=== PATIENT | female | born 1985 | race Two or more races ===

== ENCOUNTER → 2021-02-01 | Outpatient (REF) | payer MEDICARE, MEDICAID | LOC: M SFHCPLAZ 15:22 | DX: E11.40 Type 2 diabetes mellitus with diabetic neuropathy, unspecified (principal) ==

== ENCOUNTER → 2021-02-11 | Outpatient (REF) | payer MEDICARE, MEDICAID ==
[2021-02-11 10:59] LABS: BASO # 0.1 10^3/uL (0.0-0.2); BASO % 0.9 % (0.0-1.0); EOS # 0.2 10^3/uL (0.0-0.5); EOS % 1.5 % (0.0-3.0); HEMATOCRIT 37.6 % (36.0-47.0); HEMOGLOBIN 10.8 g/dl (12.0-15.5); LYMPH # 3.1 10^3/uL (1.5-5.0); LYMPH % 29.4 % (24.0-44.0); MEAN CORPUSCULAR HEMOGLOBIN 20.3 pg (27.0-33.0); MEAN CORPUSCULAR HGB CONC 28.7 g/dl (32.0-36.5); MEAN CORPUSCULAR VOLUME 70.8 fl (80.0-96.0); MONO # 0.6 10^3/uL (0.0-0.8); MONO % 5.2 % (2.0-8.0); NEUTROPHILS # 6.6 10^3/uL (1.5-8.5); NEUTROPHILS % 62.7 % (36.0-66.0); PLATELET COUNT, AUTOMATED 401 10^3/uL (150-450); RED BLOOD COUNT 5.31 10^6/uL (4.00-5.40); WHITE BLOOD COUNT 10.5 10^3/uL (4.0-10.0)
[2021-02-11 13:57] LABS: BLOOD UREA NITROGEN 10 MG/DL (7-18); CARBON DIOXIDE LEVEL 27 MEQ/L (21-32); CHLORIDE LEVEL 106 MEQ/L (98-107); CREATININE FOR GFR 0.84 MG/DL (0.55-1.30); GLOMERULAR FILTRATION RATE > 60.0 (>60); GLUCOSE, FASTING 189 MG/DL (70-100); POTASSIUM SERUM 4.3 MEQ/L (3.5-5.1); SODIUM LEVEL 140 MEQ/L (136-145)
[2021-02-11 13:58] LABS: ALBUMIN 3.7 GM/DL (3.2-5.2); ALT/SGPT 19 U/L (12-78); BILIRUBIN,TOTAL 0.3 MG/DL (0.2-1.0); CALCIUM LEVEL 9.4 MG/DL (8.5-10.1); CHOLESTEROL LEVEL 136 MG/DL (<200); CHOLESTEROL RISK RATIO 4.857 (<5); HDL CHOLESTEROL 28 MG/DL (>40); LDL CHOLESTEROL 89 MG/DL (<100); NON-HDL-C 108 MG/DL; TOTAL PROTEIN 7.2 GM/DL (6.4-8.2); TRIGLYCERIDES LEVEL 96 MG/DL (<150)
[2021-02-11 15:54] LABS: HEMOGLOBIN A1c 10.6 %
== END ==
LOC: M SFHCPLAZ 09:00
DX: E11.40 Type 2 diabetes mellitus with diabetic neuropathy, unspecified (principal); F33.1 Major depressive disorder, recurrent, moderate; F41.8 Other specified anxiety disorders

== ENCOUNTER → 2021-06-11 | Outpatient (CLI) | payer MEDICARE, MEDICAID ==
[2021-06-11 13:14] LABS: FERRITIN 8 NG/ML (8-252); IRON (FE) 40 UG/DL (50-170); PERCENT SATURATION 7.8 % (13.2-45.0); TOTAL IRON BINDING CAPACITY 511 UG/DL (250-450)
[2021-06-11 13:20] LABS: HEPATITIS B SURFACE ANTIBODY POSITIVE (POSITIVE)
[2021-06-11 14:00] LABS: HEP C VIRUS AB INDEX SOURCE PT 0.1 INDEX (0.0-0.8); HIV 1&2 SCREEN CENTAUR NEGATIVE (NEGATIVE)
== END ==
LOC: M PLALAB 11:09
PROVIDERS: ATTEND Student in an Organized Health Care Education/Training Program
DX: E11.40 Type 2 diabetes mellitus with diabetic neuropathy, unspecified (principal); D64.9 Anemia, unspecified

== ENCOUNTER → 2021-06-17 | Outpatient (CLI) | payer MEDICARE, MEDICAID ==
[~2021-06-17] MED LIST: ARIP1TAB6; FLUC100T; FLUO40CA; HUMA100I5; INSULANT; LEVE750T5; NORE5TAB; NYST10OI; OMEP-218
== END ==
LOC: M LABSMTC 09:28
PROVIDERS: ATTEND Anesthesiology
DX: Z01.818 Encounter for other preprocedural examination (principal); Z11.52 Encounter for screening for COVID-19

== ENCOUNTER → 2021-06-19 | Outpatient (CLI) | payer MEDICARE, MEDICAID ==
[2021-06-19 17:15] LABS: BASO # 0.1 10^3/uL (0.0-0.2); BASO % 0.6 % (0.0-1.0); EOS # 0.1 10^3/uL (0.0-0.5); EOS % 1.1 % (0.0-3.0); HEMATOCRIT 37.7 % (36.0-47.0); HEMOGLOBIN 11.9 g/dl (12.0-15.5); LYMPH # 2.8 10^3/uL (1.5-5.0); LYMPH % 31.9 % (24.0-44.0); MEAN CORPUSCULAR HEMOGLOBIN 24.6 pg (27.0-33.0); MEAN CORPUSCULAR HGB CONC 31.6 g/dl (32.0-36.5); MEAN CORPUSCULAR VOLUME 78.1 fl (80.0-96.0); MONO # 0.5 10^3/uL (0.0-0.8); MONO % 6.1 % (2.0-8.0); NEUTROPHILS # 5.2 10^3/uL (1.5-8.5); NEUTROPHILS % 59.8 % (36.0-66.0); PLATELET COUNT, AUTOMATED 328 10^3/uL (150-450); RED BLOOD COUNT 4.83 10^6/uL (4.00-5.40); WHITE BLOOD COUNT 8.7 10^3/uL (4.0-10.0)
[2021-06-19 17:52] LABS: ALBUMIN 2.9 GM/DL (3.2-5.2); ALT/SGPT 22 U/L (12-78); BILIRUBIN,TOTAL 0.2 MG/DL (0.2-1.0); BLOOD UREA NITROGEN 8 MG/DL (7-18); CALCIUM LEVEL 8.6 MG/DL (8.5-10.1); CARBON DIOXIDE LEVEL 26 MEQ/L (21-32); CHLORIDE LEVEL 109 MEQ/L (98-107); CREATININE FOR GFR 1.02 MG/DL (0.55-1.30); FERRITIN 7 NG/ML (8-252); FREE T4 1.19 NG/DL (0.76-1.46); GLOMERULAR FILTRATION RATE > 60.0 (>60); GLUCOSE, FASTING 255 MG/DL (70-100); HEPATITIS B SURFACE ANTIGEN NEGATIVE (NEGATIVE); NT-PRO BNP 44 PG/ML (<125); POTASSIUM SERUM 3.8 MEQ/L (3.5-5.1); SODIUM LEVEL 140 MEQ/L (136-145); THYROID STIMULATING HORMONE 0.396 uIU/ML (0.358-3.740); TOTAL PROTEIN 6.5 GM/DL (6.4-8.2); VITAMIN B12 LEVEL 433 PG/ML (247-911)
[2021-06-19 17:53] LABS: INR 0.98; PROTHROMBIN TIME 13.4 SECONDS (12.7-14.5)
[2021-06-19 17:54] LABS: PARTIAL THROMBOPLASTIN TIME 22.6 SECONDS (25.9-37.0)
== END ==
LOC: M PLALAB 15:28
PROVIDERS: ATTEND Family Medicine
DX: D50.0 Iron deficiency anemia secondary to blood loss (chronic) (principal); E07.9 Disorder of thyroid, unspecified

== ENCOUNTER → 2021-07-09 | Outpatient (CLI) | payer MEDICARE, MEDICAID ==
--- NOTE | 2021-07-09 11:49 | REP ---
INDICATION: PAIN IN RIGHT SHOULDER COMPARISON: None. TECHNIQUE: Three views right shoulder. FINDINGS: There is no evidence of acute fracture, dislocation, or intrinsic bone disease.The joint spaces are unremarkable. IMPRESSION: Negative right shoulder series. <Electronically signed by Stanley Kumar > 07/09/21 [id number]
== END ==
LOC: M PLAIMG 11:02
PROVIDERS: ATTEND Physician Assistant
DX: M25.511 Pain in right shoulder (principal)
CPT/HCPCS: 73030; G0463

== ENCOUNTER → 2021-07-15 | Outpatient (CLI) | payer MEDICARE, MEDICAID ==
[2021-07-15 15:51] LABS: APPEARANCE, URINE CLEAR (CLEAR); BILIRUBIN, URINE AUTO NEGATIVE (NEGATIVE); BLOOD, URINE BLOOD 2+ (NEGATIVE); COLOR, URINE STRAW (YELLOW); GLUCOSE, URINE (UA) AUTO 3+ mg/dL (NEGATIVE); KETONE, URINE AUTO NEGATIVE (NEGATIVE); LEUKOCYTE ESTERASE, URINE AUTO NEGATIVE (NEGATIVE); NITRITE, URINE AUTO NEGATIVE (NEGATIVE); PROTEIN, URINE AUTO NEGATIVE (NEGATIVE); SPECIFIC GRAVITY URINE AUTO 1.032 (1.002-1.035); UROBILINOGEN, URINE AUTO 0.2 mg/dL (0.0-2.0)
[2021-07-15 15:54] LABS: BACTERIA, URINE AUTO NEGATIVE (NEGATIVE); RBC, URINE AUTO 1 /HPF (0-3); SQUAMOUS EPITHELIAL CELL UR AU 1 /HPF (0-6); WBC, URINE AUTO 1 /HPF (0-3)
== END ==
LOC: M PLALAB 14:10
PROVIDERS: ATTEND Obstetrics & Gynecology
DX: R30.0 Dysuria (principal); F33.1 Major depressive disorder, recurrent, moderate; F41.0 Panic disorder [episodic paroxysmal anxiety]

== ENCOUNTER 2021-08-05 09:28 | Outpatient (RCR) | payer MEDICARE, MEDICAID | END 2021-08-25 | LOC: M PT 09:28 | PROVIDERS: ATTEND Orthopaedic Surgery Sports Medicine | DX: S46.011A Strain of muscle(s) and tendon(s) of the rotator cuff of right shoulder, initial encounter (principal); M75.41 Impingement syndrome of right shoulder ==

== ENCOUNTER 2021-09-09 10:31 | Emergency (ER) | payer MEDICARE, MEDICAID ==
[~2021-09-09] VITALS: Ht 157.5 cm; Wt 87.9 kg
--- OUTSIDE RECORDS SUMMARY | 2021-09-09 10:43 | CCD | Continuity of Care Document ---
Author Author Harsh GARCIA DO Organization Unknown Address [address] [place] [address], [facility] [place] [address] Phone [phone] Care Team Providers Care Image Assembler Name Role Phone Gwen Cuellar P.A.-C AUTM Problems Active Problems Provider Date Essential hypertension Sony Garcia DO Onset: 07/16/20 21 Social History Type Date Description Comments Sex Unknown ETOH Use Denies alcohol use Tobacco Use Start: Unknown Non Smoker admits to [employer] marijuana Recreational Drug Use Medical Marijuana Smoking Status Reviewed: 07/16/21 Non Smoker admits to [employer] marijuana Allergies and adverse reactions Active Allergies Criticality Reaction | Severity Comments Date Penicillin V Unable to assess criticality Hives 07/16/2021 Medications Active Medications SIG Qnty Indications Ordering Provide r Date Diclofenac Sodium 1% Gel Apply 2 GMS To Right Shoulder Every 6 Hours Kirill Vo, RKathyPVero Fluconazole 150mg Tablets Take 1 Tablet By Mouth Now. Repeat In 2 Days Hardy Taylor M.D. Lantus 100Unit/ML Solution Administer 80 Units Under The Skin AT Bedtime as Directed Unkn own Humalog Kwikpen 100U nit/ML Solution Pen-Inject Inject 10 Units Under The Skin With Nancy kfast And 10 Units With Lunch Then 14 Un Unknown Levetiracetam 750mg Tablets Take 1 Tablet By Mouth Every 12 Hours Unknown Freestyle Lancets Misc Use as Directed 3 Times Daily Unknown Medroxyprogesterone Acetate 10mg T ablets Take 1 Tablet By Mouth Twice Daily With Food For 10 Days Then Decrease To Once D Earl Velez Immunizations Description No Information Available Vital Signs Date Vital Result Comment 08/30/2021 10:42am Body Temperature 97.3 F 07/16/2021 8:57am Body Temperature 96.1 F Results Description No Information Available Procedures Date Code Description Status 08/30/2021 11530 Office/Outpatient Established Lo w MDM 20-29 Min Completed 07/16/2021 88921 Office/Outpatient New Low MDM 30 -44 Minutes Completed Medical Devices Description No Information Available Encounters Type Date Location Provider Dx Diagnosis Office Visit 08/30/2021 11:00a [facility] Poonam Garcia DO S46.011A Strain of musc/tend the rotator cuff of right shoulder, init M75.41 Impingement syndrome of righ t shoulder Office Visit 07/16/2021 9:00a [facility] Poonam Garcia DO S46.011A Strain of musc/tend the rotator cuff of right shoulder, init M75.41 Impingement syndrome of righ t shoulder Assessments Date Code Description Provider 08/30/2021 S46.011A Strain of muscle(s) and tendon(s) of the rotator cuff of right shoulder, initial encounter Sony Garcia DO 08/30/2021 M75.41 Impingement syndrome of [facility] [facility] Sony Garcia DO 07/16/2021 S46.011A Strain of muscle(s) and tendon(s) of the rotator cuff of right shoulder, initial encounter Sony Garcia DO 07/16/2021 M75.41 Impingement syndrome [facility] [place] [facility] Sony Garcia DO Plan of Treatment No Information Available Functional Status Description No Information Available Mental Status Description No Information Available Referrals Description No Information Available"
--- OUTSIDE RECORDS SUMMARY | 2021-09-09 10:43 | CCD | Continuity of Care Document ---
Author Author Harsh GARCIA DO Organization Unknown Address [address] [place] [address], [facility] [place] [address] Phone [phone] Care Team Providers Care Accountant Tax Name Role Phone Gwen Cuellar P.A.-C AUTM Problems Active Problems Provider Date Essential hypertension Sony Garcia DO Onset: 07/16/20 21 Social History Type Date Description Comments Sex Unknown ETOH Use Denies alcohol use Tobacco Use Start: Unknown Non Smoker admits to [facility] marijuana Recreational Drug Use Medical Marijuana Smoking Status Reviewed: 07/16/21 Non Smoker admits to [employer] marijuana Allergies and adverse reactions Active Allergies [...] Information Available Procedures Date Code Description Status 07/16/2021 76054 Office/Outpatient New Low [facility] 30 -44 Minutes Completed Medical Devices Description No Information Available Encounters Type Date Location Provider Dx Diagnosis Office Visit 07/16/2021 9:00a [facility] Poonam Garcia DO S46.011A Strain of musc/tend the rotator cuff of right shoulder, init M75.41 Impingement syndrome of righ t shoulder Assessments Date Code Description Provider 07/16/2021 S46.011A Strain of muscle(s) and tendon(s) of the rotator cuff of right shoulder, initial encounter Sony Garcia DO 07/16/2021 M75.41 Impingement syndrome of right sh oulder Sony Garcia DO Plan of Treatment No Information Available Functional Status Description No Information Available Mental Status Description No Information Available Referrals Description No Information Available"
--- OUTSIDE RECORDS SUMMARY | 2021-09-09 10:43 | CCD ---
Author Author [facility] Organization [facility] Address Unknown Phone Unavailable Care Team Providers Care Monitor And Storage Bin Tender Name Role Phone Gwen Cuellar Unavailable PROBLEMS Type Condition ICD9-CM Code [id number] Code Onset Dates Condition S tatus W/U Status Risk SNOMED Code Notes Problem Endometriosis N80.9 Active confirmed 041368 003 Problem Hyperlipidemia, unspecified hyperlipidemia type E7 8.5 Active confirmed 65639094 Problem Essential hypertension I10 Active confirmed 99343388 Problem Gastroesophageal reflux disease without esophagitis K21.9 Active confirmed 204477956 Problem Generalized anxiety disorder F41.1 Active confirme d 50436806 Problem Fibromyalgia M79.7 Active confirmed 3367125 05 Problem Panic disorder [episodic paroxysmal anxiety] F41.0 Active confirmed 155201923 Problem Major depressive disorder, recurrent, moderate F33 .1 Active confirmed 824482086 Problem Incontinence in female N39.3 Active confirmed 15403807 Problem Epilepsy seizure, generalized, 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 Active confirmed 26491066 Problem Recurrent candidiasis of vagina B37.3 Active confi rmed 796785243 Problem prison (current) use of insulin Z79.4 Activ e confirmed 541216994 Problem Gastroparesis K31.84 Active confirmed 785262 006 Problem Carpal tunnel syndrome on both sides G56.03 Act william confirmed 60111984496963214 Problem Other chronic pain G89.29 Active confirmed 8 0329990 Problem Dyslipidemia E78.5 Active confirmed 9791256 07 Problem Type 2 diabetes mellitus wit h diabetic neuropathy, without long-term current use of insulin E11.40 Active confirmed 6860295 6 Problem Menorrhagia with irregular cycle N92.1 Active conf irmed 161634519 Problem Iron deficiency anemia due to chronic blood loss D 50.0 Active confirmed 389374880 Problem Mixed hyperlipidemia E78.2 Active confirmed 784622686 Problem Type 2 diabetes mellitus without complications E11 .9 Active confirmed 873062997 ALLERGIES Allergen (clinical drug ingredient) Drug/Non Drug Allergy do cumented on EMR Reaction Allergy Type Onset Date Status oxycodone Oxycodone HCl([facility] Code:[address]-47) Hives Drug Tramaine rgy Active Penicillin (For Allergies Use Only) Hives Drug Allerg y Active ENCOUNTERS from 1985 to 2021-08-19 Encounter Location Date Provider Diagnosis [facility] [address] [facility] [phone] [place] [address] Jun, Gwen Cuellar Pain in right shoulder M25.5 11 and Other chronic pain G89.29 IMMUNIZATIONS No Information SOCIAL HISTORY Tobacco Use: Social History Observation Description Date Details (start date - stop date) Former Smoker Sex Assigned At : Social History Observation Description Sex Assigned At Unknown Education: Question Answer Notes Level of Education: High School Audit Question Answer Notes Total Score: 0 Interpretation: Alcohol Education Language: Question Answer Notes Languages spoken: Romanian Rastafarian: Question Answer Notes Rastafarian 33 None Drug and Alcohol Question Answer Notes Total Score: 0 Interpretation: No problems reported Tobacco Use: Question Answer Notes Are you a: former smoker How long has it been since you last smoked? > 10 years REASON FOR REFERRAL from 1985 to 2021-08-19 Reason chronic right shoulder pain Diagnosis 1 Pain in right shoulder (M25. 511) Referral Organization [facility] Referring Provider First Name Gwen Referring Provider Last Name Alisa Referring Provider Specialty Family Medicine Referred Provider Charlene Umanzor Logan Referred Provider Specialty Orthopedic Surgery Referral Priority Routine Referral Appointment Date 2021-07-16 General Notes Meg Pedersen 07/10/2021 10:15 :23 AM > pt is aware VITAL SIGNS Weight 199 lbs Jun, Weight-kg 90.27 kg Jun, Height 63 in 14 Jun, 2021 BMI 35.25 kg/m2 Jun, Heart Rate 109 /min Jun, Respiratory Rate 18 /min Jun, Temperature 97.7 degrees Fahrenheit Jun, Oximetry 100 Jun, Blood pressure systolic 140 mm Hg Jun, Blood pressure diastolic 94 mm Hg Jun, MEDICATIONS Medication SIG (Take, Route, Frequency, Duration) Notes Start Da te End Date Status Nystatin 566276 UNIT/GM apply to affected vaginal ar ea Externally Twice a day for 10 days Jan, Not-Taking levETIRAcetam 750 MG 1 tablet Orally every 12 hrs Active Mupirocin 2 % apply thin layer to rash on abdomen Externally Three times a day for 7 day(s) Dec, Not-Taking hydroCHLOROthiazide 12.5 MG 1 capsule in the morning Orally Once a da y Active Abilify 5 MG 1 tablet Orally Once a day Active Fluconazole 150 MG 1 tablet Orally now and repeat in 2D for 3 da ys May, Not-Taking Provera 10 MG 1 tablet with food Orally Once a day for 30 day(s) Jul, Active Diflucan 100 MG 1 tablet Orally Once for 1 day(s) Mar, Unknown FreeStyle Kaleigh 14 Day Sensor - as directed Jun, Not-Taking HumaLOG KwikPen 100 UNIT/ML as directed Subcutaneous T hree times daily-10 units with breakfast and lunch & 14 units with dinner Active Omeprazole 20 MG 1 capsule 30 minutes before morning meal Orally On a day Active Voltaren 1 % apply 2 grams to right shoulder Transdermal Q6 h ours for 10 days Jun, Active Ferrous Gluconate 324 (38 Fe) MG 1 tablet with water o r juice between meals Orally Once a day for 30 day(s) Unknown Lantus SoloStar 100 UNIT/ML as directed Subcutaneous Daily 80 un its Apr, Active FreeStyle Kaleigh 14 Day [place] - as directed Jun, Not-Taking PROzac 40 MG 1 capsule Orally Once a day Active Losartan Potassium 100 MG 1 tablet Orally Once a day Active Norethindrone-Eth Estradiol 0.5-35 MG-MCG 1 tablet Orally Once a day Active Valtrex 1 GM 1 tablet Orally TID for 7 day(s) Dec, Not-Taking metFORMIN HCl 1000 MG as directed Orally Twice a day Active Atorvastatin Calcium 20 MG 1 tablet Orally Once a day Active FreeStyle Lancets - as directed Acti ve Ondansetron 4 MG 1 tablet on the tongue and a llow to dissolve Orally Once a day for 30 day(s) Apr, Active Blood Glucose Test - as directed In Vitro Thrice a day for 30 da ys February, Active lamoTRIgine 200 MG 1 tablet Orally Once a day Active PROCEDURES No Information RESULTS No Results REASON FOR VISIT shoulder pain x 3 months MEDICAL (GENERAL) HISTORY Type Description Date Medical History hypertension well controlled with medica tion Medical History insulin-dependent diabetes mellitus last hemoglobin A1c 8.9 Medical History hyperlipidemia Medical History epilepsy on medication Medical History arthritis Medical History endometriosis Medical History Fibromyalgia Surgical History 4 c-sections Hospitalization History above surgeries Hospitalization History childbirth Goals Section No Information Health Concerns No Information MEDICAL EQUIPMENT No Information MENTAL STATUS No Information FUNCTIONAL STATUS No Information ASSESSMENTS Encounter Date Diagnosis Assessment Notes Treatment Notes Treatm ent Clinical Notes Jun, Pain in right shoulder (ICD-10 - M25.511) Will obtain xrays Start Voltaren gel 1% D/C Celebrex Will refer to orthopedics Pt agrees with plan Jun, Other chronic pain (ICD-10 - G89.29) Jun, Other Total time zeynep ng for the patient on the day of the encounter was 20 min PLAN OF TREATMENT Medication Medication Name Sig Start Date Stop Date Provera 10 MG 1 tablet with food Orally Once a day for 30 day( s) Jul, Treatment Notes Assessment Notes Clinical Notes Pain in right shoulder Will obtain xrays Start Voltaren gel 1%D/C CelebrexWill refer to orthopedicsPt agrees with plan Treatment Notes Test Name Order Date PLZ SHOULDER COMPLETE 2021-07-09 Referrals Referral Date Details 2021-07-16 2021-07-16, chronic right sh oulder pain, [facility] Next Appt Details Provider Name:Gricel Tineo, 2021-08-23 0 8:00:00 AM, [address] [place] [address], , [place], [address], Provider Name:Tano Serra, 2021-08-23 10:0 0:00 AM, [address] [place] [address], , [place], [address] Provider Name:Alva Mock, 2 021-11-17 09:30:00 AM, [address] [facility], , [place], [address], Insurance Providers Payer Name Payer Address Payer Phone Insured Name Patient Relati onship to Insured Coverage Start Date Coverage End Date MEDICARE Part A and B [address] [facility] [id number] [phone] ERLIN ROJAS MEDICAID [employer] [address] [facility] [address] ERLIN ROJAS self
--- OUTSIDE RECORDS SUMMARY | 2021-09-09 10:43 | CCD ---
Author Author [facility] Organization [facility] Address Unknown Phone Unavailable Care Team Providers Care Funeral Home Director Name Role Phone Tano Serra Unavailable PROBLEMS Type Condition ICD9-CM Code [id number] Code Onset Dates Condition S tatus W/U Status Risk SNOMED Code Notes Problem Endometriosis N80.9 Active confirmed 236646 003 Problem Hyperlipidemia, unspecified hyperlipidemia type E7 8.5 Active confirmed 13714572 Problem Essential hypertension I10 Active confirmed 04137224 Problem Gastroesophageal reflux disease without esophagitis K21.9 Active confirmed 577621511 Problem Generalized anxiety disorder F41.1 Active confirme d 99223958 Problem Fibromyalgia M79.7 Active confirmed 2033702 05 Problem Panic disorder [episodic paroxysmal anxiety] F41.0 Active confirmed 369420463 Problem Major depressive disorder, recurrent, moderate F33 .1 Active confirmed 253455629 Problem Incontinence in female N39.3 Active confirmed 05989404 Problem Epilepsy seizure, generalized, 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 Active confirmed 51538773 Problem Recurrent candidiasis of vagina B37.3 Active confi rmed 886914020 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.4 Activ e confirmed 613669622 Problem Gastroparesis K31.84 Active confirmed 140847 006 Problem Carpal tunnel syndrome on both sides G56.03 Act william confirmed 54512940905551209 Problem Other chronic pain G89.29 Active confirmed 8 7077711 Problem Dyslipidemia E78.5 Active confirmed 3011640 07 Problem Type 2 diabetes mellitus wit h diabetic neuropathy, without long-term current use of insulin E11.40 Active confirmed 5244543 6 Problem Menorrhagia with irregular cycle N92.1 Active conf irmed 333778258 Problem Iron deficiency anemia due to chronic blood loss D 50.0 Active confirmed 984996316 Problem Mixed hyperlipidemia E78.2 Active confirmed 763122051 Problem Type 2 diabetes mellitus without complications E11 .9 Active confirmed 696476797 ALLERGIES Allergen (clinical drug ingredient) Drug/Non Drug Allergy do cumented on EMR Reaction Allergy Type Onset Date Status oxycodone Oxycodone HCl([facility] Code:[address]-74) Hives Drug Tramaine rgy Active Penicillin (For Allergies Use Only) Hives Drug Allerg y Active ENCOUNTERS from 1985 to 2021-09-06 Encounter Location Date Provider Diagnosis [facility] [address] [facility] [phone] [place] [address] Aug, Tano Serra Major depressive disorder, r ecurrent, moderate F33.1 ; Generalized anxiety disorder F41.1 and Panic disorder [episodic paroxysmal anxiety] F41.0 IMMUNIZATIONS No Information SOCIAL HISTORY Tobacco Use: Social History Observation Description Date Details (start date - stop date) Former Smoker Sex Assigned At : Social History Observation Description Sex Assigned At Unknown Education: Question Answer Notes Level of Education: High School Audit Question Answer Notes Total Score: 0 Interpretation: Alcohol Education Language: Question Answer Notes Languages spoken: South Sudanese Caodaism: Question Answer Notes Caodaism 33 None Drug and Alcohol Question Answer Notes Total Score: 0 Interpretation: No problems reported Tobacco Use: Question Answer Notes Are you a: former smoker How long has it been since you last smoked? > 10 years REASON FOR REFERRAL No Information VITAL SIGNS No information MEDICATIONS Medication SIG (Take, Route, Frequency, Duration) Notes Start Da te End Date Status hydroCHLOROthiazide 12.5 MG 1 capsule in the morning Orally Once a da y Active Valtrex 1 GM 1 tablet Orally TID for 7 day(s) Dec, Not-Taking Losartan Potassium 100 MG 1 tablet Orally Once a day Active FreeStyle Kaleigh 14 Day [place] - as directed Jun, Not-Taking PROzac 40 MG 1 capsule Orally Once a day Active FreeStyle Kaleigh 14 Day Sensor - as directed Jun, Not-Taking Abilify 5 MG 1 tablet Orally Once a day Active Provera 10 MG 1 tablet with food Orally Once a day for 30 day(s) Jul, Active HumaLOG KwikPen 100 UNIT/ML as directed Subcutaneous T hree times daily-10 units with breakfast and lunch & 14 units with dinner Active Fluconazole 150 MG 1 tablet Orally now and repeat in 2D for 3 da ys May, Not-Taking Nystatin 749010 UNIT/GM apply to affected vaginal ar ea Externally Twice a day for 10 days Jan, Not-Taking FreeStyle Lancets - as directed Acti ve Atorvastatin Calcium 20 MG 1 tablet Orally Once a day Active Lantus SoloStar 100 UNIT/ML as directed Subcutaneous Daily 80 un its Apr, Active medroxyPROGESTERone Acetate 10 MG 1 tablet with food O rally twice a day for 10 days, than once a day for 30 day(s) Jul, Active Ondansetron 4 MG 1 tablet on the tongue and a llow to dissolve Orally Once a day for 30 day(s) Apr, Active Voltaren 1 % apply 2 grams to right shoulder Transdermal Q6 h ours for 10 days Jun, Active metFORMIN HCl 1000 MG as directed Orally Twice a day Active levETIRAcetam 750 MG 1 tablet Orally every 12 hrs Active Mupirocin 2 % apply thin layer to rash on abdomen Externally Three times a day for 7 day(s) Dec, Not-Taking lamoTRIgine 200 MG 1 tablet Orally Once a day Active Blood Glucose Test - as directed In Vitro Thrice a day for 30 da ys February, Active Diflucan 100 MG 1 tablet Orally Once for 1 day(s) Mar, Not-Taking Ferrous Gluconate 324 (38 Fe) MG 1 tablet with water o r juice between meals Orally Once a day for 30 day(s) Not-Taking Norethindrone-Eth Estradiol 0.5-35 MG-MCG 1 tablet Orally Once a day Active Omeprazole 20 MG 1 capsule 30 minutes before morning meal Orally On ce a day Active PROCEDURES No Information RESULTS No Results REASON FOR VISIT TS FOLLOW UP MEDICAL (GENERAL) HISTORY Type Description Date Medical [...] Notes Treatment Notes Treatm ent Clinical Notes Aug, Major depressive disorder, recurrent, moderate ( ICD-10 - F33.1) Aug, Generalized anxiety disorder (ICD-10 - F41.1) Utilized Mindfulness Based Therapy tapping grounding technique for decreasing her symptoms of anxiety. Erlin arrived on time for her appoint and actively engaged throughout her session. Erlin was responsive to the Mindfulness Based Therapy tapping grounding intervention for decreasing her symptoms of anxiety. Erlin reports that she has been anxious about upcoming Holidays. Erlin agreed to utilize the technique that we reviewed and will return for psychotherapy on 09/26/2021. Erlin is aware to call for a sooner appointment if needed and to utilize the ED for MH emergencies. Aug, Panic disorder [episodic paroxysmal anxiety] (IC D-10 - F41.0) PLAN OF TREATMENT Medication Medication Name Sig Start Date Stop Date medroxyPROGESTERone Acetate 10 MG 1 tablet with food O rally twice a day for 10 days, than once a day for 30 day(s) Jul, Treatment Notes Assessment Notes Clinical Notes Generalized anxiety disorder Utilized Mi ndfulness Based Therapy tapping grounding technique for decreasing her symptoms of anxiety. Erlin arrived on time for her appoint and actively engaged throughout her session. Erlin was r esponsive to the Mindfulness Based Therapy tapping grounding intervention for decreasing her symptoms of anxiety. Erlin reports that she has been anxious about upcoming Holidays. Erlin agreed to utilize the technique that we reviewed and will return for psychotherapy on 09/26/2021. Erlin is aware to call for a sooner appointment if needed and to utilize the ED for MH emergencies. Next Appt Details Provider Name:Alva Mock, 2 09:30:00 AM, [address] [facility], , [place], [address], Provider Name:Tano Serra, 2021-09-26 10:0 0:00 AM, [address] [facility], , [place], [address] Insurance Providers Payer Name Payer Address Payer Phone Insured Name Patient Relati onship to Insured Coverage Start Date Coverage End Date MEDICARE Part A and [address] [facility] [id number] [phone] ERLIN ROJAS self MEDICAID [employer] [address] [place] [id number] ERLIN ROJAS self
--- OUTSIDE RECORDS SUMMARY | 2021-09-09 10:43 | CCD ---
Author Author [facility] Organization [facility] Address Unknown Phone Unavailable Care Team Providers Care Group Exercise Instructor Name Role Phone Tano Serra Unavailable PROBLEMS Type Condition ICD9-CM Code [id number] Code Onset Dates Condition S tatus W/U Status Risk SNOMED Code Notes Problem Endometriosis N80.9 Active confirmed 422213 003 Problem Hyperlipidemia, unspecified hyperlipidemia type E7 8.5 Active confirmed 09730221 Problem Essential hypertension I10 Active confirmed 34679617 Problem Gastroesophageal reflux disease without esophagitis K21.9 Active confirmed 349910645 Problem Generalized anxiety disorder F41.1 Active confirme d 69104842 Problem Fibromyalgia M79.7 Active confirmed 8967181 05 Problem Panic disorder [episodic paroxysmal anxiety] F41.0 Active confirmed 563850695 Problem Major depressive disorder, recurrent, moderate F33 .1 Active confirmed 957115656 Problem Incontinence in female N39.3 Active confirmed 39599143 Problem Epilepsy seizure, generalized, 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 Active confirmed 54628245 Problem Recurrent candidiasis of vagina B37.3 Active confi rmed 557473638 Problem 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.4 Activ e confirmed 949421277 Problem Gastroparesis K31.84 Active confirmed 127855 006 Problem Carpal tunnel syndrome on both sides G56.03 Act william confirmed [id number] Problem Other chronic pain G89.29 Active confirmed 8 2753552 Problem Dyslipidemia E78.5 Active confirmed 0401640 07 Problem Type 2 diabetes mellitus wit h diabetic neuropathy, without long-term current use of insulin E11.40 Active confirmed 4893071 6 Problem Menorrhagia with irregular cycle N92.1 Active conf irmed 415069793 Problem Iron deficiency anemia due to chronic blood loss D 50.0 Active confirmed 868355249 Problem Mixed hyperlipidemia E78.2 Active confirmed 763618787 Problem Type 2 diabetes mellitus without complications E11 .9 Active confirmed 847647846 ALLERGIES Allergen (clinical drug ingredient) Drug/Non Drug Allergy do cumented on EMR Reaction Allergy Type Onset Date Status oxycodone Oxycodone HCl([facility] Code:[address]-89) Hives Drug Tramaine rgy Active Penicillin (For Allergies Use Only) Hives Drug Allerg y Active ENCOUNTERS from 1985 to 2021-09-03 Encounter Location Date Provider Diagnosis [facility] [address] [facility] [phone] [place] [address] Jul, Tano Serra Major depressive disorder, r ecurrent, [...] Education Language: Question Answer Notes Languages spoken: Azerbaijani Church: Question Answer Notes Church 33 None Drug and Alcohol Question Answer [...] a day Active FreeStyle Kaleigh 14 Day [place] - as directed Jun, Not-Taking PROzac 40 [...] for 3 da ys May, Not-Taking Nystatin 855795 UNIT/GM apply to affected vaginal ar ea [...] Notes Treatment Notes Treatm ent Clinical Notes Jul, Major depressive disorder, recurrent, moderate ( ICD-10 - F33.1) Jul, Generalized anxiety disorder (ICD-10 - F41.1) Utilized Mindfulness Based Therapy technique for decreasing her symptoms of anxiety. Erlin arrived on time for her appoint and actively engaged throughout her session. Erlin was responsive to the Mindfulness Based Therapy intervention for decreasing her symptoms of anxiety. Erlin reports feeling anxiety about faminy issues. Erlin agreed to utilize the technique that we reviewed and will return for psychotherapy on 09/05/2021. Erlin is aware to call for a sooner appointment if needed and to utilize the ED for MH emergencies. Jul, Panic disorder [episodic paroxysmal anxiety] (IC D-10 - F41.0) PLAN OF TREATMENT Medication Medication Name Sig Start Date Stop Date medroxyPROGESTERone Acetate 10 MG 1 tablet with food O rally twice a day for 10 days, than once a day for 30 day(s) Jul, Treatment Notes Assessment Notes Clinical Notes Generalized anxiety disorder Utilized Mi ndfulness Based Therapy technique for decreasing her symptoms of anxiety. Erlin arrived on time for her appoint and actively engaged throughout her session. Erlin was responsive to the Mind fulness Based Therapy intervention for decreasing her symptoms of anxiety. Erlin reports feeling anxiety about faminy issues. Erlin agreed to utilize the technique that we reviewed and will return for psychotherapy on 09/05/2021. Erlin is aware to call for a sooner appointment if needed and to utilize the ED for MH emergencies. Next Appt Details Provider Name:Tano Serra, 2021-09-05 09:0 0:00 AM, [address] [facility], , [place], [address] Provider Name:Alva Mock, 2 09:30:00 AM, [address] [facility], , [place], [address], Insurance Providers Payer Name Payer Address Payer Phone Insured Name Patient Relati onship to Insured Coverage Start Date Coverage End Date MEDICARE Part A and B [address] [facility] [id number] [phone] [place] Joiner A self MEDICAID [employer] [address] [facility] [id number] ERLIN ROJAS self
--- OUTSIDE RECORDS SUMMARY | 2021-09-09 10:44 | CCD ---
Author Author [facility] Organization [facility] Address Unknown Phone Unavailable Care Team Providers Care Production Line Name Role Phone Wil Tellez Unavailable PROBLEMS Type Condition ICD9-CM Code [id number] Code Onset Dates Condition S tatus W/U Status Risk SNOMED Code Notes Problem Gastroesophageal reflux disease without esophagitis K21.9 Active confirmed 551831093 Problem Endometriosis N80.9 Active confirmed 182091 003 Problem Fibromyalgia M79.7 Active confirmed 0011944 05 Problem Essential hypertension I10 Active confirmed 00532490 Problem Type 2 diabetes mellitus wit h diabetic neuropathy, without long-term current use of insulin E11.40 Active confirmed 6958097 6 Problem Carpal tunnel syndrome on both sides G56.03 Act william confirmed 91010844496846055 Problem Generalized anxiety disorder F41.1 Active confirme d 54787566 Problem Major depressive disorder, recurrent, moderate F33 .1 Active confirmed 282381312 Problem Gastroparesis K31.84 Active confirmed 531949 006 Problem Iron deficiency anemia due to chronic blood loss D 50.0 Active confirmed 790894777 Problem Panic disorder [episodic paroxysmal anxiety] F41.0 Active confirmed 859636274 Problem Mixed hyperlipidemia E78.2 Active confirmed 306847054 Problem Hyperlipidemia, unspecified hyperlipidemia type E7 8.5 Active confirmed 45866533 Problem Dyslipidemia E78.5 Active confirmed 5706070 07 Problem Epilepsy seizure, generalized, 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 Active confirmed 81113209 Problem Recurrent candidiasis of vagina B37.3 Active confi rmed 517777498 Problem Menorrhagia with irregular cycle N92.1 Active conf irmed 159820203 ALLERGIES Allergen (clinical drug ingredient) Drug/Non Drug Allergy do cumented on EMR Reaction Allergy Type Onset Date Status seasonal Unknown Non Drug Allergy Active oxycodone Oxycodone HCl([facility] Code:[address]-67) Hives Drug Tramaine rgy Active Penicillin (For Allergies Use Only) Hives Drug Allerg y Active ENCOUNTERS from 1985 to 2021-06-26 Encounter Location Date Provider Diagnosis [place] [address] [facility] [phone] [place] [address] [facility] IMMUNIZATIONS No Information SOCIAL HISTORY Tobacco Use: Social History Observation Description Date Details (start date - stop date) Former Smoker Sex Assigned At : Social History Observation Description Sex Assigned At Unknown Education: Question Answer Notes Level of Education: High School Audit Question Answer Notes Total Score: 0 Interpretation: Alcohol Education Language: Question Answer Notes Languages spoken: Turkish Yazidi: Question Answer Notes Yazidi 33 None Drug and Alcohol Question Answer Notes Total Score: 0 Interpretation: No problems reported Tobacco Use: Question Answer Notes Are you a: former smoker How long has it been since you last smoked? > 10 years REASON FOR REFERRAL No Information VITAL SIGNS No information MEDICATIONS Medication SIG (Take, Route, Frequency, Duration) Notes Start Da te End Date Status Mupirocin 2 % apply thin layer to rash on abdomen Externally Three times a day for 7 day(s) Dec, Active FreeStyle Lancets - as directed Acti ve Valtrex 1 GM 1 tablet Orally TID for 7 day(s) Dec, Active Atorvastatin Calcium 20 MG 1 tablet Orally Once a day Active metFORMIN HCl 1000 MG as directed Orally Twice a day Active Celecoxib 100 MG 1 capsule with food Orally Twice a day Active Lantus SoloStar 100 UNIT/ML as directed Subcutaneous Daily 80 un its Apr, Active Abilify 5 MG 1 tablet Orally Once a day Active Blood Glucose Test - as directed In Vitro Thrice a day for 30 da ys February, Active PROzac 40 MG 1 capsule Orally Once a day Active levETIRAcetam 750 MG 1 tablet Orally every 12 hrs Active Fluconazole 150 MG 1 tablet Orally now and repeat in 2D for 3 da ys May, Active Omeprazole 20 MG 1 capsule 30 minutes before morning meal Orally On ce a day Active hydroCHLOROthiazide 12.5 MG 1 capsule in the morning Orally Once a da y Active Norethindrone-Eth Estradiol 0.5-35 MG-MCG 1 tablet Orally Once a day Active lamoTRIgine 200 MG 1 tablet Orally Once a day Active Nystatin 356397 UNIT/GM apply to affected vaginal ar ea Externally Twice a day for 10 days Jan, Active Ferrous Gluconate 324 (38 Fe) MG 1 tablet with water o r juice between meals Orally Once a day for 30 day(s) Unknown Diflucan 100 MG 1 tablet Orally Once for 1 day(s) Mar, Unknown Losartan Potassium 100 MG 1 tablet Orally Once a day Active Ondansetron 4 MG 1 tablet on the tongue and a llow to dissolve Orally Once a day for 30 day(s) Apr, Active HumaLOG KwikPen 100 UNIT/ML as directed Subcutaneous 1 0 units, 10 units, 14 units at breakfast lunch and dinner respectively Active PROCEDURES No Information RESULTS No Results REASON FOR VISIT DME MEDICAL (GENERAL) HISTORY Type Description Date Medical [...] No Information FUNCTIONAL STATUS No Information ASSESSMENTS No Information PLAN OF TREATMENT Medication Medication Name Sig Start Date Stop Date PROzac 40 MG 1 capsule Orally Once a day Losartan Potassium 100 MG 1 tablet Orally Once a day Celecoxib 100 MG 1 capsule with food Orally Twice a day Abilify 5 MG 1 tablet Orally Once a day hydroCHLOROthiazide 12.5 MG 1 capsule in the morning Orally Once a day levETIRAcetam 750 MG 1 tablet Orally every 12 hrs lamoTRIgine 200 MG 1 tablet Orally Once a day Omeprazole 20 MG 1 capsule 30 minutes before morning meal Orally Once a day Fluconazole 150 MG 1 tablet Orally now and repeat in 2D for 3 da ys May, Atorvastatin Calcium 20 MG 1 tablet Orally Once a day HumaLOG KwikPen 100 UNIT/ML as directed Subcutaneous 1 0 units, 10 units, 14 units at breakfast lunch and dinner respectively Lantus SoloStar 100 UNIT/ML as directed Subcutaneous Daily 8 0 units Apr, metFORMIN HCl 1000 MG as directed Orally Twice a day Norethindrone-Eth Estradiol 0.5-35 MG-MCG 1 tablet Orally Once a day Next Appt Details Provider Name:Ant Gauthier, 2021-06-26 0 9:30:00 AM, [address] [place] [address], , [place], [address], Provider Name:Tano Serra, 2021-07-02 01:0 0:00 PM, [address] [place] [address], , [place], [address] Provider Name:De La Torre Rosalinda, 2021-07-16 02: 00:00 PM, [address] [place] [address], , [place], [address], Provider Name:Gricel Tineo, 2021-08-02 0 8:20:00 AM, [address] [place] [address], , [place], [address], Insurance Providers Payer Name Payer Address Payer Phone Insured Name Patient Relati onship to Insured Coverage Start Date Coverage End Date MEDICARE Part A and B [address] [facility] [id number] [phone] ERLIN ROJAS MEDICAID [employer] [address] [facility] [address] ERLIN ROJAS self
--- OUTSIDE RECORDS SUMMARY | 2021-09-09 10:44 | CCD ---
Author Author [facility] Organization [facility] Address Unknown Phone Unavailable Care Team Providers Care Body Former Name Role Phone Ant Gauthier Unavailable PROBLEMS Type Condition ICD9-CM Code [id number] Code Onset Dates Condition S tatus W/U Status Risk SNOMED Code Notes Problem Type 2 diabetes mellitus wit h diabetic neuropathy, without long-term current use of insulin E11.40 Active confirmed 8256225 6 Problem Carpal tunnel syndrome on both sides G56.03 Act william confirmed [id number] Problem Endometriosis N80.9 Active confirmed 928883 003 Problem Hyperlipidemia, unspecified hyperlipidemia type E7 8.5 Active confirmed 64768528 Problem Essential hypertension I10 Active confirmed 74376659 Problem Gastroesophageal reflux disease without esophagitis K21.9 Active confirmed 826446958 Problem Panic disorder [episodic paroxysmal anxiety] F41.0 Active confirmed 638596562 Problem Fibromyalgia M79.7 Active confirmed 1323099 05 Problem Gastroparesis K31.84 Active confirmed 776547 006 Problem Dyslipidemia E78.5 Active confirmed 7938468 07 Problem Epilepsy seizure, generalized, 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 Active confirmed 48093511 Problem [facility] (current) use of insulin Z79.4 Activ e confirmed 662563031 Problem Major depressive disorder, recurrent, moderate F33 .1 Active confirmed 372572189 Problem Type 2 diabetes mellitus without complications E11 .9 Active confirmed 693770954 Problem Generalized anxiety disorder F41.1 Active confirme d 13236123 Problem Recurrent candidiasis of vagina B37.3 Active confi rmed 327884665 Problem Menorrhagia with irregular cycle N92.1 Active conf irmed 123393266 Problem Iron deficiency anemia due to chronic blood loss D 50.0 Active confirmed 112693309 Problem Mixed hyperlipidemia E78.2 Active confirmed 305097448 ALLERGIES Allergen (clinical drug ingredient) Drug/Non Drug Allergy do cumented on EMR Reaction Allergy Type Onset Date Status seasonal Unknown Non Drug Allergy Active oxycodone Oxycodone HCl([facility] Code:[address]-97) Hives Drug Tramaine rgy Active Penicillin (For Allergies Use Only) Hives Drug Allerg y Active ENCOUNTERS from 1985 to 2021-06-26 Encounter Location Date Provider Diagnosis [facility] Resident [address] [facility] [address] [phone] [place] [address] Jun, Ant Gauthier Type 2 diabetes rosa itus without complications E11.9 and [facility] (current) use of insulin Z79.4 IMMUNIZATIONS No Information SOCIAL HISTORY Tobacco Use: Social History Observation Description Date Details (start date - stop date) Former Smoker Sex Assigned At : Social History Observation Description Sex Assigned At Unknown Education: Question Answer Notes Level of Education: High School Audit Question Answer Notes Total Score: 0 Interpretation: Alcohol Education Language: Question Answer Notes Languages spoken: Greenlandic Baptist: Question Answer Notes Baptist 33 None Drug and Alcohol Question Answer Notes Total Score: 0 Interpretation: No problems reported Tobacco Use: Question Answer Notes Are you a: former smoker How long has it been since you last smoked? > 10 years REASON FOR REFERRAL No Information VITAL SIGNS Weight 197.6 lbs Jun, Height 63 in Jun, BMI 35.00 kg/m2 Jun, Heart Rate 96 /min Jun, Respiratory Rate 18 /min Jun, Temperature 98.2 degrees Fahrenheit Jun, Oximetry 97% Jun, Blood pressure systolic 132 mm Hg Jun, Blood pressure diastolic 86 mm Hg Jun, MEDICATIONS Medication SIG (Take, Route, Frequency, Duration) Notes Start Da te End Date Status Celecoxib 100 MG 1 capsule with food Orally Twice a day Active Ferrous Gluconate 324 (38 Fe) MG 1 tablet with water o r juice between meals Orally Once a day for 30 day(s) Unknown metFORMIN HCl 1000 MG as directed Orally Twice a day Active Valtrex 1 GM 1 tablet Orally TID for 7 day(s) Dec, Not-Taking Losartan Potassium 100 MG 1 tablet Orally Once a day Active Abilify 5 MG 1 tablet Orally Once a day Active Lantus SoloStar 100 UNIT/ML as directed Subcutaneous Daily 80 un its Apr, Active Omeprazole 20 MG 1 capsule 30 minutes before morning meal Orally On ce a day Active Atorvastatin Calcium 20 MG 1 tablet Orally Once a day Active Norethindrone-Eth Estradiol 0.5-35 MG-MCG 1 tablet Orally Once a day Active levETIRAcetam 750 MG 1 tablet Orally every 12 hrs Active lamoTRIgine 200 MG 1 tablet Orally Once a day Active Diflucan 100 MG 1 tablet Orally Once for 1 day(s) Mar, Unknown Ondansetron 4 MG 1 tablet on the tongue and a llow to dissolve Orally Once a day for 30 day(s) Apr, Active Fluconazole 150 MG 1 tablet Orally now and repeat in 2D for 3 da ys May, Not-Taking HumaLOG KwikPen 100 UNIT/ML as directed Subcutaneous T hree times daily-10 units with breakfast and lunch & 14 units with dinner Active PROzac 40 MG 1 capsule Orally Once a day Active hydroCHLOROthiazide 12.5 MG 1 capsule in the morning Orally Once a da y Active FreeStyle Lancets - as directed Acti ve Nystatin 289967 UNIT/GM apply to affected vaginal ar ea Externally Twice a day for 10 days Jan, Not-Taking Mupirocin 2 % apply thin layer to rash on abdomen Externally Three times a day for 7 day(s) Dec, Not-Taking FreeStyle Kaleigh 14 Day Golf - as directed Jun, Active FreeStyle Kaleigh 14 Day Sensor - as directed Jun, Active Blood Glucose Test - as directed In Vitro Thrice a day for 30 da ys February, Active PROCEDURES No Information RESULTS No Results REASON FOR VISIT glycemic optimization- need urgent follow up per Dr Taylor Her surgery was cancel led for now b/c her diabetes is very poorly controlled MEDICAL (GENERAL) HISTORY Type Description Date Medical [...] Treatment Notes Treatm ent Clinical Notes Jun, Type 2 diabetes mellitus without complications ( ICD-10 - E11.9) Patient is a insulin-dependent type 2 diabetic noncompliant with insulin and Metformin. Patient is on 1000 mg of Metformin twice daily and 80 units of Lantus and 10 units of Humalog 3 times daily and was instructed to keep a log of her fasting blood sugars at least 8 times daily. Patient is noncompliant with keeping logs of her blood sugars and forgot to bring in a log of her readings from her freestyle kaleigh that she received from Dr. Taylor last week. At this point there really is no change in titration of her insulin due to noncompliance. I have advised her extensively today to keep a log of her blood sugars forcing the morning before she eats and before every meal and once again before bedtime and to bring the log again with her along with readings from her for freestyle kaleigh at the next appointment so that we can try and titrate her insulin and/or other medications. Patient currently is at 80 units of Lantus which is quite high and I have advised her of watching for signs of hypoglycemia especially if patient is to be compliant with taking her insulin as prescribed. I have advised her on the importance of compliance with her medications as chronically uncontrolled diabetes can lead to heart diseases and kidney failure. Patient seems to understand the magnitude of the situation however she states that she does not like pricking her fingers to check the blood sugars however she is willing to try and keep a log to bring in at the next appointment. I have done a diabetic foot exam and she has a low risk of neuropathy at this time with preserved motor and sensory functions. 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 See assessment plan above. PLAN OF TREATMENT Medication Medication Name Sig Start Date Stop Date FreeStyle Kaleigh 14 Day Sensor - as directed Jun, FreeStyle Kaleigh 14 Day Golf - as directed Jun, Treatment Notes Assessment Notes Clinical Notes Type 2 diabetes mellitus without complications Patient is a insulin-dependent type 2 diabetic noncompliant with insulin and Metformin. Patient is on 1000 mg of Metformin twice daily and 80 units of Lantus and 10 units of Humalog 3 times daily and was instructed to keep a log of her fasting blood sugars at least 8 times daily. Patient is noncompliant with keeping logs of her blood sugars and forgot to bring in a log of her readings from her freestyle kaleigh that she received from Dr. Taylor last week. At this point there really is no change in titration of her insulin due to noncompliance. I have advised her extensively today to keep a log of her blood sugars forcing the morning before she eats and before every meal and once again before bedtime and to bring the log again with her along with readings from her for freestyle kaleigh at the next appointment so that we can try and titrate her insulin and/or other medications. Patient currently is at 80 units of Lantus which is quite high and I have advised her of watching for signs of hypoglycemia especially if patient is to be compliant with taking her insulin as prescribed. I have advised her on the importance of compliance with her medications as chronically uncontrolled diabetes can lead to heart diseases and kidney failure. Patient seems to understand the magnitude of the situation however she states that she does not like pricking her fingers to check the blood sugars however she is willing to try and keep a log to bring in at the next appointment. I have done a diabetic foot exam and she has a low risk of neuropathy at this time with preserved motor and sensory functions. 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 See assessment plan above. Next Appt Details Provider Name:Tano Serra, 2021-07-02 01:0 0:00 PM, [address] [place] [address] , [place], [address] Provider Name:Wil Tellez, 2021-07-16 02: 00:00 PM, [address] [place] [address], , [place], [place], [id number], Provider Name:Gricel Tineo, 2021-08-02 0 8:20:00 AM, [address] [place] [address] , [place], [address], Insurance Providers Payer Name Payer Address Payer Phone Insured Name Patient Relati onship to Insured Coverage Start Date Coverage End Date MEDICARE Part A and B [address] [facility] [phone] ERLIN ROJAS MEDICAID [employer] [address] [facility] [id number] ERLIN ROJAS self
--- OUTSIDE RECORDS SUMMARY | 2021-09-09 10:44 | CCD ---
Author Author [facility] Organization [facility] Address Unknown Phone Unavailable Care Team Providers Care Lifeline Representatives Name Role Phone Tano Serra Unavailable PROBLEMS Type Condition ICD9-CM Code [id number] Code Onset Dates Condition S tatus W/U Status Risk SNOMED Code Notes Problem Hyperlipidemia, unspecified hyperlipidemia type E7 8.5 Active confirmed 82217617 Problem Type 2 diabetes mellitus wit h diabetic neuropathy, without long-term current use of insulin E11.40 Active confirmed 6181135 6 Problem Gastroesophageal reflux disease without esophagitis K21.9 Active confirmed 870014642 Problem Endometriosis N80.9 Active confirmed 068992 003 Problem Fibromyalgia M79.7 Active confirmed 0064580 05 Problem Essential hypertension I10 Active confirmed 19225579 Problem Generalized anxiety disorder F41.1 Active confirme d 30669081 Problem Panic disorder [episodic paroxysmal anxiety] F41.0 Active confirmed 819546186 Problem Dyslipidemia E78.5 Active confirmed 4163435 07 Problem Epilepsy seizure, generalized, 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 Active confirmed 58498189 Problem Recurrent candidiasis of vagina B37.3 Active confi rmed 955533887 Problem snf (current) use of insulin Z79.4 Activ e confirmed 622337699 Problem Gastroparesis K31.84 Active confirmed 835925 006 Problem Other chronic pain G89.29 Active confirmed 8 3161138 Problem Major depressive disorder, recurrent, moderate F33 .1 Active confirmed 953600230 Problem Carpal tunnel syndrome on both sides G56.03 Act william confirmed [id number] Problem Menorrhagia with irregular cycle N92.1 Active conf irmed 758481024 Problem Iron deficiency anemia due to chronic blood loss D 50.0 Active confirmed 869529968 Problem Mixed hyperlipidemia E78.2 Active confirmed 155335151 Problem Type 2 diabetes mellitus without complications E11 .9 Active confirmed 074640944 ALLERGIES Allergen (clinical drug ingredient) Drug/Non Drug Allergy do cumented on EMR Reaction Allergy Type Onset Date Status oxycodone Oxycodone HCl([facility] Code:[address]-01) Hives Drug Tramaine rgy Active Penicillin (For Allergies Use Only) Hives Drug Allerg y Active ENCOUNTERS from 1985 to 2021-07-17 Encounter Location Date Provider Diagnosis [address] [phone] [place] [address] Jun, Tano Serra Major depressive disorder, r ecurrent, [...] Education Language: Question Answer Notes Languages spoken: Serbian Congregation: Question Answer Notes Congregation 33 None Drug and Alcohol Question Answer Notes Total Score: 0 Interpretation: No problems reported Tobacco Use: Question Answer Notes Are you a: former smoker How long has it been since you last smoked? > 10 years REASON FOR REFERRAL No Information VITAL SIGNS No information MEDICATIONS Medication SIG (Take, Route, Frequency, Duration) Notes Start Da te End Date Status Ondansetron 4 MG 1 tablet on the tongue and a llow to dissolve Orally Once a day for 30 day(s) Apr, Active FreeStyle Kaleigh 14 Day [place] - as directed Jun, Active Ferrous Gluconate 324 (38 Fe) MG 1 tablet with water o r juice between meals Orally Once a day for 30 day(s) Unknown Mupirocin 2 % apply thin layer to rash on abdomen Externally Three times a day for 7 day(s) Dec, Not-Taking Atorvastatin Calcium 20 MG 1 tablet Orally Once a day Active metFORMIN HCl 1000 MG as directed Orally Twice a day Active Nystatin 572394 UNIT/GM apply to affected vaginal ar ea Externally Twice a day for 10 days Jan, Not-Taking Losartan Potassium 100 MG 1 tablet Orally Once a day Active Fluconazole 150 MG 1 tablet Orally now and repeat in 2D for 3 da ys May, Not-Taking lamoTRIgine 200 MG 1 tablet Orally Once a day Active FreeStyle Kaleigh 14 Day [place] - as directed Jun, Active HumaLOG KwikPen 100 UNIT/ML as directed Subcutaneous T hree times daily-10 units with breakfast and lunch & 14 units with dinner Active Omeprazole 20 MG 1 capsule 30 minutes before morning meal Orally On ce a day Active Abilify 5 MG 1 tablet Orally Once a day Active Lantus SoloStar 100 UNIT/ML as directed Subcutaneous Daily 80 un its Apr, Active PROzac 40 MG 1 capsule Orally Once a day Active Valtrex 1 GM 1 tablet Orally TID for 7 day(s) Dec, Not-Taking hydroCHLOROthiazide 12.5 MG 1 capsule in the morning Orally Once a da y Active Diflucan 100 MG 1 tablet Orally Once for 1 day(s) Mar, Unknown Blood Glucose Test - as directed In Vitro Thrice a day for 30 da ys February, Active FreeStyle Lancets - as directed Acti ve levETIRAcetam 750 MG 1 tablet Orally every 12 hrs Active Voltaren 1 % apply 2 grams to right shoulder Transdermal Q6 h ours for 10 days Jun, Active Norethindrone-Eth Estradiol 0.5-35 MG-MCG 1 tablet Orally Once a day Active PROCEDURES No Information RESULTS No Results REASON FOR VISIT ts follow up MEDICAL (GENERAL) HISTORY Type Description Date Medical [...] Treatment Notes Treatm ent Clinical Notes Jun, Major depressive disorder, recurrent, moderate ( ICD-10 - F33.1) Jun, Generalized anxiety disorder (ICD-10 - F41.1) Utilized CBT to review a thought reframing technique for decreasing her symptoms of anxiety. Erlin arrived on time for her appoint and actively engaged throughout her session. Erlin was responsive to the CBT thought reframing intervention for decreasing her symptoms of anxiety. Erlin reports that she has been anxious about recent events with her sister. Erlin agreed to utilize the technique that we reviewed and will return for psychotherapy on 08/02/2021. Erlin is aware to call for a sooner appointment if needed and to utilize the ED for MH emergencies. Jun, Panic disorder [episodic paroxysmal anxiety] ( D-10 - F41.0) PLAN OF TREATMENT Medication Medication Name Sig Start Date Stop Date Voltaren 1 % apply 2 grams to right shoulder Transder mal Q6 hours for 10 days 14 Jun, 2021 Treatment Notes Assessment Notes Clinical Notes Generalized anxiety disorder Utilized CB T to review a thought reframing technique for decreasing her symptoms of anxiety. Erlin arrived on time for her appoint and actively engaged throughout her session. Erlin was responsive to the CBT thought reframing intervention for decreasing her symptoms of anxiety. Erlin reports that she has been anxious about recent events with her sister. Erlin agreed to utilize the technique that we reviewed and will return for psychotherapy on 08/02/2021. Erlin is aware to call for a sooner appointment if needed and to utilize the ED for MH emergencies. Next Appt Details Provider Name:Gricel Tineo, 2021-08-02 0 8:20:00 AM, [address] [place] [address] , [place], [address], Provider Name:Tano Serra, 2021-08-02 10:0 0:00 AM, [address] [place] [address] , [place], [address] Provider Name:Wil Tellez, 2021-08-06 10: 30:00 AM, [address] [place] [address], , [place], [address], Insurance Providers Payer Name Payer Address Payer Phone Insured Name Patient Relati onship to Insured Coverage Start Date Coverage End Date MEDICARE Part A and B [address] [facility] [address] ERLIN ROJAS self MEDICAID [employer] [address] [facility] [id number] ERLIN ROJAS self
--- OUTSIDE RECORDS SUMMARY | 2021-09-09 10:44 | CCD ---
Author Author [facility] Organization [facility] Address Unknown Phone Unavailable Care Team Providers Care Painter And Body Work Name Role Phone Hardy Taylor Unavailable PROBLEMS Type Condition ICD9-CM Code [id number] Code Onset Dates Condition S tatus W/U Status Risk SNOMED Code Notes Problem Gastroesophageal reflux disease without esophagitis K21.9 Active confirmed 718351137 Problem Endometriosis N80.9 Active confirmed 254960 003 Problem Fibromyalgia M79.7 Active confirmed 3711444 05 Problem Essential hypertension I10 Active confirmed 99591458 Problem Type 2 diabetes mellitus wit h diabetic neuropathy, without long-term current use of insulin E11.40 Active confirmed 6054176 6 Problem Carpal tunnel syndrome on both sides G56.03 Act william confirmed 13577025149128604 Problem Generalized anxiety disorder F41.1 Active confirme d 36023856 Problem Major depressive disorder, recurrent, moderate F33 .1 Active confirmed 696137782 Problem Gastroparesis K31.84 Active confirmed 700456 006 Problem Iron deficiency anemia due to chronic blood loss D 50.0 Active confirmed 277753997 Problem Panic disorder [episodic paroxysmal anxiety] F41.0 Active confirmed 279161896 Problem Mixed hyperlipidemia E78.2 Active confirmed 139978607 Problem Hyperlipidemia, unspecified hyperlipidemia type E7 8.5 Active confirmed 05569500 Problem Dyslipidemia E78.5 Active confirmed 9473912 07 Problem Epilepsy seizure, generalized, 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 Active confirmed 15340719 Problem Recurrent candidiasis of vagina B37.3 Active confi rmed 130580114 Problem Menorrhagia with irregular cycle N92.1 Active conf irmed 409610258 ALLERGIES Allergen (clinical drug ingredient) Drug/Non Drug Allergy do cumented on EMR Reaction Allergy Type Onset Date Status seasonal Unknown Non Drug Allergy Active oxycodone Oxycodone HCl([facility] Code:[address]-98) Hives Drug Tramaine rgy Active Penicillin (For Allergies Use Only) Hives Drug Allerg y Active ENCOUNTERS from 1985 to 2021-06-20 Encounter Location Date Provider Diagnosis [address] [facility] [phone] [place] [address] May, Hardy Taylor Preoperative clearance Z01.8 18 ; Recurrent candidiasis of vagina B37.3 ; Menorrhagia with irregular cycle N92.1 ; Type 2 diabetes mellitus with diabetic neuropathy, without long-term current use of insulin E11.40 ; Essential hypertension I10 ; Gastroesophageal reflux disease without esophagitis K21.9 ; Endometriosis N80.9 ; Major depressive disorder, recurrent, moderate F33.1 ; Fibromyalgia M79.7 ; Epilepsy seizure, generalized, 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 ; Iron deficiency anemia due to chronic blood loss D50.0 and Mixed hyperlipidemia E78.2 IMMUNIZATIONS No Information SOCIAL HISTORY Tobacco Use: Social History Observation Description Date Details (start date - stop date) Former Smoker Sex Assigned At : Social History Observation Description Sex Assigned At Unknown Education: Question Answer Notes Level of Education: High School Audit Question Answer Notes Total Score: 0 Interpretation: Alcohol Education Language: Question Answer Notes Languages spoken: Ukrainian Islam: Question Answer Notes Islam 33 None Drug and Alcohol Question Answer Notes Total Score: 0 Interpretation: No problems reported Tobacco Use: Question Answer Notes Are you a: former smoker How long has it been since you last smoked? > 10 years REASON FOR REFERRAL No Information VITAL SIGNS Weight 193 lbs May, Weight-kg 87.54 kg May, Height 63 in May, BMI 34.18 kg/m2 May, Heart Rate 104 /min May, Respiratory Rate 18 /min May, Temperature 98.0 degrees Fahrenheit May, Oximetry 100% May, Blood pressure systolic 130 mm Hg May, Blood pressure diastolic 82 mm Hg May, MEDICATIONS Medication SIG (Take, Route, Frequency, Duration) [...] tablet Orally Once a day Active Nystatin 686365 UNIT/GM apply to affected vaginal ar ea [...] breakfast lunch and dinner respectively Active PROCEDURES from 1985 to 2021-06-20 Procedure Date Ordered Result Body Site ECG;TRACING ONLY CMPNT INIT PREV PE 2021-06-18 N/A RESULTS Component Value Reference Range NT-PRO BNP Reviewed date:06/20/2021 09:06:03 Interpretation: Performing Lab:[facility], [facility] [address] [address] , [place] [address] NT-PRO BNP 44 <125 CBC with Differential Reviewed date:06/20/2021 09:06:12 Interpretation: Performing Lab:[facility] [address] [facility] [address] [address] , ,[place] [address] WHITE BLOOD COUNT 8.7 4.0-10.0 RED BLOOD COUNT 4.83 4.00-5.40 HEMOGLOBIN 11.9 12.0-15.5 HEMATOCRIT 37.7 36.0-47.0 MEAN CORPUSCULAR VOLUME 78.1 80.0-96.0 MEAN CORPUSCULAR HEMOGLOBIN 24.6 27.0-33.0 MEAN CORPUSCULAR HGB CONC 31.6 32.0-36.5 RED CELL DISTRIBUTION WIDTH 17.2 11.5-14.5 PLATELET COUNT, AUTOMATED 328 150-450 NEUTROPHILS % 59.8 36.0-66.0 LYMPH % 31.9 24.0-44.0 MONO % 6.1 2.0-8.0 EOS % 1.1 0.0-3.0 BASO % 0.6 0.0-1.0 NEUTROPHILS # 5.2 1.5-8.5 LYMPH # 2.8 1.5-5.0 MONO # 0.5 0.0-0.8 EOS # 0.1 0.0-0.5 BASO # 0.1 0.0-0.2 Comprehensive Metabolic Profile (CMP) Reviewed date:06/20/2021 09:06:08 Interpretation: Performing Lab:[facility] [address] [facility] [address] [address] , [place] [address] GLUCOSE, FASTING 255 70-100 BLOOD UREA NITROGEN 8 7-18 CREATININE FOR GFR 1.02 0.55-1.30 GLOMERULAR FILTRATION RATE > 60.0 >60 SODIUM LEVEL 140 136-145 POTASSIUM SERUM 3.8 3.5-5.1 CHLORIDE LEVEL 109 98-107 CARBON DIOXIDE LEVEL 26 21-32 CALCIUM LEVEL 8.6 8.5-10.1 AST/SGOT 19 7-37 ALT/SGPT 22 12-78 ALKALINE PHOSPHATASE 76 45-117 BILIRUBIN,TOTAL 0.2 0.2-1.0 TOTAL PROTEIN 6.5 6.4-8.2 ALBUMIN 2.9 3.2-5.2 ALBUMIN/GLOBULIN RATIO 0.8 1.2-2.2 FERRITIN Reviewed date:06/20/2021 09:06:01 Interpretation: Performing Lab:[facility] [address] [facility] [address] [address] , ,[place] [address] FERRITIN 7 8-252 HEPATITIS B SURFACE ANTIGEN Reviewed date:06/20/2021 09:05:59 Interpretation: Performing Lab:[facility] [address] [facility] [address] [address] , ,[facility] HEPATITIS B SURFACE ANTIGEN NEGATIVE NEGATIVE PT & APTT Reviewed date:06/20/2021 09:06:17 Interpretation: Performing Lab:[facility] [address] [facility] [address] [address] , ,[facility] PROTHROMBIN TIME 13.4 12.7-14.5 INR 0.98 PARTIAL THROMBOPLASTIN TIME 22.6 25.9-37.0 VITAMIN B12 LEVEL Reviewed date:06/20/2021 09:05:56 Interpretation: Performing Lab:[facility] [address] [facility] [address] [address] , ,[place] [address] VITAMIN B12 LEVEL [phone] REASON FOR VISIT Preop clearance for hysterectomy-[facility]- Dr. Tineo- 06/21/21-General, Cailin @ fax # [phone] DX: N93.9, N80.9 MEDICAL (GENERAL) HISTORY Type Description Date Medical [...] Notes Treatment Notes Treatm ent Clinical Notes May, Preoperative clearance (ICD-10 - Z01.818) - FSL2 m338 (89% very high >250!, 2% in target) (this DESPITE the fact the patient states she was COMPLIANT with her regimen and diet!); ergo, given this is an ELECTIVE surgery (she is NOT anemic from her HMB) and due to her high surgical site infection risk and overall increased mortality secondary to poor glycemic control, Erlin's surgery will need to be postponed. She NEEDS to f/u with PCP to maximize glycemic control PRIOR to clearance with a target range 140-180 as per AACE guidelines. Her SGLT2 was held due to a persistent severe vaginal candidiasis and high risk for euglycemic DKA. May, Recurrent candidiasis of vagina (ICD-10 - B37.3) favor largely caused by SGLT2i (empag); ergo, stopped 06/18/21 5D flare; ergo, flucon 150 now and repeat in 48H May, Menorrhagia with irregular cycle (ICD-10 - N92.1 ) fpr planned RALH May, Type 2 diabetes mellitus wit h diabetic neuropathy, without long- term current use of insulin (ICD-10 - E11.40) 06/18/21 states A1C is high given lack of medication access; ergo, + FSL2 now to download on 06/20 c STRICT medicaiton/diet compliance checking at least 8x daily. Stopped SGLT2i given severe recurrent vaginal candidiasis 06/11/21 A1C 14.1! May, Essential hypertension (ICD-10 - I10) Stable on los 100, HCTZ 12.5 qAM May, Gastroesophageal reflux dise ase without esophagitis (ICD-10 - K21.9) May, Endometriosis (ICD-10 - N80.9) for RALH May, Major depressive disorder, recurrent, moderate ( ICD-10 - F33.1) May, Fibromyalgia (ICD-10 - M79.7) May, Epilepsy seizure, generalized, convulsive (ICD-1 0 - G40.309) Well controlled on lamo 200 QHS, levet 750 BID May, Iron deficiency anemia due to chronic bl ood loss (ICD-10 - D50.0) 2 HMB 06/11/21 carmenza 8, 8% 02/11/21 10.8, 71 May, Mixed hyperlipidemia (ICD-10 - E78.2) 02/11/21// on atorva 20 PLAN OF TREATMENT Medication Medication Name Sig [...] MG-MCG 1 tablet Orally Once a day Treatment Notes Assessment Notes Clinical Notes Preoperative clearance - FSL2 m338 (89% very high >250!, 2% in target) (this DESPITE the fact the patient states she was COMPLIANT with her regimen and diet!); ergo, given this is an ELECTIVE surgery (she is NOT anemic from her HMB) and due to her high surgical site infection risk and overall increased mortality secondary to poor glycemic control, Erlin's surgery will need to be postponed.She NEEDS to f/u with PCP to maximize glycemic control PRIOR to clearance with a target range 140-180 as per AACE guidelines. Her SGLT2 was held due to a persistent severe vaginal candidiasis and high risk for euglycemic DKA. Recurrent candidiasis of vagina favor la rgely caused by SGLT2i (empag); ergo, stopped06/18/21 5D flare; ergo, flucon 150 now and repeat in 48H Menorrhagia with irregular cycle fpr ruy nned RALH Type 2 diabetes mellitus with diabetic n europathy, without long-term current use of insulin 06/18/21 states A1C is high g iven lack of medication access; ergo, + FSL2 now to download on 06/20 c STRICT medicaiton/diet compliance checking at least 8x daily. Stopped SGLT2i given severe recurrent vaginal candidiasis06/11/21 A1C 14.1! Essential hypertension Stable on los 100 , HCTZ 12.5 qAM Endometriosis for RALH Epilepsy seizure, generalized, convulsive Well controlled on lamo 200 QHS, levet 750 BID Iron deficiency anemia due to chronic blood loss 2 HMB06/11/21 carmenza 8, 8%02/11/21 10.8, 71 Mixed hyperlipidemia 02/11/21 89/28/96 on atorva 20 Treatment Notes Test Name Order Date C-PEPTIDE 2021-06-18 LEVETIRACETAM (KEPPRA) 2021-06-18 FREE T4 & TSH PANEL 2021-06-18 VINOD-65 AUTOANTIBODY 2021-06-18 Islet Cell Antibodies 2021-06-18 Next Appt Details , BW NOW, 06/20/21 FSL2 Reason: Provider Name:Gricel Tineo, 2021-06-21 0 7:30:00 AM, [address] [place] [address], , [place], [address], Provider Name:Tano Serra, 2021-07-02 01:0 0:00 PM, [address] [place] [address], , [place], [address] Provider Name:Wil Tellez, 2021-07-16 02: 00:00 PM, [address] [place] [address], , [place], [address], Provider Name:Gricel iTneo, 2021-08-02 0 8:20:00 AM, [address] [place] [address], , [place], [address], Insurance Providers Payer Name Payer Address Payer Phone Insured Name Patient Relati onship to Insured Coverage Start Date Coverage End Date MEDICARE Part A and B [address] [facility] [id number] [phone] ERLIN ROJAS self MEDICAID [employer] [address] [place] [address] ERLIN ROJAS self
--- OUTSIDE RECORDS SUMMARY | 2021-09-09 10:44 | CCD ---
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 Name Role Phone Alva Mock Unavailable PROBLEMS Type Condition ICD9-CM Code [id number] Code Onset Dates Condition S tatus W/U Status Risk SNOMED Code Notes Problem Endometriosis N80.9 Active confirmed 273243 003 Problem Hyperlipidemia, unspecified hyperlipidemia type E7 8.5 Active confirmed 70894048 Problem Essential hypertension I10 Active confirmed 84979692 Problem Gastroesophageal reflux disease without esophagitis K21.9 Active confirmed 757310914 Problem Generalized anxiety disorder F41.1 Active confirme d 82951996 Problem Fibromyalgia M79.7 Active confirmed 6563673 05 Problem Panic disorder [episodic paroxysmal anxiety] F41.0 Active confirmed 502980717 Problem Major depressive disorder, recurrent, moderate F33 .1 Active confirmed 341376580 Problem Incontinence in female N39.3 Active confirmed 35333012 Problem Epilepsy seizure, generalized, 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 Active confirmed 30373139 Problem Recurrent candidiasis of vagina B37.3 Active confi rmed 233104367 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 Activ e confirmed 374177976 Problem Gastroparesis K31.84 Active confirmed 947321 006 Problem Carpal tunnel syndrome on both sides G56.03 Act william confirmed 75089934264611552 Problem Other chronic pain G89.29 Active confirmed 8 7195338 Problem Dyslipidemia E78.5 Active confirmed 4976897 07 Problem Type 2 diabetes mellitus wit h diabetic neuropathy, without long-term current use of insulin E11.40 Active confirmed 8965641 6 Problem Menorrhagia with irregular cycle N92.1 Active conf irmed 723400555 Problem Iron deficiency anemia due to chronic blood loss D 50.0 Active confirmed 306985066 Problem Mixed hyperlipidemia E78.2 Active confirmed 048708047 Problem Type 2 diabetes mellitus without complications E11 .9 Active confirmed 594484700 ALLERGIES Allergen (clinical drug ingredient) Drug/Non Drug Allergy do cumented on EMR Reaction Allergy Type Onset Date Status oxycodone Oxycodone HCl([facility] Code:[address]-15) Hives Drug Tramaine rgy Active Penicillin (For Allergies Use Only) Hives Drug Allerg y Active ENCOUNTERS from 1985 to 2021-08-08 Encounter Location Date Provider Diagnosis [facility] [address] [facility] [phone] [place] [address] Jun, Alva Mock IMMUNIZATIONS No Information SOCIAL HISTORY Tobacco Use: Social History Observation Description Date Details (start date - stop date) Former Smoker Sex Assigned At : Social History Observation Description Sex Assigned At Unknown Education: Question Answer Notes Level of Education: High School Audit Question Answer Notes Total Score: 0 Interpretation: Alcohol Education Language: Question Answer Notes Languages spoken: French Hinduism: Question Answer Notes Hinduism 33 None Drug and Alcohol Question Answer Notes Total Score: 0 Interpretation: No problems reported Tobacco Use: Question Answer Notes Are you a: former smoker How long has it been since you last smoked? > 10 years REASON FOR REFERRAL No Information VITAL SIGNS No information MEDICATIONS Medication SIG (Take, Route, Frequency, Duration) Notes Start Da te End Date Status Nystatin 357056 UNIT/GM apply to affected vaginal ar ea [...] meal Orally On ce a day Active Voltaren 1 % apply 2 grams to right shoulder Transdermal Q6 h ours for 10 days Jun, Active Ferrous Gluconate 324 (38 Fe) MG 1 tablet with water o r juice between meals Orally Once a day for 30 day(s) Unknown Lantus SoloStar 100 UNIT/ML as directed Subcutaneous Daily 80 un its Apr, Active FreeStyle Kaleigh 14 Day [place] - as directed Jun, Not-Taking PROzac 40 [...] Information RESULTS No Results REASON FOR VISIT blader issues MEDICAL (GENERAL) HISTORY Type Description Date Medical [...] a day for 30 day( s) Jul, Next Appt Details Provider Name:Tano Serra 2021-08-23 10:0 0:00 AM, [address] [facility], , [place], [address] Provider Name:Alva Mock, 2 021-11-17 09:30:00 AM, [address] [facility], , [place], [address], Insurance Providers Payer Name Payer Address Payer Phone Insured Name Patient Relati onship to Insured Coverage Start Date Coverage End Date MEDICAID [employer] [address] [facility] [id number] ERLIN ROJAS self MEDICARE Part A and B [address] [facility] [phone] ERLIN ROJAS self
--- OUTSIDE RECORDS SUMMARY | 2021-09-09 10:44 | CCD ---
Author Author [facility] Organization [facility] Address Unknown Phone Unavailable Care Team Providers Care Land Leasing Information Clerk Name Role Phone Gricel Tineo Unavailable PROBLEMS Type Condition ICD9-CM Code [id number] Code Onset Dates Condition S tatus W/U Status Risk SNOMED Code Notes Problem Endometriosis N80.9 Active confirmed 294203 003 Problem Hyperlipidemia, unspecified hyperlipidemia type E7 8.5 Active confirmed 27514713 Problem Essential hypertension I10 Active confirmed 84153525 Problem Gastroesophageal reflux disease without esophagitis K21.9 Active confirmed 395753078 Problem Generalized anxiety disorder F41.1 Active confirme d 29894481 Problem Fibromyalgia M79.7 Active confirmed 7722567 05 Problem Panic disorder [episodic paroxysmal anxiety] F41.0 Active confirmed 591944393 Problem Major depressive disorder, recurrent, moderate F33 .1 Active confirmed 880232773 Problem Incontinence in female N39.3 Active confirmed 22560707 Problem Epilepsy seizure, generalized, 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 Active confirmed 92071731 Problem Recurrent candidiasis of vagina B37.3 Active confi rmed 009815432 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 Activ e confirmed 740756966 Problem Gastroparesis K31.84 Active confirmed 477763 006 Problem Carpal tunnel syndrome on both sides G56.03 Act william confirmed 44684481915350619 Problem Other chronic pain G89.29 Active confirmed 8 5812327 Problem Dyslipidemia E78.5 Active confirmed 3783751 07 Problem Type 2 diabetes mellitus wit h diabetic neuropathy, without long-term current use of insulin E11.40 Active confirmed 7652949 6 Problem Menorrhagia with irregular cycle N92.1 Active conf irmed 987890751 Problem Iron deficiency anemia due to chronic blood loss D 50.0 Active confirmed 287018446 Problem Mixed hyperlipidemia E78.2 Active confirmed 264758764 Problem Type 2 diabetes mellitus without complications E11 .9 Active confirmed 829686717 ALLERGIES Allergen (clinical drug ingredient) Drug/Non Drug Allergy do cumented on EMR Reaction Allergy Type Onset Date Status oxycodone Oxycodone HCl([facility] Code:[address]-51) Hives Drug Tramaine rgy Active Penicillin (For Allergies Use Only) Hives Drug Allerg y Active ENCOUNTERS from 1985 to 2021-08-14 Encounter Location Date Provider Diagnosis [facility] Women's Wellness and Breast Care [facility] [phone] [place] [address] Jul, [facility] Noman Menorrhagia N92.0 ; Endometriosis N80.9 and Incontinence in female N39.3 IMMUNIZATIONS No Information SOCIAL HISTORY Tobacco Use: Social History Observation Description Date Details (start date - stop date) Former Smoker Sex Assigned At : Social History Observation Description Sex Assigned At Unknown Education: Question Answer Notes Level of Education: High School Audit Question Answer Notes Total Score: 0 Interpretation: Alcohol Education Language: Question Answer Notes Languages spoken: Macedonian Anabaptist: Question Answer Notes Anabaptist 33 None Drug and Alcohol Question Answer Notes Total Score: 0 Interpretation: No problems reported Tobacco Use: Question Answer Notes Are you a: former smoker How long has it been since you last smoked? > 10 years REASON FOR REFERRAL from 1985 to 2021-08-14 Reason Pelvic floor physical therap y for urinary incontinence Diagnosis 1 Incontinence in female (N39. 3) Referral Organization [facility] Women's [facility] Referring Provider First Name [facility] Referring Provider Last Name Tineo Referring Provider Specialty OB - Gynecology Referred Provider [facility] Therapy Referred Provider Specialty Physical Therapist Referral Priority Routine Clinical Notes Sridevi Lay 2021 11: 24:40 AM >Records received but no scheduled appointment yet. VITAL SIGNS Weight 197 lbs Jul, Weight-kg 89.36 kg Jul, Height 63 in Jul, BMI 34.89 kg/m2 Jul, Blood pressure systolic 130 mm Hg Jul, Blood pressure diastolic 80 mm Hg Jul, MEDICATIONS Medication SIG (Take, Route, Frequency, Duration) Notes Start Da te End Date Status Nystatin 034287 UNIT/GM apply to affected vaginal ar ea [...] its Apr, Active FreeStyle Kaleigh 14 Day [place] - as directed Jun, Not-Taking PROzac 40 [...] Information RESULTS No Results REASON FOR VISIT BLADDER ISSUES MEDICAL (GENERAL) HISTORY Type Description Date Medical [...] Treatment Notes Treatm ent Clinical Notes Jul, Menorrhagia (ICD-10 - N92.0) Jul, Endometriosis (ICD-10 - N80.9) Jul, Incontinence in female (ICD-10 - N39.3) I discussed treatment options for stress incontinence to include pelvic floor physical therapy versus pessary versus surgery. Patient currently not a candidate for surgery and desires pelvic floor physical therapy. She will follow up in 3 months. PLAN OF TREATMENT Medication Medication Name Sig Start Date Stop Date Provera 10 MG 1 tablet with food Orally Once a day for 30 day( s) Jul, Treatment Notes Assessment Notes Clinical Notes Incontinence in female I discussed treat ment options for stress incontinence to include pelvic floor physical therapy versus pessary versus surgery. Patient currently not a candidate for surgery and desires pelvic floor physical therapy. She will follow up in 3 months. Referrals Referral Date Details Pelvic floor physical therap y for urinary incontinence, Physical Therapy [facility] Next Appt Details Provider Name:Tano Serra, 2021-08-23 10:0 0:00 AM, [address] [place] [address], , [place], [address] Provider Name:Alva Mock, 2 09:30:00 AM, [address] [facility], , [place], [address], Insurance Providers Payer Name Payer Address Payer Phone Insured Name Patient Relati onship to Insured Coverage Start Date Coverage End Date MEDICAID [id number] [address] [facility] [id number] ERLIN ROJAS self MEDICARE Part A and B [address] [facility] [id number] [phone] ERLIN ROJAS self
--- OUTSIDE RECORDS SUMMARY | 2021-09-09 10:44 | CCD ---
Author Author [facility] Organization [facility] Address Unknown Phone Unavailable Care Team Providers Care Curing Machine Operator Name Role Phone Wil Tellez Unavailable PROBLEMS Type Condition ICD9-CM Code OPO56-[id number] Code Onset Dates Condition S tatus W/U Status Risk SNOMED Code Notes Problem Endometriosis N80.9 Active confirmed 836539 003 Problem Hyperlipidemia, unspecified hyperlipidemia type E7 8.5 Active confirmed 01323074 Problem Essential hypertension I10 Active confirmed 06327511 Problem Gastroesophageal reflux disease without esophagitis K21.9 Active confirmed 518423671 Problem Generalized anxiety disorder F41.1 Active confirme d 56786977 Problem Fibromyalgia M79.7 Active confirmed 7106220 05 Problem Panic disorder [episodic paroxysmal anxiety] F41.0 Active confirmed 717518283 Problem Major depressive disorder, recurrent, moderate F33 .1 Active confirmed 529336567 Problem Incontinence in female N39.3 Active confirmed 87141245 Problem Epilepsy seizure, generalized, 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 Active confirmed 81839224 Problem Recurrent candidiasis of vagina B37.3 Active confi rmed 665304967 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.4 Activ e confirmed 402265343 Problem Gastroparesis K31.84 Active confirmed 235427 006 Problem Carpal tunnel syndrome on both sides G56.03 Act william confirmed 93305526558229677 Problem Other chronic pain G89.29 Active confirmed 8 2017260 Problem Dyslipidemia E78.5 Active confirmed 6978424 07 Problem Type 2 diabetes mellitus wit h diabetic neuropathy, without long-term current use of insulin E11.40 Active confirmed 0975568 6 Problem Menorrhagia with irregular cycle N92.1 Active conf irmed 609157698 Problem Iron deficiency anemia due to chronic blood loss D 50.0 Active confirmed 923879051 Problem Mixed hyperlipidemia E78.2 Active confirmed 609349096 Problem Type 2 diabetes mellitus without complications E11 .9 Active confirmed 378494858 ALLERGIES Allergen (clinical drug ingredient) Drug/Non Drug Allergy do cumented on EMR Reaction Allergy Type Onset Date Status oxycodone Oxycodone HCl([facility] Code:[address]-57) Hives Drug Tramaine rgy Active Penicillin (For Allergies Use Only) Hives Drug Allerg y Active ENCOUNTERS from 1985 to 2021-08-07 Encounter Location Date Provider Diagnosis [facility] [address] [facility] [address] [phone] [place] [address] Jul, [facility] IMMUNIZATIONS No Information SOCIAL HISTORY Tobacco Use: Social History Observation Description Date Details (start date - stop date) Former Smoker Sex Assigned At : Social History Observation Description Sex Assigned At Unknown Education: Question Answer Notes Level of Education: High School Audit Question Answer Notes Total Score: 0 Interpretation: Alcohol Education Language: Question Answer Notes Languages spoken: Uruguayan Mosque: Question Answer Notes Mosque 33 None Drug and Alcohol Question Answer Notes Total Score: 0 Interpretation: No problems reported Tobacco Use: Question Answer Notes Are you a: former smoker How long has it been since you last smoked? > 10 years REASON FOR REFERRAL No Information VITAL SIGNS No information MEDICATIONS Medication SIG (Take, Route, Frequency, Duration) Notes Start Da te End Date Status Nystatin 124228 UNIT/GM apply to affected vaginal ar ea [...] its Apr, Active FreeStyle Kaleigh 14 Day [place] - as directed Jun, Not-Taking PROzac 40 [...] Information RESULTS No Results REASON FOR VISIT Reschedule Appointment Request MEDICAL (GENERAL) HISTORY Type Description Date Medical [...] Name:Tano Serra 2021-08-23 10:0 0:00 AM, [address] [facility], , [place], [address] Provider Name:Alva Mock, 2 021-11-17 09:30:00 AM, [address] [facility], , [place], [address], Insurance Providers Payer Name Payer Address Payer Phone Insured Name Patient Relati onship to Insured Coverage Start Date Coverage End Date MEDICAID [employer] [address] [facility] [id number] ERLIN ROJAS self MEDICARE Part A and B [address] [facility] [phone] ERLIN ROJAS self
--- OUTSIDE RECORDS SUMMARY | 2021-09-09 10:44 | CCD ---
Author Author [facility] Organization [facility] Address Unknown Phone Unavailable Care Team Providers Care Rn Case Mgr Name Role Phone Tano Serra Unavailable PROBLEMS Type Condition ICD9-CM Code NCQ97-AH Code Onset Dates Condition S tatus W/U Status Risk SNOMED Code Notes Problem Endometriosis N80.9 Active confirmed 587367 003 Problem Hyperlipidemia, unspecified hyperlipidemia type E7 8.5 Active confirmed 72721342 Problem Essential hypertension I10 Active confirmed 40329417 Problem Gastroesophageal reflux disease without esophagitis K21.9 Active confirmed 032564032 Problem Generalized anxiety disorder F41.1 Active confirme d 84674418 Problem Fibromyalgia M79.7 Active confirmed 8156713 05 Problem Panic disorder [episodic paroxysmal anxiety] F41.0 Active confirmed 258435246 Problem Major depressive disorder, recurrent, moderate F33 .1 Active confirmed 363118213 Problem Incontinence in female N39.3 Active confirmed 06249685 Problem Epilepsy seizure, generalized, 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 Active confirmed 60664116 Problem Recurrent candidiasis of vagina B37.3 Active confi rmed 051826792 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 Activ e confirmed 141812189 Problem Gastroparesis K31.84 Active confirmed 599451 006 Problem Carpal tunnel syndrome on both sides G56.03 Act william confirmed 30974261036510126 Problem Other chronic pain G89.29 Active confirmed 8 6308892 Problem Dyslipidemia E78.5 Active confirmed 3126534 07 Problem Type 2 diabetes mellitus wit h diabetic neuropathy, without long-term current use of insulin E11.40 Active confirmed 2460898 6 Problem Menorrhagia with irregular cycle N92.1 Active conf irmed 370312614 Problem Iron deficiency anemia due to chronic blood loss D 50.0 Active confirmed 079391351 Problem Mixed hyperlipidemia E78.2 Active confirmed 131754135 Problem Type 2 diabetes mellitus without complications E11 .9 Active confirmed 966072848 ALLERGIES Allergen (clinical drug ingredient) Drug/Non Drug Allergy do cumented on EMR Reaction Allergy Type Onset Date Status oxycodone Oxycodone HCl([facility] Code:[address]-43) Hives Drug Tramaine rgy Active Penicillin (For Allergies Use Only) Hives Drug Allerg y Active ENCOUNTERS from 1985 to 2021-08-02 Encounter Location Date Provider Diagnosis [facility] [address] [facility] [phone] [place] [address] Jul, Tano Serra Major depressive disorder, r [...] Education Language: Question Answer Notes Languages spoken: Iraqi Mu-Ism: Question Answer Notes Mu-Ism 33 None Drug and Alcohol Question Answer Notes Total Score: 0 Interpretation: No problems reported Tobacco Use: Question Answer Notes Are you a: former smoker How long has it been since you last smoked? > 10 years REASON FOR REFERRAL No Information VITAL SIGNS No information MEDICATIONS Medication SIG (Take, Route, Frequency, Duration) Notes Start Da te End Date Status Nystatin 024152 UNIT/GM apply to affected vaginal ar ea [...] its Apr, Active FreeStyle Kaleigh 14 Day [place] - as directed Jun, Not-Taking PROzac 40 [...] - F41.1) Utilized CBT to review a challenging irrational thoughts technique for decreasing her symptoms of anxiety. Erlin arrived on time for her appoint and actively engaged throughout her session. Erlin was responsive to the CBT challenging irrational thoughts intervention for decreasing her symptoms of anxiety. Erlin reports that she has been anxious because of her recent interactions with her family members. Erlin agreed to utilize the technique that we reviewed and will return for psychotherapy on 08/23/2021. Erlin is aware to call for a sooner appointment if needed and to utilize the ED for MH e mergencies. Jul, Panic disorder [episodic paroxysmal anxiety] ( D-10 - F41.0) PLAN OF TREATMENT Medication Medication Name Sig Start Date Stop Date Provera 10 MG 1 tablet with food Orally Once a day for 30 day( s) Jul, Treatment Notes Assessment Notes Clinical Notes Generalized anxiety disorder Utilized CB T to review a challenging irrational thoughts technique for decreasing her symptoms of anxiety. Erlin arrived on time for her appoint and actively engaged throughout her session. Erlin was responsive to the CBT challenging irrational thoughts intervention for decreasing her symptoms of anxiety. Erlin reports that she has been anxious because of her recent interactions with her family members. Erlin agreed to utilize the technique that we reviewed and will return for psychotherapy on 08/23/2021. Eriln is aware to call for a sooner appointment if needed and to utilize the ED for MH emergencies. Next Appt Details Provider Name:Wil Rosalinda, 2021-08-06 10: 30:00 AM, [address] [place] [address], , [place], [address], Provider Name:Tano Serra, 2021-08-23 10:0 0:00 AM, [address] [facility] [phone], [place], [address] Insurance Providers Payer Name Payer Address Payer Phone Insured Name Patient Relati onship to Insured Coverage Start Date Coverage End Date MEDICAID [employer] [address] [facility] [id number] ERLIN ROJAS self MEDICARE Part A and B [address] [facility] [address] [phone] ERLIN ROJAS self
--- OUTSIDE RECORDS SUMMARY | 2021-09-09 10:44 | CCD ---
Author Author [facility] Organization [facility] Address Unknown Phone Unavailable Care Team Providers Care Sampling Theory Teacher Name Role Phone Jeane Kaufman Unavailable PROBLEMS Type Condition ICD9-CM Code HPP24-CK Code Onset Dates Condition S tatus W/U Status Risk SNOMED Code Notes Problem Gastroesophageal reflux disease without esophagitis K21.9 Active confirmed 513873156 Problem Endometriosis N80.9 Active confirmed 928226 003 Problem Fibromyalgia M79.7 Active confirmed 6915311 05 Problem Essential hypertension I10 Active confirmed 29977049 Problem Type 2 diabetes mellitus wit h diabetic neuropathy, without long-term current use of insulin E11.40 Active confirmed 8736404 6 Problem Carpal tunnel syndrome on both sides G56.03 Act william confirmed 39464741863485399 Problem Generalized anxiety disorder F41.1 Active confirme d 04884712 Problem Major depressive disorder, recurrent, moderate F33 .1 Active confirmed 721005530 Problem Gastroparesis K31.84 Active confirmed 758319 006 Problem Iron deficiency anemia due to chronic blood loss D 50.0 Active confirmed 343048872 Problem Panic disorder [episodic paroxysmal anxiety] F41.0 Active confirmed 821847706 Problem Mixed hyperlipidemia E78.2 Active confirmed 200938313 Problem Hyperlipidemia, unspecified hyperlipidemia type E7 8.5 Active confirmed 14353980 Problem Dyslipidemia E78.5 Active confirmed 8948887 07 Problem Epilepsy seizure, generalized, 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 Active confirmed 46466937 Problem Recurrent candidiasis of vagina B37.3 Active confi rmed 843136576 Problem Menorrhagia with irregular cycle N92.1 Active conf irmed 760729056 ALLERGIES Allergen (clinical drug ingredient) Drug/Non Drug Allergy do cumented on EMR Reaction Allergy Type Onset Date Status seasonal Unknown Non Drug Allergy Active oxycodone Oxycodone HCl([facility] Code:[address]-91) Hives Drug Tramaine rgy Active Penicillin (For Allergies Use Only) Hives Drug Allerg y Active ENCOUNTERS from 1985 to 2021-06-21 Encounter Location Date Provider Diagnosis [place] [address] [facility] [phone] [place] [address] May, Jeane Kaufman IMMUNIZATIONS No Information SOCIAL HISTORY Tobacco Use: Social History Observation Description Date Details (start date - stop date) Former Smoker Sex Assigned At : Social History Observation Description Sex Assigned At Unknown Education: Question Answer Notes Level of Education: High School Audit Question Answer Notes Total Score: 0 Interpretation: Alcohol Education Language: Question Answer Notes Languages spoken: Albanian Pentecostal: Question Answer Notes Pentecostal 33 None Drug and Alcohol Question Answer [...] tablet Orally Once a day Active Nystatin 913181 UNIT/GM apply to affected vaginal ar ea [...] Information RESULTS No Results REASON FOR VISIT No Information MEDICAL (GENERAL) HISTORY Type Description Date Medical [...] Provider Name:Ant Gauthier, 2021-06-26 0 9:30:00 AM, [address] [place] [address], , [place], [address], Provider Name:Tano Serra, 2021-07-02 01:0 0:00 PM, [address] [place] [address], , [place], [address] Provider Name:De La Torrekwaku Tellez, 2021-07-16 02: 00:00 PM, [address] [place] [address], , [place], [address], Provider Name:Gricel Tineo, 2021-08-02 0 8:20:00 AM, [address] [place] [address], , [place], [address], Insurance Providers Payer Name Payer Address Payer Phone Insured Name Patient Relati onship to Insured Coverage Start Date Coverage End Date MEDICAID [employer] [address] [facility] [address] ERLIN ROJAS MEDICARE Part A and B [address] [facility] [address] ERLIN ROJAS self
--- OUTSIDE RECORDS SUMMARY | 2021-09-09 10:44 | CCD ---
Author Author [facility] Organization [facility] Address Unknown Phone Unavailable Care Team Providers Care Volleyball Player Name Role Phone Gricel Tineo Unavailable PROBLEMS Type Condition ICD9-CM Code FCH39-AN Code Onset Dates Condition S tatus W/U Status Risk SNOMED Code Notes Problem Hyperlipidemia, unspecified hyperlipidemia type E7 8.5 Active confirmed 09988482 Problem Type 2 diabetes mellitus wit h diabetic neuropathy, without long-term current use of insulin E11.40 Active confirmed 7899238 6 Problem Gastroesophageal reflux disease without esophagitis K21.9 Active confirmed 965367421 Problem Endometriosis N80.9 Active confirmed 046612 003 Problem Fibromyalgia M79.7 Active confirmed 0604854 05 Problem Essential hypertension I10 Active confirmed 07094656 Problem Generalized anxiety disorder F41.1 Active confirme d 14913098 Problem Panic disorder [episodic paroxysmal anxiety] F41.0 Active confirmed 631963499 Problem Dyslipidemia E78.5 Active confirmed 7052175 07 Problem Epilepsy seizure, generalized, 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 Active confirmed 89465322 Problem Recurrent candidiasis of vagina B37.3 Active confi rmed 612520157 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.4 Activ e confirmed 715686451 Problem Gastroparesis K31.84 Active confirmed 428717 006 Problem Other chronic pain G89.29 Active confirmed 8 7613396 Problem Major depressive disorder, recurrent, moderate F33 .1 Active confirmed 423492971 Problem Carpal tunnel syndrome on both sides G56.03 Act william confirmed 53996044309198027 Problem Menorrhagia with irregular cycle N92.1 Active conf irmed 138745330 Problem Iron deficiency anemia due to chronic blood loss D 50.0 Active confirmed 264349058 Problem Mixed hyperlipidemia E78.2 Active confirmed 367648246 Problem Type 2 diabetes mellitus without complications E11 .9 Active confirmed 500159810 ALLERGIES Allergen (clinical drug ingredient) Drug/Non Drug Allergy do cumented on EMR Reaction Allergy Type Onset Date Status oxycodone Oxycodone HCl([facility] Code:[address]-68) Hives Drug Tramaine rgy Active Penicillin (For Allergies Use Only) Hives Drug Allerg y Active ENCOUNTERS from 1985 to 2021-07-16 Encounter Location Date Provider Diagnosis [facility] [address] [facility] [phone] [place] [address] Jun, [facility] Dysuria R30.0 IMMUNIZATIONS No Information SOCIAL HISTORY Tobacco Use: Social History Observation Description Date Details (start date - stop date) Former Smoker Sex Assigned At : Social History Observation Description Sex Assigned At Unknown Education: Question Answer Notes Level of Education: High School Audit Question Answer Notes Total Score: 0 Interpretation: Alcohol Education Language: Question Answer Notes Languages spoken: Armenian Spiritism: Question Answer Notes Spiritism 33 None Drug and Alcohol Question Answer [...] day(s) Apr, Active FreeStyle Kaleigh 14 Day [place] - as directed Jun, Active Ferrous Gluconate [...] directed Orally Twice a day Active Nystatin 387010 UNIT/GM apply to affected vaginal ar ea [...] Treatment Notes Treatm ent Clinical Notes Jun, Dysuria (ICD-10 - R30.0) PLAN OF TREATMENT Medication Medication Name Sig Start Date Stop Date Voltaren 1 % apply 2 grams to right shoulder Transder mal Q6 hours for 10 days Jun, Treatment Notes Test Name Order Date URINE CULTURE 2021-07-15 [facility]A URINALYSIS 2021-07-15 Next Appt Details Provider Name:De La Torre Rosalinda, 2021-07-16 02: 00:00 PM, [address] [place] [address], , [place], [address], Provider Name:Gricel Tineo, 2021-08-02 0 8:20:00 AM, [address] [place] [address], , [place], [address], Provider Name:Tano Serra, 2021-08-02 10:0 0:00 AM, [address] [place] [address] , [place], [address] Provider Name:Tano Serra, 2021-08-02 02:0 0:00 PM, [address] [place] [address] , [place], [address] Insurance Providers Payer Name Payer Address Payer Phone Insured Name Patient Relati onship to Insured Coverage Start Date Coverage End Date MEDICAID [id number] [address] [facility] [id number] ERLIN ROJAS MEDICARE Part A and B [address] [facility] [phone] ERLIN ROJAS self
--- OUTSIDE RECORDS SUMMARY | 2021-09-09 10:44 | CCD | Continuity of Care Document ---
Author Author Harsh GARCIA DO Organization Unknown Address [address] [place] [address], [facility] [place] [address] Phone [phone] Care Team Providers Care Insulation Professional Name Role Phone Gwen Cuellar PA-C AUTM [phone] Problems Active Problems Provider Date Essential hypertension Sony Garcia DO Onset: 07/16/20 21 Social History Type Date Description Comments Sex Unknown ETOH Use Denies alcohol use Tobacco Use Start: Unknown Non Smoker admits to [place] marijuana Recreational Drug Use Medical Marijuana Smoking Status Reviewed: 07/16/21 Non Smoker admits to [employer] marijuana Allergies, Adverse Reactions, Alerts Active Allergies Criticality Reaction | Severity Comments [...] Inject 10 Units Under The Skin With [place] kfast And 10 Units With Lunch Then 14 Un Unknown Levetiracetam 750mg Tablets Take 1 Tablet By Mouth Every 12 Hours Unknown Freestyle Lancets Misc Use as Directed 3 Times Daily Unknown Norethindrone Acetate 5mg Tablets Take 1 Tablet By Mouth Daily Unknown Immunizations Description No Information Available Vital Signs Date Vital Result Comment 07/16/2021 8:57am Body Temperature 96.1 F Results Description No Information Available Procedures Description No Information Available Medical Devices Description No Information Available Encounters Description No Information Available Assessments Description No Information Available Plan of Treatment No Information Available Functional Status Description No Information Available Mental Status Description No Information Available Referrals Description No Information Available"
--- OUTSIDE RECORDS SUMMARY | 2021-09-09 10:44 | CCD ---
Author Author [facility] Organization [facility] Address Unknown Phone Unavailable Care Team Providers Care Currency Exchange Specialist Name Role Phone Wil Tellez Unavailable PROBLEMS Type Condition ICD9-CM Code [id number] Code Onset Dates Condition S tatus W/U Status Risk SNOMED Code Notes Problem Hyperlipidemia, unspecified hyperlipidemia type E7 8.5 Active confirmed 67328833 Problem Type 2 diabetes mellitus wit h diabetic neuropathy, without long-term current use of insulin E11.40 Active confirmed 6837315 6 Problem Gastroesophageal reflux disease without esophagitis K21.9 Active confirmed 665751925 Problem Endometriosis N80.9 Active confirmed 715897 003 Problem Fibromyalgia M79.7 Active confirmed 5842309 05 Problem Essential hypertension I10 Active confirmed 88446143 Problem Generalized anxiety disorder F41.1 Active confirme d 67061391 Problem Panic disorder [episodic paroxysmal anxiety] F41.0 Active confirmed 200230771 Problem Dyslipidemia E78.5 Active confirmed 7896915 07 Problem Epilepsy seizure, generalized, 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 Active confirmed 94394278 Problem Recurrent candidiasis of vagina B37.3 Active confi rmed 244842529 Problem 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 Z79.4 Activ e confirmed 957786048 Problem Gastroparesis K31.84 Active confirmed 696965 006 Problem Other chronic pain G89.29 Active confirmed 8 8097258 Problem Major depressive disorder, recurrent, moderate F33 .1 Active confirmed 180505513 Problem Carpal tunnel syndrome on both sides G56.03 Act william confirmed 76215147972349155 Problem Menorrhagia with irregular cycle N92.1 Active conf irmed 255978343 Problem Iron deficiency anemia due to chronic blood loss D 50.0 Active confirmed 070024073 Problem Mixed hyperlipidemia E78.2 Active confirmed 323683276 Problem Type 2 diabetes mellitus without complications E11 .9 Active confirmed 894527094 ALLERGIES Allergen (clinical drug ingredient) Drug/Non Drug Allergy do cumented on EMR Reaction Allergy Type Onset Date Status oxycodone Oxycodone HCl([facility] Code:[address]-41) Hives Drug Tramaine rgy Active Penicillin (For Allergies Use Only) Hives Drug Allerg y Active ENCOUNTERS from 1985 to 2021-07-16 Encounter Location Date Provider Diagnosis [facility] [place] [address] [facility] [address] [phone] [place] [address] Jun, [facility] IMMUNIZATIONS No Information SOCIAL HISTORY Tobacco Use: Social History Observation Description Date Details (start date - stop date) Former Smoker Sex Assigned At : Social History Observation Description Sex Assigned At Unknown Education: Question Answer Notes Level of Education: High School Audit Question Answer Notes Total Score: 0 Interpretation: Alcohol Education Language: Question Answer Notes Languages spoken: Slovak Congregational: Question Answer Notes Congregational 33 None Drug and Alcohol Question Answer [...] day(s) Apr, Active FreeStyle Kaleigh 14 Day [place] - as directed Jun, Active Ferrous Gluconate [...] directed Orally Twice a day Active Nystatin 372139 UNIT/GM apply to affected vaginal ar ea [...] Information RESULTS No Results REASON FOR VISIT no showed MEDICAL (GENERAL) HISTORY Type Description Date Medical [...] mal Q6 hours for 10 days Jun, Next Appt Details Provider Name:Gricel Keagan Sanchezn, 2021-08-02 0 8:20:00 AM, [facility] [facility], , [place], [address], Provider Name:Tano Serra, 2021-08-02 10:0 0:00 AM, [address], , [place], [address] Provider Name:Tano Serra, 2021-08-02 02:0 0:00 PM, [address] [facility], , [place], [address] Insurance Providers Payer Name Payer Address Payer Phone Insured Name Patient Relati onship to Insured Coverage Start Date Coverage End Date MEDICAID [employer] [address] [facility] [id number] ERLIN ROJAS MEDICARE Part A and B [address] [facility] [address] ERLIN ROJAS self
--- OUTSIDE RECORDS SUMMARY | 2021-09-09 10:44 | CCD ---
Author Author [facility] Organization [facility] Address Unknown Phone Unavailable Care Team Providers Care Boatwright Name Role Phone Wil Tellez Unavailable PROBLEMS Type Condition ICD9-CM Code GAC43-JT Code Onset Dates Condition S tatus W/U Status Risk SNOMED Code Notes Problem Type 2 diabetes mellitus wit h diabetic neuropathy, without long-term current use of insulin E11.40 Active confirmed 0227094 6 Problem Carpal tunnel syndrome on both sides G56.03 Act william confirmed 37042473892380514 Problem Endometriosis N80.9 Active confirmed 393864 003 Problem Hyperlipidemia, unspecified hyperlipidemia type E7 8.5 Active confirmed 77438900 Problem Essential hypertension I10 Active confirmed 29652319 Problem Gastroesophageal reflux disease without esophagitis K21.9 Active confirmed 636019572 Problem Panic disorder [episodic paroxysmal anxiety] F41.0 Active confirmed 377225124 Problem Fibromyalgia M79.7 Active confirmed 6667952 05 Problem Gastroparesis K31.84 Active confirmed 866634 006 Problem Dyslipidemia E78.5 Active confirmed 9000409 07 Problem Epilepsy seizure, generalized, 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 Active confirmed 14085430 Problem senior care (current) use of insulin Z79.4 Activ e confirmed 191304945 Problem Major depressive disorder, recurrent, moderate F33 .1 Active confirmed 250669621 Problem Type 2 diabetes mellitus without complications E11 .9 Active confirmed 715571542 Problem Generalized anxiety disorder F41.1 Active confirme d 08522697 Problem Recurrent candidiasis of vagina B37.3 Active confi rmed 635569406 Problem Menorrhagia with irregular cycle N92.1 Active conf irmed 363627357 Problem Iron deficiency anemia due to chronic blood loss D 50.0 Active confirmed 640140960 Problem Mixed hyperlipidemia E78.2 Active confirmed 412630820 ALLERGIES Allergen (clinical drug ingredient) Drug/Non Drug Allergy do cumented on EMR Reaction Allergy Type Onset Date Status seasonal Unknown Non Drug Allergy Active oxycodone Oxycodone HCl([facility] Code:[address]-15) Hives Drug Tramaine rgy Active Penicillin (For Allergies Use Only) Hives Drug Allerg y Active ENCOUNTERS from 1985 to 2021-07-09 Encounter Location Date Provider Diagnosis [facility] [address] [facility] [phone] [place] [address] 13 Jun[facility]UN[facility] No Information SOCIAL HISTORY Tobacco Use: Social History Observation Description Date Details (start date - stop date) Former Smoker Sex Assigned At : Social History Observation Description Sex Assigned At Unknown Education: Question Answer Notes Level of Education: High School Audit Question Answer Notes Total Score: 0 Interpretation: Alcohol Education Language: Question Answer Notes Languages spoken: Argentine Jainism: Question Answer Notes Jainism 33 None Drug and Alcohol Question Answer [...] Lancets - as directed Acti ve Nystatin 195465 UNIT/GM apply to affected vaginal ar ea Externally Twice a day for 10 days Jan, Not-Taking Mupirocin 2 % apply thin layer to rash on abdomen Externally Three times a day for 7 day(s) Dec, Not-Taking FreeStyle Kaleigh 14 Day [place] - as directed Jun, Active FreeStyle Kaleigh 14 Day [place] - as directed Jun, Active Blood Glucose Test - as directed In Vitro Thrice a day for 30 da ys February, Active PROCEDURES No Information RESULTS No Results REASON FOR VISIT right shoulder pain / referral or medication MEDICAL (GENERAL) HISTORY Type Description Date Medical [...] as directed Jun, FreeStyle Kaleigh 14 Day [place] - as directed Jun, Next Appt Details Provider Name:Gwen Cuellar, 14 10:00:00 AM, [address] [place] [address] , [place], [address], Provider Name:Tano Serra, 2021-07-15 01:0 0:00 PM, [address] [place] [address] , [place], [address] Provider Name:Wil Tellez, 2021-07-16 02: 00:00 PM, [address] [facility], , [place], [address], Provider Name:Gricel Tineo, 2021-08-02 0 8:20:00 AM, [address] [place] [address], , [place], [address], Insurance Providers Payer Name Payer Address Payer Phone Insured Name Patient Relati onship to Insured Coverage Start Date Coverage End Date MEDICAID [employer] [address] [facility] [id number] ERLIN ROJAS MEDICARE Part A and B [address] [facility] [address] [phone] ERLIN ROJAS self
--- OUTSIDE RECORDS SUMMARY | 2021-09-09 10:44 | CCD ---
Author Author [facility] Organization [facility] Address Unknown Phone Unavailable Care Team Providers Care Drawing Tender Name Role Phone Alva Mock Unavailable PROBLEMS Type Condition ICD9-CM Code KHY37-GV Code Onset Dates Condition S tatus W/U Status Risk SNOMED Code Notes Problem Gastroesophageal reflux disease without esophagitis K21.9 Active confirmed 269769322 Problem Endometriosis N80.9 Active confirmed 589856 003 Problem Fibromyalgia M79.7 Active confirmed 3857325 05 Problem Essential hypertension I10 Active confirmed 16051952 Problem Type 2 diabetes mellitus wit h diabetic neuropathy, without long-term current use of insulin E11.40 Active confirmed 0535701 6 Problem Carpal tunnel syndrome on both sides G56.03 Act william confirmed 78739887523127588 Problem Generalized anxiety disorder F41.1 Active confirme d 63680202 Problem Major depressive disorder, recurrent, moderate F33 .1 Active confirmed 461282269 Problem Gastroparesis K31.84 Active confirmed 950431 006 Problem Iron deficiency anemia due to chronic blood loss D 50.0 Active confirmed 253290035 Problem Panic disorder [episodic paroxysmal anxiety] F41.0 Active confirmed 459975873 Problem Mixed hyperlipidemia E78.2 Active confirmed 195752300 Problem Hyperlipidemia, unspecified hyperlipidemia type E7 8.5 Active confirmed 07028185 Problem Dyslipidemia E78.5 Active confirmed 8282526 07 Problem Epilepsy seizure, generalized, 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 Active confirmed 33220388 Problem Recurrent candidiasis of vagina B37.3 Active confi rmed 209205879 Problem Menorrhagia with irregular cycle N92.1 Active conf irmed 058120486 ALLERGIES Allergen (clinical drug ingredient) Drug/Non Drug Allergy do cumented on EMR Reaction Allergy Type Onset Date Status seasonal Unknown Non Drug Allergy Active oxycodone Oxycodone HCl([facility] Code:[address]-52) Hives Drug Tramaine rgy Active Penicillin (For Allergies Use Only) Hives Drug Allerg y Active ENCOUNTERS from 1985 to 2021-06-19 Encounter Location Date Provider Diagnosis [place] [address] [facility] [phone] [place] [address] May, Mirandacamilo Millardjose Yeast infection of the vagin a B37.3 IMMUNIZATIONS No Information SOCIAL HISTORY Tobacco Use: Social History Observation Description Date Details (start date - stop date) Former Smoker Sex Assigned At : Social History Observation Description Sex Assigned At Unknown Education: Question Answer Notes Level of Education: High School Audit Question Answer Notes Total Score: 0 Interpretation: Alcohol Education Language: Question Answer Notes Languages spoken: Kyrgyz Congregational: Question Answer Notes Congregational 33 None [...] tablet Orally Once a day Active Nystatin 310617 UNIT/GM apply to affected vaginal ar ea [...] Information RESULTS No Results REASON FOR VISIT Diflucan 100 MG Tablet MEDICAL (GENERAL) HISTORY Type Description Date Medical [...] Treatment Notes Treatm ent Clinical Notes May, Yeast infection of the vagina (ICD-10 - B37.3) PLAN OF TREATMENT Medication Medication Name Sig [...] Once a day Next Appt Details Provider Name:Gricel Tineo, 2021-06-21 0 7:30:00 AM, [address] [place] [address], , [place], [address], Provider Name:Tano Serra, 2021-07-02 01:0 0:00 PM, [address] [place] [address], , [place], [address] Provider Name:Gricel Boogie Noman, 2021-07-15 1 1:20:00 AM, [address] [place] [address], , [place], [address], Provider Name:Gricel Keagan Noman, 2021-08-02 0 8:20:00 AM, [address] [place] [address], , [place], [address], Insurance Providers Payer Name Payer Address Payer Phone Insured Name Patient Relati onship to Insured Coverage Start Date Coverage End Date MEDICAID [employer] [address] [facility] [id number] [phone] ERLIN ROJAS MEDICARE Part A and B [address] [facility] [address] ERLIN ROJAS self
--- OUTSIDE RECORDS SUMMARY | 2021-09-09 10:44 | CCD ---
Author Author [facility] Organization [facility] Address Unknown Phone Unavailable Care Team Providers Care Wood Polisher Name Role Phone Wil Tellez Unavailable PROBLEMS Type Condition ICD9-CM Code ZMH09-LK Code Onset Dates Condition S tatus W/U Status Risk SNOMED Code Notes Problem Endometriosis N80.9 Active confirmed 973167 003 Problem Hyperlipidemia, unspecified hyperlipidemia type E7 8.5 Active confirmed 68517322 Problem Essential hypertension I10 Active confirmed 81197987 Problem Gastroesophageal reflux disease without esophagitis K21.9 Active confirmed 303103725 Problem Generalized anxiety disorder F41.1 Active confirme d 79099922 Problem Fibromyalgia M79.7 Active confirmed 1264993 05 Problem Panic disorder [episodic paroxysmal anxiety] F41.0 Active confirmed 233265023 Problem Major depressive disorder, recurrent, moderate F33 .1 Active confirmed 283869045 Problem Incontinence in female N39.3 Active confirmed 50857057 Problem Epilepsy seizure, generalized, 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 Active confirmed 24359914 Problem Recurrent candidiasis of vagina B37.3 Active confi rmed 949808458 Problem 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 Z79.4 Activ e confirmed 910279691 Problem Gastroparesis K31.84 Active confirmed 544283 006 Problem Carpal tunnel syndrome on both sides G56.03 Act william confirmed 83638092145772169 Problem Other chronic pain G89.29 Active confirmed 8 5048112 Problem Dyslipidemia E78.5 Active confirmed 7136853 07 Problem Type 2 diabetes mellitus wit h diabetic neuropathy, without long-term current use of insulin E11.40 Active confirmed 5162413 6 Problem Menorrhagia with irregular cycle N92.1 Active conf irmed 123436606 Problem Iron deficiency anemia due to chronic blood loss D 50.0 Active confirmed 498915423 Problem Mixed hyperlipidemia E78.2 Active confirmed 894031527 Problem Type 2 diabetes mellitus without complications E11 .9 Active confirmed 539721359 ALLERGIES Allergen (clinical drug ingredient) Drug/Non Drug Allergy do cumented on EMR Reaction Allergy Type Onset Date Status oxycodone Oxycodone HCl([facility] Code:[address]-60) Hives Drug Tramaine rgy Active Penicillin (For Allergies Use Only) Hives Drug Allerg y Active ENCOUNTERS from 1985 to 2021-08-06 Encounter Location Date Provider Diagnosis [facility] Resident [address] [facility] [address] [phone] [place] [address] Jul, [facility] IMMUNIZATIONS No Information SOCIAL HISTORY Tobacco Use: Social History Observation Description Date Details (start date - stop date) Former Smoker Sex Assigned At : Social History Observation Description Sex Assigned At Unknown Education: Question Answer Notes Level of Education: High School Audit Question Answer Notes Total Score: 0 Interpretation: Alcohol Education Language: Question Answer Notes Languages spoken: Chilean Moravian: Question Answer Notes Moravian 33 None Drug and Alcohol Question Answer Notes Total Score: 0 Interpretation: No problems reported Tobacco Use: Question Answer Notes Are you a: former smoker How long has it been since you last smoked? > 10 years REASON FOR REFERRAL No Information VITAL SIGNS No information MEDICATIONS Medication SIG (Take, Route, Frequency, Duration) Notes Start Da te End Date Status Nystatin 860290 UNIT/GM apply to affected vaginal ar ea [...] its Apr, Active FreeStyle Kaleigh 14 Day [place] - as directed Jun, Not-Taking PROzac 40 [...] Information RESULTS No Results REASON FOR VISIT Cancel Appointment Request MEDICAL (GENERAL) HISTORY Type Description [...] Name:Tano Serra 2021-08-23 10:0 0:00 AM, [address] [facility], , [place], [address] Insurance Providers Payer Name Payer Address Payer Phone Insured Name Patient Relati onship to Insured Coverage Start Date Coverage End Date MEDICAID [employer] [address] [facility] [id number] ERLIN ROJAS MEDICARE Part A and B [address] [facility] [id number] ERLIN ROJAS self
--- OUTSIDE RECORDS SUMMARY | 2021-09-09 10:44 | CCD ---
Author Author [facility] Organization [facility] Address Unknown Phone Unavailable Care Team Providers Care Tablet Making Machine Operator Name Role Phone Gwen Cuellar Unavailable PROBLEMS Type Condition ICD9-CM Code QMR12-HR Code Onset Dates Condition S tatus W/U Status Risk SNOMED Code Notes Problem Hyperlipidemia, unspecified hyperlipidemia type E7 8.5 Active confirmed 11573425 Problem Type 2 diabetes mellitus wit h diabetic neuropathy, without long-term current use of insulin E11.40 Active confirmed 5689040 6 Problem Gastroesophageal reflux disease without esophagitis K21.9 Active confirmed 286564743 Problem Endometriosis N80.9 Active confirmed 173793 003 Problem Fibromyalgia M79.7 Active confirmed 6820930 05 Problem Essential hypertension I10 Active confirmed 74219707 Problem Generalized anxiety disorder F41.1 Active confirme d 73937474 Problem Panic disorder [episodic paroxysmal anxiety] F41.0 Active confirmed 762748192 Problem Dyslipidemia E78.5 Active confirmed 9697245 07 Problem Epilepsy seizure, generalized, 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 Active confirmed 44061345 Problem Recurrent candidiasis of vagina B37.3 Active confi rmed 955988366 Problem retirement (current) use of insulin Z79.4 Activ e confirmed 080594399 Problem Gastroparesis K31.84 Active confirmed 415531 006 Problem Other chronic pain G89.29 Active confirmed 8 7839054 Problem Major depressive disorder, recurrent, moderate F33 .1 Active confirmed 355708264 Problem Carpal tunnel syndrome on both sides G56.03 Act william confirmed 29754454614117456 Problem Menorrhagia with irregular cycle N92.1 Active conf irmed 630817785 Problem Iron deficiency anemia due to chronic blood loss D 50.0 Active confirmed 462549260 Problem Mixed hyperlipidemia E78.2 Active confirmed 787861414 Problem Type 2 diabetes mellitus without complications E11 .9 Active confirmed 274921905 ALLERGIES Allergen (clinical drug ingredient) Drug/Non Drug Allergy do cumented on EMR Reaction Allergy Type Onset Date Status oxycodone Oxycodone HCl([facility] Code:[address]-41) Hives Drug Tramaine rgy Active Penicillin (For Allergies Use Only) Hives Drug Allerg y Active ENCOUNTERS from 1985 to 2021-07-09 Encounter Location Date Provider Diagnosis [facility] [address] [facility] [phone] [place] [address] Jun, Gwen Cuellar IMMUNIZATIONS No Information SOCIAL HISTORY Tobacco Use: Social History Observation Description Date Details (start date - stop date) Former Smoker Sex Assigned At : Social History Observation Description Sex Assigned At Unknown Education: Question Answer Notes Level of Education: High School Audit Question Answer Notes Total Score: 0 Interpretation: Alcohol Education Language: Question Answer Notes Languages spoken: Malay Latter Day: Question Answer Notes Latter Day 33 None Drug and Alcohol Question Answer [...] day(s) Apr, Active FreeStyle Kaleigh 14 Day [place] - as directed Jun, Active Ferrous Gluconate [...] directed Orally Twice a day Active Nystatin 622011 UNIT/GM apply to affected vaginal ar ea [...] Information RESULTS No Results REASON FOR VISIT Test results MEDICAL (GENERAL) HISTORY Type Description Date Medical [...] 10 days Jun, Next Appt Details Provider Name:Tano Serra, 2021-07-15 01:0 0:00 PM, [address] [place] [address], , [place], [address] Provider Name:Wil Tellez, 2021-07-16 02: 00:00 PM, [address] [place] [address], , [place], [address], Provider Name:Gricel Tineo, 2021-08-02 0 8:20:00 AM, [address] [facility], , [place], [address], Insurance Providers Payer Name Payer Address Payer Phone Insured Name Patient Relati onship to Insured Coverage Start Date Coverage End Date MEDICARE Part A and B [address] [facility] [address] ERLIN ROJAS MEDICAID [employer] [address] [facility] [id number] ERLIN ROJAS self
--- OUTSIDE RECORDS SUMMARY | 2021-09-09 10:44 | CCD ---
Author Author [facility] em[facility] Organization [facility] ems Address Unknown Phone Unavailable Care Team Providers Care Ballistic Expert Name Role Phone Wil Tellez Unavailable PROBLEMS Type Condition ICD9-CM Code LNN23-WR Code Onset Dates Condition S tatus W/U Status Risk SNOMED Code Notes Problem Hyperlipidemia, unspecified hyperlipidemia type E7 8.5 Active confirmed 49971842 Problem Type 2 diabetes mellitus wit h diabetic neuropathy, without long-term current use of insulin E11.40 Active confirmed 8706377 6 Problem Gastroesophageal reflux disease without esophagitis K21.9 Active confirmed 044423674 Problem Endometriosis N80.9 Active confirmed 763783 003 Problem Fibromyalgia M79.7 Active confirmed 2889673 05 Problem Essential hypertension I10 Active confirmed 97902249 Problem Generalized anxiety disorder F41.1 Active confirme d 27009885 Problem Panic disorder [episodic paroxysmal anxiety] F41.0 Active confirmed 846318203 Problem Dyslipidemia E78.5 Active confirmed 8243647 07 Problem Epilepsy seizure, generalized, 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 Active confirmed 84678565 Problem Recurrent candidiasis of vagina B37.3 Active confi rmed 478601815 Problem 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 Z79.4 Activ e confirmed 077599976 Problem Gastroparesis K31.84 Active confirmed 597380 006 Problem Other chronic pain G89.29 Active confirmed 8 6518874 Problem Major depressive disorder, recurrent, moderate F33 .1 Active confirmed 174447936 Problem Carpal tunnel syndrome on both sides G56.03 Act william confirmed [id number] Problem Menorrhagia with irregular cycle N92.1 Active conf irmed 274150509 Problem Iron deficiency anemia due to chronic blood loss D 50.0 Active confirmed 296763848 Problem Mixed hyperlipidemia E78.2 Active confirmed 902972898 Problem Type 2 diabetes mellitus without complications E11 .9 Active confirmed 199418603 ALLERGIES Allergen (clinical drug ingredient) Drug/Non Drug Allergy do cumented on EMR Reaction Allergy Type Onset Date Status oxycodone Oxycodone HCl([facility] Code:[address]-19) Hives Drug Tramaine rgy Active Penicillin (For Allergies Use Only) Hives Drug Allerg y Active ENCOUNTERS from 1985 to 2021-07-24 Encounter Location Date Provider Diagnosis [facility] [address] [facility] [phone] [place] [address] Jun, [place] Rosalinda IMMUNIZATIONS No Information SOCIAL HISTORY Tobacco Use: Social History Observation Description Date Details (start date - stop date) Former Smoker Sex Assigned At : Social History Observation Description Sex Assigned At Unknown Education: Question Answer Notes Level of Education: High School Audit Question Answer Notes Total Score: 0 Interpretation: Alcohol Education Language: Question Answer Notes Languages spoken: Upper Sorbian Pentecostal: Question Answer Notes Pentecostal 33 None [...] day(s) Apr, Active FreeStyle [place] 14 Day [place] - as directed Jun, Active Ferrous Gluconate [...] directed Orally Twice a day Active Nystatin 126822 UNIT/GM apply to affected vaginal ar ea [...] Information RESULTS No Results REASON FOR VISIT referral to urology MEDICAL (GENERAL) HISTORY Type Description Date Medical [...] days Jun, Next Appt Details Provider Name:Gricel Tineo, 2021-08-02 0 8:20:00 AM, [facility] [facility], , [place], [address], Provider Name:Tano Serra, 2021-08-02 10:0 0:00 AM, [address] [facility] [phone], [place], [address] Provider Name:Wil Tellez, 2021-08-06 10: 30:00 AM, [address] [facility], , [place], [address], Insurance Providers Payer Name Payer Address Payer Phone Insured Name Patient Relati onship to Insured Coverage Start Date Coverage End Date MEDICAID MCAUTIdentified [address] [facility] [id number] [phone] ERLIN ROJAS self MEDICARE Part A and B [address] [facility] [id number] ERLIN ROJAS self
--- OUTSIDE RECORDS SUMMARY | 2021-09-09 10:44 | CCD | Continuity of Care Document ---
Author Author Harsh GARCIA DO Organization Unknown Address [address] [place] [address], [facility] [place] [address] Phone [phone] Care Team Providers Care Game Warden Name Role Phone Gwen Cuellar P.A.-C AUTM [phone] Problems Active Problems Provider Date Essential hypertension Sony Garcia DO Onset: 07/16/20 21 Social History Type Date Description Comments Sex Unknown ETOH Use Denies alcohol use Tobacco Use Start: Unknown Non Smoker admits to artaculous marijuana Recreational Drug Use Medical Marijuana Smoking Status Reviewed: 07/16/21 Non Smoker admits to [employer] marijuana Allergies, Adverse Reactions, Alerts Active Allergies [...] Available Procedures Date Code Description Status 07/16/2021 17973 Office/Outpatient New Low [facility] 30 -44 Minutes Completed Medical Devices Description No Information Available Encounters Type Date Location Provider Dx Diagnosis Office Visit 07/16/2021 9:00a [facility] Poonam Garcia DO S46.011A Strain of musc/tend the rotator cuff of right shoulder, init M75.41 Impingement syndrome of righ t shoulder Assessments Date Code Description Provider 07/16/2021 S46.011A Strain of muscle(s) and tendon(s) of the rotator cuff of right shoulder, initial encounter Sony Garcia DO 07/16/2021 M75.41 Impingement syndrome of right sh oulder Sony Garcia DO Plan of Treatment Future Appointment(s):* 08/27/2021 9:40 am - Sony Garcia DO at [facility] 07/16/2021 - Sony Garcia DO* S46.011A Strain of muscle(s) and tendon(s) of the rotator cuff of right shoulder, initial encounter* Comments:* 1. Referred for outpatient physical therapy. Functional therapeutic activity, therapeutic exercise, home exercise program, manual therapy, patient education, heart or cold packs..2. Follow-up after physical therapy. * M75.41 Impingement syndrome of right shoulder Functional Status Description No Information Available Mental Status Description No Information Available Referrals Description No Information Available"
--- OUTSIDE RECORDS SUMMARY | 2021-09-09 10:45 | CCD ---
Author Author [facility] Organization [facility] Address Unknown Phone Unavailable Care Team Providers Care Sales Representative Business Courses Name Role Phone Eagle, Susy PARTS CASTING MACHINE OPERATOR Unavailable Unavailable Eagle, Susy PARTS CASTING MACHINE OPERATOR Unavailable Unavailable Eagle, Susy PARTS CASTING MACHINE OPERATOR Unavailable Unavailable Eagle, Susy PARTS CASTING MACHINE OPERATOR Unavailable Unavailable Eagle, Susy PARTS CASTING MACHINE OPERATOR Unavailable Unavailable Eagle, Susy PARTS CASTING MACHINE OPERATOR Unavailable Unavailable Eagle, Susy PARTS CASTING MACHINE OPERATOR Unavailable Unavailable Eagle, Susy PARTS CASTING MACHINE OPERATOR Unavailable Unavailable Eagle, Susy PARTS CASTING MACHINE OPERATOR Unavailable Unavailable Eagle, Susy PARTS CASTING MACHINE OPERATOR Unavailable Unavailable Eagle, Susy PARTS CASTING MACHINE OPERATOR Unavailable Unavailable Eagle, Susy PARTS CASTING MACHINE OPERATOR Unavailable Unavailable Eagle, Susy PARTS CASTING MACHINE OPERATOR Unavailable Unavailable Stephanie Madsen MD Unavailable Unavailable Stephanie Madsen MD Unavailable Unavailable Stephanie Madsen MD Unavailable Unavailable Stephanie Madsen MD Unavailable Unavailable Stephanie Madsen MD Unavailable Unavailable Stephanie Madsen MD Unavailable Unavailable Stephanie Madsen MD Unavailable Unavailable Stephanie Madsen MD Unavailable Unavailable Stephanie Madsen MD Unavailable Unavailable Stephanie Madsen MD Unavailable Unavailable MD Graciela RAYO Unavailable Unavailable CARE, URGENT DENTAL Unavailable Unavailable LORIE CASTAÑEDA Unavailable Unavailable JOSE LUIS SYLVESTER TEJWINDER Unavailable Unavailable WAGNER, ASHLY Unavailable Unavailable DEFAULT, PROVIDER Unavailable Unavailable MARTÍN BUTT MD Unavailable Unavailable MARTÍN BUTT MD Unavailable Unavailable DEMARCUS FARRELL Unavailable Unavailable TWIG, [facility] Unavailable Unavailab RODO Chatman Unavailable Unavailable Re-disclosure Warning The records that you are about to access may contain information from federally-assisted alcohol or drug abuse programs. If such information is present, then the following federally mandated warning applies: This information has been disclosed to you from records protected by federal confidentiality rules (42 CFR part 2). The federal rules prohibit you from making any further disclosure of this information unless further disclosure is expressly permitted by the written consent of the person to whom it pertains or as otherwise permitted by 42 CFR part 2. A general authorization for the release of medical or other information is NOT sufficient for this purpose. The Federal rules restrict any use of the information to criminally investigate or prosecute any alcohol or drug abuse patient.The records that you are about to access may contain highly sensitive health information, the redisclosure of which is protected by Article 27-F of the [facility] Public Health law. If you continue you may have access to information: Regarding HIV / AIDS; Provided by facilities licensed or operated by the [facility] Office of Mental Health; or Provided by the [facility] Office for People With Developmental Disabilities. If such information is present, then the following [facility] mandated warning applies: This information has been disclosed to you from confidential records which are protected by state law. State law prohibits you from making any further disclosure of this information without the specific written consent of the person to whom it pertains, or as otherwise permitted by law. Any unauthorized further disclosure in violation of state law may result in a fine or care home sentence or both. A general authorization for the release of medical or other information is NOT sufficient authorization for further disc losure. Allergies and Adverse Reactions Type Description Substance Reaction Status Data Source(s ) Drug Allergy Drug Allergy NKDA MEDENT ([facility], [facility]) Encounters Encounter Providers Location Date Indications Data Source(s ) Outpatient Attender: MARTÍN Cleaning/Tomas/Herman/ Delia 08/30/2021 11:00:00 AM EDT MEDENT ([facility]) Unknown [address] [facility] [address] 08/05/2021 12:00:00 AM EDT eCW1 ([facility]) Unknown [address] [facility] [place] [address] 08/05/2021 12:00:00 AM EDT eCW1 ([facility]) Outpatient [address] [facility] [place] [address] 08/02/2021 12:00:00 AM EDT eCW1 ([facility]) ([facility]) [facility] Scheduled Visit [address] [place] [address] 08/02/2021 12:00:00 AM EDT eCW1 ([facility]) Unknown [address] [facility] [address] [address] 07/25/2021 12:00:00 AM EDT eCW1 ([facility]) Unknown [address] [facility] [place] [address] 07/19/2021 12:00:00 AM EDT eCW1 ([facility]) Outpatient Attender: MARTÍN Cleaning/Tomas/Herman/ Delia 07/16/2021 09:00:00 AM EDT MEDENT ([facility]) Unknown [address] [facility] [place] [address] 07/16/2021 12:00:00 AM EDT eCW1 ([facility]) ([facility]) [facility] Health Scheduled Visit [address] [place] [address] 07/15/2021 12:00:00 AM EDT eCW1 ([facility]) Unknown [address] [facility] [address] [address] 07/15/2021 12:00:00 AM EDT eCW1 ([facility]) Outpatient [address] [facility] [address] [address] 07/09/2021 12:00:00 AM EDT eCW1 ([facility]) Unknown [address] [facility] [place] [address] 07/09/2021 12:00:00 AM EDT eCW1 ([facility]) Unknown [address] [facility] [place] [address] 07/08/2021 12:00:00 AM EDT eCW1 ([facility]) Outpatient [address] [facility] [address] 06/26/2021 12:00:00 AM EDT eCW1 ([facility]) Unknown [address] [facility] [place] [address] 06/20/2021 12:00:00 AM EDT eCW1 ([facility]) Unknown [address] [facility] [place] [address] 06/20/2021 12:00:00 AM EDT eCW1 ([facility]) Outpatient [address] [facility] [place] [address] 06/18/2021 12:00:00 AM EDT eCW1 ([facility]) Unknown [address] [facility] [address] 06/17/2021 12:00:00 AM EDT eCW1 ([facility]) Unknown [address] [facility] [address] 05/17/2021 12:00:00 AM EDT eCW1 ([facility]) Unknown [address] [facility] [address] 05/17/2021 12:00:00 AM EDT eCW1 ([facility]) Outpatient [address] [facility] [place] [address] 05/16/2021 12:00:00 AM EDT eCW1 ([facility]) Unknown [address] [facility] [address] 05/16/2021 12:00:00 AM EDT eCW1 ([facility]) Unknown [address] [facility] [address] 05/14/2021 12:00:00 AM EDT eCW1 ([facility]) ([facility]) [facility] Health Scheduled Visit [address] [place] [address] 05/09/2021 12:00:00 AM EDT eCW1 ([facility]) Unknown [address] [facility] [address] 04/19/2021 12:00:00 AM EDT eCW1 ([facility]) Outpatient [address] [facility] [address] [address] 04/16/2021 12:00:00 AM EDT eCW1 ([facility]) Unknown [address] [facility] [address] [address] 04/15/2021 12:00:00 AM EDT eCW1 ([facility]) Outpatient [address] [facility] [address] [address] 04/08/2021 12:00:00 AM EDT eCW1 ([facility]) Outpatient Attender: Susy villalta 03/27/2021 02:35:00 PM EDT MEDENT ([facility]) Unknown [address] [facility] [address] [address] 03/27/2021 12:00:00 AM EDT eCW1 ([facility]) Outpatient [address] [facility] [address] [address] 03/22/2021 12:00:00 AM EDT eCW1 ([facility]) ([facility]) [facility] Scheduled Visit [address] [place] [address] 03/21/2021 12:00:00 AM EDT eCW1 ([facility]) Unknown [address] [facility] [address] [address] 03/06/2021 12:00:00 AM EDT eCW1 ([facility]) [facility] Scheduled Visit [address] [place] [address] 03/05/2021 12:00:00 AM EDT eCW1 ([facility]) Outpatient [address] [facility] [address] [address] 02/20/2021 12:00:00 AM EDT eCW1 ([facility]) Unknown [address] [facility] [place] [address] 02/20/2021 12:00:00 AM EDT eCW1 ([facility]) [place] [address] [facility] [address] 02/15/2021 12:00:00 AM EDT eCW1 ([facility]) Outpatient [address] [facility] [address] 02/01/2021 12:00:00 AM EDT eCW1 ([facility]) Outpatient Attender: RODO BYRNES BHNRAC-BHNRMHAC 04/2021 08:20:26 AM EDT - 01/30/2021 09:21:28 AM EDT [facility] Patient discharged. Office Visit, Est Pt., Level 3 PC [address] [place] [address] 01/22/2021 12:00:00 AM EDT eCW1 ([facility]) Unknown [address] [facility] [address] 01/22/2021 12:00:00 AM EDT eCW1 ([facility]) Outpatient Attender: ASHLY WAGNER BHNRMHAC-BHNRMHAC 01/04/20 03:05:44 PM EST - 01/03/2021 03:05:57 PM EST [facility] Patient discharged. Outpatient Attender: ASHLY WAGNER BHNRAC-BHNRMHAC 12/20/19 03:29:48 PM EST - 12/20/2020 03:32:56 PM EST [facility] Patient discharged. Outpatient Attender: Angy Madsen MD 12/10/2020 10:33:48 AM EST [facility] Patient admitted. Outpatient Attender: ASHLY WAGNER BHNRMHAC-BHNRMHAC 12/04/19 01:50:57 PM EST - 12/04/2020 02:11:05 PM EST [facility] Patient discharged. Outpatient Attender: MD [facility] 10/2020 03:24:49 PM EST - 11/26/2020 04:48:28 PM [facility] Patient discharged. Outpatient Attender: PROVIDER DEFAULTReferrer: MD AUDRA FAUSTIN RGH-RGHLCYT 11/26/2020 02:23:00 PM EST - 11/26/2020 11:59:00 PM [facility] Patient discharged. Outpatient Attender: PROVIDER DEFAULT ACMLSPECPROC-RGHLELMS Erna 11/26/2020 02:28:00 AM EST - 11/26/2020 02:22:00 PM [facility] Patient discharged. Outpatient Attender: MD AUDRA RAYO 11/26/2020 02:28:0 0 AM [facility] Outpatient Attender: ASHLY WAGNRE BHNRAC-BHNRMHAC 11/15/19 05:36:02 PM EST - 11/15/2020 05:36:14 PM [facility] Patient discharged. Outpatient Attender: LORIE CASTAÑEDA RMGSP-RMGTWCP 10/26 02:53:44 PM EST - 11/09/2020 02:53:58 PM [facility] Patient discharged. Outpatient Attender: RODO BYRNES BHNRAC-BHNRMHAC 10/26 07:11:00 AM EST - 11/07/2020 11:33:02 AM [facility] Patient discharged. Outpatient Attender: ASHLY WAGNER BHNRAC-BHNRMHAC 11/01/19 10:22:34 AM EST - 11/01/2020 10:25:09 AM [facility] Patient discharged. Outpatient Attender: PROVIDER DEFAULTReferrer: JOSE LUIS SYLVESTER ACMLSPECPROC-ACMLSPECPROC 10/21/2020 01:44:00 AM EST - 10/21/2020 11:59:00 PM [facility] Patient discharged. Outpatient Attender: PROVIDER DEFAULT RGH-RGHICWIL 10/20 06:37:00 PM EST - 10/20/2020 07:07:00 PM [facility] Patient admitted. Outpatient Attender: ASHLY WAGNER NRAC-BHNRMHAC 10/10/20 20 02:10:01 PM EST - 10/10/2020 02:12:05 PM [facility] Patient discharged. Outpatient Attender: PROVIDER DEFAULT ACMLSPECPROC-ACMLSPEC PROC 10/04/2020 08:47:00 PM EST - 10/04/2020 11:59:00 PM [facility] Patient discharged. Outpatient Attender: PROVIDER DEFAULT ACMLSPECPROC-ACMLSPEC PROC 10/04/2020 07:11:00 PM EST - 10/04/2020 08:46:00 PM [facility] Patient discharged. Outpatient Attender: PROVIDER DEFAULT [facility]-RGHICWIL 10/04 12:39:00 PM EST - 10/04/2020 01:58:00 PM [facility] Patient discharged. Outpatient Attender: [facility] RGHDENTR-RGHDENTRHC 01/2020 09:46:40 AM EST - 09/28/2020 10:39:46 AM [facility] Patient discharged. Outpatient Attender: DEMARCUS Hernandezender: Fernando VERGARA [facility] RMGOPDRHC-RMGTWIGRHC 09/11/2020 02:57:34 PM EST - 09/11/2020 03:40:54 PM [facility] Patient discharged. Outpatient Attender: ASHLY WAGNER NRAC-BHNRAC 03/20/2020 03:29:1 1 PM EDT [facility] Outpatient Attender: ASHLY WAGNER BHNRAC-BHNRMHAC 12/29/2019 11:08:2 0 AM [facility] Medications Medication Brand Name Start Date Product Form Dose Route Admi nistrative Instructions Pharmacy Instructions Status Indications Reaction Description Data Source(s) medroxyprogesterone acetate 10 MG Oral Tablet [Provera ] Provera 10 MG Provera 10 MG 08/02/2021 12:00:00 AM EDT 1.0 {tablet_with_food} active Provera 10 MG eCW1 ([facility]) medroxyprogesterone acetate 10 MG Oral Tablet [Provera ] Provera 10 MG Provera 10 MG 08/02/2021 12:00:00 AM EDT 1.0 {tablet_with_food} active Provera 10 MG eCW1 ([facility]) medroxyprogesterone acetate 10 MG Oral Tablet [Provera ] Provera 10 MG Provera 10 MG 08/02/2021 12:00:00 AM EDT 1.0 {tablet_with_food} active Provera 10 MG eCW1 ([facility]) medroxyprogesterone acetate 10 MG Oral Tablet [Provera ] Provera 10 MG Provera 10 MG 08/02/2021 12:00:00 AM EDT 1.0 {tablet_with_food} active Provera 10 MG eCW1 ([facility]) medroxyprogesterone acetate 10 MG Oral Tablet [Provera ] Provera 10 MG Provera 10 MG 08/02/2021 12:00:00 AM EDT 1.0 {tablet_with_food} active Provera 10 MG eCW1 ([facility]) medroxyprogesterone acetate 10 MG Oral Tablet [Provera ] Provera 10 MG Provera 10 MG 08/02/2021 12:00:00 AM EDT 1.0 {tablet_with_food} active Provera 10 MG eCW1 ([facility]) Diclofenac Sodium 0.01 MG/MG Topical Gel [Voltaren] Voltaren 1 % Voltaren 1 % 07/09/2021 12:00:00 AM EDT active Voltaren 1 % eCW1 ([facility]) Diclofenac Sodium 0.01 MG/MG Topical Gel [Voltaren] Voltaren 1 % Voltaren 1 % 07/09/2021 12:00:00 AM EDT active Voltaren 1 % eCW1 ([facility]) Diclofenac Sodium 0.01 MG/MG Topical Gel [Voltaren] Voltaren 1 % Voltaren 1 % 07/09/2021 12:00:00 AM EDT active Voltaren 1 % eCW1 ([facility]) Diclofenac Sodium 0.01 MG/MG Topical Gel [Voltaren] Voltaren 1 % Voltaren 1 % 07/09/2021 12:00:00 AM EDT active Voltaren 1 % eCW1 ([facility]) Diclofenac Sodium 0.01 MG/MG Topical Gel [Voltaren] Voltaren 1 % Voltaren 1 % 07/09/2021 12:00:00 AM EDT active Voltaren 1 % eCW1 ([facility]) Diclofenac Sodium 0.01 MG/MG Topical Gel [Voltaren] Voltaren 1 % Voltaren 1 % 07/09/2021 12:00:00 AM EDT active Voltaren 1 % eCW1 ([facility]) Diclofenac Sodium 0.01 MG/MG Topical Gel [Voltaren] Voltaren 1 % Voltaren 1 % 07/09/2021 12:00:00 AM EDT active Voltaren 1 % eCW1 ([facility]) Diclofenac Sodium 0.01 MG/MG Topical Gel [Voltaren] Voltaren 1 % Voltaren 1 % 07/09/2021 12:00:00 AM EDT active Voltaren 1 % eCW1 ([facility]) Diclofenac Sodium 0.01 MG/MG Topical Gel [Voltaren] Voltaren 1 % Voltaren 1 % 07/09/2021 12:00:00 AM EDT active Voltaren 1 % eCW1 ([facility]) Diclofenac Sodium 0.01 MG/MG Topical Gel [Voltaren] Voltaren 1 % Voltaren 1 % 07/09/2021 12:00:00 AM EDT active Voltaren 1 % eCW1 ([facility]) Diclofenac Sodium 0.01 MG/MG Topical Gel [Voltaren] Voltaren 1 % Voltaren 1 % 07/09/2021 12:00:00 AM EDT active Voltaren 1 % eCW1 ([facility]) FreeStyle [place] 14 Day Sensor - FreeStyle [place] 14 Day Senso r - 06/26/2021 12:00:00 AM EDT active FreeStyl e [place] 14 Day Sensor - eCW1 ([facility]) FreeStyle [place] 14 Day [place] - FreeStyle [place] 14 Day Reade r - 06/26/2021 12:00:00 AM EDT active FreeStyl e [place] 14 Day [place] - eCW1 ([facility]) FreeStyle [place] 14 Day Sensor - FreeStyle [place] 14 Day Senso r - 06/26/2021 12:00:00 AM EDT active FreeStyl e [place] 14 Day Sensor - eCW1 ([facility]) FreeStyle [place] 14 Day Sensor - FreeStyle [place] 14 Day Senso r 06/26/2021 12:00:00 AM EDT active FreeStyl e [place] 14 Day Sensor - eCW1 ([facility]) FreeStyle [place] 14 Day Sensor - FreeStyle [place] 14 Day Senso r 06/26/2021 12:00:00 AM EDT active FreeStyl e [place] 14 Day Sensor - eCW1 ([facility]) FreeStyle [place] 14 Day [place] - FreeStyle [place] 14 Day Reade r 06/26/2021 12:00:00 AM EDT active FreeStyl e [place] 14 Day [place] - eCW1 ([facility]) FreeStyle [place] 14 Day [place] - FreeStyle [place] 14 Day Reade r 06/26/2021 12:00:00 AM EDT active FreeStyl e [place] 14 Day [place] - eCW1 ([facility]) FreeStyle [place] 14 Day [place] - FreeStyle [place] 14 Day Reade r 06/26/2021 12:00:00 AM EDT suspended FreeS tyle [place] 14 Day [place] - eCW1 ([facility]) FreeStyle [place] 14 Day Sensor - FreeStyle [place] 14 Day Senso r 06/26/2021 12:00:00 AM EDT active FreeStyl e [place] 14 Day Sensor - eCW1 ([facility]) FreeStyle [place] 14 Day [place] - FreeStyle [place] 14 Day Reade r 06/26/2021 12:00:00 AM EDT suspended FreeS tyle [place] 14 Day [place] - eCW1 ([facility]) FreeStyle [place] 14 Day [place] - FreeStyle [place] 14 Day Reade r 06/26/2021 12:00:00 AM EDT active FreeStyl e [place] 14 Day [place] - eCW1 ([facility]) FreeStyle [place] 14 Day Sensor - FreeStyle [place] 14 Day Senso r - 06/26/2021 12:00:00 AM EDT suspended FreeS tyle [place] 14 Day Sensor - eCW1 ([facility]) FreeStyle [place] 14 Day Sensor - FreeStyle [place] 14 Day Senso r 06/26/2021 12:00:00 AM EDT suspended FreeS tyle [place] 14 Day Sensor - eCW1 ([facility]) FreeStyle [place] 14 Day [place] - FreeStyle [place] 14 Day Reade r 06/26/2021 12:00:00 AM EDT suspended FreeS tyle [place] 14 Day [place] - eCW1 ([facility]) FreeStyle [place] 14 Day [place] - FreeStyle [place] 14 Day Reade r 06/26/2021 12:00:00 AM EDT suspended FreeS tyle [place] 14 Day [place] - eCW1 ([facility]) FreeStyle [place] 14 Day Sensor - FreeStyle [place] 14 Day Senso r 06/26/2021 12:00:00 AM EDT suspended FreeS tyle [place] 14 Day Sensor - eCW1 ([facility]) FreeStyle [place] 14 Day Sensor - FreeStyle [place] 14 Day Senso r 06/26/2021 12:00:00 AM EDT suspended FreeS tyle [place] 14 Day Sensor - eCW1 ([facility]) FreeStyle [place] 14 Day Sensor - FreeStyle [place] 14 Day Senso r 06/26/2021 12:00:00 AM EDT suspended FreeS tyle [place] 14 Day Sensor - eCW1 ([facility]) FreeStyle [place] 14 Day Sensor - FreeStyle [place] 14 Day Senso r 06/26/2021 12:00:00 AM EDT active FreeStyl e [place] 14 Day Sensor - eCW1 ([facility]) FreeStyle [place] 14 Day [place] - FreeStyle [place] 14 Day Reade r 06/26/2021 12:00:00 AM EDT suspended FreeS tyle [place] 14 Day [place] - eCW1 ([facility]) FreeStyle [place] 14 Day Sensor - FreeStyle [place] 14 Day Senso r - 06/26/2021 12:00:00 AM EDT active FreeStyl e [place] 14 Day Sensor - eCW1 ([facility]) FreeStyle [place] 14 Day [place] - FreeStyle [place] 14 Day Reade r - 06/26/2021 12:00:00 AM EDT active FreeStyl e [place] 14 Day [place] - eCW1 ([facility]) FreeStyle [place] 14 Day Sensor - FreeStyle [place] 14 Day Senso r - 06/26/2021 12:00:00 AM EDT suspended FreeS tyle [place] 14 Day Sensor - eCW1 ([facility]) FreeStyle [place] 14 Day [place] - FreeStyle [place] 14 Day Reade r 06/26/2021 12:00:00 AM EDT active FreeStyl e [place] 14 Day [place] - eCW1 ([facility]) FreeStyle [place] 14 Day [place] - FreeStyle [place] 14 Day Reade r 06/26/2021 12:00:00 AM EDT active FreeStyl e [place] 14 Day [place] - eCW1 ([facility]) FreeStyle [place] 14 Day [place] - FreeStyle [place] 14 Day Reade r 06/26/2021 12:00:00 AM EDT suspended FreeS tyle [place] 14 Day [place] - eCW1 ([facility]) Fluconazole 150 MG Oral Tablet Fluconazole 150 MG 06/18/2021 12:00: 00 AM EDT 1.0 {tablet} suspended Fluconazole 150 M G eCW1 ([facility]) Fluconazole 150 MG Oral Tablet Fluconazole 150 MG 06/18/2021 12:00: 00 AM EDT 1.0 {tablet} active Fluconazole 150 MG eCW1 ([facility]) Fluconazole 150 MG Oral Tablet Fluconazole 150 MG 06/18/2021 12:00: 00 AM EDT 1.0 {tablet} suspended Fluconazole 150 M G eCW1 ([facility]) Fluconazole 150 MG Oral Tablet Fluconazole 150 MG 06/18/2021 12:00: 00 AM EDT 1.0 {tablet} suspended Fluconazole 150 M G eCW1 ([facility]) Fluconazole 150 MG Oral Tablet Fluconazole 150 MG 06/18/2021 12:00: 00 AM EDT 1.0 {tablet} active Fluconazole 150 MG eCW1 ([facility]) Fluconazole 150 MG Oral Tablet Fluconazole 150 MG 06/18/2021 12:00: 00 AM EDT 1.0 {tablet} suspended Fluconazole 150 M G eCW1 ([facility]) Fluconazole 150 MG Oral Tablet Fluconazole 150 MG 06/18/2021 12:00: 00 AM EDT 1.0 {tablet} suspended Fluconazole 150 M G eCW1 ([facility]) Fluconazole 150 MG Oral Tablet Fluconazole 150 MG 06/18/2021 12:00: 00 AM EDT 1.0 {tablet} suspended Fluconazole 150 M G eCW1 ([facility]) Fluconazole 150 MG Oral Tablet Fluconazole 150 MG 06/18/2021 12:00: 00 AM EDT 1.0 {tablet} suspended Fluconazole 150 M G eCW1 ([facility]) Fluconazole 150 MG Oral Tablet Fluconazole 150 MG 06/18/2021 12:00: 00 AM EDT 1.0 {tablet} active Fluconazole 150 MG eCW1 ([facility]) Fluconazole 150 MG Oral Tablet Fluconazole 150 MG 06/18/2021 12:00: 00 AM EDT 1.0 {tablet} suspended Fluconazole 150 M G eCW1 ([facility]) Fluconazole 150 MG Oral Tablet Fluconazole 150 MG 06/18/2021 12:00: 00 AM EDT 1.0 {tablet} suspended Fluconazole 150 M G eCW1 ([facility]) Fluconazole 150 MG Oral Tablet Fluconazole 150 MG 06/18/2021 12:00: 00 AM EDT 1.0 {tablet} suspended Fluconazole 150 M G eCW1 ([facility]) Fluconazole 150 MG Oral Tablet Fluconazole 150 MG 06/18/2021 12:00: 00 AM EDT 1.0 {tablet} suspended Fluconazole 150 M G eCW1 ([facility]) Fluconazole 150 MG Oral Tablet Fluconazole 150 MG 06/18/2021 12:00: 00 AM EDT 1.0 {tablet} active Fluconazole 150 MG eCW1 ([facility]) Fluconazole 150 MG Oral Tablet Fluconazole 150 MG 06/18/2021 12:00: 00 AM EDT 1.0 {tablet} suspended Fluconazole 150 M G eCW1 ([facility]) Fluconazole 150 MG Oral Tablet Fluconazole 150 MG 06/18/2021 12:00: 00 AM EDT 1.0 {tablet} suspended Fluconazole 150 M G eCW1 ([facility]) celecoxib 100 MG Oral Capsule Celecoxib 100 MG Celecoxib 100 MG 05/18/2021 12:00:00 AM EDT 1.0 {capsule_with_food} active Celecoxib 100 MG eCW1 ([facility]) 3 ML Insulin Glargine 100 UNT/ML Pen Inj leonardo [Lantus] Lantus SoloStar 100 UNIT/ML Lantus SoloStar 100 UNIT/ML 05/18/2021 12:00:00 AM EDT active Lantus SoloStar 100 UNIT/ML eCW1 ([facility]) 3 ML Insulin Glargine 100 UNT/ML Pen Inj leonardo [Lantus] Lantus SoloStar 100 UNIT/ML Lantus SoloStar 100 UNIT/ML 05/18/2021 12:00:00 AM EDT active Lantus SoloStar 100 UNIT/ML eCW1 ([facility] [facility] 3 ML Insulin Glargine 100 UNT/ML Pen Inj leonardo [Lantus] Lantus SoloStar 100 UNIT/ML Lantus SoloStar 100 UNIT/ML 05/18/2021 12:00:00 AM EDT active Lantus SoloStar 100 UNIT/ML eCW1 ([facility]ly [facility]) 3 ML Insulin Glargine 100 UNT/ML Pen Inj leonardo [Lantus] Lantus SoloStar 100 UNIT/ML Lantus SoloStar 100 UNIT/ML 05/18/2021 12:00:00 AM EDT active Lantus SoloStar 100 UNIT/ML eCW1 ([facility]) Ondansetron 4 MG Disintegrating Oral Tablet Ondansetron 4 MG 05/18/2021 12:00:00 AM EDT 1.0 {tablet_on_the_tongue_and_allow_to_dissolve} active Ondansetron 4 MG eCW1 ([facility]) 3 ML Insulin Glargine 100 UNT/ML Pen Inj leonardo [Lantus] Lantus SoloStar 100 UNIT/ML Lantus SoloStar 100 UNIT/ML 05/18/2021 12:00:00 AM EDT active eCW1 ([facility]) Ondansetron 4 MG Disintegrating Oral Tablet Ondansetron 4 MG 05/18/2021 12:00:00 AM EDT 1.0 {tablet_on_the_tongue_and_allow_to_dissolve} active Ondansetron 4 MG eCW1 ([facility]) Ondansetron 4 MG Disintegrating Oral Tablet Ondansetron 4 MG 05/18/2021 12:00:00 AM EDT 1.0 {tablet_on_the_tongue_and_allow_to_dissolve} active Ondansetron 4 MG eCW1 ([facility]) Ondansetron 4 MG Disintegrating Oral Tablet Ondansetron 4 MG 05/18/2021 12:00:00 AM EDT 1.0 {tablet_on_the_tongue_and_allow_to_dissolve} active Ondansetron 4 MG eCW1 ([facility]) 3 ML Insulin Glargine 100 UNT/ML Pen Inj leonardo [Lantus] Lantus SoloStar 100 UNIT/ML Lantus SoloStar 100 UNIT/ML 05/18/2021 12:00:00 AM EDT active Lantus SoloStar 100 UNIT/ML eCW1 ([facility]) 3 ML Insulin Glargine 100 UNT/ML Pen Inj leonardo [Lantus] Lantus SoloStar 100 UNIT/ML Lantus SoloStar 100 UNIT/ML 05/18/2021 12:00:00 AM EDT active Lantus SoloStar 100 UNIT/ML eCW1 ([facility]) Ondansetron 4 MG Disintegrating Oral Tablet Ondansetron 4 MG 05/18/2021 12:00:00 AM EDT 1.0 {tablet_on_the_tongue_and_allow_to_dissolve} active Ondansetron 4 MG eCW1 ([facility]) 3 ML Insulin Glargine 100 UNT/ML Pen Inj leonardo [Lantus] Lantus SoloStar 100 UNIT/ML Lantus SoloStar 100 UNIT/ML 05/18/2021 12:00:00 AM EDT active eCW1 ([facility]) 3 ML Insulin Glargine 100 UNT/ML Pen Inj leonardo [Lantus] Lantus SoloStar 100 UNIT/ML Lantus SoloStar 100 UNIT/ML 05/18/2021 12:00:00 AM EDT active Lantus SoloStar 100 UNIT/ML eCW1 ([facility]) 3 ML Insulin Glargine 100 UNT/ML Pen Inj leonardo [Lantus] Lantus SoloStar 100 UNIT/ML Lantus SoloStar 100 UNIT/ML 05/18/2021 12:00:00 AM EDT active Lantus SoloStar 100 UNIT/ML eCW1 ([facility]) 3 ML Insulin Glargine 100 UNT/ML Pen Inj leonardo [Lantus] Lantus SoloStar 100 UNIT/ML Lantus SoloStar 100 UNIT/ML 05/18/2021 12:00:00 AM EDT active Lantus SoloStar 100 UNIT/ML eCW1 ([facility]) Ondansetron 4 MG Disintegrating Oral Tablet Ondansetron 4 MG 05/18/2021 12:00:00 AM EDT 1.0 {tablet_on_the_tongue_and_allow_to_dissolve} active Ondansetron 4 MG eCW1 ([facility]) Ondansetron 4 MG Disintegrating Oral Tablet Ondansetron 4 MG 05/18/2021 12:00:00 AM EDT 1.0 {tablet_on_the_tongue_and_allow_to_dissolve} active Ondansetron 4 MG eCW1 ([facility]) 3 ML Insulin Glargine 100 UNT/ML Pen Inj leonardo [Lantus] Lantus SoloStar 100 UNIT/ML Lantus SoloStar 100 UNIT/ML 05/18/2021 12:00:00 AM EDT active Lantus SoloStar 100 UNIT/ML eCW1 ([facility]) Ondansetron 4 MG Disintegrating Oral Tablet Ondansetron 4 MG 05/18/2021 12:00:00 AM EDT 1.0 {tablet_on_the_tongue_and_allow_to_dissolve} active Ondansetron 4 MG eCW1 ([facility]) Ondansetron 4 MG Disintegrating Oral Tablet Ondansetron 4 MG 05/18/2021 12:00:00 AM EDT 1.0 {tablet_on_the_tongue_and_allow_to_dissolve} active Ondansetron 4 MG eCW1 ([facility]) Ondansetron 4 MG Disintegrating Oral Tablet Ondansetron 4 MG 05/18/2021 12:00:00 AM EDT 1.0 {tablet_on_the_tongue_and_allow_to_dissolve} active Ondansetron 4 MG eCW1 ([facility]) 3 ML Insulin Glargine 100 UNT/ML Pen Inj leonardo [Lantus] Lantus SoloStar 100 UNIT/ML Lantus SoloStar 100 UNIT/ML 05/18/2021 12:00:00 AM EDT active Lantus SoloStar 100 UNIT/ML eCW1 ([facility]) 3 ML Insulin Glargine 100 UNT/ML Pen Inj leonardo [Lantus] Lantus SoloStar 100 UNIT/ML Lantus SoloStar 100 UNIT/ML 05/18/2021 12:00:00 AM EDT active Lantus SoloStar 100 UNIT/ML eCW1 ([facility]) Ondansetron 4 MG Disintegrating Oral Tablet Ondansetron 4 MG 05/18/2021 12:00:00 AM EDT 1.0 {tablet_on_the_tongue_and_allow_to_dissolve} active Ondansetron 4 MG eCW1 ([facility]) Ondansetron 4 MG Disintegrating Oral Tablet Ondansetron 4 MG 05/18/2021 12:00:00 AM EDT 1.0 {tablet_on_the_tongue_and_allow_to_dissolve} active eCW1 ([facility]) Ondansetron 4 MG Disintegrating Oral Tablet Ondansetron 4 MG 05/18/2021 12:00:00 AM EDT 1.0 {tablet_on_the_tongue_and_allow_to_dissolve} active Ondansetron 4 MG eCW1 ([facility]) Ondansetron 4 MG Disintegrating Oral Tablet Ondansetron 4 MG 05/18/2021 12:00:00 AM EDT 1.0 {tablet_on_the_tongue_and_allow_to_dissolve} active Ondansetron 4 MG eCW1 ([facility]) 3 ML Insulin Glargine 100 UNT/ML Pen Inj leonardo [Lantus] Lantus SoloStar 100 UNIT/ML Lantus SoloStar 100 UNIT/ML 05/18/2021 12:00:00 AM EDT active Lantus SoloStar 100 UNIT/ML eCW1 ([facility]) 3 ML Insulin Glargine 100 UNT/ML Pen Inj leonardo [Lantus] Lantus SoloStar 100 UNIT/ML Lantus SoloStar 100 UNIT/ML 05/18/2021 12:00:00 AM EDT active Lantus SoloStar 100 UNIT/ML eCW1 ([facility]) 3 ML Insulin Glargine 100 UNT/ML Pen Inj leonardo [Lantus] Lantus SoloStar 100 UNIT/ML Lantus SoloStar 100 UNIT/ML 05/18/2021 12:00:00 AM EDT active Lantus SoloStar 100 UNIT/ML eCW1 ([facility]) 3 ML Insulin Glargine 100 UNT/ML Pen Inj leonardo [Lantus] Lantus SoloStar 100 UNIT/ML Lantus SoloStar 100 UNIT/ML 05/18/2021 12:00:00 AM EDT active Lantus SoloStar 100 UNIT/ML eCW1 ([facility]) Ondansetron 4 MG Disintegrating Oral Tablet Ondansetron 4 MG 05/18/2021 12:00:00 AM EDT 1.0 {tablet_on_the_tongue_and_allow_to_dissolve} active Ondansetron 4 MG eCW1 ([facility]) 3 ML Insulin Glargine 100 UNT/ML Pen Inj leonardo [Lantus] Lantus SoloStar 100 UNIT/ML Lantus SoloStar 100 UNIT/ML 05/18/2021 12:00:00 AM EDT active Lantus SoloStar 100 UNIT/ML eCW1 ([facility]) 3 ML Insulin Glargine 100 UNT/ML Pen Inj leonardo [Lantus] Lantus SoloStar 100 UNIT/ML Lantus SoloStar 100 UNIT/ML 05/18/2021 12:00:00 AM EDT active Lantus SoloStar 100 UNIT/ML eCW1 ([facility]) Ondansetron 4 MG Disintegrating Oral Tablet Ondansetron 4 MG 05/18/2021 12:00:00 AM EDT 1.0 {tablet_on_the_tongue_and_allow_to_dissolve} active Ondansetron 4 MG eCW1 ([facility]) Ondansetron 4 MG Disintegrating Oral Tablet Ondansetron 4 MG 05/18/2021 12:00:00 AM EDT 1.0 {tablet_on_the_tongue_and_allow_to_dissolve} active Ondansetron 4 MG eCW1 ([facility]) Ondansetron 4 MG Disintegrating Oral Tablet Ondansetron 4 MG 05/18/2021 12:00:00 AM EDT 1.0 {tablet_on_the_tongue_and_allow_to_dissolve} active Ondansetron 4 MG eCW1 ([facility]) 3 ML Insulin Glargine 100 UNT/ML Pen Inj leonardo [Lantus] Lantus SoloStar 100 UNIT/ML Lantus SoloStar 100 UNIT/ML 05/18/2021 12:00:00 AM EDT active Lantus SoloStar 100 UNIT/ML eCW1 ([facility]) Ondansetron 4 MG Disintegrating Oral Tablet Ondansetron 4 MG 05/18/2021 12:00:00 AM EDT 1.0 {tablet_on_the_tongue_and_allow_to_dissolve} active eCW1 ([facility]) Ondansetron 4 MG Disintegrating Oral Tablet Ondansetron 4 MG 05/18/2021 12:00:00 AM EDT 1.0 {tablet_on_the_tongue_and_allow_to_dissolve} active Ondansetron 4 MG eCW1 ([facility]) Ondansetron 4 MG Disintegrating Oral Tablet Ondansetron 4 MG 05/18/2021 12:00:00 AM EDT 1.0 {tablet_on_the_tongue_and_allow_to_dissolve} active Ondansetron 4 MG eCW1 ([facility]) Fluconazole 100 MG Oral Tablet [Diflucan] Diflucan 100 MG Di flucan 100 MG 04/15/2021 12:00:00 AM EDT 1.0 {tablet} suspended eCW1 ([facility]) Fluconazole 100 MG Oral Tablet [Diflucan] Diflucan 100 MG Di flucan 100 MG 04/15/2021 12:00:00 AM EDT 1.0 {tablet} active Diflucan 100 MG eCW1 ([facility]) Fluconazole 100 MG Oral Tablet [Diflucan] Diflucan 100 MG Di flucan 100 MG 04/15/2021 12:00:00 AM EDT 1.0 {tablet} active Diflucan 100 MG eCW1 ([facility]) Fluconazole 100 MG Oral Tablet [Diflucan] Diflucan 100 MG Di flucan 100 MG 04/15/2021 12:00:00 AM EDT 1.0 {tablet} active Diflucan 100 MG eCW1 ([facility]) Fluconazole 100 MG Oral Tablet [Diflucan] Diflucan 100 MG Di flucan 100 MG 04/15/2021 12:00:00 AM EDT 1.0 {tablet} active Diflucan 100 MG eCW1 ([facility]) Fluconazole 100 MG Oral Tablet [Diflucan] Diflucan 100 MG Di flucan 100 MG 04/15/2021 12:00:00 AM EDT 1.0 {tablet} active Diflucan 100 MG eCW1 ([facility]) Fluconazole 100 MG Oral Tablet [Diflucan] Diflucan 100 MG Di flucan 100 MG 04/15/2021 12:00:00 AM EDT 1.0 {tablet} active Diflucan 100 MG eCW1 ([facility]) Fluconazole 100 MG Oral Tablet [Diflucan] Diflucan 100 MG Di flucan 100 MG 04/15/2021 12:00:00 AM EDT 1.0 {tablet} suspended eCW1 ([facility]) Fluconazole 100 MG Oral Tablet [Diflucan] Diflucan 100 MG Di flucan 100 MG 04/15/2021 12:00:00 AM EDT 1.0 {tablet} active Diflucan 100 MG eCW1 ([facility]) Fluconazole 100 MG Oral Tablet [Diflucan] Diflucan 100 MG Di flucan 100 MG 04/15/2021 12:00:00 AM EDT 1.0 {tablet} suspended Diflucan 100 MG eCW1 ([facility]) Fluconazole 100 MG Oral Tablet [Diflucan] Diflucan 100 MG Di flucan 100 MG 04/15/2021 12:00:00 AM EDT 1.0 {tablet} active Diflucan 100 MG eCW1 ([facility]) Fluconazole 100 MG Oral Tablet [Diflucan] Diflucan 100 MG Di flucan 100 MG 04/15/2021 12:00:00 AM EDT 1.0 {tablet} active Diflucan 100 MG eCW1 ([facility]) Fluconazole 100 MG Oral Tablet [Diflucan] Diflucan 100 MG Di flucan 100 MG 04/15/2021 12:00:00 AM EDT 1.0 {tablet} active Diflucan 100 MG eCW1 ([facility]) Fluconazole 100 MG Oral Tablet [Diflucan] Diflucan 100 MG Di flucan 100 MG 04/15/2021 12:00:00 AM EDT 1.0 {tablet} active Diflucan 100 MG eCW1 ([facility]) Fluconazole 100 MG Oral Tablet [Diflucan] Diflucan 100 MG Di flucan 100 MG 04/15/2021 12:00:00 AM EDT 1.0 {tablet} active Diflucan 100 MG eCW1 ([facility]) Fluconazole 100 MG Oral Tablet [Diflucan] Diflucan 100 MG Di flucan 100 MG 04/15/2021 12:00:00 AM EDT 1.0 {tablet} suspended Diflucan 100 MG eCW1 ([facility]) Fluconazole 100 MG Oral Tablet [Diflucan] Diflucan 100 MG Di flucan 100 MG 04/15/2021 12:00:00 AM EDT 1.0 {tablet} suspended Diflucan 100 MG eCW1 ([facility]) Fluconazole 100 MG Oral Tablet [Diflucan] Diflucan 100 MG Di flucan 100 MG 04/15/2021 12:00:00 AM EDT 1.0 {tablet} active Diflucan 100 MG eCW1 ([facility]) Fluconazole 100 MG Oral Tablet [Diflucan] Diflucan 100 MG Di flucan 100 MG 04/15/2021 12:00:00 AM EDT 1.0 {tablet} suspended Diflucan 100 MG eCW1 ([facility]) Fluconazole 100 MG Oral Tablet [Diflucan] Diflucan 100 MG Di flucan 100 MG 04/15/2021 12:00:00 AM EDT 1.0 {tablet} suspended Diflucan 100 MG eCW1 ([facility]) Fluconazole 100 MG Oral Tablet [Diflucan] Diflucan 100 MG Di flucan 100 MG 04/15/2021 12:00:00 AM EDT 1.0 {tablet} active Diflucan 100 MG eCW1 ([facility]) Fluconazole 100 MG Oral Tablet [Diflucan] Diflucan 100 MG Di flucan 100 MG 04/15/2021 12:00:00 AM EDT 1.0 {tablet} active Diflucan 100 MG eCW1 ([facility]) Fluconazole 100 MG Oral Tablet [Diflucan] Diflucan 100 MG Di flucan 100 MG 04/15/2021 12:00:00 AM EDT 1.0 {tablet} active Diflucan 100 MG eCW1 ([facility]) Fluconazole 100 MG Oral Tablet [Diflucan] Diflucan 100 MG Di flucan 100 MG 04/15/2021 12:00:00 AM EDT 1.0 {tablet} suspended Diflucan 100 MG eCW1 ([facility]) Fluconazole 100 MG Oral Tablet [Diflucan] Diflucan 100 MG Di flucan 100 MG 04/15/2021 12:00:00 AM EDT 1.0 {tablet} active Diflucan 100 MG eCW1 ([facility]) Fluconazole 100 MG Oral Tablet [Diflucan] Diflucan 100 MG Di flucan 100 MG 04/15/2021 12:00:00 AM EDT 1.0 {tablet} active Diflucan 100 MG eCW1 ([facility]) Fluconazole 100 MG Oral Tablet [Diflucan] Diflucan 100 MG Di flucan 100 MG 04/15/2021 12:00:00 AM EDT 1.0 {tablet} active Diflucan 100 MG eCW1 ([facility]) Blood Glucose Test - Blood Glucose Test - 03/22/2021 12:00:00 AM EDT active Blood Glucose Test - eCW1 ([facility]) Blood Glucose Test - Blood Glucose Test - 03/22/2021 12:00:00 AM EDT active Blood Glucose Test - eCW1 ([facility]) Blood Glucose Test - Blood Glucose Test - 03/22/2021 12:00:00 AM EDT active Blood Glucose Test - eCW1 ([facility]) Blood Glucose Test - Blood Glucose Test - 03/22/2021 12:00:00 AM EDT active Blood Glucose Test - eCW1 ([facility]) Blood Glucose Test - Blood Glucose Test - 03/22/2021 12:00:00 AM EDT active Blood Glucose Test - eCW1 ([facility]) Blood Glucose Test - Blood Glucose Test - 03/22/2021 12:00:00 AM EDT active Blood Glucose Test - eCW1 ([facility]) Blood Glucose Test - Blood Glucose Test - 03/22/2021 12:00:00 AM EDT active Blood Glucose Test - eCW1 ([facility]) Blood Glucose Test - Blood Glucose Test - 03/22/2021 12:00:00 AM EDT active Blood Glucose Test - eCW1 ([facility]) Omeprazole 20 MG Delayed Release Oral Capsule Omeprazole 20 MG 03/22/2021 12:00:00 AM EDT active Omeprazo le 20 MG eCW1 ([facility]) Blood Glucose Test - Blood Glucose Test - 03/22/2021 12:00:00 AM EDT active eCW1 ([facility]) Blood Glucose Test - Blood Glucose Test - 03/22/2021 12:00:00 AM EDT active eCW1 ([facility]) Blood Glucose Test - Blood Glucose Test - 03/22/2021 12:00:00 AM EDT active Blood Glucose Test - eCW1 ([facility]) Omeprazole 20 MG Delayed Release Oral Capsule Omeprazole 20 MG 03/22/2021 12:00:00 AM EDT active Omeprazo le 20 MG eCW1 ([facility]) Blood Glucose Test - Blood Glucose Test - 03/22/2021 12:00:00 AM EDT active Blood Glucose Test - eCW1 ([facility]) Omeprazole 20 MG Delayed Release Oral Capsule Omeprazole 20 MG 03/22/2021 12:00:00 AM EDT active Omeprazo le 20 MG eCW1 ([facility]) Blood Glucose Test - Blood Glucose Test - 03/22/2021 12:00:00 AM EDT active Blood Glucose Test - eCW1 ([facility]) Blood Glucose Test - Blood Glucose Test - 03/22/2021 12:00:00 AM EDT active Blood Glucose Test - eCW1 ([facility]) Blood Glucose Test - Blood Glucose Test - 03/22/2021 12:00:00 AM EDT active Blood Glucose Test - eCW1 ([facility]) Blood Glucose Test - Blood Glucose Test - 03/22/2021 12:00:00 AM EDT active Blood Glucose Test - eCW1 ([facility]) Omeprazole 20 MG Delayed Release Oral Capsule Omeprazole 20 MG 03/22/2021 12:00:00 AM EDT active Omeprazo le 20 MG eCW1 ([facility]) Blood Glucose Test - Blood Glucose Test - 03/22/2021 12:00:00 AM EDT active Blood Glucose Test - eCW1 ([facility]) Blood Glucose Test - Blood Glucose Test - 03/22/2021 12:00:00 AM EDT active Blood Glucose Test - eCW1 ([facility]) Omeprazole 20 MG Delayed Release Oral Capsule Omeprazole 20 MG 03/22/2021 12:00:00 AM EDT active Omeprazo le 20 MG eCW1 ([facility]) Blood Glucose Test - Blood Glucose Test - 03/22/2021 12:00:00 AM EDT active Blood Glucose Test - eCW1 ([facility]) Omeprazole 20 MG Delayed Release Oral Capsule Omeprazole 20 MG 03/22/2021 12:00:00 AM EDT active Omeprazo le 20 MG eCW1 ([facility]) Blood Glucose Test - Blood Glucose Test - 03/22/2021 12:00:00 AM EDT active Blood Glucose Test - eCW1 ([facility]) Blood Glucose Test - Blood Glucose Test - 03/22/2021 12:00:00 AM EDT active Blood Glucose Test - eCW1 ([facility]) Blood Glucose Test - Blood Glucose Test - 03/22/2021 12:00:00 AM EDT active Blood Glucose Test - eCW1 ([facility]) Omeprazole 20 MG Delayed Release Oral Capsule Omeprazole 20 MG 03/22/2021 12:00:00 AM EDT active Omeprazo le 20 MG eCW1 ([facility]) Blood Glucose Test - Blood Glucose Test - 03/22/2021 12:00:00 AM EDT active Blood Glucose Test - eCW1 ([facility]) Blood Glucose Test - Blood Glucose Test - 03/22/2021 12:00:00 AM EDT active Blood Glucose Test - eCW1 ([facility]) Blood Glucose Test - Blood Glucose Test - 03/22/2021 12:00:00 AM EDT active Blood Glucose Test - eCW1 ([facility]) Blood Glucose Test - Blood Glucose Test - 03/22/2021 12:00:00 AM EDT active Blood Glucose Test - eCW1 ([facility]) Blood Glucose Test - Blood Glucose Test - 03/22/2021 12:00:00 AM EDT active Blood Glucose Test - eCW1 ([facility]) Blood Glucose Test - Blood Glucose Test - 03/22/2021 12:00:00 AM EDT active Blood Glucose Test - eCW1 ([facility]) Omeprazole 20 MG Delayed Release Oral Capsule Omeprazole 20 MG 03/22/2021 12:00:00 AM EDT active Omeprazo le 20 MG eCW1 ([facility]) Blood Glucose Test - Blood Glucose Test - 03/22/2021 12:00:00 AM EDT active Blood Glucose Test - eCW1 ([facility]) Blood Glucose Test - Blood Glucose Test - 03/22/2021 12:00:00 AM EDT active Blood Glucose Test - eCW1 ([facility]) Nystatin 100 UNT/MG Topical Ointment Nystatin 028220 U NIT/GM Nystatin 816592 UNIT/GM 02/20/2021 12:00:00 AM EDT suspended Nystatin 380370 UNIT/GM eCW1 ([facility]) Nystatin 100 UNT/MG Topical Ointment Nystatin 383410 U NIT/GM Nystatin 773300 UNIT/GM 02/20/2021 12:00:00 AM EDT suspended Nystatin 724577 UNIT/GM eCW1 ([facility]) Nystatin 100 UNT/MG Topical Ointment Nystatin 541512 U NIT/GM Nystatin 705537 UNIT/GM 02/20/2021 12:00:00 AM EDT suspended Nystatin 445389 UNIT/GM eCW1 ([facility]) Nystatin 100 UNT/MG Topical Ointment Nystatin 466222 U NIT/GM Nystatin 621809 UNIT/GM 02/20/2021 12:00:00 AM EDT suspended Nystatin 671687 UNIT/GM eCW1 ([facility]) Nystatin 100 UNT/MG Topical Ointment Nystatin 441720 U NIT/GM Nystatin 065854 UNIT/GM 02/20/2021 12:00:00 AM EDT active Nystatin 522012 UNIT/GM eCW1 ([facility]) Nystatin 100 UNT/MG Topical Ointment Nystatin 509366 U NIT/GM Nystatin 250001 UNIT/GM 02/20/2021 12:00:00 AM EDT suspended Nystatin 858388 UNIT/GM eCW1 ([facility]) Nystatin 100 UNT/MG Topical Ointment Nystatin 915202 U NIT/GM Nystatin 564140 UNIT/GM 02/20/2021 12:00:00 AM EDT suspended Nystatin 057046 UNIT/GM eCW1 ([facility]) Nystatin 100 UNT/MG Topical Ointment Nystatin 857761 U NIT/GM Nystatin 697771 UNIT/GM 02/20/2021 12:00:00 AM EDT active eCW1 ([facility]) Nystatin 100 UNT/MG Topical Ointment Nystatin 891927 U NIT/GM Nystatin 303928 UNIT/GM 02/20/2021 12:00:00 AM EDT suspended Nystatin 816349 UNIT/GM eCW1 ([facility]) Nystatin 100 UNT/MG Topical Ointment Nystatin 048971 U NIT/GM Nystatin 166134 UNIT/GM 02/20/2021 12:00:00 AM EDT suspended Nystatin 479537 UNIT/GM eCW1 ([facility]) Nystatin 100 UNT/MG Topical Ointment Nystatin 641364 U NIT/GM Nystatin 949059 UNIT/GM 02/20/2021 12:00:00 AM EDT active Nystatin 444816 UNIT/GM eCW1 ([facility]) Nystatin 100 UNT/MG Topical Ointment Nystatin 446501 U NIT/GM Nystatin 204387 UNIT/GM 02/20/2021 12:00:00 AM EDT active Nystatin 449528 UNIT/GM eCW1 ([facility]) Nystatin 100 UNT/MG Topical Ointment Nystatin 802965 U NIT/GM Nystatin 004084 UNIT/GM 02/20/2021 12:00:00 AM EDT active Nystatin 102738 UNIT/GM eCW1 ([facility]) Nystatin 100 UNT/MG Topical Ointment Nystatin 222436 U NIT/GM Nystatin 615320 UNIT/GM 02/20/2021 12:00:00 AM EDT suspended Nystatin 518328 UNIT/GM eCW1 ([facility]) Nystatin 100 UNT/MG Topical Ointment Nystatin 725134 U NIT/GM Nystatin 425664 UNIT/GM 02/20/2021 12:00:00 AM EDT suspended Nystatin 593651 UNIT/GM eCW1 ([facility]) Nystatin 100 UNT/MG Topical Ointment Nystatin 024365 U NIT/GM Nystatin 921499 UNIT/GM 02/20/2021 12:00:00 AM EDT suspended Nystatin 607324 UNIT/GM eCW1 ([facility]) Nystatin 100 UNT/MG Topical Ointment Nystatin 930393 U NIT/GM Nystatin 622681 UNIT/GM 02/20/2021 12:00:00 AM EDT suspended Nystatin 416701 UNIT/GM eCW1 ([facility]) Nystatin 100 UNT/MG Topical Ointment Nystatin 705729 U NIT/GM Nystatin 221254 UNIT/GM 02/20/2021 12:00:00 AM EDT suspended Nystatin 590045 UNIT/GM eCW1 ([facility]) Nystatin 100 UNT/MG Topical Ointment Nystatin 410080 U NIT/GM Nystatin 230755 UNIT/GM 02/20/2021 12:00:00 AM EDT suspended Nystatin 397177 UNIT/GM eCW1 ([facility]) Nystatin 100 UNT/MG Topical Ointment Nystatin 285791 U NIT/GM Nystatin 164625 UNIT/GM 02/20/2021 12:00:00 AM EDT active Nystatin 779817 UNIT/GM eCW1 ([facility]) Nystatin 100 UNT/MG Topical Ointment Nystatin 850693 U NIT/GM Nystatin 495023 UNIT/GM 02/20/2021 12:00:00 AM EDT suspended Nystatin 890342 UNIT/GM eCW1 ([facility]) Nystatin 100 UNT/MG Topical Ointment Nystatin 956706 U NIT/GM Nystatin 025356 UNIT/GM 02/20/2021 12:00:00 AM EDT suspended Nystatin 718304 UNIT/GM eCW1 ([facility]) Nystatin 100 UNT/MG Topical Ointment Nystatin 203329 U NIT/GM Nystatin 160790 UNIT/GM 02/20/2021 12:00:00 AM EDT suspended Nystatin 154060 UNIT/GM eCW1 ([facility]) Nystatin 100 UNT/MG Topical Ointment Nystatin 854899 U NIT/GM Nystatin 805710 UNIT/GM 02/20/2021 12:00:00 AM EDT suspended Nystatin 266482 UNIT/GM eCW1 ([facility]) Nystatin 100 UNT/MG Topical Ointment Nystatin 938375 U NIT/GM Nystatin 766284 UNIT/GM 02/20/2021 12:00:00 AM EDT suspended Nystatin 787580 UNIT/GM eCW1 ([facility]) Nystatin 100 UNT/MG Topical Ointment Nystatin 909013 U NIT/GM Nystatin 047129 UNIT/GM 02/20/2021 12:00:00 AM EDT suspended eCW1 ([facility]) Nystatin 100 UNT/MG Topical Ointment Nystatin 667998 U NIT/GM Nystatin 942011 UNIT/GM 02/20/2021 12:00:00 AM EDT suspended Nystatin [id number] UNIT/GM eCW1 ([facility]) Nystatin 100 UNT/MG Topical Ointment Nystatin 238548 U NIT/GM Nystatin 136569 UNIT/GM 02/20/2021 12:00:00 AM EDT suspended Nystatin 382201 UNIT/GM eCW1 ([facility]) Nystatin 100 UNT/MG Topical Ointment Nystatin 556571 U NIT/GM Nystatin 968731 UNIT/GM 02/20/2021 12:00:00 AM EDT active Nystatin 715935 UNIT/GM eCW1 ([facility]) Nystatin 100 UNT/MG Topical Ointment Nystatin 601127 U NIT/GM Nystatin 821877 UNIT/GM 02/20/2021 12:00:00 AM EDT active Nystatin 799099 UNIT/GM eCW1 ([facility]) Nystatin 100 UNT/MG Topical Ointment Nystatin 275022 U NIT/GM Nystatin 977765 UNIT/GM 02/20/2021 12:00:00 AM EDT suspended Nystatin 500476 UNIT/GM eCW1 ([facility]) Nystatin 100 UNT/MG Topical Ointment Nystatin 542633 U NIT/GM Nystatin 424253 UNIT/GM 02/20/2021 12:00:00 AM EDT suspended eCW1 ([facility]) Nystatin 100 UNT/MG Topical Ointment Nystatin 229529 U NIT/GM Nystatin 887990 UNIT/GM 02/20/2021 12:00:00 AM EDT suspended Nystatin 332752 UNIT/GM eCW1 ([facility]) Nystatin 100 UNT/MG Topical Ointment Nystatin 436937 U NIT/GM Nystatin 235259 UNIT/GM 02/20/2021 12:00:00 AM EDT suspended Nystatin 268326 UNIT/GM eCW1 ([facility]) Nystatin 100 UNT/MG Topical Ointment Nystatin 399026 U NIT/GM Nystatin 460166 UNIT/GM 02/20/2021 12:00:00 AM EDT active Nystatin 586054 UNIT/GM eCW1 ([facility]) valacyclovir 1000 MG Oral Tablet [Valtrex] Valtrex 1 GM Valt evert 1 GM 01/22/2021 12:00:00 AM EDT 1.0 {tablet} suspended Valtrex 1 GM eCW1 ([facility]) Mupirocin 0.02 MG/MG Topical Ointment Mupirocin 2 % Mupiroci n 2 % 01/22/2021 12:00:00 AM EDT suspended Mupir ocin 2 % eCW1 ([facility]) Mupirocin 0.02 MG/MG Topical Ointment Mupirocin 2 % Mupiroci n 2 % 01/22/2021 12:00:00 AM EDT suspended Mupir ocin 2 % eCW1 ([facility]) Mupirocin 0.02 MG/MG Topical Ointment Mupirocin 2 % Mupiroci n 2 % 01/22/2021 12:00:00 AM EDT suspended Mupir ocin 2 % eCW1 ([facility]) valacyclovir 1000 MG Oral Tablet [Valtrex] Valtrex 1 GM Valt evert 1 GM 01/22/2021 12:00:00 AM EDT 1.0 {tablet} suspended Valtrex 1 GM eCW1 ([facility]) valacyclovir 1000 MG Oral Tablet [Valtrex] Valtrex 1 GM Valt evert 1 GM 01/22/2021 12:00:00 AM EDT 1.0 {tablet} active Va ltrex 1 GM eCW1 ([facility]) valacyclovir 1000 MG Oral Tablet [Valtrex] Valtrex 1 GM Valt evert 1 GM 01/22/2021 12:00:00 AM EDT 1.0 {tablet} suspended Valtrex 1 GM eCW1 ([facility]) Mupirocin 0.02 MG/MG Topical Ointment Mupirocin 2 % Mupiroci n 2 % 01/22/2021 12:00:00 AM EDT suspended Mupir ocin 2 % eCW1 ([facility]) Mupirocin 0.02 MG/MG Topical Ointment Mupirocin 2 % Mupiroci n 2 % 01/22/2021 12:00:00 AM EDT suspended Mupir ocin 2 % eCW1 ([facility]) Mupirocin 0.02 MG/MG Topical Ointment Mupirocin 2 % Mupiroci n 2 % 01/22/2021 12:00:00 AM EDT suspended Mupir ocin 2 % eCW1 ([facility]) valacyclovir 1000 MG Oral Tablet [Valtrex] Valtrex 1 GM Valt evert 1 GM 01/22/2021 12:00:00 AM EDT 1.0 {tablet} suspended Valtrex 1 GM eCW1 ([facility]) Mupirocin 0.02 MG/MG Topical Ointment Mupirocin 2 % Mupiroci n 2 % 01/22/2021 12:00:00 AM EDT active Mupiroci n 2 % eCW1 ([facility]) Mupirocin 0.02 MG/MG Topical Ointment Mupirocin 2 % Mupiroci n 2 % 01/22/2021 12:00:00 AM EDT suspended Mupir ocin 2 % eCW1 ([facility]) Mupirocin 0.02 MG/MG Topical Ointment Mupirocin 2 % Mupiroci n 2 % 01/22/2021 12:00:00 AM EDT active e CW1 ([facility]) Mupirocin 0.02 MG/MG Topical Ointment Mupirocin 2 % Mupiroci n 2 % 01/22/2021 12:00:00 AM EDT active Mupiroci n 2 % eCW1 ([facility]) valacyclovir 1000 MG Oral Tablet [Valtrex] Valtrex 1 GM Valt evert 1 GM 01/22/2021 12:00:00 AM EDT 1.0 {tablet} active Va ltrex 1 GM eCW1 ([facility]) Mupirocin 0.02 MG/MG Topical Ointment Mupirocin 2 % Mupiroci n 2 % 01/22/2021 12:00:00 AM EDT suspended Mupir ocin 2 % eCW1 ([facility]) valacyclovir 1000 MG Oral Tablet [Valtrex] Valtrex 1 GM Valt evert 1 GM 01/22/2021 12:00:00 AM EDT 1.0 {tablet} suspended Valtrex 1 GM eCW1 ([facility]) valacyclovir 1000 MG Oral Tablet [Valtrex] Valtrex 1 GM Valt evert 1 GM 01/22/2021 12:00:00 AM EDT 1.0 {tablet} active Va ltrex 1 GM eCW1 ([facility]) valacyclovir 1000 MG Oral Tablet [Valtrex] Valtrex 1 GM Valt evert 1 GM 01/22/2021 12:00:00 AM EDT 1.0 {tablet} suspended Valtrex 1 GM eCW1 ([facility]) valacyclovir 1000 MG Oral Tablet [Valtrex] Valtrex 1 GM Valt evert 1 GM 01/22/2021 12:00:00 AM EDT 1.0 {tablet} suspended Valtrex 1 GM eCW1 ([facility]) Mupirocin 0.02 MG/MG Topical Ointment Mupirocin 2 % Mupiroci n 2 % 01/22/2021 12:00:00 AM EDT active Mupiroci n 2 % eCW1 ([facility]) valacyclovir 1000 MG Oral Tablet [Valtrex] Valtrex 1 GM Valt evert 1 GM 01/22/2021 12:00:00 AM EDT 1.0 {tablet} suspended Valtrex 1 GM eCW1 ([facility]) Mupirocin 0.02 MG/MG Topical Ointment Mupirocin 2 % Mupiroci n 2 % 01/22/2021 12:00:00 AM EDT active Mupiroci n 2 % eCW1 ([facility]) Mupirocin 0.02 MG/MG Topical Ointment Mupirocin 2 % Mupiroci n 2 % 01/22/2021 12:00:00 AM EDT active Mupiroci n 2 % eCW1 ([facility]) valacyclovir 1000 MG Oral Tablet [Valtrex] Valtrex 1 GM Valt evert 1 GM 01/22/2021 12:00:00 AM EDT 1.0 {tablet} active Va ltrex 1 GM eCW1 ([facility]) valacyclovir 1000 MG Oral Tablet [Valtrex] Valtrex 1 GM Valt evert 1 GM 01/22/2021 12:00:00 AM EDT 1.0 {tablet} suspended Valtrex 1 GM eCW1 ([facility]) Mupirocin 0.02 MG/MG Topical Ointment Mupirocin 2 % Mupiroci n 2 % 01/22/2021 12:00:00 AM EDT suspended Mupir ocin 2 % eCW1 ([facility]) Mupirocin 0.02 MG/MG Topical Ointment Mupirocin 2 % Mupiroci n 2 % 01/22/2021 12:00:00 AM EDT suspended Mupir ocin 2 % eCW1 ([facility]) Mupirocin 0.02 MG/MG Topical Ointment Mupirocin 2 % Mupiroci n 2 % 01/22/2021 12:00:00 AM EDT suspended Mupir ocin 2 % eCW1 ([facility]) Mupirocin 0.02 MG/MG Topical Ointment Mupirocin 2 % Mupiroci n 2 % 01/22/2021 12:00:00 AM EDT suspended eCW1 ([facility]) Mupirocin 0.02 MG/MG Topical Ointment Mupirocin 2 % Mupiroci n 2 % 01/22/2021 12:00:00 AM EDT suspended Mupir ocin 2 % eCW1 ([facility]) Mupirocin 0.02 MG/MG Topical Ointment Mupirocin 2 % Mupiroci n 2 % 01/22/2021 12:00:00 AM EDT suspended Mupir ocin 2 % eCW1 ([facility]) valacyclovir 1000 MG Oral Tablet [Valtrex] Valtrex 1 GM Valt evert 1 GM 01/22/2021 12:00:00 AM EDT 1.0 {tablet} active Va ltrex 1 GM eCW1 ([facility]) Mupirocin 0.02 MG/MG Topical Ointment Mupirocin 2 % Mupiroci n 2 % 01/22/2021 12:00:00 AM EDT active Mupiroci n 2 % eCW1 ([facility]) valacyclovir 1000 MG Oral Tablet [Valtrex] Valtrex 1 GM Valt evert 1 GM 01/22/2021 12:00:00 AM EDT 1.0 {tablet} suspended eCW1 ([facility]) valacyclovir 1000 MG Oral Tablet [Valtrex] Valtrex 1 GM Valt evert 1 GM 01/22/2021 12:00:00 AM EDT 1.0 {tablet} suspended Valtrex 1 GM eCW1 ([facility]) valacyclovir 1000 MG Oral Tablet [Valtrex] Valtrex 1 GM Valt evert 1 GM 01/22/2021 12:00:00 AM EDT 1.0 {tablet} active Va ltrex 1 GM eCW1 ([facility]) valacyclovir 1000 MG Oral Tablet [Valtrex] Valtrex 1 GM Valt evert 1 GM 01/22/2021 12:00:00 AM EDT 1.0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 initial draw here butpt will need to repeat this as noted as she may not have developed antibodiesafter occurrence 6 days ago. Encouraged abstinence or protection until thattime. Pt verbalizes and agrees w/ plan of care; will discharge stable pt tohomeDischarge: The patient is ambulatory, alert, and understands directions. I had adetailed discussion with the patient and/or guardian regarding the historicalpoints, exam findings, and any diagnostic results supporting the dischargediagnosis.ED AttestationAttestationHardy Roach, [facility]12/05/19 1320Hardy Roach, [facility]12/05/19 1353 Name Value Range Interpretation Code Description Data Candace rce(s) Supporting Document(s) Procedure Social History Code Duration Value Status Description Data Source(s ) Smoking 08/19/2021 12:00:00 AM EDT Former Smoker completed Former Smoker eCW1 ([facility]) Smoking 08/02/2021 12:00:00 AM EDT Former Smoker completed Former Smoker eCW1 ([facility]) Smoking 08/02/2021 12:00:00 AM EDT Former Smoker completed Former Smoker eCW1 ([facility]) Smoking 08/02/2021 12:00:00 AM EDT Former Smoker completed Former Smoker eCW1 ([facility]) Smoking 08/02/2021 12:00:00 AM EDT Former Smoker completed Former Smoker eCW1 ([facility]) Smoking 08/02/2021 12:00:00 AM EDT Former Smoker completed Former Smoker eCW1 ([facility]) Smoking 07/16/2021 12:00:00 AM EDT Non Smoker completed Non Smoke r MEDENT ([facility]) Smoking 07/09/2021 12:00:00 AM EDT Former Smoker completed Former Smoker eCW1 ([facility]) Smoking 07/09/2021 12:00:00 AM EDT Former Smoker completed Former Smoker eCW1 ([facility]) Smoking 07/09/2021 12:00:00 AM EDT Former Smoker completed Former Smoker eCW1 ([facility]) Smoking 07/09/2021 12:00:00 AM EDT Former Smoker completed Former Smoker eCW1 ([facility]) Smoking 07/09/2021 12:00:00 AM EDT Former Smoker completed Former Smoker eCW1 ([facility]) Smoking 06/26/2021 12:00:00 AM EDT Former Smoker completed Former Smoker eCW1 ([facility]) Smoking 06/26/2021 12:00:00 AM EDT Former Smoker completed Former Smoker eCW1 ([facility]) Smoking 06/18/2021 12:00:00 AM EDT Former Smoker completed Former Smoker eCW1 ([facility]) Smoking 06/18/2021 12:00:00 AM EDT Former Smoker completed Former Smoker eCW1 ([facility]) Smoking 06/18/2021 12:00:00 AM EDT Former Smoker completed Former Smoker eCW1 ([facility]) Smoking 06/18/2021 12:00:00 AM EDT Former Smoker completed Former Smoker eCW1 ([facility]) Smoking 05/16/2021 12:00:00 AM EDT Former Smoker completed Former Smoker eCW1 ([facility]) Smoking 05/16/2021 12:00:00 AM EDT Former Smoker completed Former Smoker eCW1 ([facility]) Smoking 05/16/2021 12:00:00 AM EDT Former Smoker completed Former Smoker eCW1 ([facility]) Smoking 05/16/2021 12:00:00 AM EDT Former Smoker completed Former Smoker eCW1 ([facility]) Smoking 05/16/2021 12:00:00 AM EDT Former Smoker completed Former Smoker eCW1 ([facility]) Smoking 04/15/2021 12:00:00 AM EDT Former Smoker completed Former Smoker eCW1 ([facility]) Smoking 04/15/2021 12:00:00 AM EDT Former Smoker completed Former Smoker eCW1 ([facility]) Smoking 04/15/2021 12:00:00 AM EDT Former Smoker completed Former Smoker eCW1 ([facility]) Smoking 04/15/2021 12:00:00 AM EDT Former Smoker completed Former Smoker eCW1 ([facility]) Smoking 04/15/2021 12:00:00 AM EDT Former Smoker completed Former Smoker eCW1 ([facility]) Smoking 04/08/2021 12:00:00 AM EDT Former Smoker completed Former Smoker eCW1 ([facility]) Smoking 03/20/2021 12:00:00 AM EDT Former Smoker completed Former Smoker eCW1 ([facility]) Smoking 03/20/2021 12:00:00 AM EDT Former Smoker completed Former Smoker eCW1 ([facility]) Smoking 03/20/2021 12:00:00 AM EDT Former Smoker completed Former Smoker eCW1 ([facility]) Smoking 02/20/2021 12:00:00 AM EDT Former Smoker completed Former Smoker eCW1 ([facility]) Smoking 02/20/2021 12:00:00 AM EDT Former Smoker completed Former Smoker eCW1 ([facility]) Smoking 02/20/2021 12:00:00 AM EDT Former Smoker completed Former Smoker eCW1 ([facility]) Smoking 02/20/2021 12:00:00 AM EDT Former Smoker completed Former Smoker eCW1 ([facility]) Smoking 02/06/2021 12:00:00 AM EDT Former Smoker completed Former Smoker eCW1 ([facility]) Smoking 02/06/2021 12:00:00 AM EDT Former Smoker completed Former Smoker eCW1 ([facility]) Smoking 01/22/2021 12:00:00 AM EDT Never Smoker completed Never S moker eCW1 ([facility]) Smoking 01/22/2021 12:00:00 AM EDT Never Smoker completed Never S moker eCW1 ([facility]) Vital Signs ID Date Data Source UNK Name Value Range Interpretation Code Description Data Source(s) Body temperature 97.3 [degF] 97.3 [degF] [facility] Body weight 197 [lb_av] 197 [lb_av] eCW1 ([facility]) Body weight 89.36 kg 89.36 kg eCW1 ([facility]) Body height 63 [in_i] 63 [in_i] eCW1 ([facility]) Body mass index (BMI) [Ratio] 34.89 kg/m2 34.89 kg/m2 eCW1 ([facility]) Systolic blood pressure 130 mm[Hg] 130 mm[Hg] e CW1 ([facility]) Diastolic blood pressure 80 mm[Hg] 80 mm[Hg] eCW1 ([facility]) Body temperature 96.1 [degF] 96.1 [degF] [facility] Body weight 199 [lb_av] 199 [lb_av] eCW1 ([facility]) Body weight 90.27 kg 90.27 kg eCW1 ([facility]) Body height 63 [in_i] 63 [in_i] eCW1 ([facility]) Body mass index (BMI) [Ratio] 35.25 kg/m2 35.25 kg/m2 eCW1 ([facility]) Heart rate 109 /min 109 /min eCW1 ([facility]) Respiratory rate 18 /min 18 /min eCW1 ([facility]) Body temperature 97.7 [degF] 97.7 [degF] eCW1 ( [facility]) Systolic blood pressure 140 mm[Hg] 140 mm[Hg] e CW1 ([facility]) Diastolic blood pressure 94 mm[Hg] 94 mm[Hg] eCW1 ([facility]) Body weight 197.6 [lb_av] 197.6 [lb_av] eCW1 ([facility]) Body height 63 [in_i] 63 [in_i] eCW1 ([facility]) Body mass index (BMI) [Ratio] 35.00 kg/m2 35.00 kg/m2 eCW1 ([facility]) Heart rate 96 /min 96 /min eCW1 ([facility]) Respiratory rate 18 /min 18 /min eCW1 ([facility]) Body temperature 98.2 [degF] 98.2 [degF] eCW1 ( [facility]) Systolic blood pressure 132 mm[Hg] 132 mm[Hg] e CW1 ([facility]) Diastolic blood pressure 86 mm[Hg] 86 mm[Hg] eCW1 ([facility]) Body weight 193 [lb_av] 193 [lb_av] eCW1 ([facility]) Body weight 87.54 kg 87.54 kg eCW1 ([facility]) Body height 63 [in_i] 63 [in_i] eCW1 ([facility]) Body mass index (BMI) [Ratio] 34.18 kg/m2 34.18 kg/m2 eCW1 ([facility]) Heart rate 104 /min 104 /min eCW1 ([facility]) Respiratory rate 18 /min 18 /min eCW1 ([facility]) Body temperature 98.0 [degF] 98.0 [degF] eCW1 ( [facility]) Systolic blood pressure 130 mm[Hg] 130 mm[Hg] e CW1 ([facility]) Diastolic blood pressure 82 mm[Hg] 82 mm[Hg] eCW1 ([facility]) Body weight 196.08 [lb_av] 196.08 [lb_av] eCW1 ([facility]) Body height 63 [in_i] 63 [in_i] eCW1 ([facility]) Body mass index (BMI) [Ratio] 34.73 kg/m2 34.73 kg/m2 eCW1 ([facility]) Heart rate 111 /min 111 /min eCW1 ([facility]) Respiratory rate 18 /min 18 /min eCW1 ([facility]) Body temperature 97.5 [degF] 97.5 [degF] eCW1 ( [facility]) Systolic blood pressure 138 mm[Hg] 138 mm[Hg] e CW1 ([facility]) Diastolic blood pressure 90 mm[Hg] 90 mm[Hg] eCW1 ([facility]) Body weight 209.6 [lb_av] 209.6 [lb_av] eCW1 ([facility]) Body height 63 [in_i] 63 [in_i] eCW1 ([facility]) Body mass index (BMI) [Ratio] 37.12 kg/m2 37.12 kg/m2 eCW1 ([facility]) Systolic blood pressure 120 mm[Hg] 120 mm[Hg] e CW1 ([facility]) Diastolic blood pressure 76 mm[Hg] 76 mm[Hg] eCW1 ([facility]) Body weight 203.0 [lb_av] 203.0 [lb_av] eCW1 ([facility]) Body weight 92.08 kg 92.08 kg eCW1 ([facility]) Body height 63 [in_i] 63 [in_i] eCW1 ([facility]) Body mass index (BMI) [Ratio] 35.96 kg/m2 35.96 kg/m2 eCW1 ([facility]) Systolic blood pressure 132 mm[Hg] 132 mm[Hg] e CW1 ([facility]) Diastolic blood pressure 90 mm[Hg] 90 mm[Hg] eCW1 ([facility]) Systolic blood pressure 155 mm[Hg] 155 mm[Hg] M EDENT ([facility], [facility]) Diastolic blood pressure 101 mm[Hg] 101 mm[Hg] MEDENT ([facility], [facility]) Heart rate 92 /min 92 /min [facility]ENT ([facility]) Respiratory rate 16 /min 16 /min MEDENT ( [facility], [facility]) Oxygen saturation in Arterial blood by Pulse oximetry 100 % 100 % MEDENT ([facility], [facility]) Body temperature 96.2 [degF] 96.2 [degF] MEDENT ([facility], [facility]) Body weight 203.00 [lb_av] 203.00 [lb_av] MEDEN T ([facility], [facility]) Body height 62 [in_i] 62 [in_i] MEDENT ([facility], [facility]) 5'2" Body mass index (BMI) [Ratio] 37.1 kg/m2 37.1 k g/m2 MEDENT ([facility], [facility]) Body weight 203.4 [lb_av] 203.4 [lb_av] eCW1 ([facility]) Body height 63 [in_i] 63 [in_i] eCW1 ([facility]) Body mass index (BMI) [Ratio] 36.03 kg/m2 36.03 kg/m2 eCW1 ([facility]) Heart rate 89 /min 89 /min eCW1 ([facility]) Respiratory rate 18 /min 18 /min eCW1 ([facility]) Body temperature 99.3 [degF] 99.3 [degF] eCW1 ( [facility]) Systolic blood pressure 146 mm[Hg] 146 mm[Hg] e CW1 ([facility]) Diastolic blood pressure 80 mm[Hg] 80 mm[Hg] eCW1 ([facility]) Body weight 212 [lb_av] 212 [lb_av] eCW1 ([facility]) Body height 63 [in_i] 63 [in_i] eCW1 ([facility]) Body mass index (BMI) [Ratio] 37.55 kg/m2 37.55 kg/m2 eCW1 ([facility]) Heart rate 80 /min 80 /min eCW1 ([facility]) Respiratory rate 18 /min 18 /min eCW1 ([facility]) Body temperature 97.4 [degF] 97.4 [degF] eCW1 ( [facility]) Systolic blood pressure 120 mm[Hg] 120 mm[Hg] e CW1 ([facility]) Diastolic blood pressure 80 mm[Hg] 80 mm[Hg] eCW1 ([facility]) Body mass index (BMI) [Ratio] 36.49 kg/m2 36.49 kg/m2 eCW1 ([facility]) Body weight 206 [lb_av] 206 [lb_av] eCW1 ([facility]) Body height 63 [in_i] 63 [in_i] eCW1 ([facility]) Heart rate 99 /min 99 /min eCW1 ([facility]) Respiratory rate 20 /min 20 /min eCW1 ([facility]) Body temperature 96.9 [degF] 96.9 [degF] eCW1 ( [facility]) Systolic blood pressure 122 mm[Hg] 122 mm[Hg] e CW1 ([facility]) Diastolic blood pressure 86 mm[Hg] 86 mm[Hg] eCW1 ([facility]) Body weight 208.8 [lb_av] 208.8 [lb_av] eCW1 ([facility]) Body height 63 [in_i] 63 [in_i] eCW1 ([facility]) Body mass index (BMI) [Ratio] 36.98 kg/m2 36.98 kg/m2 eCW1 ([facility]) Heart rate 105 /min 105 /min eCW1 ([facility]) Respiratory rate 20 /min 20 /min eCW1 ([facility]) Body temperature 97.8 [degF] 97.8 [degF] eCW1 ( [facility]) Systolic blood pressure 130 mm[Hg] 130 mm[Hg] e CW1 ([facility]) Diastolic blood pressure 82 mm[Hg] 82 mm[Hg] eCW1 ([facility]) Patient Treatment Plan of Care Planned Activity Planned Date Details Description Data Source (s) medroxyprogesterone acetate 10 MG Oral Tablet [Provera ] 08/02/2021 12:00:00 AM EDT eCW1 ([facility]) medroxyprogesterone acetate 10 MG Oral Tablet [Provera ] 08/02/2021 12:00:00 AM EDT eCW1 ([facility]) medroxyprogesterone acetate 10 MG Oral Tablet [Provera ] 08/02/2021 12:00:00 AM EDT eCW1 ([facility]) medroxyprogesterone acetate 10 MG Oral Tablet [Provera ] 08/02/2021 12:00:00 AM EDT eCW1 ([facility]) medroxyprogesterone acetate 10 MG Oral Tablet [Provera ] 08/02/2021 12:00:00 AM EDT eCW1 ([facility]) medroxyprogesterone acetate 10 MG Oral Tablet [Provera ] 08/02/2021 12:00:00 AM EDT eCW1 ([facility]) Diclofenac Sodium 0.01 MG/MG Topical Gel [Voltaren] 07/09/20 21 12:00:00 AM EDT eCW1 ([facility]) Diclofenac Sodium 0.01 MG/MG Topical Gel [Voltaren] 07/09/20 21 12:00:00 AM EDT eCW1 ([facility]) Diclofenac Sodium 0.01 MG/MG Topical Gel [Voltaren] 07/09/20 21 12:00:00 AM EDT eCW1 ([facility]) Diclofenac Sodium 0.01 MG/MG Topical Gel [Voltaren] 07/09/20 21 12:00:00 AM EDT eCW1 ([facility]) Diclofenac Sodium 0.01 MG/MG Topical Gel [Voltaren] 07/09/20 21 12:00:00 AM EDT eCW1 ([facility]) FreeStyle [place] 14 Day Sensor - 06/26/2021 12:00:00 AM EDT eCW1 ([facility]) FreeStyle [place] 14 Day [place] - 06/26/2021 12:00:00 AM EDT eCW1 ([facility]) FreeStyle [place] 14 Day Sensor - 06/26/2021 12:00:00 AM EDT eCW1 ([facility]) FreeStyle [place] 14 Day [place] - 06/26/2021 12:00:00 AM EDT eCW1 ([facility]) Fluconazole 150 MG Oral Tablet 06/18/2021 12:00:00 AM EDT eCW1 ([facility]) Fluconazole 150 MG Oral Tablet 06/18/2021 12:00:00 AM EDT eCW1 ([facility]) Fluconazole 150 MG Oral Tablet 06/18/2021 12:00:00 AM EDT eCW1 ([facility]) Fluconazole 150 MG Oral Tablet 06/18/2021 12:00:00 AM EDT eCW1 ([facility]) 3 ML Insulin Glargine 100 UNT/ML Pen Injector [Lantus] 05/18/2021 12:00:00 AM EDT eCW1 ([facility]) 3 ML Insulin Glargine 100 UNT/ML Pen Injector [Lantus] 05/18/2021 12:00:00 AM EDT eCW1 ([facility]) 3 ML Insulin Glargine 100 UNT/ML Pen Injector [Lantus] 05/18/2021 12:00:00 AM EDT eCW1 ([facility]) 3 ML Insulin Glargine 100 UNT/ML Pen Injector [Lantus] 05/18/2021 12:00:00 AM EDT eCW1 ([facility]) 3 ML Insulin Glargine 100 UNT/ML Pen Injector [Lantus] 05/18/2021 12:00:00 AM EDT eCW1 ([facility]) Ondansetron 4 MG Disintegrating Oral Tablet 05/18/2021 12:00:00 AM EDT eCW1 ([facility]) 3 ML Insulin Glargine 100 UNT/ML Pen Injector [Lantus] 05/18/2021 12:00:00 AM EDT eCW1 ([facility]) Ondansetron 4 MG Disintegrating Oral Tablet 05/18/2021 12:00:00 AM EDT eCW1 ([facility]) 3 ML Insulin Glargine 100 UNT/ML Pen Injector [Lantus] 05/18/2021 12:00:00 AM EDT eCW1 ([facility]) Ondansetron 4 MG Disintegrating Oral Tablet 05/18/2021 12:00:00 AM EDT eCW1 ([facility]) 3 ML Insulin Glargine 100 UNT/ML Pen Injector [Lantus] 05/18/2021 12:00:00 AM EDT eCW1 ([facility]) Ondansetron 4 MG Disintegrating Oral Tablet 05/18/2021 12:00:00 AM EDT eCW1 ([facility]) celecoxib 100 MG Oral Capsule 05/18/2021 12:00:00 AM EDT eCW1 ([facility]) Fluconazole 100 MG Oral Tablet [Diflucan] 04/15/2021 12:00:00 AM ED T eCW1 ([facility]) Fluconazole 100 MG Oral Tablet [Diflucan] 04/15/2021 12:00:00 AM ED T eCW1 ([facility]) Omeprazole 20 MG Delayed Release Oral Capsule 03/22/2021 12:00:00 A M EDT eCW1 ([facility]) Blood Glucose Test - 03/22/2021 12:00:00 AM EDT eCW1 ([facility]) Omeprazole 20 MG Delayed Release Oral Capsule 03/22/2021 12:00:00 A M EDT eCW1 ([facility]) Blood Glucose Test - 03/22/2021 12:00:00 AM EDT eCW1 ([facility]) Nystatin 100 UNT/MG Topical Ointment 02/20/2021 12:00:00 AM EDT eCW1 ([facility]) Nystatin 100 UNT/MG Topical Ointment 02/20/2021 12:00:00 AM EDT eCW1 ([facility]) Nystatin 100 UNT/MG Topical Ointment 02/20/2021 12:00:00 AM EDT eCW1 ([facility]) Nystatin 100 UNT/MG Topical Ointment 02/20/2021 12:00:00 AM EDT eCW1 ([facility]) Nystatin 100 UNT/MG Topical Ointment 02/20/2021 12:00:00 AM EDT eCW1 ([facility]) valacyclovir 1000 MG Oral Tablet [Valtrex] 01/22/2021 12:00:00 AM E DT eCW1 ([facility]) Mupirocin 0.02 MG/MG Topical Ointment 01/22/2021 12:00:00 AM EDT eCW1 ([facility]) valacyclovir 1000 MG Oral Tablet [Valtrex] 01/22/2021 12:00:00 AM E DT eCW1 ([facility]) Mupirocin 0.02 MG/MG Topical Ointment 01/22/2021 12:00:00 AM EDT eCW1 ([facility])
[2021-09-09] MEDS ORDERED: METF10004 (10:55)
[2021-09-09] MEDS ORDERED: MEDR10TA (10:55)
[2021-09-09] MEDS ORDERED: ATOR1TAB21 (10:55)
--- OUTSIDE RECORDS SUMMARY | 2021-09-09 11:50 | CCD ---
Author Author [facility] Organization [facility] Address Unknown Phone Unavailable Care Team Providers Care Doctor Of Chiropractic Name Role Phone Eagle, Susy MAINTENANCE SUPERINTENDENT Unavailable Unavailable Eagle, Susy MAINTENANCE SUPERINTENDENT Unavailable Unavailable Eagle, Susy MAINTENANCE SUPERINTENDENT Unavailable Unavailable Eagle, Susy MAINTENANCE SUPERINTENDENT Unavailable Unavailable Eagle, Susy MAINTENANCE SUPERINTENDENT Unavailable Unavailable Eagle, Susy MAINTENANCE SUPERINTENDENT Unavailable Unavailable Eagle, Susy MAINTENANCE SUPERINTENDENT Unavailable Unavailable Eagle, Susy MAINTENANCE SUPERINTENDENT Unavailable Unavailable Eagle, Susy MAINTENANCE SUPERINTENDENT Unavailable Unavailable Eagle, Susy MAINTENANCE SUPERINTENDENT Unavailable Unavailable Eagle, Susy MAINTENANCE SUPERINTENDENT Unavailable Unavailable Eagle, Susy MAINTENANCE SUPERINTENDENT Unavailable Unavailable Eagle, Susy MAINTENANCE SUPERINTENDENT Unavailable Unavailable Stephanie Madsen MD Unavailable Unavailable [...] is protected by Article 27-F of the [facility] Public Health law. If you continue you may have access to information: Regarding HIV / AIDS; Provided by facilities licensed or operated by the [facility] Office of Mental Health; or Provided by the [facility] Office for People With Developmental Disabilities. If such information is present, then the following [facility] mandated warning applies: This information has been [...] law may result in a fine or alf sentence or both. A general authorization for the release of medical or other information is NOT sufficient authorization for further disc losure. Allergies and Adverse Reactions Type Description Substance Reaction Status Data Source(s ) Drug Allergy Drug Allergy NKDA MEDENT ([facility], [facility]) Encounters Encounter Providers Location Date Indications Data Source(s ) Outpatient Attender: MARTÍN Cleaning/Tomas/Herman/ Delia 08/30/2021 11:00:00 AM EDT MEDENT ([facility]) Unknown [address] [facility], [place] [address] 08/05/2021 12:00:00 AM EDT eCW1 ([facility]) Unknown [address] [facility] [place] [address] 08/05/2021 12:00:00 AM EDT [facility]CW1 [facility] Outpatient [address] [facility] Y [address] 08/02/2021 12:00:00 AM EDT eCW1 ([facility]) ([facility]) [facility] Scheduled Visit [address] [place] [id number] 08/02/2021 12:00:00 AM EDT eCW1 ([facility]) Unknown [address] [facility] [place] [address] 07/25/2021 12:00:00 AM EDT eCW1 ([facility]) Unknown [address] [facility] [place] [address] 07/19/2021 12:00:00 AM EDT eCW1 ([facility]) Outpatient Attender: MARTÍN Cleaning/Tomas/Herman/ Delia 07/16/2021 09:00:00 AM EDT MEDENT ([facility]) Unknown [address] [facility] [place] [address] 07/16/2021 12:00:00 AM EDT eCW1 ([facility]) ([facility]) [facility] Scheduled Visit [address] [place] [address] 07/15/2021 12:00:00 AM EDT eCW1 ([facility]) Unknown [address] [facility] [place] [address] 07/15/2021 12:00:00 AM EDT eCW1 ([facility]) Outpatient [address] [facility] Y [address] 07/09/2021 12:00:00 AM EDT eCW1 ([facility]) Unknown [address] [facility] [place] [address] 07/09/2021 12:00:00 AM EDT eCW1 ([facility]) [place] [address] [facility] [place] [address] 07/08/2021 12:00:00 AM EDT eCW1 ([facility]) [place]patient [address] [facility] [address] 06/26/2021 12:00:00 AM EDT eCW1 ([facility]) [place] [address] [facility] [address] 06/20/2021 12:00:00 AM EDT eCW1 ([facility]) [place] [address] [facility] [address] 06/20/2021 12:00:00 AM EDT eCW1 ([facility]) Outpatient [address] [facility] [address] 06/18/2021 12:00:00 AM EDT eCW1 ([facility]) Unknown [address] [facility] [address] 06/17/2021 12:00:00 AM EDT eCW1 ([facility]) Unknown [address] [facility] [address] 05/17/2021 12:00:00 AM EDT eCW1 ([facility]) [place] [address] [facility] [address] 05/17/2021 12:00:00 AM EDT eCW1 ([facility]) Outpatient [address] [facility] [address] 05/16/2021 12:00:00 AM EDT eCW1 ([facility]) Unknown [address] [facility] [address] 05/16/2021 12:00:00 AM EDT eCW1 ([facility]) Unknown [address] [facility] [place] [address] 05/14/2021 12:00:00 AM EDT eCW1 ([facility]) ([facility]) [facility] Scheduled Visit [address] [place] [address] 05/09/2021 12:00:00 AM EDT eCW1 ([facility]) Unknown [address] [facility] [address] 04/19/2021 12:00:00 AM EDT eCW1 ([facility]) Outpatient [address] [facility] [place] [address] 04/16/2021 12:00:00 AM EDT eCW1 ([facility]) Unknown [address] [facility] Y [address] 04/15/2021 12:00:00 AM EDT eCW1 ([facility]) Outpatient [address] [facility] Y [address] 04/08/2021 12:00:00 AM EDT eCW1 ([facility]) Outpatient Attender: Susy villalta 03/27/2021 02:35:00 PM EDT MEDENT ([facility]) Unknown [address] [facility] [place] [address] 03/27/2021 12:00:00 AM EDT eCW1 ([facility]) Outpatient [address] [facility] [place] [address] 03/22/2021 12:00:00 AM EDT eCW1 ([facility]) ([facility]) [facility] Scheduled Visit [address] [place] [address] 03/21/2021 12:00:00 AM EDT eCW1 ([facility]) Unknown [address] [facility] [place] [address] 03/06/2021 12:00:00 AM EDT eCW1 ([facility]) [facility] Scheduled Visit [address] [place] [address] 03/05/2021 12:00:00 AM EDT eCW1 ([facility]) Outpatient [address] [facility] [place] [address] 02/20/2021 12:00:00 AM EDT eCW1 ([facility]) Unknown [address] [facility] [address] 02/20/2021 12:00:00 AM EDT eCW1 ([facility]) [place] [address] [facility] [address] 02/15/2021 12:00:00 AM EDT eCW1 ([facility]) Outpatient [address] [facility] [address] 02/01/2021 12:00:00 AM EDT eCW1 ([facility]) Outpatient Attender: RODO BYRNES BHNRAC-BHNRMHAC 04/2021 08:20:26 AM EDT - 01/30/2021 09:21:28 AM EDT [facility] Patient discharged. Office Visit, Est Pt., Level 3 PC [address] [place] [address] 01/22/2021 12:00:00 AM EDT eCW1 ([facility]) Unknown [address] [facility] [address] 01/22/2021 12:00:00 AM EDT eCW1 ([facility]) Outpatient Attender: AHSLY WAGNER BHNRMHAC-BHNRMHAC 01/04/20 03:05:44 PM EST - 01/03/2021 03:05:57 PM EST [facility] Patient discharged. Outpatient Attender: ASHLY WAGNER BHNRAC-BHNRMHAC 12/20/19 03:29:48 PM EST - 12/20/2020 03:32:56 PM EST [facility] Patient discharged. Outpatient Attender: Angy Madsen MD 12/10/2020 10:33:48 AM EST [facility] Patient admitted. Outpatient Attender: ASHLY WAGNER BHNRMHAC-BHNRMHAC 12/04/19 01:50:57 PM EST - 12/04/2020 02:11:05 PM EST [facility] Patient discharged. Outpatient Attender: MD [facility] 10/2020 03:24:49 PM EST - 11/26/2020 04:48:28 PM [facility] Patient discharged. Outpatient Attender: PROVIDER DEFAULTReferrer: MD AUDRA FAUSTIN RGH-RGHLCYT 11/26/2020 02:23:00 PM EST - 11/26/2020 11:59:00 PM [facility] Patient discharged. Outpatient Attender: PROVIDER DEFAULT ACMLSPECPROC-RGHLELMS Erna 11/26/2020 02:28:00 AM EST - 11/26/2020 02:22:00 PM [facility] Patient discharged. Outpatient Attender: MD AUDRA RAYO 11/26/2020 02:28:0 0 AM [facility] Outpatient Attender: ASHLY WAGNER BHNRAC-BHNRMHAC 11/15/19 05:36:02 PM EST - 11/15/2020 05:36:14 PM [facility] Patient discharged. Outpatient Attender: LORIE CASTAÑEDA RMGSP-RMGTWCP 10/26 02:53:44 PM EST - 11/09/2020 02:53:58 PM [facility] Patient discharged. Outpatient Attender: RODO BYRNES BHNRAC-BHNRMHAC 10/26 07:11:00 AM EST - 11/07/2020 11:33:02 AM [facility] Patient discharged. Outpatient Attender: ASHLY WAGNER BHNRAC-BHNRMHAC 11/01/19 10:22:34 AM EST - 11/01/2020 10:25:09 AM [facility] Patient discharged. Outpatient Attender: PROVIDER DEFAULTReferrer: JOSE LUIS SYLVESTER ACMLSPECPROC-ACMLSPECPROC 10/21/2020 01:44:00 AM EST - 10/21/2020 11:59:00 PM [facility] Patient discharged. Outpatient Attender: PROVIDER DEFAULT RGH-RGHICWIL 10/20 06:37:00 PM EST - 10/20/2020 07:07:00 PM [facility] Patient admitted. Outpatient Attender: ASHLY WAGNER NRAC-BHNRMHAC 10/10/20 20 02:10:01 PM EST - 10/10/2020 02:12:05 PM [facility] Patient discharged. Outpatient Attender: PROVIDER DEFAULT ACMLSPECPROC-ACMLSPEC PROC 10/04/2020 08:47:00 PM EST - 10/04/2020 11:59:00 PM [facility] Patient discharged. Outpatient Attender: PROVIDER DEFAULT ACMLSPECPROC-ACMLSPEC PROC 10/04/2020 07:11:00 PM EST - 10/04/2020 08:46:00 PM [facility] Patient discharged. Outpatient Attender: PROVIDER DEFAULT [facility]-RGHICWIL 10/04 12:39:00 PM EST - 10/04/2020 01:58:00 PM [facility] Patient discharged. Outpatient Attender: [facility] RGHDENTR-RGHDENTRHC 01/2020 09:46:40 AM EST - 09/28/2020 10:39:46 AM [facility] Patient discharged. Outpatient Attender: DEMARCUS Hernandezender: Fernando [facility] RMGOPDRHC-RMGTWIGRHC 09/11/2020 02:57:34 PM EST - 09/11/2020 03:40:54 PM [facility] Patient discharged. Outpatient Attender: ASHLY WAGNER NRAC-BHNRAC 03/20/2020 03:29:1 1 PM EDT [facility] Outpatient Attender: ASHLY WAGNER BHNRAC-BHNRMHAC 12/29/2019 11:08:2 0 AM [facility] Medications Medication Brand Name Start Date Product Form Dose Route Admi nistrative Instructions Pharmacy Instructions Status Indications Reaction Description Data Source(s) medroxyprogesterone acetate 10 MG Oral Tablet [Provera ] Provera 10 MG Provera 10 MG 08/02/2021 12:00:00 AM EDT 1.0 {tablet_with_food} active Provera 10 MG eCW1 ([facility]) medroxyprogesterone acetate 10 MG Oral Tablet [Provera ] Provera 10 MG Provera 10 MG 08/02/2021 12:00:00 AM EDT 1.0 {tablet_with_food} active Provera 10 MG eCW1 ([facility]) medroxyprogesterone acetate 10 MG Oral Tablet [Provera ] Provera 10 MG Provera 10 MG 08/02/2021 12:00:00 AM EDT 1.0 {tablet_with_food} active Provera 10 MG eCW1 ([facility]) medroxyprogesterone acetate 10 MG Oral Tablet [Provera ] Provera 10 MG Provera 10 MG 08/02/2021 12:00:00 AM EDT 1.0 {tablet_with_food} active Provera 10 MG eCW1 ([facility]) medroxyprogesterone acetate 10 MG Oral Tablet [Provera ] Provera 10 MG Provera 10 MG 08/02/2021 12:00:00 AM EDT 1.0 {tablet_with_food} active Provera 10 MG eCW1 ([facility]) medroxyprogesterone acetate 10 MG Oral Tablet [Provera ] Provera 10 MG Provera 10 MG 08/02/2021 12:00:00 AM EDT 1.0 {tablet_with_food} active Provera 10 MG eCW1 ([facility]) Diclofenac Sodium 0.01 MG/MG Topical Gel [Voltaren] Voltaren 1 % Voltaren 1 % 07/09/2021 12:00:00 AM EDT active Voltaren 1 % eCW1 ([facility]) Diclofenac Sodium 0.01 MG/MG Topical Gel [Voltaren] Voltaren 1 % Voltaren 1 % 07/09/2021 12:00:00 AM EDT active Voltaren 1 % eCW1 ([facility]) Diclofenac Sodium 0.01 MG/MG Topical Gel [Voltaren] Voltaren 1 % Voltaren 1 % 07/09/2021 12:00:00 AM EDT active Voltaren 1 % eCW1 ([facility]) Diclofenac Sodium 0.01 MG/MG Topical Gel [Voltaren] Voltaren 1 % Voltaren 1 % 07/09/2021 12:00:00 AM EDT active Voltaren 1 % eCW1 ([facility]) Diclofenac Sodium 0.01 MG/MG Topical Gel [Voltaren] Voltaren 1 % Voltaren 1 % 07/09/2021 12:00:00 AM EDT active Voltaren 1 % eCW1 ([facility]) Diclofenac Sodium 0.01 MG/MG Topical Gel [Voltaren] Voltaren 1 % Voltaren 1 % 07/09/2021 12:00:00 AM EDT active Voltaren 1 % eCW1 ([facility]) Diclofenac Sodium 0.01 MG/MG Topical Gel [Voltaren] Voltaren 1 % Voltaren 1 % 07/09/2021 12:00:00 AM EDT active Voltaren 1 % eCW1 ([facility]) Diclofenac Sodium 0.01 MG/MG Topical Gel [Voltaren] Voltaren 1 % Voltaren 1 % 07/09/2021 12:00:00 AM EDT active Voltaren 1 % eCW1 ([facility]) Diclofenac Sodium 0.01 MG/MG Topical Gel [Voltaren] Voltaren 1 % Voltaren 1 % 07/09/2021 12:00:00 AM EDT active Voltaren 1 % eCW1 ([facility]) Diclofenac Sodium 0.01 MG/MG Topical Gel [Voltaren] Voltaren 1 % Voltaren 1 % 07/09/2021 12:00:00 AM EDT active Voltaren 1 % eCW1 ([facility]) Diclofenac Sodium 0.01 MG/MG Topical Gel [Voltaren] Voltaren 1 % Voltaren 1 % 07/09/2021 12:00:00 AM EDT active Voltaren 1 % eCW1 ([facility]) FreeStyle [place] 14 Day Sensor - FreeStyle [place] 14 Day Senso r - 06/26/2021 12:00:00 AM EDT active FreeStyl e [place] 14 Day Sensor - eCW1 ([facility]) FreeStyle [place] 14 Day [place] - FreeStyle [place] 14 Day Reade r - 06/26/2021 12:00:00 AM EDT active FreeStyl e [place] 14 Day [place] - eCW1 ([facility]) FreeStyle [place] 14 Day Sensor - FreeStyle [place] 14 Day Senso r - 06/26/2021 12:00:00 AM EDT active FreeStyl e [place] 14 Day Sensor - eCW1 ([facility]) FreeStyle [place] 14 Day Sensor - FreeStyle [place] 14 Day Senso r 06/26/2021 12:00:00 AM EDT active FreeStyl e [place] 14 Day Sensor - eCW1 ([facility]) FreeStyle [place] 14 Day Sensor - FreeStyle [place] 14 Day Senso r 06/26/2021 12:00:00 AM EDT active FreeStyl e [place] 14 Day Sensor - eCW1 ([facility]) FreeStyle [place] 14 Day [place] - FreeStyle [place] 14 Day Reade r 06/26/2021 12:00:00 AM EDT active FreeStyl e [place] 14 Day [place] - eCW1 ([facility]) FreeStyle [place] 14 Day [place] - FreeStyle [place] 14 Day Reade r 06/26/2021 12:00:00 AM EDT active FreeStyl e [place] 14 Day [place] - eCW1 ([facility]) FreeStyle [place] 14 Day [place] - FreeStyle [place] 14 Day Reade r 06/26/2021 12:00:00 AM EDT suspended FreeS tyle [place] 14 Day [place] - eCW1 ([facility]) FreeStyle [place] 14 Day Sensor - FreeStyle [place] 14 Day Senso r 06/26/2021 12:00:00 AM EDT active FreeStyl e [place] 14 Day Sensor - eCW1 ([facility]) FreeStyle [place] 14 Day [place] - FreeStyle [place] 14 Day Reade r 06/26/2021 12:00:00 AM EDT suspended FreeS tyle [place] 14 Day [place] - eCW1 ([facility]) FreeStyle [place] 14 Day [place] - FreeStyle [place] 14 Day Reade r 06/26/2021 12:00:00 AM EDT active FreeStyl e [place] 14 Day [place] - eCW1 ([facility]) FreeStyle [place] 14 Day Sensor - FreeStyle [place] 14 Day Senso r - 06/26/2021 12:00:00 AM EDT suspended FreeS tyle [place] 14 Day Sensor - eCW1 ([facility]) FreeStyle [place] 14 Day Sensor - FreeStyle [place] 14 Day Senso r 06/26/2021 12:00:00 AM EDT suspended FreeS tyle [place] 14 Day Sensor - eCW1 ([facility]) FreeStyle [place] 14 Day [place] - FreeStyle [place] 14 Day Reade r 06/26/2021 12:00:00 AM EDT suspended FreeS tyle [place] 14 Day [place] - eCW1 ([facility]) FreeStyle [place] 14 Day [place] - FreeStyle [place] 14 Day Reade r 06/26/2021 12:00:00 AM EDT suspended FreeS tyle [place] 14 Day [place] - eCW1 ([facility]) FreeStyle [place] 14 Day Sensor - FreeStyle [place] 14 Day Senso r 06/26/2021 12:00:00 AM EDT suspended FreeS tyle [place] 14 Day Sensor - eCW1 ([facility]) FreeStyle [place] 14 Day Sensor - FreeStyle [place] 14 Day Senso r 06/26/2021 12:00:00 AM EDT suspended FreeS tyle [place] 14 Day Sensor - eCW1 ([facility]) FreeStyle [place] 14 Day Sensor - FreeStyle [place] 14 Day Senso r 06/26/2021 12:00:00 AM EDT suspended FreeS tyle [place] 14 Day Sensor - eCW1 ([facility]) FreeStyle [place] 14 Day Sensor - FreeStyle [place] 14 Day Senso r 06/26/2021 12:00:00 AM EDT active FreeStyl e [place] 14 Day Sensor - eCW1 ([facility]) FreeStyle [place] 14 Day [place] - FreeStyle [place] 14 Day Reade r 06/26/2021 12:00:00 AM EDT suspended FreeS tyle [place] 14 Day [place] - eCW1 ([facility]) FreeStyle [place] 14 Day Sensor - FreeStyle [place] 14 Day Senso r - 06/26/2021 12:00:00 AM EDT active FreeStyl e [place] 14 Day Sensor - eCW1 ([facility]) FreeStyle [place] 14 Day [place] - FreeStyle [place] 14 Day Reade r - 06/26/2021 12:00:00 AM EDT active FreeStyl e [place] 14 Day [place] - eCW1 ([facility]) FreeStyle [place] 14 Day Sensor - FreeStyle [place] 14 Day Senso r - 06/26/2021 12:00:00 AM EDT suspended FreeS tyle [place] 14 Day Sensor - eCW1 ([facility]) FreeStyle [place] 14 Day [place] - FreeStyle [place] 14 Day Reade r 06/26/2021 12:00:00 AM EDT active FreeStyl e [place] 14 Day [place] - eCW1 ([facility]) FreeStyle [place] 14 Day [place] - FreeStyle [place] 14 Day Reade r 06/26/2021 12:00:00 AM EDT active FreeStyl e [place] 14 Day [place] - eCW1 ([facility]) FreeStyle [place] 14 Day [place] - FreeStyle [place] 14 Day Reade r 06/26/2021 12:00:00 AM EDT suspended FreeS tyle [place] 14 Day [place] - eCW1 ([facility]) Fluconazole 150 MG Oral Tablet Fluconazole 150 MG 06/18/2021 12:00: 00 AM EDT 1.0 {tablet} suspended Fluconazole 150 M G eCW1 ([facility]) Fluconazole 150 MG Oral Tablet Fluconazole 150 MG 06/18/2021 12:00: 00 AM EDT 1.0 {tablet} active Fluconazole 150 MG eCW1 ([facility]) Fluconazole 150 MG Oral Tablet Fluconazole 150 MG 06/18/2021 12:00: 00 AM EDT 1.0 {tablet} suspended Fluconazole 150 M G eCW1 ([facility]) Fluconazole 150 MG Oral Tablet Fluconazole 150 MG 06/18/2021 12:00: 00 AM EDT 1.0 {tablet} suspended Fluconazole 150 M G eCW1 ([facility]) Fluconazole 150 MG Oral Tablet Fluconazole 150 MG 06/18/2021 12:00: 00 AM EDT 1.0 {tablet} active Fluconazole 150 MG eCW1 ([facility]) Fluconazole 150 MG Oral Tablet Fluconazole 150 MG 06/18/2021 12:00: 00 AM EDT 1.0 {tablet} suspended Fluconazole 150 M G eCW1 ([facility]) Fluconazole 150 MG Oral Tablet Fluconazole 150 MG 06/18/2021 12:00: 00 AM EDT 1.0 {tablet} suspended Fluconazole 150 M G eCW1 ([facility]) Fluconazole 150 MG Oral Tablet Fluconazole 150 MG 06/18/2021 12:00: 00 AM EDT 1.0 {tablet} suspended Fluconazole 150 M G eCW1 ([facility]) Fluconazole 150 MG Oral Tablet Fluconazole 150 MG 06/18/2021 12:00: 00 AM EDT 1.0 {tablet} suspended Fluconazole 150 M G eCW1 ([facility]) Fluconazole 150 MG Oral Tablet Fluconazole 150 MG 06/18/2021 12:00: 00 AM EDT 1.0 {tablet} active Fluconazole 150 MG eCW1 ([facility]) Fluconazole 150 MG Oral Tablet Fluconazole 150 MG 06/18/2021 12:00: 00 AM EDT 1.0 {tablet} suspended Fluconazole 150 M G eCW1 ([facility]) Fluconazole 150 MG Oral Tablet Fluconazole 150 MG 06/18/2021 12:00: 00 AM EDT 1.0 {tablet} suspended Fluconazole 150 M G eCW1 ([facility]) Fluconazole 150 MG Oral Tablet Fluconazole 150 MG 06/18/2021 12:00: 00 AM EDT 1.0 {tablet} suspended Fluconazole 150 M G eCW1 ([facility]) Fluconazole 150 MG Oral Tablet Fluconazole 150 MG 06/18/2021 12:00: 00 AM EDT 1.0 {tablet} suspended Fluconazole 150 M G eCW1 ([facility]) Fluconazole 150 MG Oral Tablet Fluconazole 150 MG 06/18/2021 12:00: 00 AM EDT 1.0 {tablet} active Fluconazole 150 MG eCW1 ([facility]) Fluconazole 150 MG Oral Tablet Fluconazole 150 MG 06/18/2021 12:00: 00 AM EDT 1.0 {tablet} suspended Fluconazole 150 M G eCW1 ([facility]) Fluconazole 150 MG Oral Tablet Fluconazole 150 MG 06/18/2021 12:00: 00 AM EDT 1.0 {tablet} suspended Fluconazole 150 M G eCW1 ([facility]) celecoxib 100 MG Oral Capsule Celecoxib 100 MG Celecoxib 100 MG 05/18/2021 12:00:00 AM EDT 1.0 {capsule_with_food} active Celecoxib 100 MG eCW1 ([facility]) 3 ML Insulin Glargine 100 UNT/ML Pen Inj leonardo [Lantus] Lantus SoloStar 100 UNIT/ML Lantus SoloStar 100 UNIT/ML 05/18/2021 12:00:00 AM EDT active Lantus SoloStar 100 UNIT/ML eCW1 ([facility]) 3 ML Insulin Glargine 100 UNT/ML Pen Inj leonardo [Lantus] Lantus SoloStar 100 UNIT/ML Lantus SoloStar 100 UNIT/ML 05/18/2021 12:00:00 AM EDT active Lantus SoloStar 100 UNIT/ML eCW1 ([facility]) 3 ML Insulin Glargine 100 UNT/ML Pen Inj leonardo [Lantus] Lantus SoloStar 100 UNIT/ML Lantus SoloStar 100 UNIT/ML 05/18/2021 12:00:00 AM EDT active Lantus SoloStar 100 UNIT/ML eCW1 ([facility]) 3 ML Insulin Glargine 100 UNT/ML Pen Inj leonardo [Lantus] Lantus SoloStar 100 UNIT/ML Lantus SoloStar 100 UNIT/ML 05/18/2021 12:00:00 AM EDT active Lantus SoloStar 100 UNIT/ML eCW1 ([facility]) Ondansetron 4 MG Disintegrating Oral Tablet Ondansetron 4 MG 05/18/2021 12:00:00 AM EDT 1.0 {tablet_on_the_tongue_and_allow_to_dissolve} active Ondansetron 4 MG eCW1 ([facility]) 3 ML Insulin Glargine 100 UNT/ML Pen Inj leonardo [Lantus] Lantus SoloStar 100 UNIT/ML Lantus SoloStar 100 UNIT/ML 05/18/2021 12:00:00 AM EDT active eCW1 ([facility]) Ondansetron 4 MG Disintegrating Oral Tablet Ondansetron 4 MG 05/18/2021 12:00:00 AM EDT 1.0 {tablet_on_the_tongue_and_allow_to_dissolve} active Ondansetron 4 MG eCW1 ([facility]) Ondansetron 4 MG Disintegrating Oral Tablet Ondansetron 4 MG 05/18/2021 12:00:00 AM EDT 1.0 {tablet_on_the_tongue_and_allow_to_dissolve} active Ondansetron 4 MG eCW1 ([facility]) Ondansetron 4 MG Disintegrating Oral Tablet Ondansetron 4 MG 05/18/2021 12:00:00 AM EDT 1.0 {tablet_on_the_tongue_and_allow_to_dissolve} active Ondansetron 4 MG eCW1 ([facility]) 3 ML Insulin Glargine 100 UNT/ML Pen Inj leonardo [Lantus] Lantus SoloStar 100 UNIT/ML Lantus SoloStar 100 UNIT/ML 05/18/2021 12:00:00 AM EDT active Lantus SoloStar 100 UNIT/ML eCW1 ([facility]) 3 ML Insulin Glargine 100 UNT/ML Pen Inj leonardo [Lantus] Lantus SoloStar 100 UNIT/ML Lantus SoloStar 100 UNIT/ML 05/18/2021 12:00:00 AM EDT active Lantus SoloStar 100 UNIT/ML eCW1 ([facility]) Ondansetron 4 MG Disintegrating Oral Tablet Ondansetron 4 MG 05/18/2021 12:00:00 AM EDT 1.0 {tablet_on_the_tongue_and_allow_to_dissolve} active Ondansetron 4 MG eCW1 ([facility]) 3 ML Insulin Glargine 100 UNT/ML Pen Inj leonardo [Lantus] Lantus SoloStar 100 UNIT/ML Lantus SoloStar 100 UNIT/ML 05/18/2021 12:00:00 AM EDT active eCW1 ([facility]) 3 ML Insulin Glargine 100 UNT/ML Pen Inj leonardo [Lantus] Lantus SoloStar 100 UNIT/ML Lantus SoloStar 100 UNIT/ML 05/18/2021 12:00:00 AM EDT active Lantus SoloStar 100 UNIT/ML eCW1 ([facility]) 3 ML Insulin Glargine 100 UNT/ML Pen Inj leonardo [Lantus] Lantus SoloStar 100 UNIT/ML Lantus SoloStar 100 UNIT/ML 05/18/2021 12:00:00 AM EDT active Lantus SoloStar 100 UNIT/ML eCW1 ([facility]) 3 ML Insulin Glargine 100 UNT/ML Pen Inj leonardo [Lantus] Lantus SoloStar 100 UNIT/ML Lantus SoloStar 100 UNIT/ML 05/18/2021 12:00:00 AM EDT active Lantus SoloStar 100 UNIT/ML eCW1 ([facility]) Ondansetron 4 MG Disintegrating Oral Tablet Ondansetron 4 MG 05/18/2021 12:00:00 AM EDT 1.0 {tablet_on_the_tongue_and_allow_to_dissolve} active Ondansetron 4 MG eCW1 ([facility]) Ondansetron 4 MG Disintegrating Oral Tablet Ondansetron 4 MG 05/18/2021 12:00:00 AM EDT 1.0 {tablet_on_the_tongue_and_allow_to_dissolve} active Ondansetron 4 MG eCW1 ([facility]) 3 ML Insulin Glargine 100 UNT/ML Pen Inj leonardo [Lantus] Lantus SoloStar 100 UNIT/ML Lantus SoloStar 100 UNIT/ML 05/18/2021 12:00:00 AM EDT active Lantus SoloStar 100 UNIT/ML eCW1 ([facility]) Ondansetron 4 MG Disintegrating Oral Tablet Ondansetron 4 MG 05/18/2021 12:00:00 AM EDT 1.0 {tablet_on_the_tongue_and_allow_to_dissolve} active Ondansetron 4 MG eCW1 ([facility]) Ondansetron 4 MG Disintegrating Oral Tablet Ondansetron 4 MG 05/18/2021 12:00:00 AM EDT 1.0 {tablet_on_the_tongue_and_allow_to_dissolve} active Ondansetron 4 MG eCW1 ([facility]) Ondansetron 4 MG Disintegrating Oral Tablet Ondansetron 4 MG 05/18/2021 12:00:00 AM EDT 1.0 {tablet_on_the_tongue_and_allow_to_dissolve} active Ondansetron 4 MG eCW1 ([facility]) 3 ML Insulin Glargine 100 UNT/ML Pen Inj leonardo [Lantus] Lantus SoloStar 100 UNIT/ML Lantus SoloStar 100 UNIT/ML 05/18/2021 12:00:00 AM EDT active Lantus SoloStar 100 UNIT/ML eCW1 ([facility]) 3 ML Insulin Glargine 100 UNT/ML Pen Inj leonardo [Lantus] Lantus SoloStar 100 UNIT/ML Lantus SoloStar 100 UNIT/ML 05/18/2021 12:00:00 AM EDT active Lantus SoloStar 100 UNIT/ML eCW1 ([facility]) Ondansetron 4 MG Disintegrating Oral Tablet Ondansetron 4 MG 05/18/2021 12:00:00 AM EDT 1.0 {tablet_on_the_tongue_and_allow_to_dissolve} active Ondansetron 4 MG eCW1 ([facility]) Ondansetron 4 MG Disintegrating Oral Tablet Ondansetron 4 MG 05/18/2021 12:00:00 AM EDT 1.0 {tablet_on_the_tongue_and_allow_to_dissolve} active eCW1 ([facility]) Ondansetron 4 MG Disintegrating Oral Tablet Ondansetron 4 MG 05/18/2021 12:00:00 AM EDT 1.0 {tablet_on_the_tongue_and_allow_to_dissolve} active Ondansetron 4 MG eCW1 ([facility]) Ondansetron 4 MG Disintegrating Oral Tablet Ondansetron 4 MG 05/18/2021 12:00:00 AM EDT 1.0 {tablet_on_the_tongue_and_allow_to_dissolve} active Ondansetron 4 MG eCW1 ([facility]) 3 ML Insulin Glargine 100 UNT/ML Pen Inj leonardo [Lantus] Lantus SoloStar 100 UNIT/ML Lantus SoloStar 100 UNIT/ML 05/18/2021 12:00:00 AM EDT active Lantus SoloStar 100 UNIT/ML eCW1 ([facility]) 3 ML Insulin Glargine 100 UNT/ML Pen Inj leonardo [Lantus] Lantus SoloStar 100 UNIT/ML Lantus SoloStar 100 UNIT/ML 05/18/2021 12:00:00 AM EDT active Lantus SoloStar 100 UNIT/ML eCW1 ([facility]) 3 ML Insulin Glargine 100 UNT/ML Pen Inj leonardo [Lantus] Lantus SoloStar 100 UNIT/ML Lantus SoloStar 100 UNIT/ML 05/18/2021 12:00:00 AM EDT active Lantus SoloStar 100 UNIT/ML eCW1 ([facility]) 3 ML Insulin Glargine 100 UNT/ML Pen Inj leonardo [Lantus] Lantus SoloStar 100 UNIT/ML Lantus SoloStar 100 UNIT/ML 05/18/2021 12:00:00 AM EDT active Lantus SoloStar 100 UNIT/ML eCW1 ([facility]) Ondansetron 4 MG Disintegrating Oral Tablet Ondansetron 4 MG 05/18/2021 12:00:00 AM EDT 1.0 {tablet_on_the_tongue_and_allow_to_dissolve} active Ondansetron 4 MG eCW1 ([facility]) 3 ML Insulin Glargine 100 UNT/ML Pen Inj leonardo [Lantus] Lantus SoloStar 100 UNIT/ML Lantus SoloStar 100 UNIT/ML 05/18/2021 12:00:00 AM EDT active Lantus SoloStar 100 UNIT/ML eCW1 ([facility]) 3 ML Insulin Glargine 100 UNT/ML Pen Inj leonardo [Lantus] Lantus SoloStar 100 UNIT/ML Lantus SoloStar 100 UNIT/ML 05/18/2021 12:00:00 AM EDT active Lantus SoloStar 100 UNIT/ML eCW1 ([facility]) Ondansetron 4 MG Disintegrating Oral Tablet Ondansetron 4 MG 05/18/2021 12:00:00 AM EDT 1.0 {tablet_on_the_tongue_and_allow_to_dissolve} active Ondansetron 4 MG eCW1 ([facility]) Ondansetron 4 MG Disintegrating Oral Tablet Ondansetron 4 MG 05/18/2021 12:00:00 AM EDT 1.0 {tablet_on_the_tongue_and_allow_to_dissolve} active Ondansetron 4 MG eCW1 ([facility]) Ondansetron 4 MG Disintegrating Oral Tablet Ondansetron 4 MG 05/18/2021 12:00:00 AM EDT 1.0 {tablet_on_the_tongue_and_allow_to_dissolve} active Ondansetron 4 MG eCW1 ([facility]) 3 ML Insulin Glargine 100 UNT/ML Pen Inj leonardo [Lantus] Lantus SoloStar 100 UNIT/ML Lantus SoloStar 100 UNIT/ML 05/18/2021 12:00:00 AM EDT active Lantus SoloStar 100 UNIT/ML eCW1 ([facility]) Ondansetron 4 MG Disintegrating Oral Tablet Ondansetron 4 MG 05/18/2021 12:00:00 AM EDT 1.0 {tablet_on_the_tongue_and_allow_to_dissolve} active eCW1 ([facility]) Ondansetron 4 MG Disintegrating Oral Tablet Ondansetron 4 MG 05/18/2021 12:00:00 AM EDT 1.0 {tablet_on_the_tongue_and_allow_to_dissolve} active Ondansetron 4 MG eCW1 ([facility]) Ondansetron 4 MG Disintegrating Oral Tablet Ondansetron 4 MG 05/18/2021 12:00:00 AM EDT 1.0 {tablet_on_the_tongue_and_allow_to_dissolve} active Ondansetron 4 MG eCW1 ([facility]) Fluconazole 100 MG Oral Tablet [Diflucan] Diflucan 100 MG Di flucan 100 MG 04/15/2021 12:00:00 AM EDT 1.0 {tablet} suspended eCW1 ([facility]) Fluconazole 100 MG Oral Tablet [Diflucan] Diflucan 100 MG Di flucan 100 MG 04/15/2021 12:00:00 AM EDT 1.0 {tablet} active Diflucan 100 MG eCW1 ([facility]) Fluconazole 100 MG Oral Tablet [Diflucan] Diflucan 100 MG Di flucan 100 MG 04/15/2021 12:00:00 AM EDT 1.0 {tablet} active Diflucan 100 MG eCW1 ([facility]) Fluconazole 100 MG Oral Tablet [Diflucan] Diflucan 100 MG Di flucan 100 MG 04/15/2021 12:00:00 AM EDT 1.0 {tablet} active Diflucan 100 MG eCW1 ([facility]) Fluconazole 100 MG Oral Tablet [Diflucan] Diflucan 100 MG Di flucan 100 MG 04/15/2021 12:00:00 AM EDT 1.0 {tablet} active Diflucan 100 MG eCW1 ([facility]) Fluconazole 100 MG Oral Tablet [Diflucan] Diflucan 100 MG Di flucan 100 MG 04/15/2021 12:00:00 AM EDT 1.0 {tablet} active Diflucan 100 MG eCW1 ([facility]) Fluconazole 100 MG Oral Tablet [Diflucan] Diflucan 100 MG Di flucan 100 MG 04/15/2021 12:00:00 AM EDT 1.0 {tablet} active Diflucan 100 MG eCW1 ([facility]) Fluconazole 100 MG Oral Tablet [Diflucan] Diflucan 100 MG Di flucan 100 MG 04/15/2021 12:00:00 AM EDT 1.0 {tablet} suspended eCW1 ([facility]) Fluconazole 100 MG Oral Tablet [Diflucan] Diflucan 100 MG Di flucan 100 MG 04/15/2021 12:00:00 AM EDT 1.0 {tablet} active Diflucan 100 MG eCW1 ([facility]) Fluconazole 100 MG Oral Tablet [Diflucan] Diflucan 100 MG Di flucan 100 MG 04/15/2021 12:00:00 AM EDT 1.0 {tablet} suspended Diflucan 100 MG eCW1 ([facility]) Fluconazole 100 MG Oral Tablet [Diflucan] Diflucan 100 MG Di flucan 100 MG 04/15/2021 12:00:00 AM EDT 1.0 {tablet} active Diflucan 100 MG eCW1 ([facility]) Fluconazole 100 MG Oral Tablet [Diflucan] Diflucan 100 MG Di flucan 100 MG 04/15/2021 12:00:00 AM EDT 1.0 {tablet} active Diflucan 100 MG eCW1 ([facility]) Fluconazole 100 MG Oral Tablet [Diflucan] Diflucan 100 MG Di flucan 100 MG 04/15/2021 12:00:00 AM EDT 1.0 {tablet} active Diflucan 100 MG eCW1 ([facility]) Fluconazole 100 MG Oral Tablet [Diflucan] Diflucan 100 MG Di flucan 100 MG 04/15/2021 12:00:00 AM EDT 1.0 {tablet} active Diflucan 100 MG eCW1 ([facility]) Fluconazole 100 MG Oral Tablet [Diflucan] Diflucan 100 MG Di flucan 100 MG 04/15/2021 12:00:00 AM EDT 1.0 {tablet} active Diflucan 100 MG eCW1 ([facility]) Fluconazole 100 MG Oral Tablet [Diflucan] Diflucan 100 MG Di flucan 100 MG 04/15/2021 12:00:00 AM EDT 1.0 {tablet} suspended Diflucan 100 MG eCW1 ([facility]) Fluconazole 100 MG Oral Tablet [Diflucan] Diflucan 100 MG Di flucan 100 MG 04/15/2021 12:00:00 AM EDT 1.0 {tablet} suspended Diflucan 100 MG eCW1 ([facility]) Fluconazole 100 MG Oral Tablet [Diflucan] Diflucan 100 MG Di flucan 100 MG 04/15/2021 12:00:00 AM EDT 1.0 {tablet} active Diflucan 100 MG eCW1 ([facility]) Fluconazole 100 MG Oral Tablet [Diflucan] Diflucan 100 MG Di flucan 100 MG 04/15/2021 12:00:00 AM EDT 1.0 {tablet} suspended Diflucan 100 MG eCW1 ([facility]) Fluconazole 100 MG Oral Tablet [Diflucan] Diflucan 100 MG Di flucan 100 MG 04/15/2021 12:00:00 AM EDT 1.0 {tablet} suspended Diflucan 100 MG eCW1 ([facility]) Fluconazole 100 MG Oral Tablet [Diflucan] Diflucan 100 MG Di flucan 100 MG 04/15/2021 12:00:00 AM EDT 1.0 {tablet} active Diflucan 100 MG eCW1 ([facility]) Fluconazole 100 MG Oral Tablet [Diflucan] Diflucan 100 MG Di flucan 100 MG 04/15/2021 12:00:00 AM EDT 1.0 {tablet} active Diflucan 100 MG eCW1 ([facility]) Fluconazole 100 MG Oral Tablet [Diflucan] Diflucan 100 MG Di flucan 100 MG 04/15/2021 12:00:00 AM EDT 1.0 {tablet} active Diflucan 100 MG eCW1 ([facility]) Fluconazole 100 MG Oral Tablet [Diflucan] Diflucan 100 MG Di flucan 100 MG 04/15/2021 12:00:00 AM EDT 1.0 {tablet} suspended Diflucan 100 MG eCW1 ([facility]) Fluconazole 100 MG Oral Tablet [Diflucan] Diflucan 100 MG Di flucan 100 MG 04/15/2021 12:00:00 AM EDT 1.0 {tablet} active Diflucan 100 MG eCW1 ([facility]) Fluconazole 100 MG Oral Tablet [Diflucan] Diflucan 100 MG Di flucan 100 MG 04/15/2021 12:00:00 AM EDT 1.0 {tablet} active Diflucan 100 MG eCW1 ([facility]) Fluconazole 100 MG Oral Tablet [Diflucan] Diflucan 100 MG Di flucan 100 MG 04/15/2021 12:00:00 AM EDT 1.0 {tablet} active Diflucan 100 MG eCW1 ([facility]) Blood Glucose Test - Blood Glucose Test - 03/22/2021 12:00:00 AM EDT active Blood Glucose Test - eCW1 ([facility]) Blood Glucose Test - Blood Glucose Test - 03/22/2021 12:00:00 AM EDT active Blood Glucose Test - eCW1 ([facility]) Blood Glucose Test - Blood Glucose Test - 03/22/2021 12:00:00 AM EDT active Blood Glucose Test - eCW1 ([facility]) Blood Glucose Test - Blood Glucose Test - 03/22/2021 12:00:00 AM EDT active Blood Glucose Test - eCW1 ([facility]) Blood Glucose Test - Blood Glucose Test - 03/22/2021 12:00:00 AM EDT active Blood Glucose Test - eCW1 ([facility]) Blood Glucose Test - Blood Glucose Test - 03/22/2021 12:00:00 AM EDT active Blood Glucose Test - eCW1 ([facility]) Blood Glucose Test - Blood Glucose Test - 03/22/2021 12:00:00 AM EDT active Blood Glucose Test - eCW1 ([facility]) Blood Glucose Test - Blood Glucose Test - 03/22/2021 12:00:00 AM EDT active Blood Glucose Test - eCW1 ([facility]) Omeprazole 20 MG Delayed Release Oral Capsule Omeprazole 20 MG 03/22/2021 12:00:00 AM EDT active Omeprazo le 20 MG eCW1 ([facility]) Blood Glucose Test - Blood Glucose Test - 03/22/2021 12:00:00 AM EDT active eCW1 ([facility]) Blood Glucose Test - Blood Glucose Test - 03/22/2021 12:00:00 AM EDT active eCW1 ([facility]) Blood Glucose Test - Blood Glucose Test - 03/22/2021 12:00:00 AM EDT active Blood Glucose Test - eCW1 ([facility]) Omeprazole 20 MG Delayed Release Oral Capsule Omeprazole 20 MG 03/22/2021 12:00:00 AM EDT active Omeprazo le 20 MG eCW1 ([facility]) Blood Glucose Test - Blood Glucose Test - 03/22/2021 12:00:00 AM EDT active Blood Glucose Test - eCW1 ([facility]) Omeprazole 20 MG Delayed Release Oral Capsule Omeprazole 20 MG 03/22/2021 12:00:00 AM EDT active Omeprazo le 20 MG eCW1 ([facility]) Blood Glucose Test - Blood Glucose Test - 03/22/2021 12:00:00 AM EDT active Blood Glucose Test - eCW1 ([facility]) Blood Glucose Test - Blood Glucose Test - 03/22/2021 12:00:00 AM EDT active Blood Glucose Test - eCW1 ([facility]) Blood Glucose Test - Blood Glucose Test - 03/22/2021 12:00:00 AM EDT active Blood Glucose Test - eCW1 ([facility]) Blood Glucose Test - Blood Glucose Test - 03/22/2021 12:00:00 AM EDT active Blood Glucose Test - eCW1 ([facility]) Omeprazole 20 MG Delayed Release Oral Capsule Omeprazole 20 MG 03/22/2021 12:00:00 AM EDT active Omeprazo le 20 MG eCW1 ([facility]) Blood Glucose Test - Blood Glucose Test - 03/22/2021 12:00:00 AM EDT active Blood Glucose Test - eCW1 ([facility]) Blood Glucose Test - Blood Glucose Test - 03/22/2021 12:00:00 AM EDT active Blood Glucose Test - eCW1 ([facility]) Omeprazole 20 MG Delayed Release Oral Capsule Omeprazole 20 MG 03/22/2021 12:00:00 AM EDT active Omeprazo le 20 MG eCW1 ([facility]) Blood Glucose Test - Blood Glucose Test - 03/22/2021 12:00:00 AM EDT active Blood Glucose Test - eCW1 ([facility]) Omeprazole 20 MG Delayed Release Oral Capsule Omeprazole 20 MG 03/22/2021 12:00:00 AM EDT active Omeprazo le 20 MG eCW1 ([facility]) Blood Glucose Test - Blood Glucose Test - 03/22/2021 12:00:00 AM EDT active Blood Glucose Test - eCW1 ([facility]) Blood Glucose Test - Blood Glucose Test - 03/22/2021 12:00:00 AM EDT active Blood Glucose Test - eCW1 ([facility]) Blood Glucose Test - Blood Glucose Test - 03/22/2021 12:00:00 AM EDT active Blood Glucose Test - eCW1 ([facility]) Omeprazole 20 MG Delayed Release Oral Capsule Omeprazole 20 MG 03/22/2021 12:00:00 AM EDT active Omeprazo le 20 MG eCW1 ([facility]) Blood Glucose Test - Blood Glucose Test - 03/22/2021 12:00:00 AM EDT active Blood Glucose Test - eCW1 ([facility]) Blood Glucose Test - Blood Glucose Test - 03/22/2021 12:00:00 AM EDT active Blood Glucose Test - eCW1 ([facility]) Blood Glucose Test - Blood Glucose Test - 03/22/2021 12:00:00 AM EDT active Blood Glucose Test - eCW1 ([facility]) Blood Glucose Test - Blood Glucose Test - 03/22/2021 12:00:00 AM EDT active Blood Glucose Test - eCW1 ([facility]) Blood Glucose Test - Blood Glucose Test - 03/22/2021 12:00:00 AM EDT active Blood Glucose Test - eCW1 ([facility]) Blood Glucose Test - Blood Glucose Test - 03/22/2021 12:00:00 AM EDT active Blood Glucose Test - eCW1 ([facility]) Omeprazole 20 MG Delayed Release Oral Capsule Omeprazole 20 MG 03/22/2021 12:00:00 AM EDT active Omeprazo le 20 MG eCW1 ([facility]) Blood Glucose Test - Blood Glucose Test - 03/22/2021 12:00:00 AM EDT active Blood Glucose Test - eCW1 ([facility]) Blood Glucose Test - Blood Glucose Test - 03/22/2021 12:00:00 AM EDT active Blood Glucose Test - eCW1 ([facility]) Nystatin 100 UNT/MG Topical Ointment Nystatin 936994 U NIT/GM Nystatin 451109 UNIT/GM 02/20/2021 12:00:00 AM EDT suspended Nystatin 982281 UNIT/GM eCW1 ([facility]) Nystatin 100 UNT/MG Topical Ointment Nystatin 106583 U NIT/GM Nystatin 146172 UNIT/GM 02/20/2021 12:00:00 AM EDT suspended Nystatin 068783 UNIT/GM eCW1 ([facility]) Nystatin 100 UNT/MG Topical Ointment Nystatin 168742 U NIT/GM Nystatin 268460 UNIT/GM 02/20/2021 12:00:00 AM EDT suspended Nystatin 738335 UNIT/GM eCW1 ([facility]) Nystatin 100 UNT/MG Topical Ointment Nystatin 362993 U NIT/GM Nystatin 090063 UNIT/GM 02/20/2021 12:00:00 AM EDT suspended Nystatin 088523 UNIT/GM eCW1 ([facility]) Nystatin 100 UNT/MG Topical Ointment Nystatin 389517 U NIT/GM Nystatin 263931 UNIT/GM 02/20/2021 12:00:00 AM EDT active Nystatin 854018 UNIT/GM eCW1 ([facility]) Nystatin 100 UNT/MG Topical Ointment Nystatin 442424 U NIT/GM Nystatin 150710 UNIT/GM 02/20/2021 12:00:00 AM EDT suspended Nystatin 337708 UNIT/GM eCW1 ([facility]) Nystatin 100 UNT/MG Topical Ointment Nystatin 497981 U NIT/GM Nystatin 738752 UNIT/GM 02/20/2021 12:00:00 AM EDT suspended Nystatin 598402 UNIT/GM eCW1 ([facility]) Nystatin 100 UNT/MG Topical Ointment Nystatin 866349 U NIT/GM Nystatin 365644 UNIT/GM 02/20/2021 12:00:00 AM EDT active eCW1 ([facility]) Nystatin 100 UNT/MG Topical Ointment Nystatin 437643 U NIT/GM Nystatin 719531 UNIT/GM 02/20/2021 12:00:00 AM EDT suspended Nystatin 158290 UNIT/GM eCW1 ([facility]) Nystatin 100 UNT/MG Topical Ointment Nystatin 206676 U NIT/GM Nystatin 203173 UNIT/GM 02/20/2021 12:00:00 AM EDT suspended Nystatin 894280 UNIT/GM eCW1 ([facility]) Nystatin 100 UNT/MG Topical Ointment Nystatin 470399 U NIT/GM Nystatin 933014 UNIT/GM 02/20/2021 12:00:00 AM EDT active Nystatin 711101 UNIT/GM eCW1 ([facility]) Nystatin 100 UNT/MG Topical Ointment Nystatin 223709 U NIT/GM Nystatin 035008 UNIT/GM 02/20/2021 12:00:00 AM EDT active Nystatin 023862 UNIT/GM eCW1 ([facility]) Nystatin 100 UNT/MG Topical Ointment Nystatin 296848 U NIT/GM Nystatin 790271 UNIT/GM 02/20/2021 12:00:00 AM EDT active Nystatin 385290 UNIT/GM eCW1 ([facility]) Nystatin 100 UNT/MG Topical Ointment Nystatin 288268 U NIT/GM Nystatin 971847 UNIT/GM 02/20/2021 12:00:00 AM EDT suspended Nystatin 425300 UNIT/GM eCW1 ([facility]) Nystatin 100 UNT/MG Topical Ointment Nystatin 067660 U NIT/GM Nystatin 855685 UNIT/GM 02/20/2021 12:00:00 AM EDT suspended Nystatin 927160 UNIT/GM eCW1 ([facility]) Nystatin 100 UNT/MG Topical Ointment Nystatin 905139 U NIT/GM Nystatin 101203 UNIT/GM 02/20/2021 12:00:00 AM EDT suspended Nystatin 329539 UNIT/GM eCW1 ([facility]) Nystatin 100 UNT/MG Topical Ointment Nystatin 459348 U NIT/GM Nystatin 766945 UNIT/GM 02/20/2021 12:00:00 AM EDT suspended Nystatin 996988 UNIT/GM eCW1 ([facility]) Nystatin 100 UNT/MG Topical Ointment Nystatin 864403 U NIT/GM Nystatin 944267 UNIT/GM 02/20/2021 12:00:00 AM EDT suspended Nystatin 777462 UNIT/GM eCW1 ([facility]) Nystatin 100 UNT/MG Topical Ointment Nystatin 678692 U NIT/GM Nystatin 871551 UNIT/GM 02/20/2021 12:00:00 AM EDT suspended Nystatin 062426 UNIT/GM eCW1 ([facility]) Nystatin 100 UNT/MG Topical Ointment Nystatin 984035 U NIT/GM Nystatin 829358 UNIT/GM 02/20/2021 12:00:00 AM EDT active Nystatin 049202 UNIT/GM eCW1 ([facility]) Nystatin 100 UNT/MG Topical Ointment Nystatin 582828 U NIT/GM Nystatin 353791 UNIT/GM 02/20/2021 12:00:00 AM EDT suspended Nystatin 973872 UNIT/GM eCW1 ([facility]) Nystatin 100 UNT/MG Topical Ointment Nystatin 974690 U NIT/GM Nystatin 794568 UNIT/GM 02/20/2021 12:00:00 AM EDT suspended Nystatin 431297 UNIT/GM eCW1 ([facility]) Nystatin 100 UNT/MG Topical Ointment Nystatin 815010 U NIT/GM Nystatin 983632 UNIT/GM 02/20/2021 12:00:00 AM EDT suspended Nystatin 183439 UNIT/GM eCW1 ([facility]) Nystatin 100 UNT/MG Topical Ointment Nystatin 938001 U NIT/GM Nystatin 771551 UNIT/GM 02/20/2021 12:00:00 AM EDT suspended Nystatin 977634 UNIT/GM eCW1 ([facility]) Nystatin 100 UNT/MG Topical Ointment Nystatin 269059 U NIT/GM Nystatin 450187 UNIT/GM 02/20/2021 12:00:00 AM EDT suspended Nystatin 009672 UNIT/GM eCW1 ([facility]) Nystatin 100 UNT/MG Topical Ointment Nystatin 452865 U NIT/GM Nystatin 530208 UNIT/GM 02/20/2021 12:00:00 AM EDT suspended eCW1 ([facility]) Nystatin 100 UNT/MG Topical Ointment Nystatin [id number] U NIT/GM Nystatin [id number] UNIT/GM 02/20/2021 12:00:00 AM EDT suspended Nystatin [id number] UNIT/GM eCW1 ([facility]) Nystatin 100 UNT/MG Topical Ointment Nystatin 046756 U NIT/GM Nystatin 385119 UNIT/GM 02/20/2021 12:00:00 AM EDT suspended Nystatin [id number] UNIT/GM eCW1 ([facility]) Nystatin 100 UNT/MG Topical Ointment Nystatin 891006 U NIT/GM Nystatin 786097 UNIT/GM 02/20/2021 12:00:00 AM EDT active Nystatin [id number] UNIT/GM eCW1 ([facility]) Nystatin 100 UNT/MG Topical Ointment Nystatin 716510 U NIT/GM Nystatin 972120 UNIT/GM 02/20/2021 12:00:00 AM EDT active Nystatin 524841 UNIT/GM eCW1 ([facility]) Nystatin 100 UNT/MG Topical Ointment Nystatin 807921 U NIT/GM Nystatin 425764 UNIT/GM 02/20/2021 12:00:00 AM EDT suspended Nystatin 768349 UNIT/GM eCW1 ([facility]) Nystatin 100 UNT/MG Topical Ointment Nystatin 034045 U NIT/GM Nystatin 457815 UNIT/GM 02/20/2021 12:00:00 AM EDT suspended eCW1 ([facility]) Nystatin 100 UNT/MG Topical Ointment Nystatin 764173 U NIT/GM Nystatin 374161 UNIT/GM 02/20/2021 12:00:00 AM EDT suspended Nystatin 386238 UNIT/GM eCW1 ([facility]) Nystatin 100 UNT/MG Topical Ointment Nystatin 132570 U NIT/GM Nystatin 989089 UNIT/GM 02/20/2021 12:00:00 AM EDT suspended Nystatin 330779 UNIT/GM eCW1 ([facility]) Nystatin 100 UNT/MG Topical Ointment Nystatin 341031 U NIT/GM Nystatin 723633 UNIT/GM 02/20/2021 12:00:00 AM EDT active Nystatin 643992 UNIT/GM eCW1 ([facility]) valacyclovir 1000 MG Oral Tablet [Valtrex] Valtrex 1 GM Valt evert 1 GM 01/22/2021 12:00:00 AM EDT 1.0 {tablet} suspended Valtrex 1 GM eCW1 ([facility]) Mupirocin 0.02 MG/MG Topical Ointment Mupirocin 2 % Mupiroci n 2 % 01/22/2021 12:00:00 AM EDT suspended Mupir ocin 2 % eCW1 ([facility]) Mupirocin 0.02 MG/MG Topical Ointment Mupirocin 2 % Mupiroci n 2 % 01/22/2021 12:00:00 AM EDT suspended Mupir ocin 2 % eCW1 ([facility]) Mupirocin 0.02 MG/MG Topical Ointment Mupirocin 2 % Mupiroci n 2 % 01/22/2021 12:00:00 AM EDT suspended Mupir ocin 2 % eCW1 ([facility]) valacyclovir 1000 MG Oral Tablet [Valtrex] Valtrex 1 GM Valt evert 1 GM 01/22/2021 12:00:00 AM EDT 1.0 {tablet} suspended Valtrex 1 GM eCW1 ([facility]) valacyclovir 1000 MG Oral Tablet [Valtrex] Valtrex 1 GM Valt evert 1 GM 01/22/2021 12:00:00 AM EDT 1.0 {tablet} active Va ltrex 1 GM eCW1 ([facility]) valacyclovir 1000 MG Oral Tablet [Valtrex] Valtrex 1 GM Valt evert 1 GM 01/22/2021 12:00:00 AM EDT 1.0 {tablet} suspended Valtrex 1 GM eCW1 ([facility]) Mupirocin 0.02 MG/MG Topical Ointment Mupirocin 2 % Mupiroci n 2 % 01/22/2021 12:00:00 AM EDT suspended Mupir ocin 2 % eCW1 ([facility]) Mupirocin 0.02 MG/MG Topical Ointment Mupirocin 2 % Mupiroci n 2 % 01/22/2021 12:00:00 AM EDT suspended Mupir ocin 2 % eCW1 ([facility]) Mupirocin 0.02 MG/MG Topical Ointment Mupirocin 2 % Mupiroci n 2 % 01/22/2021 12:00:00 AM EDT suspended Mupir ocin 2 % eCW1 ([facility]) valacyclovir 1000 MG Oral Tablet [Valtrex] Valtrex 1 GM Valt evert 1 GM 01/22/2021 12:00:00 AM EDT 1.0 {tablet} suspended Valtrex 1 GM eCW1 ([facility]) Mupirocin 0.02 MG/MG Topical Ointment Mupirocin 2 % Mupiroci n 2 % 01/22/2021 12:00:00 AM EDT active Mupiroci n 2 % eCW1 ([facility]) Mupirocin 0.02 MG/MG Topical Ointment Mupirocin 2 % Mupiroci n 2 % 01/22/2021 12:00:00 AM EDT suspended Mupir ocin 2 % eCW1 ([facility]) Mupirocin 0.02 MG/MG Topical Ointment Mupirocin 2 % Mupiroci n 2 % 01/22/2021 12:00:00 AM EDT active e CW1 ([facility]) Mupirocin 0.02 MG/MG Topical Ointment Mupirocin 2 % Mupiroci n 2 % 01/22/2021 12:00:00 AM EDT active Mupiroci n 2 % eCW1 ([facility]) valacyclovir 1000 MG Oral Tablet [Valtrex] Valtrex 1 GM Valt evert 1 GM 01/22/2021 12:00:00 AM EDT 1.0 {tablet} active Va ltrex 1 GM eCW1 ([facility]) Mupirocin 0.02 MG/MG Topical Ointment Mupirocin 2 % Mupiroci n 2 % 01/22/2021 12:00:00 AM EDT suspended Mupir ocin 2 % eCW1 ([facility]) valacyclovir 1000 MG Oral Tablet [Valtrex] Valtrex 1 GM Valt evert 1 GM 01/22/2021 12:00:00 AM EDT 1.0 {tablet} suspended Valtrex 1 GM eCW1 ([facility]) valacyclovir 1000 MG Oral Tablet [Valtrex] Valtrex 1 GM Valt evert 1 GM 01/22/2021 12:00:00 AM EDT 1.0 {tablet} active Va ltrex 1 GM eCW1 ([facility]) valacyclovir 1000 MG Oral Tablet [Valtrex] Valtrex 1 GM Valt evert 1 GM 01/22/2021 12:00:00 AM EDT 1.0 {tablet} suspended Valtrex 1 GM eCW1 ([facility]) valacyclovir 1000 MG Oral Tablet [Valtrex] Valtrex 1 GM Valt evert 1 GM 01/22/2021 12:00:00 AM EDT 1.0 {tablet} suspended Valtrex 1 GM eCW1 ([facility]) Mupirocin 0.02 MG/MG Topical Ointment Mupirocin 2 % Mupiroci n 2 % 01/22/2021 12:00:00 AM EDT active Mupiroci n 2 % eCW1 ([facility]) valacyclovir 1000 MG Oral Tablet [Valtrex] Valtrex 1 GM Valt evert 1 GM 01/22/2021 12:00:00 AM EDT 1.0 {tablet} suspended Valtrex 1 GM eCW1 ([facility]) Mupirocin 0.02 MG/MG Topical Ointment Mupirocin 2 % Mupiroci n 2 % 01/22/2021 12:00:00 AM EDT active Mupiroci n 2 % eCW1 ([facility]) Mupirocin 0.02 MG/MG Topical Ointment Mupirocin 2 % Mupiroci n 2 % 01/22/2021 12:00:00 AM EDT active Mupiroci n 2 % eCW1 ([facility]) valacyclovir 1000 MG Oral Tablet [Valtrex] Valtrex 1 GM Valt evert 1 GM 01/22/2021 12:00:00 AM EDT 1.0 {tablet} active Va ltrex 1 GM eCW1 ([facility]) valacyclovir 1000 MG Oral Tablet [Valtrex] Valtrex 1 GM Valt evert 1 GM 01/22/2021 12:00:00 AM EDT 1.0 {tablet} suspended Valtrex 1 GM eCW1 ([facility]) Mupirocin 0.02 MG/MG Topical Ointment Mupirocin 2 % Mupiroci n 2 % 01/22/2021 12:00:00 AM EDT suspended Mupir ocin 2 % eCW1 ([facility]) Mupirocin 0.02 MG/MG Topical Ointment Mupirocin 2 % Mupiroci n 2 % 01/22/2021 12:00:00 AM EDT suspended Mupir ocin 2 % eCW1 ([facility]) Mupirocin 0.02 MG/MG Topical Ointment Mupirocin 2 % Mupiroci n 2 % 01/22/2021 12:00:00 AM EDT suspended Mupir ocin 2 % eCW1 ([facility]) Mupirocin 0.02 MG/MG Topical Ointment Mupirocin 2 % Mupiroci n 2 % 01/22/2021 12:00:00 AM EDT suspended eCW1 ([facility]) Mupirocin 0.02 MG/MG Topical Ointment Mupirocin 2 % Mupiroci n 2 % 01/22/2021 12:00:00 AM EDT suspended Mupir ocin 2 % eCW1 ([facility]) Mupirocin 0.02 MG/MG Topical Ointment Mupirocin 2 % Mupiroci n 2 % 01/22/2021 12:00:00 AM EDT suspended Mupir ocin 2 % eCW1 ([facility]) valacyclovir 1000 MG Oral Tablet [Valtrex] Valtrex 1 GM Valt evert 1 GM 01/22/2021 12:00:00 AM EDT 1.0 {tablet} active Va ltrex 1 GM eCW1 ([facility]) Mupirocin 0.02 MG/MG Topical Ointment Mupirocin 2 % Mupiroci n 2 % 01/22/2021 12:00:00 AM EDT active Mupiroci n 2 % eCW1 ([facility]) valacyclovir 1000 MG Oral Tablet [Valtrex] Valtrex 1 GM Valt evert 1 GM 01/22/2021 12:00:00 AM EDT 1.0 {tablet} suspended eCW1 ([facility]) valacyclovir 1000 MG Oral Tablet [Valtrex] Valtrex 1 GM Valt evert 1 GM 01/22/2021 12:00:00 AM EDT 1.0 {tablet} suspended Valtrex 1 GM eCW1 ([facility]) valacyclovir 1000 MG Oral Tablet [Valtrex] Valtrex 1 GM Valt evert 1 GM 01/22/2021 12:00:00 AM EDT 1.0 {tablet} active Va ltrex 1 GM eCW1 ([facility]) valacyclovir 1000 MG Oral Tablet [Valtrex] Valtrex 1 GM Valt evert 1 GM 01/22/2021 12:00:00 AM EDT 1.0 {tablet} active Va ltrex 1 GM eCW1 ([facility]) Mupirocin 0.02 MG/MG Topical Ointment Mupirocin 2 % Mupiroci n 2 % 01/22/2021 12:00:00 AM EDT active Mupiroci n 2 % eCW1 ([facility]) valacyclovir 1000 MG Oral Tablet [Valtrex] Valtrex 1 GM Valt evert 1 GM 01/22/2021 12:00:00 AM EDT 1.0 {tablet} active Va ltrex 1 GM eCW1 ([facility]) valacyclovir 1000 MG Oral Tablet [Valtrex] Valtrex 1 GM Valt evert 1 GM 01/22/2021 12:00:00 AM EDT 1.0 {tablet} active Va ltrex 1 GM eCW1 ([facility]) Mupirocin 0.02 MG/MG Topical Ointment Mupirocin 2 % Mupiroci n 2 % 01/22/2021 12:00:00 AM EDT suspended Mupir ocin 2 % eCW1 ([facility]) valacyclovir 1000 MG Oral Tablet [Valtrex] Valtrex 1 GM Valt evert 1 GM 01/22/2021 12:00:00 AM EDT 1.0 {tablet} suspended Valtrex 1 GM eCW1 ([facility]) Mupirocin 0.02 MG/MG Topical Ointment Mupirocin 2 % Mupiroci n 2 % 01/22/2021 12:00:00 AM EDT suspended Mupir ocin 2 % eCW1 ([facility]) Mupirocin 0.02 MG/MG Topical Ointment Mupirocin 2 % Mupiroci n 2 % 01/22/2021 12:00:00 AM EDT active Mupiroci n 2 % eCW1 ([facility]) valacyclovir 1000 MG Oral Tablet [Valtrex] Valtrex 1 GM Valt evert 1 GM 01/22/2021 12:00:00 AM EDT 1.0 {tablet} active Va ltrex 1 GM eCW1 ([facility]) valacyclovir 1000 MG Oral Tablet [Valtrex] Valtrex 1 GM Valt evert 1 GM 01/22/2021 12:00:00 AM EDT 1.0 {tablet} suspended Valtrex 1 GM eCW1 ([facility]) valacyclovir 1000 MG Oral Tablet [Valtrex] Valtrex 1 GM Valt evert 1 GM 01/22/2021 12:00:00 AM EDT 1.0 {tablet} suspended Valtrex 1 GM eCW1 ([facility]) Mupirocin 0.02 MG/MG Topical Ointment Mupirocin 2 % Mupiroci n 2 % 01/22/2021 12:00:00 AM EDT suspended Mupir ocin 2 % eCW1 ([facility]) valacyclovir 1000 MG Oral Tablet [Valtrex] Valtrex 1 GM Valt evert 1 GM 01/22/2021 12:00:00 AM EDT 1.0 {tablet} suspended Valtrex 1 GM eCW1 ([facility]) Mupirocin 0.02 MG/MG Topical Ointment Mupirocin 2 % Mupiroci n 2 % 01/22/2021 12:00:00 AM EDT active Mupiroci n 2 % eCW1 ([facility]) valacyclovir 1000 MG Oral Tablet [Valtrex] Valtrex 1 GM Valt evert 1 GM 01/22/2021 12:00:00 AM EDT 1.0 {tablet} suspended Valtrex 1 GM eCW1 ([facility]) Mupirocin 0.02 MG/MG Topical Ointment Mupirocin 2 % Mupiroci n 2 % 01/22/2021 12:00:00 AM EDT suspended Mupir ocin 2 % eCW1 ([facility]) Mupirocin 0.02 MG/MG Topical Ointment Mupirocin 2 % Mupiroci n 2 % 01/22/2021 12:00:00 AM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 [facility]) Diastolic blood pressure 101 mm[Hg] 101 mm[Hg] MEDENT ([facility], [facility]) Heart rate 92 /min 92 /min MEDENT ([facility], [facility]) Respiratory rate 16 /min 16 /min MEDENT ( [facility], [facility]) Oxygen saturation in Arterial blood by Pulse oximetry 100 % 100 % MEDENT ([facility], [facility]) Body temperature 96.2 [degF] 96.2 [degF] MEDENT ([facility], [facility]) Body weight 203.00 [lb_av] 203.00 [lb_av] MEDEN T ([facility], [facility]) Body height 62 [in_i] 62 [in_i] MEDENT ([facility], [facility]) 5'2" Body mass index (BMI) [Ratio] 37.1 kg/m2 37.1 k g/m2 MEDENT ([facility], [facility]) Body weight 203.4 [lb_av] 203.4 [lb_av] eCW1 ([facility]) Body height 63 [in_i] 63 [in_i] eCW1 ([facility]) Body mass index (BMI) [Ratio] 36.03 kg/m2 36.03 kg/m2 eCW1 ([facility]) Heart rate 89 /min 89 /min eCW1 ([facility]) Respiratory rate 18 /min 18 /min eCW1 ([facility]) Body temperature 99.3 [degF] 99.3 [degF] eCW1 ( [facility]) Systolic blood pressure 146 mm[Hg] 146 mm[Hg] e CW1 ([facility]) Diastolic blood pressure 80 mm[Hg] 80 mm[Hg] eCW1 ([facility]) Body weight 212 [lb_av] 212 [lb_av] eCW1 ([facility]) Body height 63 [in_i] 63 [in_i] eCW1 ([facility]) Body mass index (BMI) [Ratio] 37.55 kg/m2 37.55 kg/m2 eCW1 ([facility]) Heart rate 80 /min 80 /min eCW1 ([facility]) Respiratory rate 18 /min 18 /min eCW1 ([facility]) Body temperature 97.4 [degF] 97.4 [degF] eCW1 ( [facility]) Systolic blood pressure 120 mm[Hg] 120 mm[Hg] e CW1 ([facility]) Diastolic blood pressure 80 mm[Hg] 80 mm[Hg] eCW1 ([facility]) Body mass index (BMI) [Ratio] 36.49 kg/m2 36.49 kg/m2 eCW1 ([facility]) Heart rate 99 /min 99 /min eCW1 ([facility]) Respiratory rate 20 /min 20 /min eCW1 ([facility]) Body temperature 96.9 [degF] 96.9 [degF] eCW1 ( [facility]) Systolic blood pressure 122 mm[Hg] 122 mm[Hg] e CW1 ([facility]) Diastolic blood pressure 86 mm[Hg] 86 mm[Hg] eCW1 ([facility]) Body weight 206 [lb_av] 206 [lb_av] eCW1 ([facility]) Body height 63 [in_i] 63 [in_i] eCW1 ([facility]) Body weight 208.8 [lb_av] 208.8 [lb_av] eCW1 ([facility]) Body height 63 [in_i] 63 [in_i] eCW1 ([facility]) Body mass index (BMI) [Ratio] 36.98 kg/m2 36.98 kg/m2 eCW1 ([facility]) Heart rate 105 /min 105 /min eCW1 ([facility]) Respiratory rate 20 /min 20 /min eCW1 ([facility]) Body temperature 97.8 [degF] 97.8 [degF] eCW1 ( [facility]) Systolic blood pressure 130 mm[Hg] 130 mm[Hg] e CW1 ([facility]) Diastolic blood pressure 82 mm[Hg] 82 mm[Hg] eCW1 ([facility]) Patient Treatment Plan of Care Planned Activity Planned Date Details Description Data Source (s) medroxyprogesterone acetate 10 MG Oral Tablet [Provera ] 08/02/2021 12:00:00 AM EDT eCW1 ([facility]) medroxyprogesterone acetate 10 MG Oral Tablet [Provera ] 08/02/2021 12:00:00 AM EDT eCW1 ([facility]) medroxyprogesterone acetate 10 MG Oral Tablet [Provera ] 08/02/2021 12:00:00 AM EDT eCW1 ([facility]) medroxyprogesterone acetate 10 MG Oral Tablet [Provera ] 08/02/2021 12:00:00 AM EDT eCW1 ([facility]) medroxyprogesterone acetate 10 MG Oral Tablet [Provera ] 08/02/2021 12:00:00 AM EDT eCW1 ([facility]) medroxyprogesterone acetate 10 MG Oral Tablet [Provera ] 08/02/2021 12:00:00 AM EDT eCW1 ([facility]) Diclofenac Sodium 0.01 MG/MG Topical Gel [Voltaren] 07/09/20 21 12:00:00 AM EDT eCW1 ([facility]) Diclofenac Sodium 0.01 MG/MG Topical Gel [Voltaren] 07/09/20 21 12:00:00 AM EDT eCW1 ([facility]) Diclofenac Sodium 0.01 MG/MG Topical Gel [Voltaren] 07/09/20 21 12:00:00 AM EDT eCW1 ([facility]) Diclofenac Sodium 0.01 MG/MG Topical Gel [Voltaren] 07/09/20 21 12:00:00 AM EDT eCW1 ([facility]) Diclofenac Sodium 0.01 MG/MG Topical Gel [Voltaren] 07/09/20 21 12:00:00 AM EDT eCW1 ([facility]) FreeStyle Kaleigh 14 Day Sensor - 06/26/2021 12:00:00 AM EDT eCW1 ([facility]) FreeStyle Kaleigh 14 Day [place] - 06/26/2021 12:00:00 AM EDT eCW1 ([facility]) FreeStyle [place] 14 Day Sensor - 06/26/2021 12:00:00 AM EDT eCW1 ([facility]) FreeStyle [place] 14 Day [place] - 06/26/2021 12:00:00 AM EDT eCW1 ([facility] [facility]) Fluconazole 150 MG Oral Tablet 06/18/2021 12:00:00 AM EDT eCW1 ([facility]) Fluconazole 150 MG Oral Tablet 06/18/2021 12:00:00 AM EDT eCW1 ([facility]) Fluconazole 150 MG Oral Tablet 06/18/2021 12:00:00 AM EDT eCW1 ([facility]) Fluconazole 150 MG Oral Tablet 06/18/2021 12:00:00 AM EDT eCW1 ([facility]) 3 ML Insulin Glargine 100 UNT/ML Pen Injector [Lantus] 05/18/2021 12:00:00 AM EDT eCW1 ([facility]) 3 ML Insulin Glargine 100 UNT/ML Pen Injector [Lantus] 05/18/2021 12:00:00 AM EDT eCW1 ([facility]) 3 ML Insulin Glargine 100 UNT/ML Pen Injector [Lantus] 05/18/2021 12:00:00 AM EDT eCW1 ([facility]) 3 ML Insulin Glargine 100 UNT/ML Pen Injector [Lantus] 05/18/2021 12:00:00 AM EDT eCW1 ([facility]) 3 ML Insulin Glargine 100 UNT/ML Pen Injector [Lantus] 05/18/2021 12:00:00 AM EDT eCW1 ([facility]) Ondansetron 4 MG Disintegrating Oral Tablet 05/18/2021 12:00:00 AM EDT eCW1 ([facility]) 3 ML Insulin Glargine 100 UNT/ML Pen Injector [Lantus] 05/18/2021 12:00:00 AM EDT eCW1 ([facility]) Ondansetron 4 MG Disintegrating Oral Tablet 05/18/2021 12:00:00 AM EDT eCW1 ([facility]) 3 ML Insulin Glargine 100 UNT/ML Pen Injector [Lantus] 05/18/2021 12:00:00 AM EDT eCW1 ([facility]) Ondansetron 4 MG Disintegrating Oral Tablet 05/18/2021 12:00:00 AM EDT eCW1 ([facility]) 3 ML Insulin Glargine 100 UNT/ML Pen Injector [Lantus] 05/18/2021 12:00:00 AM EDT eCW1 ([facility]) Ondansetron 4 MG Disintegrating Oral Tablet 05/18/2021 12:00:00 AM EDT eCW1 ([facility]) celecoxib 100 MG Oral Capsule 05/18/2021 12:00:00 AM EDT eCW1 ([facility]) Fluconazole 100 MG Oral Tablet [Diflucan] 04/15/2021 12:00:00 AM ED T eCW1 ([facility]) Fluconazole 100 MG Oral Tablet [Diflucan] 04/15/2021 12:00:00 AM ED T eCW1 ([facility]) Omeprazole 20 MG Delayed Release Oral Capsule 03/22/2021 12:00:00 A M EDT eCW1 ([facility]) Blood Glucose Test - 03/22/2021 12:00:00 AM EDT eCW1 ([facility]) Omeprazole 20 MG Delayed Release Oral Capsule 03/22/2021 12:00:00 A M EDT eCW1 ([facility]) Blood Glucose Test - 03/22/2021 12:00:00 AM EDT eCW1 ([facility]) Nystatin 100 UNT/MG Topical Ointment 02/20/2021 12:00:00 AM EDT eCW1 ([facility]) Nystatin 100 UNT/MG Topical Ointment 02/20/2021 12:00:00 AM EDT eCW1 ([facility]) Nystatin 100 UNT/MG Topical Ointment 02/20/2021 12:00:00 AM EDT eCW1 ([facility]) Nystatin 100 UNT/MG Topical Ointment 02/20/2021 12:00:00 AM EDT eCW1 ([facility]) Nystatin 100 UNT/MG Topical Ointment 02/20/2021 12:00:00 AM EDT eCW1 ([facility]) valacyclovir 1000 MG Oral Tablet [Valtrex] 01/22/2021 12:00:00 AM E DT eCW1 ([facility]) Mupirocin 0.02 MG/MG Topical Ointment 01/22/2021 12:00:00 AM EDT eCW1 ([facility]) valacyclovir 1000 MG Oral Tablet [Valtrex] 01/22/2021 12:00:00 AM E DT eCW1 ([facility]) Mupirocin 0.02 MG/MG Topical Ointment 01/22/2021 12:00:00 AM EDT eCW1 ([facility])
[2021-09-09] MEDS ORDERED: ACETAMINOPHEN 500 MG TAB PO ONE (12:20)
[2021-09-09] MEDS ORDERED: EMLA CREAM 5GM TUBE (LIDOCAINE/PRILOCAINE) TOP ONE (12:20)
[2021-09-09 12:58] LABS: BASO # 0.1 10^3/uL (0.0-0.2); BASO % 0.4 % (0.0-1.0); EOS # 0.1 10^3/uL (0.0-0.5); EOS % 0.6 % (0.0-3.0); HEMOGLOBIN 12.4 g/dl (12.0-15.5); LYMPH # 2.5 10^3/uL (1.5-5.0); LYMPH % 18.8 % (24.0-44.0); MEAN CORPUSCULAR HEMOGLOBIN 25.4 pg (27.0-33.0); MEAN CORPUSCULAR HGB CONC 31.8 g/dl (32.0-36.5); MEAN CORPUSCULAR VOLUME 79.8 fl (80.0-96.0); MONO # 0.6 10^3/uL (0.0-0.8); MONO % 4.8 % (2.0-8.0); NEUTROPHILS # 9.9 10^3/uL (1.5-8.5); NEUTROPHILS % 74.9 % (36.0-66.0); PLATELET COUNT, AUTOMATED 297 10^3/uL (150-450); RED BLOOD COUNT 4.89 10^6/uL (4.00-5.40); WHITE BLOOD COUNT 13.2 10^3/uL (4.0-10.0)
[2021-09-09 13:14] LABS: BLOOD UREA NITROGEN 6 MG/DL (7-18); CALCIUM LEVEL 9.3 MG/DL (8.5-10.1); CARBON DIOXIDE LEVEL 23 MEQ/L (21-32); CHLORIDE LEVEL 105 MEQ/L (98-107); CREATININE FOR GFR 0.78 MG/DL (0.55-1.30); GLOMERULAR FILTRATION RATE > 60.0 (>60); GLUCOSE, FASTING 287 MG/DL (70-100); SODIUM LEVEL 138 MEQ/L (136-145)
--- NOTE | 2021-09-09 13:14 | REP ---
INDICATION: vaginal bleeding since april 2021 COMPARISON: None. TECHNIQUE: Transabdominal pelvic ultrasound with color Doppler evaluation of the ovaries. FINDINGS: Bladder is unremarkable and measures 7.0 x 7.3 x 4.7 cm. Enlarged heterogeneous anteverted uterus measures 12.6 x 4.9 x 6.6 cm. The endometrial complex measures 4.0 mm thickness. No discrete uterine or endometrial abnormalities are appreciated. Bilateral ovaries are normal in appearance and vascularity without evidence for torsion. Right ovary measures 2.0 x 1.8 x 2.4 cm; R I = 0.58. Left ovary measures 2.1 x 1.6 x 1.7 cm; R I = 0.50. No pelvic fluid or adnexal mass lesion. IMPRESSION: Enlarged heterogeneous uterus. Otherwise normal pelvic ultrasound. <Electronically signed by Asif De La Cruz > 09/09/21 [id number]
[2021-09-09] MEDS ORDERED: DOXY-443 PO (14:37)
[2021-09-09 15:01] VITALS: BP 145/86
--- NOTE | 2021-09-10 19:49 | ED PDOC ---
Post-Departure Follow-Up radiology repor tfaxed to bakari Viera Sarah MD Sep 10, 2021 19:49
== END 2021-09-09 15:03 | disposition home or self-care (01) ==
LOC: M ED 10:31
DX: L05.01 Pilonidal cyst with abscess (principal); N93.8 Other specified abnormal uterine and vaginal bleeding; G40.909 Epilepsy, unspecified, not intractable, without status epilepticus; E11.9 Type 2 diabetes mellitus without complications; I10 Essential (primary) hypertension; F41.9 Anxiety disorder, unspecified; F33.9 Major depressive disorder, recurrent, unspecified; M19.90 Unspecified osteoarthritis, unspecified site; N80.9 Endometriosis, unspecified; Z79.4 Long term (current) use of insulin; Z79.899 Other long term (current) drug therapy; Z88.0 Allergy status to penicillin; Z98.890 Other specified postprocedural states; Z87.42 Personal history of other diseases of the female genital tract

== ENCOUNTER 2021-09-11 09:17 | Emergency (ER) | payer MEDICARE, MEDICAID ==
[~2021-09-11] VITALS: Ht 157.5 cm; Wt 87.5 kg
[~2021-09-11 09:17] MED LIST changes: +ATOR1TAB21; +DOXY-443 PO; +MEDR10TA; +METF10004
--- OUTSIDE RECORDS SUMMARY | 2021-09-11 09:26 | CCD ---
Author Author [facility] Organization [facility] Address Unknown Phone Unavailable Care Team Providers Care Electrical Engineering Technologist Name Role Phone Eagle, Susy ENROBER TENDER Unavailable Unavailable Eagle, Susy ENROBER TENDER Unavailable Unavailable Eagle, Susy ENROBER TENDER Unavailable Unavailable Eagle, Susy ENROBER TENDER Unavailable Unavailable Eagle, Susy ENROBER TENDER Unavailable Unavailable Eagle, Susy ENROBER TENDER Unavailable Unavailable Eagle, Susy ENROBER TENDER Unavailable Unavailable Eagle, Susy ENROBER TENDER Unavailable Unavailable Eagle, Susy ENROBER TENDER Unavailable Unavailable Eagle, Susy ENROBER TENDER Unavailable Unavailable Eagle, Susy ENROBER TENDER Unavailable Unavailable Eagle, Susy ENROBER TENDER Unavailable Unavailable Eagle, Susy ENROBER TENDER Unavailable Unavailable Stephanie Madsen MD Unavailable Unavailable Stephanie Madsen MD Unavailable Unavailable Stephanie Madsen MD Unavailable Unavailable Stephanie aMdsen MD Unavailable Unavailable Stephanie Madsen MD Unavailable Unavailable Stephanie Madsen MD Unavailable Unavailable Stephanie Madsen MD Unavailable Unavailable Stephanie Madsen MD Unavailable Unavailable Stephanie Madsen MD Unavailable Unavailable Stephanie Madsen MD Unavailable Unavailable CARE, URGENT DENTAL Unavailable Unavailable LORIE CASTAÑEDA Unavailable Unavailable ALISSA, JOSE LUIS TEJWINDER Unavailable Unavailable ASHLY WAGNER Unavailable Unavailable DEFAULT, PROVIDER Unavailable Unavailable MARTÍN BUTT MD Unavailable Unavailable MARTÍN BUTT MD Unavailable Unavailable MARTÍN BUTT MD Unavailable Unavailable DEMARCUS FARRELL Unavailable Unavailable [facility] Unavailable Unavailab RODO Chatman Unavailable Unavailable MD Graciela RAYO [facility] Unavailable Unavailable Re-disclosure Warning The records that [...] is protected by Article 27-F of the [facility] Public Health law. If you continue you may have access to information: Regarding HIV / AIDS; Provided by facilities licensed or operated by the [facility] Office of Mental Health; or Provided by the [facility] Office for People With Developmental Disabilities. If such information is present, then the following [facility] mandated warning applies: This information has [...] law may result in a fine or longterm sentence or both. A general authorization for the release of medical or other information is NOT sufficient authorization for further disc losure. Allergies and Adverse Reactions Type Description Substance Reaction Status Data Source(s ) Drug Allergy Drug Allergy NKDA MEDENT ([facility]) Encounters Encounter Providers Location Date Indications Data Source(s ) ([facility]) [facility] Scheduled Visit [address] [place] [address] 09/05/2021 12:00:00 AM EST eCW1 ([facility]) Outpatient Attender: MARTÍN Cleaning/Tomas/Herman/ Delia 08/30/2021 11:00:00 AM EDT MEDENT ([facility]) Outpatient [address] [facility] [address] 08/23/2021 12:00:00 AM EDT eCW1 ([facility]) [place] [address] [facility] [address] 08/05/2021 12:00:00 AM EDT eCW1 ([facility]) Unknown [address] [facility] [address] 08/05/2021 12:00:00 AM EDT eCW1 ([facility]) Outpatient [address] [facility] [place] [address] 08/02/2021 12:00:00 AM EDT eCW1 [facility]) ([facility]) [facility] Scheduled Visit [address] [place] [phone] 08/02/2021 12:00:00 AM EDT eCW1 ([facility]) Unknown [address] [facility] [address] 07/25/2021 12:00:00 AM EDT eCW1 ([facility]) Unknown [address] [facility] [address] 07/19/2021 12:00:00 AM EDT eCW1 ([facility]) Outpatient Attender: MARTÍN Cleaning/Tomas/Herman/ Delia 07/16/2021 09:00:00 AM EDT MEDENT ([facility]) Unknown [address] [facility] [place] [address] 07/16/2021 12:00:00 AM EDT eCW1 ([facility]) ([facility]) [facility] Scheduled Visit [address] [place] [address] 07/15/2021 12:00:00 AM EDT eCW1 ([facility]) Unknown [address] [place] [address] 07/15/2021 12:00:00 AM EDT eCW1 ([facility]) [place] [address] [facility] [address] 07/09/2021 12:00:00 AM EDT eCW1 ([facility]) [place] [address] [facility] [address] 07/09/2021 12:00:00 AM EDT eCW1 ([facility]) [place] [address] [facility] [address] 07/08/2021 12:00:00 AM EDT eCW1 ([facility]) [place] [address] [facility] [address] 06/26/2021 12:00:00 AM EDT eCW1 ([facility]) [place] [address] [facility] [address] 06/20/2021 12:00:00 AM EDT eCW1 ([facility]) [place] [address] [facility] [address] 06/20/2021 12:00:00 AM EDT eCW1 ([facility]) [place]patient [address] [facility] [address] 06/18/2021 12:00:00 AM EDT eCW1 ([facility]) [place] [address] [facility] [address] 06/17/2021 12:00:00 AM EDT eCW1 ([facility]) [place] [address] [facility] [address] 05/17/2021 12:00:00 AM EDT eCW1 ([facility]) [place] [address] [facility] [address] 05/17/2021 12:00:00 AM EDT eCW1 ([facility]) [place] [address] [facility] [address] 05/16/2021 12:00:00 AM EDT eCW1 ([facility]) Unknown [address] [facility] [address] 05/16/2021 12:00:00 AM EDT eCW1 ([facility]) Unknown [address] [facility] [place] [address] 05/14/2021 12:00:00 AM EDT eCW1 ([facility]) ([facility]) [facility] Scheduled Visit [address] [place] [address] 05/09/2021 12:00:00 AM EDT eCW1 ([facility]) Unknown [address] [facility] [place] [address] 04/19/2021 12:00:00 AM EDT eCW1 ([facility]) Outpatient [address] [facility] Y [address] 04/16/2021 12:00:00 AM EDT eCW1 ([facility]) Unknown [address] [facility] Y [address] 04/15/2021 12:00:00 AM EDT eCW1 ([facility]) Outpatient [address] [facility] [place] [address] 04/08/2021 12:00:00 AM EDT eCW1 ([facility]) Outpatient Attender: Susy villalta 03/27/2021 02:35:00 PM EDT MEDENT ([facility]) Unknown [address] [facility] [place] [address] 03/27/2021 12:00:00 AM EDT eCW1 ([facility]) Outpatient [address] [facility] Y [address] 03/22/2021 12:00:00 AM EDT eCW1 ([facility] Scheduled Visit [address] [place] [address] 03/21/2021 12:00:00 AM EDT eCW1 ([facility]) Unknown [address] [facility] [address] 03/06/2021 12:00:00 AM EDT eCW1 ([facility] hospital) ([facility]) [facility] Scheduled Visit [address] [place] [address] 03/05/2021 12:00:00 AM EDT eCW1 ([facility]) Outpatient [address] [facility] [address] 02/20/2021 12:00:00 AM EDT eCW1 (Critical [facility] hospital) Unknown [address] [facility] [address] 02/20/2021 12:00:00 AM EDT eCW1 (Critical access hospital) [place] [address] [facility] [address] 02/15/2021 12:00:00 AM EDT eCW1 (Critical access hospital) Outpatient [address] [facility] [address] 02/01/2021 12:00:00 AM EDT eCW1 (Critical access hospital) [facility] 04/2021 08:20:26 AM EDT - 01/30/2021 09:21:28 AM EDT [facility] Patient discharged. Office Visit, Est Pt., Level 3 PC [address] [place] [address] 01/22/2021 12:00:00 AM EDT eCW1 ([facility]) Unknown [address] [facility] [address] 01/22/2021 12:00:00 AM EDT eCW1 (Critical access hospital) Outpatient Attender: ASHLY CAMPCORA-BHNRMHAC 01/04/20 21 03:05:44 PM EST - 01/03/2021 03:05:57 PM EST [facility] Patient discharged. Outpatient Attender: ASHLY CAMPCORA-BHNRMHCORA 12/20/19 21 03:29:48 PM EST - 12/20/2020 03:32:56 PM [facility] Patient discharged. Outpatient Attender: Angy Madsen MD 12/10/2020 10:33:48 AM [facility] Patient admitted. Outpatient Attender: ASHLY WAGNER BHNRMHAC-BHNRMHAC 12/04/19 01:50:57 PM EST - 12/04/2020 02:11:05 PM [facility] Patient discharged. Outpatient Attender: MD AUDRA RAYO RMGSP-RMGTWCP 11/26/2020 03:24:49 PM EST - 11/26/2020 04:48:28 PM [facility] Patient discharged. Outpatient Attender: PROVIDER DEFAULTReferrer: MD Barby RAYO [facility]-RGHLCYT 11/26/2020 02:23:00 PM EST - 11/26/2020 11:59:00 PM [facility] Patient discharged. Outpatient Attender: PROVIDER DEFAULT ACMLSPECPROC-RGHLELMS Erna 11/26/2020 02:28:00 AM EST - 11/26/2020 02:22:00 PM [facility] Patient discharged. Outpatient Attender: MD AUDRA RAYO 11/26/2020 02 :28:00 AM [facility] Outpatient Attender: ASHLY WAGNER NRAC-BHNRMHAC 11/15/19 05:36:02 PM EST - 11/15/2020 05:36:14 PM [facility] Patient discharged. Outpatient Attender: LORIE CASTAÑEDA RMGSP-RMGTWCP 10/26 02:53:44 PM EST - 11/09/2020 02:53:58 PM [facility] Patient discharged. Outpatient Attender: RODO BYRNES BHNRMHAC-BHNRMHAC 10/26 07:11:00 AM EST - 11/07/2020 11:33:[address] [facility] Patient discharged. Outpatient Attender: ASHLY WAGNER BHNRMHAC-BHNRMHAC 11/01/19 10:22:34 AM EST - 11/01/2020 10:25:09 AM [facility] Patient discharged. Outpatient Attender: PROVIDER DEFAULTReferrer: JOSE LUIS TEJYANET SYLVESTER ACMLSPECPROC-ACMLSPECPROC 10/21/2020 01:44:00 AM EST - 10/21/2020 11:59:00 PM [facility] Patient discharged. Outpatient Attender: PROVIDER DEFAULT [facility]-RGHICWIL 10/20 06:37:00 PM EST - 10/20/2020 07:07:00 PM [facility] Patient admitted. Outpatient Attender: ASHLY WAGNER NRAC-BHNRMHAC 10/10/20 02:10:01 PM EST - 10/10/2020 02:12:05 PM [facility] Patient discharged. Outpatient Attender: PROVIDER DEFAULT ACMLSPECPROC-ACMLSPEC PROC 10/04/2020 08:47:00 PM EST - 10/04/2020 11:59:00 PM [facility] Patient discharged. Outpatient Attender: PROVIDER DEFAULT ACMLSPECPROC-ACMLSPEC PROC 10/04/2020 07:11:00 PM EST - 10/04/2020 08:46:00 PM [facility] Patient discharged. Outpatient Attender: PROVIDER DEFAULT [facility]-RGHICWIL 10/04 12:39:00 PM [facility] - 10/04/2020 01:58:00 PM [facility] Patient discharged. Outpatient Attender: [facility] HDENTR-RGHDENTRHC 01/2020 09:46:40 AM EST - 09/28/2020 10:39:[address] [facility] Patient discharged. Outpatient Attender: DEMARCUS Paredes: Fernando VERGARA [facility] RMGOPDRHC-RMGTWIGRHC 09/11/2020 02:57:34 PM EST - 09/11/2020 03:40:54 PM [facility] Patient discharged. Outpatient Attender: ASHLY WAGNER NRAC-BHNRMHAC 03/20/2020 03:29:1 1 PM EDT [facility] Outpatient Attender: ASHLY WAGNER NRAC-BHNRMHAC 12/29/2019 11:08:2 0 AM [facility] Medications Medication Brand Name Start Date Product Form Dose Route Admi nistrative Instructions Pharmacy Instructions Status Indications Reaction Description Data Source(s) medroxyprogesterone acetate 10 MG Oral Tablet medroxyP ROGESTERone Acetate 10 MG medroxyPROGESTERone Acetate 10 MG 08/23/2021 12:00:00 AM EDT 1.0 {tablet_with_food} active medroxyPROGES TERone Acetate 10 MG eCW1 ([facility]) medroxyprogesterone acetate 10 MG Oral Tablet medroxyP ROGESTERone Acetate 10 MG medroxyPROGESTERone Acetate 10 MG 08/23/2021 12:00:00 AM EDT 1.0 {tablet_with_food} active medroxyPROGES TERone Acetate 10 MG eCW1 ([facility]) medroxyprogesterone acetate 10 MG Oral Tablet [Provera ] Provera 10 MG Provera 10 MG 08/02/2021 12:00:00 AM EDT 1.0 {tablet_with_food} active Provera 10 MG eCW1 ([facility]) medroxyprogesterone acetate 10 MG Oral Tablet [Provera ] Provera 10 MG Provera 10 MG 08/02/2021 12:00:00 AM EDT 1.0 {tablet_with_food} active Provera 10 MG eCW1 ([facility]) medroxyprogesterone acetate 10 MG Oral Tablet [Provera ] Provera 10 MG Provera 10 MG 08/02/2021 12:00:00 AM EDT 1.0 {tablet_with_food} active Provera 10 MG eCW1 ([facility]) medroxyprogesterone acetate 10 MG Oral Tablet [Provera ] Provera 10 MG Provera 10 MG 08/02/2021 12:00:00 AM EDT 1.0 {tablet_with_food} active Provera 10 MG eCW1 ([facility]) medroxyprogesterone acetate 10 MG Oral Tablet [Provera ] Provera 10 MG Provera 10 MG 08/02/2021 12:00:00 AM EDT 1.0 {tablet_with_food} active Provera 10 MG eCW1 ([facility]) medroxyprogesterone acetate 10 MG Oral Tablet [Provera ] Provera 10 MG Provera 10 MG 08/02/2021 12:00:00 AM EDT 1.0 {tablet_with_food} active Provera 10 MG eCW1 ([facility]) medroxyprogesterone acetate 10 MG Oral Tablet [Provera ] Provera 10 MG Provera 10 MG 08/02/2021 12:00:00 AM EDT 1.0 {tablet_with_food} active Provera 10 MG eCW1 ([facility]) medroxyprogesterone acetate 10 MG Oral Tablet [Provera ] Provera 10 MG Provera 10 MG 08/02/2021 12:00:00 AM EDT 1.0 {tablet_with_food} active Provera 10 MG eCW1 ([facility]) Diclofenac Sodium 0.01 MG/MG Topical Gel [Voltaren] Voltaren 1 % Voltaren 1 % 07/09/2021 12:00:00 AM EDT active Voltaren 1 % eCW1 ([facility]) Diclofenac Sodium 0.01 MG/MG Topical Gel [Voltaren] Voltaren 1 % Voltaren 1 % 07/09/2021 12:00:00 AM EDT active Voltaren 1 % eCW1 ([facility]) Diclofenac Sodium 0.01 MG/MG Topical Gel [Voltaren] Voltaren 1 % Voltaren 1 % 07/09/2021 12:00:00 AM EDT active Voltaren 1 % eCW1 ([facility]) Diclofenac Sodium 0.01 MG/MG Topical Gel [Voltaren] Voltaren 1 % Voltaren 1 % 07/09/2021 12:00:00 AM EDT active Voltaren 1 % eCW1 ([facility]) Diclofenac Sodium 0.01 MG/MG Topical Gel [Voltaren] Voltaren 1 % Voltaren 1 % 07/09/2021 12:00:00 AM EDT active Voltaren 1 % eCW1 ([facility]) Diclofenac Sodium 0.01 MG/MG Topical Gel [Voltaren] Voltaren 1 % Voltaren 1 % 07/09/2021 12:00:00 AM EDT active Voltaren 1 % eCW1 ([facility]) Diclofenac Sodium 0.01 MG/MG Topical Gel [Voltaren] Voltaren 1 % Voltaren 1 % 07/09/2021 12:00:00 AM EDT active Voltaren 1 % eCW1 ([facility]) Diclofenac Sodium 0.01 MG/MG Topical Gel [Voltaren] Voltaren 1 % Voltaren 1 % 07/09/2021 12:00:00 AM EDT active Voltaren 1 % eCW1 ([facility]) Diclofenac Sodium 0.01 MG/MG Topical Gel [Voltaren] Voltaren 1 % Voltaren 1 % 07/09/2021 12:00:00 AM EDT active Voltaren 1 % eCW1 ([facility]) Diclofenac Sodium 0.01 MG/MG Topical Gel [Voltaren] Voltaren 1 % Voltaren 1 % 07/09/2021 12:00:00 AM EDT active Voltaren 1 % eCW1 ([facility]) Diclofenac Sodium 0.01 MG/MG Topical Gel [Voltaren] Voltaren 1 % Voltaren 1 % 07/09/2021 12:00:00 AM EDT active Voltaren 1 % eCW1 ([facility]) Diclofenac Sodium 0.01 MG/MG Topical Gel [Voltaren] Voltaren 1 % Voltaren 1 % 07/09/2021 12:00:00 AM EDT active Voltaren 1 % eCW1 ([facility]) Diclofenac Sodium 0.01 MG/MG Topical Gel [Voltaren] Voltaren 1 % Voltaren 1 % 07/09/2021 12:00:00 AM EDT active Voltaren 1 % eCW1 ([facility]) FreeStyle [place] 14 Day Sensor - FreeStyle [place] 14 Day Senso r - 06/26/2021 12:00:00 AM EDT active FreeStyl e [place] 14 Day Sensor - eCW1 ([facility]) FreeStyle [place] 14 Day [place] - FreeStyle [place] 14 Day Reade r - 06/26/2021 12:00:00 AM EDT active FreeStyl e [place] 14 Day [place] - eCW1 ([facility]) FreeStyle [place] 14 Day Sensor - FreeStyle [place] 14 Day Senso r - 06/26/2021 12:00:00 AM EDT active FreeStyl e [place] 14 Day Sensor - eCW1 ([facility]) FreeStyle [place] 14 Day Sensor - FreeStyle [place] 14 Day Senso r 06/26/2021 12:00:00 AM EDT active FreeStyl e [place] 14 Day Sensor - eCW1 ([facility]) FreeStyle [place] 14 Day Sensor - FreeStyle [place] 14 Day Senso r 06/26/2021 12:00:00 AM EDT active FreeStyl e [place] 14 Day Sensor - eCW1 ([facility]) FreeStyle [place] 14 Day [place] - FreeStyle [place] 14 Day Reade r 06/26/2021 12:00:00 AM EDT active FreeStyl e [place] 14 Day [place] - eCW1 ([facility]) FreeStyle [place] 14 Day [place] - FreeStyle [place] 14 Day Reade r 06/26/2021 12:00:00 AM EDT active FreeStyl e [place] 14 Day [place] - eCW1 ([facility]) FreeStyle [place] 14 Day [place] - FreeStyle [place] 14 Day Reade r 06/26/2021 12:00:00 AM EDT suspended FreeS tyle [place] 14 Day [place] - eCW1 ([facility]) FreeStyle [place] 14 Day Sensor - FreeStyle [place] 14 Day Senso r - 06/26/2021 12:00:00 AM EDT suspended FreeS tyle [place] 14 Day Sensor - eCW1 ([facility]) FreeStyle [place] 14 Day Sensor - FreeStyle [place] 14 Day Senso r 06/26/2021 12:00:00 AM EDT active FreeStyl e [place] 14 Day Sensor - eCW1 ([facility]) FreeStyle [place] 14 Day [place] - FreeStyle [place] 14 Day Reade r - 06/26/2021 12:00:00 AM EDT suspended FreeS tyle [place] 14 Day [place] - eCW1 ([facility]) FreeStyle [place] 14 Day [place] - FreeStyle [place] 14 Day Reade r 06/26/2021 12:00:00 AM EDT active FreeStyl e [place] 14 Day [place] - eCW1 ([facility]) FreeStyle [place] 14 Day Sensor - FreeStyle [place] 14 Day Senso r 06/26/2021 12:00:00 AM EDT suspended FreeS tyle [place] 14 Day Sensor - eCW1 ([facility]) FreeStyle [place] 14 Day Sensor - FreeStyle [place] 14 Day Senso r 06/26/2021 12:00:00 AM EDT suspended FreeS tyle [place] 14 Day Sensor - eCW1 ([facility]) FreeStyle [place] 14 Day [place] - FreeStyle [place] 14 Day Reade r 06/26/2021 12:00:00 AM EDT suspended FreeS tyle [place] 14 Day [place] - eCW1 ([facility]) FreeStyle [place] 14 Day [place] - FreeStyle [place] 14 Day Reade r 06/26/2021 12:00:00 AM EDT suspended FreeS tyle [place] 14 Day [place] - eCW1 ([facility]) FreeStyle [place] 14 Day [place] - FreeStyle [place] 14 Day Reade 06/26/2021 12:00:00 AM EDT suspended FreeS tyle [place] 14 Day [place] - eCW1 ([facility]) FreeStyle [place] 14 Day Sensor - FreeStyle [place] 14 Day Senso r 06/26/2021 12:00:00 AM EDT suspended FreeS tyle [place] 14 Day Sensor - eCW1 ([facility]) FreeStyle [place] 14 Day Sensor - FreeStyle [place] 14 Day Senso r 06/26/2021 12:00:00 AM EDT suspended FreeS tyle [place] 14 Day Sensor - eCW1 ([facility]) FreeStyle [place] 14 Day [place] - FreeStyle [place] 14 Day Reade r 06/26/2021 12:00:00 AM EDT suspended FreeS tyle [place] 14 Day [place] - eCW1 ([facility]) FreeStyle [place] 14 Day Sensor - FreeStyle [place] 14 Day Senso r 06/26/2021 12:00:00 AM EDT suspended FreeS tyle [place] 14 Day Sensor - eCW1 ([facility]) FreeStyle [place] 14 Day Sensor - FreeStyle [place] 14 Day Senso r 06/26/2021 12:00:00 AM EDT suspended FreeS tyle [place] 14 Day Sensor - eCW1 ([facility]) FreeStyle [place] 14 Day Sensor - FreeStyle [place] 14 Day Senso r 06/26/2021 12:00:00 AM EDT active FreeStyl e [place] 14 Day Sensor - eCW1 ([facility]) FreeStyle [place] 14 Day [place] - FreeStyle [place] 14 Day Reade r 06/26/2021 12:00:00 AM EDT suspended FreeS tyle [place] 14 Day [place] - eCW1 ([facility]) FreeStyle [place] 14 Day Sensor - FreeStyle [place] 14 Day Senso r 06/26/2021 12:00:00 AM EDT active FreeStyl e [place] 14 Day Sensor - eCW1 ([facility]) FreeStyle [place] 14 Day [place] - FreeStyle [place] 14 Day Reade r 06/26/2021 12:00:00 AM EDT active FreeStyl e [place] 14 Day [place] - eCW1 ([facility]) FreeStyle [place] 14 Day Sensor - FreeStyle [place] 14 Day Senso r 06/26/2021 12:00:00 AM EDT suspended FreeS tyle [place] 14 Day Sensor - eCW1 ([facility]) FreeStyle [place] 14 Day [place] - FreeStyle [place] 14 Day Reade r 06/26/2021 12:00:00 AM EDT active FreeStyl e [place] 14 Day [place] - eCW1 ([facility]) FreeStyle [place] 14 Day [place] - FreeStyle [place] 14 Day Reade r 06/26/2021 12:00:00 AM EDT active FreeStyl e [place] 14 Day [place] - eCW1 ([facility]) FreeStyle [place] 14 Day [place] - FreeStyle [place] 14 Day Reade r - 06/26/2021 12:00:00 AM EDT suspended FreeS tyle [place] 14 Day [place] - eCW1 ([facility]) Fluconazole 150 MG Oral Tablet Fluconazole 150 MG 06/18/2021 12:00: 00 AM EDT 1.0 {tablet} suspended Fluconazole 150 M G eCW1 ([facility]) Fluconazole 150 MG Oral Tablet Fluconazole 150 MG 06/18/2021 12:00: 00 AM EDT 1.0 {tablet} active Fluconazole 150 MG eCW1 ([facility]) Fluconazole 150 MG Oral Tablet Fluconazole 150 MG 06/18/2021 12:00: 00 AM EDT 1.0 {tablet} suspended Fluconazole 150 M G eCW1 ([facility]) Fluconazole 150 MG Oral Tablet Fluconazole 150 MG 06/18/2021 12:00: 00 AM EDT 1.0 {tablet} suspended Fluconazole 150 M G eCW1 ([facility]) Fluconazole 150 MG Oral Tablet Fluconazole 150 MG 06/18/2021 12:00: 00 AM EDT 1.0 {tablet} active Fluconazole 150 MG eCW1 ([facility]) Fluconazole 150 MG Oral Tablet Fluconazole 150 MG 06/18/2021 12:00: 00 AM EDT 1.0 {tablet} suspended Fluconazole 150 M G eCW1 ([facility]) Fluconazole 150 MG Oral Tablet Fluconazole 150 MG 06/18/2021 12:00: 00 AM EDT 1.0 {tablet} suspended Fluconazole 150 M G eCW1 ([facility]) Fluconazole 150 MG Oral Tablet Fluconazole 150 MG 06/18/2021 12:00: 00 AM EDT 1.0 {tablet} suspended Fluconazole 150 M G eCW1 ([facility]) Fluconazole 150 MG Oral Tablet Fluconazole 150 MG 06/18/2021 12:00: 00 AM EDT 1.0 {tablet} suspended Fluconazole 150 M G eCW1 ([facility]) Fluconazole 150 MG Oral Tablet Fluconazole 150 MG 06/18/2021 12:00: 00 AM EDT 1.0 {tablet} suspended Fluconazole 150 M G eCW1 ([facility]) Fluconazole 150 MG Oral Tablet Fluconazole 150 MG 06/18/2021 12:00: 00 AM EDT 1.0 {tablet} active Fluconazole 150 MG [facility]CW1 [facility] [facility] Flu[facility] 150 MG Oral Tablet Fluconazole 150 MG 06/18/2021 12:00: 00 AM EDT 1.0 {tablet} suspended Fluconazole 150 M G eCW1 ([facility]) Fluconazole 150 MG Oral Tablet Fluconazole 150 MG 06/18/2021 12:00: 00 AM EDT 1.0 {tablet} suspended Fluconazole 150 M G eCW1 ([facility]) Fluconazole 150 MG Oral Tablet Fluconazole 150 MG 06/18/2021 12:00: 00 AM EDT 1.0 {tablet} suspended Fluconazole 150 M G eCW1 ([facility]) Fluconazole 150 MG Oral Tablet Fluconazole 150 MG 06/18/2021 12:00: 00 AM EDT 1.0 {tablet} suspended Fluconazole 150 M G eCW1 ([facility]) Fluconazole 150 MG Oral Tablet Fluconazole 150 MG 06/18/2021 12:00: 00 AM EDT 1.0 {tablet} active Fluconazole 150 MG eCW1 ([facility]) Fluconazole 150 MG Oral Tablet Fluconazole 150 MG 06/18/2021 12:00: 00 AM EDT 1.0 {tablet} suspended Fluconazole 150 M G eCW1 ([facility]) Fluconazole 150 MG Oral Tablet Fluconazole 150 MG 06/18/2021 12:00: 00 AM EDT 1.0 {tablet} suspended Fluconazole 150 M G eCW1 ([facility]) Fluconazole 150 MG Oral Tablet Fluconazole 150 MG 06/18/2021 12:00: 00 AM EDT 1.0 {tablet} suspended Fluconazole 150 M G eCW1 ([facility]) 3 ML Insulin Glargine 100 UNT/ML Pen Inj leonardo [Lantus] Lantus SoloStar 100 UNIT/ML Lantus SoloStar 100 UNIT/ML 05/18/2021 12:00:00 AM EDT active Lantus SoloStar 100 UNIT/ML eCW1 ([facility]) celecoxib 100 MG Oral Capsule Celecoxib 100 MG Celecoxib 100 MG 05/18/2021 12:00:00 AM EDT 1.0 {capsule_with_food} active Celecoxib 100 MG eCW1 ([facility]) 3 ML Insulin Glargine 100 UNT/ML Pen Inj leonardo [Lantus] Lantus SoloStar 100 UNIT/ML Lantus SoloStar 100 UNIT/ML 05/18/2021 12:00:00 AM EDT active Lantus SoloStar 100 UNIT/ML eCW1 ([facility]) 3 ML Insulin Glargine 100 UNT/ML Pen Inj leonardo [Lantus] Lantus SoloStar 100 UNIT/ML Lantus SoloStar 100 UNIT/ML 05/18/2021 12:00:00 AM EDT active Lantus SoloStar 100 UNIT/ML eCW1 ([facility]) 3 ML Insulin Glargine 100 UNT/ML Pen Inj leonardo [Lantus] Lantus SoloStar 100 UNIT/ML Lantus SoloStar 100 UNIT/ML 05/18/2021 12:00:00 AM EDT active Lantus SoloStar 100 UNIT/ML eCW1 ([facility]) 3 ML Insulin Glargine 100 UNT/ML Pen Inj leonardo [Lantus] Lantus SoloStar 100 UNIT/ML Lantus SoloStar 100 UNIT/ML 05/18/2021 12:00:00 AM EDT active Lantus SoloStar 100 UNIT/ML eCW1 ([facility]) Ondansetron 4 MG Disintegrating Oral Tablet Ondansetron 4 MG 05/18/2021 12:00:00 AM EDT 1.0 {tablet_on_the_tongue_and_allow_to_dissolve} active Ondansetron 4 MG eCW1 ([facility]) 3 ML Insulin Glargine 100 UNT/ML Pen Inj leonardo [Lantus] Lantus SoloStar 100 UNIT/ML Lantus SoloStar 100 UNIT/ML 05/18/2021 12:00:00 AM EDT active Lantus SoloStar 100 UNIT/ML eCW1 ([facility]) 3 ML Insulin Glargine 100 UNT/ML Pen Inj leonardo [Lantus] Lantus SoloStar 100 UNIT/ML Lantus SoloStar 100 UNIT/ML 05/18/2021 12:00:00 AM EDT active eCW1 ([facility]) Ondansetron 4 MG Disintegrating Oral Tablet Ondansetron 4 MG 05/18/2021 12:00:00 AM EDT 1.0 {tablet_on_the_tongue_and_allow_to_dissolve} active Ondansetron 4 MG eCW1 ([facility]) Ondansetron 4 MG Disintegrating Oral Tablet Ondansetron 4 MG 05/18/2021 12:00:00 AM EDT 1.0 {tablet_on_the_tongue_and_allow_to_dissolve} active Ondansetron 4 MG eCW1 ([facility]) Ondansetron 4 MG Disintegrating Oral Tablet Ondansetron 4 MG 05/18/2021 12:00:00 AM EDT 1.0 {tablet_on_the_tongue_and_allow_to_dissolve} active Ondansetron 4 MG eCW1 ([facility]) 3 ML Insulin Glargine 100 UNT/ML Pen Inj leonardo [Lantus] Lantus SoloStar 100 UNIT/ML Lantus SoloStar 100 UNIT/ML 05/18/2021 12:00:00 AM EDT active Lantus SoloStar 100 UNIT/ML eCW1 ([facility]) 3 ML Insulin Glargine 100 UNT/ML Pen Inj leonardo [Lantus] Lantus SoloStar 100 UNIT/ML Lantus SoloStar 100 UNIT/ML 05/18/2021 12:00:00 AM EDT active Lantus SoloStar 100 UNIT/ML eCW1 ([facility]) Ondansetron 4 MG Disintegrating Oral Tablet Ondansetron 4 MG 05/18/2021 12:00:00 AM EDT 1.0 {tablet_on_the_tongue_and_allow_to_dissolve} active Ondansetron 4 MG eCW1 ([facility]) 3 ML Insulin Glargine 100 UNT/ML Pen Inj leonardo [Lantus] Lantus SoloStar 100 UNIT/ML Lantus SoloStar 100 UNIT/ML 05/18/2021 12:00:00 AM EDT active eCW1 ([facility]) 3 ML Insulin Glargine 100 UNT/ML Pen Inj leonardo [Lantus] Lantus SoloStar 100 UNIT/ML Lantus SoloStar 100 UNIT/ML 05/18/2021 12:00:00 AM EDT active Lantus SoloStar 100 UNIT/ML eCW1 ([facility]) Ondansetron 4 MG Disintegrating Oral Tablet Ondansetron 4 MG 05/18/2021 12:00:00 AM EDT 1.0 {tablet_on_the_tongue_and_allow_to_dissolve} active Ondansetron 4 MG eCW1 ([facility]) Ondansetron 4 MG Disintegrating Oral Tablet Ondansetron 4 MG 05/18/2021 12:00:00 AM EDT 1.0 {tablet_on_the_tongue_and_allow_to_dissolve} active Ondansetron 4 MG eCW1 ([facility]) 3 ML Insulin Glargine 100 UNT/ML Pen Inj leonardo [Lantus] Lantus SoloStar 100 UNIT/ML Lantus SoloStar 100 UNIT/ML 05/18/2021 12:00:00 AM EDT active Lantus SoloStar 100 UNIT/ML eCW1 ([facility]) 3 ML Insulin Glargine 100 UNT/ML Pen Inj leonardo [Lantus] Lantus SoloStar 100 UNIT/ML Lantus SoloStar 100 UNIT/ML 05/18/2021 12:00:00 AM EDT active Lantus SoloStar 100 UNIT/ML eCW1 ([facility]) Ondansetron 4 MG Disintegrating Oral Tablet Ondansetron 4 MG 05/18/2021 12:00:00 AM EDT 1.0 {tablet_on_the_tongue_and_allow_to_dissolve} active Ondansetron 4 MG eCW1 ([facility]) Ondansetron 4 MG Disintegrating Oral Tablet Ondansetron 4 MG 05/18/2021 12:00:00 AM EDT 1.0 {tablet_on_the_tongue_and_allow_to_dissolve} active Ondansetron 4 MG eCW1 ([facility]) 3 ML Insulin Glargine 100 UNT/ML Pen Inj leonardo [Lantus] Lantus SoloStar 100 UNIT/ML Lantus SoloStar 100 UNIT/ML 05/18/2021 12:00:00 AM EDT active Lantus SoloStar 100 UNIT/ML eCW1 ([facility]) Ondansetron 4 MG Disintegrating Oral Tablet Ondansetron 4 MG 05/18/2021 12:00:00 AM EDT 1.0 {tablet_on_the_tongue_and_allow_to_dissolve} active Ondansetron 4 MG eCW1 ([facility]) Ondansetron 4 MG Disintegrating Oral Tablet Ondansetron 4 MG 05/18/2021 12:00:00 AM EDT 1.0 {tablet_on_the_tongue_and_allow_to_dissolve} active Ondansetron 4 MG eCW1 ([facility]) Ondansetron 4 MG Disintegrating Oral Tablet Ondansetron 4 MG 05/18/2021 12:00:00 AM EDT 1.0 {tablet_on_the_tongue_and_allow_to_dissolve} active Ondansetron 4 MG eCW1 ([facility]) 3 ML Insulin Glargine 100 UNT/ML Pen Inj leonardo [Lantus] Lantus SoloStar 100 UNIT/ML Lantus SoloStar 100 UNIT/ML 05/18/2021 12:00:00 AM EDT active Lantus SoloStar 100 UNIT/ML eCW1 ([facility]) 3 ML Insulin Glargine 100 UNT/ML Pen Inj leonardo [Lantus] Lantus SoloStar 100 UNIT/ML Lantus SoloStar 100 UNIT/ML 05/18/2021 12:00:00 AM EDT active Lantus SoloStar 100 UNIT/ML eCW1 ([facility]) Ondansetron 4 MG Disintegrating Oral Tablet Ondansetron 4 MG 05/18/2021 12:00:00 AM EDT 1.0 {tablet_on_the_tongue_and_allow_to_dissolve} active Ondansetron 4 MG eCW1 ([facility]) Ondansetron 4 MG Disintegrating Oral Tablet Ondansetron 4 MG 05/18/2021 12:00:00 AM EDT 1.0 {tablet_on_the_tongue_and_allow_to_dissolve} active eCW1 ([facility]) Ondansetron 4 MG Disintegrating Oral Tablet Ondansetron 4 MG 05/18/2021 12:00:00 AM EDT 1.0 {tablet_on_the_tongue_and_allow_to_dissolve} active Ondansetron 4 MG eCW1 ([facility]) Ondansetron 4 MG Disintegrating Oral Tablet Ondansetron 4 MG 05/18/2021 12:00:00 AM EDT 1.0 {tablet_on_the_tongue_and_allow_to_dissolve} active Ondansetron 4 MG eCW1 ([facility]) 3 ML Insulin Glargine 100 UNT/ML Pen Inj leonardo [Lantus] Lantus SoloStar 100 UNIT/ML Lantus SoloStar 100 UNIT/ML 05/18/2021 12:00:00 AM EDT active Lantus SoloStar 100 UNIT/ML eCW1 ([facility]) 3 ML Insulin Glargine 100 UNT/ML Pen Inj leonardo [Lantus] Lantus SoloStar 100 UNIT/ML Lantus SoloStar 100 UNIT/ML 05/18/2021 12:00:00 AM EDT active Lantus SoloStar 100 UNIT/ML eCW1 ([facility]) 3 ML Insulin Glargine 100 UNT/ML Pen Inj leonardo [Lantus] Lantus SoloStar 100 UNIT/ML Lantus SoloStar 100 UNIT/ML 05/18/2021 12:00:00 AM EDT active Lantus SoloStar 100 UNIT/ML eCW1 ([facility]) 3 ML Insulin Glargine 100 UNT/ML Pen Inj leonardo [Lantus] Lantus SoloStar 100 UNIT/ML Lantus SoloStar 100 UNIT/ML 05/18/2021 12:00:00 AM EDT active Lantus SoloStar 100 UNIT/ML eCW1 ([facility]) Ondansetron 4 MG Disintegrating Oral Tablet Ondansetron 4 MG 05/18/2021 12:00:00 AM EDT 1.0 {tablet_on_the_tongue_and_allow_to_dissolve} active Ondansetron 4 MG eCW1 ([facility]) 3 ML Insulin Glargine 100 UNT/ML Pen Inj leonardo [Lantus] Lantus SoloStar 100 UNIT/ML Lantus SoloStar 100 UNIT/ML 05/18/2021 12:00:00 AM EDT active Lantus SoloStar 100 UNIT/ML eCW1 ([facility]) 3 ML Insulin Glargine 100 UNT/ML Pen Inj leonardo [Lantus] Lantus SoloStar 100 UNIT/ML Lantus SoloStar 100 UNIT/ML 05/18/2021 12:00:00 AM EDT active Lantus SoloStar 100 UNIT/ML eCW1 ([facility]) Ondansetron 4 MG Disintegrating Oral Tablet Ondansetron 4 MG 05/18/2021 12:00:00 AM EDT 1.0 {tablet_on_the_tongue_and_allow_to_dissolve} active Ondansetron 4 MG eCW1 ([facility]) Ondansetron 4 MG Disintegrating Oral Tablet Ondansetron 4 MG 05/18/2021 12:00:00 AM EDT 1.0 {tablet_on_the_tongue_and_allow_to_dissolve} active Ondansetron 4 MG eCW1 ([facility]) Ondansetron 4 MG Disintegrating Oral Tablet Ondansetron 4 MG 05/18/2021 12:00:00 AM EDT 1.0 {tablet_on_the_tongue_and_allow_to_dissolve} active Ondansetron 4 MG eCW1 ([facility]) 3 ML Insulin Glargine 100 UNT/ML Pen Inj leonardo [Lantus] Lantus SoloStar 100 UNIT/ML Lantus SoloStar 100 UNIT/ML 05/18/2021 12:00:00 AM EDT active Lantus SoloStar 100 UNIT/ML eCW1 ([facility]) Ondansetron 4 MG Disintegrating Oral Tablet Ondansetron 4 MG 05/18/2021 12:00:00 AM EDT 1.0 {tablet_on_the_tongue_and_allow_to_dissolve} active eCW1 ([facility]) Ondansetron 4 MG Disintegrating Oral Tablet Ondansetron 4 MG 05/18/2021 12:00:00 AM EDT 1.0 {tablet_on_the_tongue_and_allow_to_dissolve} active Ondansetron 4 MG eCW1 ([facility]) Ondansetron 4 MG Disintegrating Oral Tablet Ondansetron 4 MG 05/18/2021 12:00:00 AM EDT 1.0 {tablet_on_the_tongue_and_allow_to_dissolve} active Ondansetron 4 MG eCW1 ([facility]) Fluconazole 100 MG Oral Tablet [Diflucan] Diflucan 100 MG Di flucan 100 MG 04/15/2021 12:00:00 AM EDT 1.0 {tablet} suspended eCW1 ([facility]) Fluconazole 100 MG Oral Tablet [Diflucan] Diflucan 100 MG Di flucan 100 MG 04/15/2021 12:00:00 AM EDT 1.0 {tablet} active Diflucan 100 MG eCW1 ([facility]) Fluconazole 100 MG Oral Tablet [Diflucan] Diflucan 100 MG Di flucan 100 MG 04/15/2021 12:00:00 AM EDT 1.0 {tablet} active Diflucan 100 MG eCW1 ([facility]) Fluconazole 100 MG Oral Tablet [Diflucan] Diflucan 100 MG Di flucan 100 MG 04/15/2021 12:00:00 AM EDT 1.0 {tablet} active Diflucan 100 MG eCW1 ([facility]) Fluconazole 100 MG Oral Tablet [Diflucan] Diflucan 100 MG Di flucan 100 MG 04/15/2021 12:00:00 AM EDT 1.0 {tablet} active Diflucan 100 MG eCW1 ([facility]) Fluconazole 100 MG Oral Tablet [Diflucan] Diflucan 100 MG Di flucan 100 MG 04/15/2021 12:00:00 AM EDT 1.0 {tablet} active Diflucan 100 MG eCW1 ([facility]) Fluconazole 100 MG Oral Tablet [Diflucan] Diflucan 100 MG Di flucan 100 MG 04/15/2021 12:00:00 AM EDT 1.0 {tablet} active Diflucan 100 MG eCW1 ([facility]) Fluconazole 100 MG Oral Tablet [Diflucan] Diflucan 100 MG Di flucan 100 MG 04/15/2021 12:00:00 AM EDT 1.0 {tablet} suspended Diflucan 100 MG eCW1 ([facility]) Fluconazole 100 MG Oral Tablet [Diflucan] Diflucan 100 MG Di flucan 100 MG 04/15/2021 12:00:00 AM EDT 1.0 {tablet} suspended eCW1 ([facility]) Fluconazole 100 MG Oral Tablet [Diflucan] Diflucan 100 MG Di flucan 100 MG 04/15/2021 12:00:00 AM EDT 1.0 {tablet} active Diflucan 100 MG eCW1 ([facility]) Fluconazole 100 MG Oral Tablet [Diflucan] Diflucan 100 MG Di flucan 100 MG 04/15/2021 12:00:00 AM EDT 1.0 {tablet} suspended Diflucan 100 MG eCW1 ([facility]) Fluconazole 100 MG Oral Tablet [Diflucan] Diflucan 100 MG Di flucan 100 MG 04/15/2021 12:00:00 AM EDT 1.0 {tablet} active Diflucan 100 MG eCW1 ([facility]) Fluconazole 100 MG Oral Tablet [Diflucan] Diflucan 100 MG Di flucan 100 MG 04/15/2021 12:00:00 AM EDT 1.0 {tablet} active Diflucan 100 MG eCW1 ([facility]) Fluconazole 100 MG Oral Tablet [Diflucan] Diflucan 100 MG Di flucan 100 MG 04/15/2021 12:00:00 AM EDT 1.0 {tablet} active Diflucan 100 MG eCW1 ([facility]) Fluconazole 100 MG Oral Tablet [Diflucan] Diflucan 100 MG Di flucan 100 MG 04/15/2021 12:00:00 AM EDT 1.0 {tablet} active Diflucan 100 MG eCW1 ([facility]) Fluconazole 100 MG Oral Tablet [Diflucan] Diflucan 100 MG Di flucan 100 MG 04/15/2021 12:00:00 AM EDT 1.0 {tablet} active Diflucan 100 MG eCW1 ([facility]) Fluconazole 100 MG Oral Tablet [Diflucan] Diflucan 100 MG Di flucan 100 MG 04/15/2021 12:00:00 AM EDT 1.0 {tablet} suspended Diflucan 100 MG eCW1 ([facility]) Fluconazole 100 MG Oral Tablet [Diflucan] Diflucan 100 MG Di flucan 100 MG 04/15/2021 12:00:00 AM EDT 1.0 {tablet} suspended Diflucan 100 MG eCW1 ([facility]) Fluconazole 100 MG Oral Tablet [Diflucan] Diflucan 100 MG Di flucan 100 MG 04/15/2021 12:00:00 AM EDT 1.0 {tablet} active Diflucan 100 MG eCW1 ([facility]) Fluconazole 100 MG Oral Tablet [Diflucan] Diflucan 100 MG Di flucan 100 MG 04/15/2021 12:00:00 AM EDT 1.0 {tablet} suspended Diflucan 100 MG eCW1 ([facility]) Fluconazole 100 MG Oral Tablet [Diflucan] Diflucan 100 MG Di flucan 100 MG 04/15/2021 12:00:00 AM EDT 1.0 {tablet} suspended Diflucan 100 MG eCW1 ([facility]) Fluconazole 100 MG Oral Tablet [Diflucan] Diflucan 100 MG Di flucan 100 MG 04/15/2021 12:00:00 AM EDT 1.0 {tablet} active Diflucan 100 MG eCW1 ([facility]) Fluconazole 100 MG Oral Tablet [Diflucan] Diflucan 100 MG Di flucan 100 MG 04/15/2021 12:00:00 AM EDT 1.0 {tablet} active Diflucan 100 MG eCW1 ([facility]) Fluconazole 100 MG Oral Tablet [Diflucan] Diflucan 100 MG Di flucan 100 MG 04/15/2021 12:00:00 AM EDT 1.0 {tablet} active Diflucan 100 MG eCW1 ([facility]) Fluconazole 100 MG Oral Tablet [Diflucan] Diflucan 100 MG Di flucan 100 MG 04/15/2021 12:00:00 AM EDT 1.0 {tablet} suspended Diflucan 100 MG eCW1 ([facility]) Fluconazole 100 MG Oral Tablet [Diflucan] Diflucan 100 MG Di flucan 100 MG 04/15/2021 12:00:00 AM EDT 1.0 {tablet} active Diflucan 100 MG eCW1 ([facility]) Fluconazole 100 MG Oral Tablet [Diflucan] Diflucan 100 MG Di flucan 100 MG 04/15/2021 12:00:00 AM EDT 1.0 {tablet} suspended Diflucan 100 MG eCW1 ([facility]) Fluconazole 100 MG Oral Tablet [Diflucan] Diflucan 100 MG Di flucan 100 MG 04/15/2021 12:00:00 AM EDT 1.0 {tablet} active Diflucan 100 MG eCW1 ([facility]) Fluconazole 100 MG Oral Tablet [Diflucan] Diflucan 100 MG Di flucan 100 MG 04/15/2021 12:00:00 AM EDT 1.0 {tablet} active Diflucan 100 MG eCW1 ([facility]) Blood Glucose Test - Blood Glucose Test - 03/22/2021 12:00:00 AM EDT active Blood Glucose Test - eCW1 ([facility]) Blood Glucose Test - Blood Glucose Test - 03/22/2021 12:00:00 AM EDT active Blood Glucose Test - eCW1 ([facility]) Blood Glucose Test - Blood Glucose Test - 03/22/2021 12:00:00 AM EDT active Blood Glucose Test - eCW1 ([facility]) Blood Glucose Test - Blood Glucose Test - 03/22/2021 12:00:00 AM EDT active Blood Glucose Test - eCW1 ([facility]) Blood Glucose Test - Blood Glucose Test - 03/22/2021 12:00:00 AM EDT active Blood Glucose Test - eCW1 ([facility]) Blood Glucose Test - Blood Glucose Test - 03/22/2021 12:00:00 AM EDT active Blood Glucose Test - eCW1 ([facility]) Blood Glucose Test - Blood Glucose Test - 03/22/2021 12:00:00 AM EDT active Blood Glucose Test - eCW1 ([facility]) Blood Glucose Test - Blood Glucose Test - 03/22/2021 12:00:00 AM EDT active Blood Glucose Test - eCW1 ([facility]) Omeprazole 20 MG Delayed Release Oral Capsule Omeprazole 20 MG 03/22/2021 12:00:00 AM EDT active Omeprazo le 20 MG eCW1 ([facility]) Blood Glucose Test - Blood Glucose Test - 03/22/2021 12:00:00 AM EDT active eCW1 ([facility]) Blood Glucose Test - Blood Glucose Test - 03/22/2021 12:00:00 AM EDT active eCW1 ([facility]) Blood Glucose Test - Blood Glucose Test - 03/22/2021 12:00:00 AM EDT active Blood Glucose Test - eCW1 ([facility]) Omeprazole 20 MG Delayed Release Oral Capsule Omeprazole 20 MG 03/22/2021 12:00:00 AM EDT active Omeprazo le 20 MG eCW1 ([facility]) Blood Glucose Test - Blood Glucose Test - 03/22/2021 12:00:00 AM EDT active Blood Glucose Test - eCW1 ([facility]) Omeprazole 20 MG Delayed Release Oral Capsule Omeprazole 20 MG 03/22/2021 12:00:00 AM EDT active Omeprazo le 20 MG eCW1 ([facility]) Blood Glucose Test - Blood Glucose Test - 03/22/2021 12:00:00 AM EDT active Blood Glucose Test - eCW1 ([facility]) Blood Glucose Test - Blood Glucose Test - 03/22/2021 12:00:00 AM EDT active Blood Glucose Test - eCW1 ([facility]) Blood Glucose Test - Blood Glucose Test - 03/22/2021 12:00:00 AM EDT active Blood Glucose Test - eCW1 ([facility]) Blood Glucose Test - Blood Glucose Test - 03/22/2021 12:00:00 AM EDT active Blood Glucose Test - eCW1 ([facility]) Blood Glucose Test - Blood Glucose Test - 03/22/2021 12:00:00 AM EDT active Blood Glucose Test - eCW1 ([facility]) Omeprazole 20 MG Delayed Release Oral Capsule Omeprazole 20 MG 03/22/2021 12:00:00 AM EDT active Omeprazo le 20 MG eCW1 ([facility]) Blood Glucose Test - Blood Glucose Test - 03/22/2021 12:00:00 AM EDT active Blood Glucose Test - eCW1 ([facility]) Blood Glucose Test - Blood Glucose Test - 03/22/2021 12:00:00 AM EDT active Blood Glucose Test - eCW1 ([facility]) Omeprazole 20 MG Delayed Release Oral Capsule Omeprazole 20 MG 03/22/2021 12:00:00 AM EDT active Omeprazo le 20 MG eCW1 ([facility]) Blood Glucose Test - Blood Glucose Test - 03/22/2021 12:00:00 AM EDT active Blood Glucose Test - eCW1 ([facility]) Omeprazole 20 MG Delayed Release Oral Capsule Omeprazole 20 MG 03/22/2021 12:00:00 AM EDT active Omeprazo le 20 MG eCW1 ([facility]) Blood Glucose Test - Blood Glucose Test - 03/22/2021 12:00:00 AM EDT active Blood Glucose Test - eCW1 ([facility]) Blood Glucose Test - Blood Glucose Test - 03/22/2021 12:00:00 AM EDT active Blood Glucose Test - eCW1 ([facility]) Blood Glucose Test - Blood Glucose Test - 03/22/2021 12:00:00 AM EDT active Blood Glucose Test - eCW1 ([facility]) Omeprazole 20 MG Delayed Release Oral Capsule Omeprazole 20 MG 03/22/2021 12:00:00 AM EDT active Omeprazo le 20 MG eCW1 ([facility]) Blood Glucose Test - Blood Glucose Test - 03/22/2021 12:00:00 AM EDT active Blood Glucose Test - eCW1 ([facility]) Blood Glucose Test - Blood Glucose Test - 03/22/2021 12:00:00 AM EDT active Blood Glucose Test - eCW1 ([facility]) Blood Glucose Test - Blood Glucose Test - 03/22/2021 12:00:00 AM EDT active Blood Glucose Test - eCW1 ([facility]) Blood Glucose Test - Blood Glucose Test - 03/22/2021 12:00:00 AM EDT active Blood Glucose Test - eCW1 ([facility]) Blood Glucose Test - Blood Glucose Test - 03/22/2021 12:00:00 AM EDT active Blood Glucose Test - eCW1 ([facility]) Blood Glucose Test - Blood Glucose Test - 03/22/2021 12:00:00 AM EDT active Blood Glucose Test - eCW1 ([facility]) Omeprazole 20 MG Delayed Release Oral Capsule Omeprazole 20 MG 03/22/2021 12:00:00 AM EDT active Omeprazo le 20 MG eCW1 ([facility]) Blood Glucose Test - Blood Glucose Test - 03/22/2021 12:00:00 AM EDT active Blood Glucose Test - eCW1 ([facility]) Blood Glucose Test - Blood Glucose Test - 03/22/2021 12:00:00 AM EDT active Blood Glucose Test - eCW1 ([facility]) Blood Glucose Test - Blood Glucose Test - 03/22/2021 12:00:00 AM EDT active Blood Glucose Test - eCW1 ([facility]) Nystatin 100 UNT/MG Topical Ointment Nystatin [id number] U NIT/GM Nystatin [id number] UNIT/GM 02/20/2021 12:00:00 AM EDT suspended Nystatin [id number] UNIT/GM eCW1 ([facility]) Nystatin 100 UNT/MG Topical Ointment Nystatin 463558 U NIT/GM Nystatin 357364 UNIT/GM 02/20/2021 12:00:00 AM EDT suspended Nystatin [id number] UNIT/GM eCW1 ([facility]) Nystatin 100 UNT/MG Topical Ointment Nystatin 005611 U NIT/GM Nystatin 500429 UNIT/GM 02/20/2021 12:00:00 AM EDT suspended Nystatin 283647 UNIT/GM eCW1 ([facility]) Nystatin 100 UNT/MG Topical Ointment Nystatin 222170 U NIT/GM Nystatin 873447 UNIT/GM 02/20/2021 12:00:00 AM EDT suspended Nystatin 619917 UNIT/GM eCW1 ([facility]) Nystatin 100 UNT/MG Topical Ointment Nystatin 037218 U NIT/GM Nystatin 131477 UNIT/GM 02/20/2021 12:00:00 AM EDT suspended Nystatin 145030 UNIT/GM eCW1 ([facility]) Nystatin 100 UNT/MG Topical Ointment Nystatin 243611 U NIT/GM Nystatin 719763 UNIT/GM 02/20/2021 12:00:00 AM EDT active Nystatin 808936 UNIT/GM eCW1 ([facility]) Nystatin 100 UNT/MG Topical Ointment Nystatin 614931 U NIT/GM Nystatin 655056 UNIT/GM 02/20/2021 12:00:00 AM EDT suspended Nystatin [id number] UNIT/GM eCW1 ([facility]) Nystatin 100 UNT/MG Topical Ointment Nystatin 167971 U NIT/GM Nystatin 384502 UNIT/GM 02/20/2021 12:00:00 AM EDT suspended Nystatin [id number] UNIT/GM eCW1 ([facility]) Nystatin 100 UNT/MG Topical Ointment Nystatin 206791 U NIT/GM Nystatin 046230 UNIT/GM 02/20/2021 12:00:00 AM EDT active eCW1 ([facility]) Nystatin 100 UNT/MG Topical Ointment Nystatin 204363 U NIT/GM Nystatin 525132 UNIT/GM 02/20/2021 12:00:00 AM EDT suspended Nystatin [id number] UNIT/GM eCW1 ([facility]) Nystatin 100 UNT/MG Topical Ointment Nystatin 512158 U NIT/GM Nystatin 319438 UNIT/GM 02/20/2021 12:00:00 AM EDT suspended Nystatin 812413 UNIT/GM eCW1 ([facility]) Nystatin 100 UNT/MG Topical Ointment Nystatin 006807 U NIT/GM Nystatin 867508 UNIT/GM 02/20/2021 12:00:00 AM EDT active Nystatin 848435 UNIT/GM eCW1 ([facility]) Nystatin 100 UNT/MG Topical Ointment Nystatin 707837 U NIT/GM Nystatin 270237 UNIT/GM 02/20/2021 12:00:00 AM EDT active Nystatin 385759 UNIT/GM eCW1 ([facility]) Nystatin 100 UNT/MG Topical Ointment Nystatin 994049 U NIT/GM Nystatin 511145 UNIT/GM 02/20/2021 12:00:00 AM EDT active Nystatin 698748 UNIT/GM eCW1 ([facility]) Nystatin 100 UNT/MG Topical Ointment Nystatin 571620 U NIT/GM Nystatin 867775 UNIT/GM 02/20/2021 12:00:00 AM EDT suspended Nystatin 921460 UNIT/GM eCW1 ([facility]) Nystatin 100 UNT/MG Topical Ointment Nystatin 636516 U NIT/GM Nystatin 240883 UNIT/GM 02/20/2021 12:00:00 AM EDT suspended Nystatin 812770 UNIT/GM eCW1 ([facility]) Nystatin 100 UNT/MG Topical Ointment Nystatin 607605 U NIT/GM Nystatin 148367 UNIT/GM 02/20/2021 12:00:00 AM EDT suspended Nystatin 650323 UNIT/GM eCW1 ([facility]) Nystatin 100 UNT/MG Topical Ointment Nystatin 795747 U NIT/GM Nystatin 618901 UNIT/GM 02/20/2021 12:00:00 AM EDT suspended Nystatin 715441 UNIT/GM eCW1 ([facility]) Nystatin 100 UNT/MG Topical Ointment Nystatin 611156 U NIT/GM Nystatin 925438 UNIT/GM 02/20/2021 12:00:00 AM EDT suspended Nystatin 596094 UNIT/GM eCW1 ([facility]) Nystatin 100 UNT/MG Topical Ointment Nystatin 567616 U NIT/GM Nystatin 873757 UNIT/GM 02/20/2021 12:00:00 AM EDT suspended Nystatin 106085 UNIT/GM eCW1 ([facility]) Nystatin 100 UNT/MG Topical Ointment Nystatin 099738 U NIT/GM Nystatin 941647 UNIT/GM 02/20/2021 12:00:00 AM EDT active Nystatin 123320 UNIT/GM eCW1 ([facility]) Nystatin 100 UNT/MG Topical Ointment Nystatin 107003 U NIT/GM Nystatin 424312 UNIT/GM 02/20/2021 12:00:00 AM EDT suspended Nystatin 462256 UNIT/GM eCW1 ([facility]) Nystatin 100 UNT/MG Topical Ointment Nystatin 468419 U NIT/GM Nystatin 602574 UNIT/GM 02/20/2021 12:00:00 AM EDT suspended Nystatin 753870 UNIT/GM eCW1 ([facility]) Nystatin 100 UNT/MG Topical Ointment Nystatin 253130 U NIT/GM Nystatin 779891 UNIT/GM 02/20/2021 12:00:00 AM EDT suspended Nystatin 236188 UNIT/GM eCW1 ([facility]) Nystatin 100 UNT/MG Topical Ointment Nystatin 462626 U NIT/GM Nystatin 809253 UNIT/GM 02/20/2021 12:00:00 AM EDT suspended Nystatin 158462 UNIT/GM eCW1 ([facility]) Nystatin 100 UNT/MG Topical Ointment Nystatin 798305 U NIT/GM Nystatin 564250 UNIT/GM 02/20/2021 12:00:00 AM EDT suspended Nystatin 705180 UNIT/GM eCW1 ([facility]) Nystatin 100 UNT/MG Topical Ointment Nystatin 194728 U NIT/GM Nystatin 594926 UNIT/GM 02/20/2021 12:00:00 AM EDT suspended eCW1 ([facility]) Nystatin 100 UNT/MG Topical Ointment Nystatin 737003 U NIT/GM Nystatin 311590 UNIT/GM 02/20/2021 12:00:00 AM EDT suspended Nystatin 960326 UNIT/GM eCW1 ([facility]) Nystatin 100 UNT/MG Topical Ointment Nystatin 652820 U NIT/GM Nystatin 981255 UNIT/GM 02/20/2021 12:00:00 AM EDT suspended Nystatin 647703 UNIT/GM eCW1 ([facility]) Nystatin 100 UNT/MG Topical Ointment Nystatin 357802 U NIT/GM Nystatin 637552 UNIT/GM 02/20/2021 12:00:00 AM EDT suspended Nystatin 177907 UNIT/GM eCW1 ([facility]) Nystatin 100 UNT/MG Topical Ointment Nystatin 423876 U NIT/GM Nystatin 656116 UNIT/GM 02/20/2021 12:00:00 AM EDT active Nystatin 664456 UNIT/GM eCW1 ([facility]) Nystatin 100 UNT/MG Topical Ointment Nystatin 100123 U NIT/GM Nystatin 287985 UNIT/GM 02/20/2021 12:00:00 AM EDT active Nystatin 783260 UNIT/GM eCW1 ([facility]) Nystatin 100 UNT/MG Topical Ointment Nystatin 872827 U NIT/GM Nystatin 723872 UNIT/GM 02/20/2021 12:00:00 AM EDT suspended Nystatin 762855 UNIT/GM eCW1 ([facility]) Nystatin 100 UNT/MG Topical Ointment Nystatin 848645 U NIT/GM Nystatin 605037 UNIT/GM 02/20/2021 12:00:00 AM EDT suspended eCW1 ([facility]) Nystatin 100 UNT/MG Topical Ointment Nystatin 390331 U NIT/GM Nystatin 480802 UNIT/GM 02/20/2021 12:00:00 AM EDT suspended Nystatin 900005 UNIT/GM eCW1 ([facility]) Nystatin 100 UNT/MG Topical Ointment Nystatin 733686 U NIT/GM Nystatin 089434 UNIT/GM 02/20/2021 12:00:00 AM EDT suspended Nystatin 041623 UNIT/GM eCW1 ([facility]) Nystatin 100 UNT/MG Topical Ointment Nystatin 902184 U NIT/GM Nystatin 571451 UNIT/GM 02/20/2021 12:00:00 AM EDT active Nystatin 937195 UNIT/GM eCW1 ([facility]) valacyclovir 1000 MG Oral Tablet [Valtrex] Valtrex 1 GM Valt evert 1 GM 01/22/2021 12:00:00 AM EDT 1.0 {tablet} suspended Valtrex 1 GM eCW1 ([facility]) Mupirocin 0.02 MG/MG Topical Ointment Mupirocin 2 % Mupiroci n 2 % 01/22/2021 12:00:00 AM EDT suspended Mupir ocin 2 % eCW1 ([facility]) Mupirocin 0.02 MG/MG Topical Ointment Mupirocin 2 % Mupiroci n 2 % 01/22/2021 12:00:00 AM EDT suspended Mupir ocin 2 % eCW1 ([facility]) Mupirocin 0.02 MG/MG Topical Ointment Mupirocin 2 % Mupiroci n 2 % 01/22/2021 12:00:00 AM EDT suspended Mupir ocin 2 % eCW1 ([facility]) valacyclovir 1000 MG Oral Tablet [Valtrex] Valtrex 1 GM Valt evert 1 GM 01/22/2021 12:00:00 AM EDT 1.0 {tablet} suspended Valtrex 1 GM eCW1 ([facility]) valacyclovir 1000 MG Oral Tablet [Valtrex] Valtrex 1 GM Valt evert 1 GM 01/22/2021 12:00:00 AM EDT 1.0 {tablet} active Va ltrex 1 GM eCW1 ([facility]) valacyclovir 1000 MG Oral Tablet [Valtrex] Valtrex 1 GM Valt evert 1 GM 01/22/2021 12:00:00 AM EDT 1.0 {tablet} suspended Valtrex 1 GM eCW1 ([facility]) Mupirocin 0.02 MG/MG Topical Ointment Mupirocin 2 % Mupiroci n 2 % 01/22/2021 12:00:00 AM EDT suspended Mupir ocin 2 % eCW1 ([facility]) Mupirocin 0.02 MG/MG Topical Ointment Mupirocin 2 % Mupiroci n 2 % 01/22/2021 12:00:00 AM EDT suspended Mupir ocin 2 % eCW1 ([facility]) Mupirocin 0.02 MG/MG Topical Ointment Mupirocin 2 % Mupiroci n 2 % 01/22/2021 12:00:00 AM EDT suspended Mupir ocin 2 % eCW1 ([facility]) Mupirocin 0.02 MG/MG Topical Ointment Mupirocin 2 % Mupiroci n 2 % 01/22/2021 12:00:00 AM EDT suspended Mupir ocin 2 % eCW1 ([facility]) valacyclovir 1000 MG Oral Tablet [Valtrex] Valtrex 1 GM Valt evert 1 GM 01/22/2021 12:00:00 AM EDT 1.0 {tablet} suspended Valtrex 1 GM eCW1 ([facility]) Mupirocin 0.02 MG/MG Topical Ointment Mupirocin 2 % Mupiroci n 2 % 01/22/2021 12:00:00 AM EDT active Mupiroci n 2 % eCW1 ([facility]) Mupirocin 0.02 MG/MG Topical Ointment Mupirocin 2 % Mupiroci n 2 % 01/22/2021 12:00:00 AM EDT suspended Mupir ocin 2 % eCW1 ([facility]) Mupirocin 0.02 MG/MG Topical Ointment Mupirocin 2 % Mupiroci n 2 % 01/22/2021 12:00:00 AM EDT active e CW1 ([facility]) Mupirocin 0.02 MG/MG Topical Ointment Mupirocin 2 % Mupiroci n 2 % 01/22/2021 12:00:00 AM EDT active Mupiroci n 2 % eCW1 ([facility]) valacyclovir 1000 MG Oral Tablet [Valtrex] Valtrex 1 GM Valt evert 1 GM 01/22/2021 12:00:00 AM EDT 1.0 {tablet} active Va ltrex 1 GM eCW1 ([facility]) Mupirocin 0.02 MG/MG Topical Ointment Mupirocin 2 % Mupiroci n 2 % 01/22/2021 12:00:00 AM EDT suspended Mupir ocin 2 % eCW1 ([facility]) valacyclovir 1000 MG Oral Tablet [Valtrex] Valtrex 1 GM Valt evert 1 GM 01/22/2021 12:00:00 AM EDT 1.0 {tablet} suspended Valtrex 1 GM eCW1 ([facility]) valacyclovir 1000 MG Oral Tablet [Valtrex] Valtrex 1 GM Valt evetr 1 GM 01/22/2021 12:00:00 AM EDT 1.0 {tablet} suspended Valtrex 1 GM eCW1 ([facility]) valacyclovir 1000 MG Oral Tablet [Valtrex] Valtrex 1 GM Valt evert 1 GM 01/22/2021 12:00:00 AM EDT 1.0 {tablet} active Va ltrex 1 GM eCW1 ([facility]) Mupirocin 0.02 MG/MG Topical Ointment Mupirocin 2 % Mupiroci n 2 % 01/22/2021 12:00:00 AM EDT suspended Mupir ocin 2 % eCW1 ([facility]) valacyclovir 1000 MG Oral Tablet [Valtrex] Valtrex 1 GM Valt evert 1 GM 01/22/2021 12:00:00 AM EDT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 ([facility]) Smoking 06/18/2021 12:00:00 AM EDT Former Smoker completed Former Smoker eCW1 ([facility]) Smoking 05/16/2021 12:00:00 AM EDT Former Smoker completed Former Smoker eCW1 ([facility]) Smoking 05/16/2021 12:00:00 AM EDT Former Smoker completed Former Smoker eCW1 ([facility]) Smoking 05/16/2021 12:00:00 AM EDT Former Smoker completed Former Smoker eCW1 ([facility]) Smoking 05/16/2021 12:00:00 AM EDT Former Smoker completed Former Smoker eCW1 ([facility]) Smoking 05/16/2021 12:00:00 AM EDT Former Smoker completed Former Smoker eCW1 ([facility]) Smoking 04/15/2021 12:00:00 AM EDT Former Smoker completed Former Smoker eCW1 ([facility]) Smoking 04/15/2021 12:00:00 AM EDT Former Smoker completed Former Smoker eCW1 ([facility]) Smoking 04/15/2021 12:00:00 AM EDT Former Smoker completed Former Smoker eCW1 ([facility]) Smoking 04/15/2021 12:00:00 AM EDT Former Smoker completed Former Smoker eCW1 ([facility]) Smoking 04/15/2021 12:00:00 AM EDT Former Smoker completed Former Smoker eCW1 ([facility]) Smoking 04/08/2021 12:00:00 AM EDT Former Smoker completed Former Smoker eCW1 ([facility]) Smoking 03/20/2021 12:00:00 AM EDT Former Smoker completed Former Smoker eCW1 ([facility]) Smoking 03/20/2021 12:00:00 AM EDT Former Smoker completed Former Smoker eCW1 ([facility]) Smoking 03/20/2021 12:00:00 AM EDT Former Smoker completed Former Smoker eCW1 ([facility]) Smoking 02/20/2021 12:00:00 AM EDT Former Smoker completed Former Smoker eCW1 ([facility]) Smoking 02/20/2021 12:00:00 AM EDT Former Smoker completed Former Smoker eCW1 ([facility]) Smoking 02/20/2021 12:00:00 AM EDT Former Smoker completed Former Smoker eCW1 ([facility]) Smoking 02/20/2021 12:00:00 AM EDT Former Smoker completed Former Smoker eCW1 ([facility]) Smoking 02/06/2021 12:00:00 AM EDT Former Smoker completed Former Smoker eCW1 ([facility]) Smoking 02/06/2021 12:00:00 AM EDT Former Smoker completed Former Smoker eCW1 ([facility]) Smoking 01/22/2021 12:00:00 AM EDT Never Smoker completed Never S moker eCW1 ([facility]) Smoking 01/22/2021 12:00:00 AM EDT Never Smoker completed Never S moker eCW1 ([facility]) Vital Signs ID Date Data Source UNK Name Value Range Interpretation Code Description Data Source(s) Body temperature 97.3 [degF] 97.3 [degF] MEDENT ([facility], ) Body weight 196.8 [lb_av] 196.8 [lb_av] eCW1 ([facility]) Body weight 89.27 kg 89.27 kg W1 ([facility]) Body height 63 [in_i] 63 [in_i] eCW1 ([facility]) Body mass index (BMI) [Ratio] 34.86 kg/m2 34.86 kg/m2 W1 ([facility]) Systolic blood pressure 132 mm[Hg] 132 mm[Hg] e CW1 ([facility]) Diastolic blood pressure 84 mm[Hg] 84 mm[Hg] eCW1 ([facility]) Body weight 197 [lb_av] 197 [lb_av] eCW1 ([facility]) Body weight 89.36 kg 89.36 kg eCW1 ([facility]) Body height 63 [in_i] 63 [in_i] eCW1 ([facility]) Body mass index (BMI) [Ratio] 34.89 kg/m2 34.89 kg/m2 eCW1 ([facility]) Systolic blood pressure 130 mm[Hg] 130 mm[Hg] e CW1 ([facility]) Diastolic blood pressure 80 mm[Hg] 80 mm[Hg] eCW1 ([facility]) Body temperature 96.1 [degF] 96.1 [degF] MEDENT ([facility], ) Body weight 199 [lb_av] 199 [lb_av] eCW1 ([facility]) Body weight 90.27 kg 90.27 kg eCW1 ([facility]) Body height 63 [in_i] 63 [in_i] eCW1 ([facility]) Body mass index (BMI) [Ratio] 35.25 kg/m2 35.25 kg/m2 eCW1 ([facility]) Heart rate 109 /min 109 /min eCW1 ([facility]) Respiratory rate 18 /min 18 /min eCW1 ([facility]) Body temperature 97.7 [degF] 97.7 [degF] eCW1 ( [facility]) Systolic blood pressure 140 mm[Hg] 140 mm[Hg] e CW1 ([facility]) Diastolic blood pressure 94 mm[Hg] 94 mm[Hg] eCW1 ([facility]) Body weight 197.6 [lb_av] 197.6 [lb_av] eCW1 ([facility]) Body height 63 [in_i] 63 [in_i] eCW1 ([facility]) Body mass index (BMI) [Ratio] 35.00 kg/m2 35.00 kg/m2 eCW1 ([facility]) Heart rate 96 /min 96 /min eCW1 ([facility]) Respiratory rate 18 /min 18 /min eCW1 ([facility]) Body temperature 98.2 [degF] 98.2 [degF] eCW1 ( [facility]) Systolic blood pressure 132 mm[Hg] 132 mm[Hg] e CW1 ([facility]) Diastolic blood pressure 86 mm[Hg] 86 mm[Hg] eCW1 ([facility]) Body weight 193 [lb_av] 193 [lb_av] eCW1 ([facility]) Body weight 87.54 kg 87.54 kg eCW1 ([facility]) Body height 63 [in_i] 63 [in_i] eCW1 ([facility]) Body mass index (BMI) [Ratio] 34.18 kg/m2 34.18 kg/m2 eCW1 ([facility]) Heart rate 104 /min 104 /min eCW1 ([facility]) Respiratory rate 18 /min 18 /min eCW1 ([facility]) Body temperature 98.0 [degF] 98.0 [degF] eCW1 ( [facility]) Systolic blood pressure 130 mm[Hg] 130 mm[Hg] e CW1 ([facility]) Diastolic blood pressure 82 mm[Hg] 82 mm[Hg] eCW1 ([facility]) Body weight 196.08 [lb_av] 196.08 [lb_av] eCW1 ([facility]) Body height 63 [in_i] 63 [in_i] eCW1 ([facility]) Body mass index (BMI) [Ratio] 34.73 kg/m2 34.73 kg/m2 eCW1 ([facility]) Heart rate 111 /min 111 /min eCW1 ([facility]) Respiratory rate 18 /min 18 /min eCW1 ([facility]) Body temperature 97.5 [degF] 97.5 [degF] eCW1 ( [facility]) Systolic blood pressure 138 mm[Hg] 138 mm[Hg] e CW1 ([facility]) Diastolic blood pressure 90 mm[Hg] 90 mm[Hg] eCW1 ([facility]) Body weight 209.6 [lb_av] 209.6 [lb_av] eCW1 ([facility]) Body height 63 [in_i] 63 [in_i] eCW1 ([facility]) Body mass index (BMI) [Ratio] 37.12 kg/m2 37.12 kg/m2 eCW1 ([facility]) Systolic blood pressure 120 mm[Hg] 120 mm[Hg] e CW1 ([facility]) Diastolic blood pressure 76 mm[Hg] 76 mm[Hg] eCW1 ([facility]) Diastolic blood pressure 90 mm[Hg] 90 mm[Hg] eCW1 ([facility]) Body weight 203.0 [lb_av] 203.0 [lb_av] eCW1 ([facility]) Body weight 92.08 kg 92.08 kg eCW1 ([facility]) Body height 63 [in_i] 63 [in_i] eCW1 ([facility]) Body mass index (BMI) [Ratio] 35.96 kg/m2 35.96 kg/m2 eCW1 ([facility]) Systolic blood pressure 132 mm[Hg] 132 mm[Hg] e CW1 ([facility]) Systolic blood pressure 155 mm[Hg] 155 mm[Hg] M EDENT ([facility]) Diastolic blood pressure 101 mm[Hg] 101 mm[Hg] MEDENT ([facility]) Heart rate 92 /min 92 /min MEDENT ([facility]) Respiratory rate 16 /min 16 /min MEDENT ( [facility]) Oxygen saturation in Arterial blood by Pulse oximetry 100 % 100 % MEDENT ([facility]) Body temperature 96.2 [degF] 96.2 [degF] MEDENT ([facility]) Body weight 203.00 [lb_av] 203.00 [lb_av] MEDEN T ([facility]) Body height 62 [in_i] 62 [in_i] MEDENT ([facility]) 5'2" Body mass index (BMI) [Ratio] 37.1 kg/m2 37.1 k g/m2 MEDENT ([facility]) Body weight 203.4 [lb_av] 203.4 [lb_av] eCW1 ([facility]) Body height 63 [in_i] 63 [in_i] eCW1 ([facility]) Body mass index (BMI) [Ratio] 36.03 kg/m2 36.03 kg/m2 eCW1 ([facility]) Heart rate 89 /min 89 /min eCW1 ([facility]) Respiratory rate 18 /min 18 /min eCW1 ([facility]) Body temperature 99.3 [degF] 99.3 [degF] eCW1 ( [facility]) Systolic blood pressure 146 mm[Hg] 146 mm[Hg] e CW1 ([facility]) Diastolic blood pressure 80 mm[Hg] 80 mm[Hg] eCW1 ([facility]) Body weight 212 [lb_av] 212 [lb_av] eCW1 ([facility]) Body height 63 [in_i] 63 [in_i] eCW1 ([facility]) Body mass index (BMI) [Ratio] 37.55 kg/m2 37.55 kg/m2 eCW1 ([facility]) Heart rate 80 /min 80 /min eCW1 ([facility]) Respiratory rate 18 /min 18 /min eCW1 ([facility]) Body temperature 97.4 [degF] 97.4 [degF] eCW1 ( [facility]) Systolic blood pressure 120 mm[Hg] 120 mm[Hg] e CW1 ([facility]) Diastolic blood pressure 80 mm[Hg] 80 mm[Hg] eCW1 ([facility]) Body weight 206 [lb_av] 206 [lb_av] eCW1 ([facility]) Body height 63 [in_i] 63 [in_i] eCW1 ([facility]) Body mass index (BMI) [Ratio] 36.49 kg/m2 36.49 kg/m2 eCW1 ([facility]) Heart rate 99 /min 99 /min eCW1 ([facility]) Respiratory rate 20 /min 20 /min eCW1 ([facility]) Body temperature 96.9 [degF] 96.9 [degF] eCW1 ( [facility]) Systolic blood pressure 122 mm[Hg] 122 mm[Hg] e CW1 ([facility]) Diastolic blood pressure 86 mm[Hg] 86 mm[Hg] eCW1 ([facility]) Body weight 208.8 [lb_av] 208.8 [lb_av] eCW1 ([facility]) Body height 63 [in_i] 63 [in_i] eCW1 ([facility]) Body mass index (BMI) [Ratio] 36.98 kg/m2 36.98 kg/m2 eCW1 ([facility]) Heart rate 105 /min 105 /min eCW1 ([facility]) Respiratory rate 20 /min 20 /min eCW1 ([facility]) Body temperature 97.8 [degF] 97.8 [degF] eCW1 ( [facility]) Systolic blood pressure 130 mm[Hg] 130 mm[Hg] e CW1 ([facility]) Diastolic blood pressure 82 mm[Hg] 82 mm[Hg] eCW1 ([facility]) Patient Treatment Plan of Care Planned Activity Planned Date Details Description Data Source (s) medroxyprogesterone acetate 10 MG Oral Tablet 08/23/2021 12:00:00 A M EDT eCW1 ([facility]) medroxyprogesterone acetate 10 MG Oral Tablet 08/23/2021 12:00:00 A M EDT eCW1 ([facility]) medroxyprogesterone acetate 10 MG Oral Tablet [Provera ] 08/02/2021 12:00:00 AM EDT eCW1 ([facility]) medroxyprogesterone acetate 10 MG Oral Tablet [Provera ] 08/02/2021 12:00:00 AM EDT eCW1 ([facility]) medroxyprogesterone acetate 10 MG Oral Tablet [Provera ] 08/02/2021 12:00:00 AM EDT eCW1 ([facility]) medroxyprogesterone acetate 10 MG Oral Tablet [Provera ] 08/02/2021 12:00:00 AM EDT eCW1 ([facility]) medroxyprogesterone acetate 10 MG Oral Tablet [Provera ] 08/02/2021 12:00:00 AM EDT eCW1 ([facility]) medroxyprogesterone acetate 10 MG Oral Tablet [Provera ] 08/02/2021 12:00:00 AM EDT eCW1 ([facility]) Diclofenac Sodium 0.01 MG/MG Topical Gel [Voltaren] 07/09/20 21 12:00:00 AM EDT eCW1 ([facility]) Diclofenac Sodium 0.01 MG/MG Topical Gel [Voltaren] 07/09/20 21 12:00:00 AM EDT eCW1 ([facility]) Diclofenac Sodium 0.01 MG/MG Topical Gel [Voltaren] 07/09/20 21 12:00:00 AM EDT eCW1 ([facility]) Diclofenac Sodium 0.01 MG/MG Topical Gel [Voltaren] 07/09/20 21 12:00:00 AM EDT eCW1 ([facility] hospital) Diclofenac Sodium 0.01 MG/MG Topical Gel [Voltaren] 07/09/20 21 12:00:00 AM EDT eCW1 (Critical access hospital) FreeStyle [place] 14 Day Sensor - 06/26/2021 12:00:00 AM EDT eCW1 ([facility]) FreeStyle [place] 14 Day [place] - 06/26/2021 12:00:00 AM EDT eCW1 ([facility]) FreeStyle [place] 14 Day Sensor - 06/26/2021 12:00:00 AM EDT eCW1 ([facility]) FreeStyle [place] 14 Day [place] - 06/26/2021 12:00:00 AM EDT eCW1 ([facility]) Fluconazole 150 MG Oral Tablet 06/18/2021 12:00:00 AM EDT eCW1 ([facility]) Fluconazole 150 MG Oral Tablet 06/18/2021 12:00:00 AM EDT eCW1 ([facility]) Fluconazole 150 MG Oral Tablet 06/18/2021 12:00:00 AM EDT eCW1 ([facility]) Fluconazole 150 MG Oral Tablet 06/18/2021 12:00:00 AM EDT eCW1 ([facility]) 3 ML Insulin Glargine 100 UNT/ML Pen Injector [Lantus] 05/18/2021 12:00:00 AM EDT eCW1 ([facility]) 3 ML Insulin Glargine 100 UNT/ML Pen Injector [Lantus] 05/18/2021 12:00:00 AM EDT eCW1 ([facility]) 3 ML Insulin Glargine 100 UNT/ML Pen Injector [Lantus] 05/18/2021 12:00:00 AM EDT eCW1 ([facility]) 3 ML Insulin Glargine 100 UNT/ML Pen Injector [Lantus] 05/18/2021 12:00:00 AM EDT eCW1 ([facility]) 3 ML Insulin Glargine 100 UNT/ML Pen Injector [Lantus] 05/18/2021 12:00:00 AM EDT eCW1 ([facility]) Ondansetron 4 MG Disintegrating Oral Tablet 05/18/2021 12:00:00 AM EDT eCW1 ([facility]) 3 ML Insulin Glargine 100 UNT/ML Pen Injector [Lantus] 05/18/2021 12:00:00 AM EDT eCW1 ([facility]) Ondansetron 4 MG Disintegrating Oral Tablet 05/18/2021 12:00:00 AM EDT eCW1 ([facility]) 3 ML Insulin Glargine 100 UNT/ML Pen Injector [Lantus] 05/18/2021 12:00:00 AM EDT eCW1 ([facility]) Ondansetron 4 MG Disintegrating Oral Tablet 05/18/2021 12:00:00 AM EDT eCW1 ([facility]) 3 ML Insulin Glargine 100 UNT/ML Pen Injector [Lantus] 05/18/2021 12:00:00 AM EDT eCW1 ([facility]) Ondansetron 4 MG Disintegrating Oral Tablet 05/18/2021 12:00:00 AM EDT eCW1 ([facility]) celecoxib 100 MG Oral Capsule 05/18/2021 12:00:00 AM EDT eCW1 ([facility]) Fluconazole 100 MG Oral Tablet [Diflucan] 04/15/2021 12:00:00 AM ED T eCW1 ([facility]) Fluconazole 100 MG Oral Tablet [Diflucan] 04/15/2021 12:00:00 AM ED T eCW1 ([facility]) Omeprazole 20 MG Delayed Release Oral Capsule 03/22/2021 12:00:00 A M EDT eCW1 ([facility]) Blood Glucose Test - 03/22/2021 12:00:00 AM EDT eCW1 ([facility]) Omeprazole 20 MG Delayed Release Oral Capsule 03/22/2021 12:00:00 A M EDT eCW1 ([facility]) Blood Glucose Test - 03/22/2021 12:00:00 AM EDT eCW1 ([facility]) Nystatin 100 UNT/MG Topical Ointment 02/20/2021 12:00:00 AM EDT eCW1 ([facility]) Nystatin 100 UNT/MG Topical Ointment 02/20/2021 12:00:00 AM EDT eCW1 ([facility]) Nystatin 100 UNT/MG Topical Ointment 02/20/2021 12:00:00 AM EDT eCW1 ([facility]) Nystatin 100 UNT/MG Topical Ointment 02/20/2021 12:00:00 AM EDT eCW1 ([facility]) Nystatin 100 UNT/MG Topical Ointment 02/20/2021 12:00:00 AM EDT eCW1 ([facility]) valacyclovir 1000 MG Oral Tablet [Valtrex] 01/22/2021 12:00:00 AM E DT eCW1 ([facility]) Mupirocin 0.02 MG/MG Topical Ointment 01/22/2021 12:00:00 AM EDT eCW1 ([facility]) valacyclovir 1000 MG Oral Tablet [Valtrex] 01/22/2021 12:00:00 AM E DT eCW1 ([facility]) Mupirocin 0.02 MG/MG Topical Ointment 01/22/2021 12:00:00 AM EDT eCW1 ([facility])
--- OUTSIDE RECORDS SUMMARY | 2021-09-11 11:09 | CCD ---
Author Author [facility] Organization [facility] Address Unknown Phone Unavailable Care Team Providers Care Ammonium Hydroxide Operator Name Role Phone Eagle, Susy EVENT MGR Unavailable Unavailable Eagle, Susy EVENT MGR Unavailable Unavailable Eagle, Susy EVENT MGR Unavailable Unavailable Eagle, Susy EVENT MGR Unavailable Unavailable Eagle, Susy EVENT MGR Unavailable Unavailable Eagle, Susy EVENT MGR Unavailable Unavailable Eagle, Susy EVENT MGR Unavailable Unavailable Eagle, Susy EVENT MGR Unavailable Unavailable Eagle, Susy EVENT MGR Unavailable Unavailable Eagle, Susy EVENT MGR Unavailable Unavailable Eagle, Susy EVENT MGR Unavailable Unavailable Eagle, Susy EVENT MGR Unavailable Unavailable Eagle, Susy EVENT MGR Unavailable Unavailable Stephanie Madsen MD Unavailable Unavailable [...] RODO Chatman Unavailable Unavailable MD Graciela RAYO [facility] Unavailable Unavailable Re-disclosure Warning The records [...] is protected by Article 27-F of the [facility] Public Health law. If you continue you may have access to information: Regarding HIV / AIDS; Provided by facilities licensed or operated by the [facility] Office of Mental Health; or Provided by the [facility] Office for People With Developmental Disabilities. If such information is present, then the following [facility] mandated warning applies: This information has been [...] law may result in a fine or senior care sentence or both. A general authorization for the release of medical or other information is NOT sufficient authorization for further disc losure. Allergies and Adverse Reactions Type Description Substance Reaction Status Data Source(s ) Drug Allergy Drug Allergy NKDA MEDENT ([facility], [facility]) Encounters Encounter Providers Location Date Indications Data Source(s ) ([facility]) [facility] Scheduled Visit [address] [place] [address] 09/05/2021 12:00:00 AM EST eCW1 (Pending sale to [facility]) Outpatient Attender: MARTÍN Cleaning/Tomas/Herman/ Delia 08/30/2021 11:00:00 AM EDT MEDENT ([facility]) Outpatient [address] [facility] [address] 08/23/2021 12:00:00 AM EDT eCW1 ([facility]) Unknown [address] [facility] [address] 08/05/2021 12:00:00 AM EDT eCW1 ([facility]) Unknown [address] [facility] [address] 08/05/2021 12:00:00 AM EDT eCW1 ([facility]) Outpatient [address] [facility] [place] [address] 08/02/2021 12:00:00 AM EDT eCW1 ([facility]) ([facility]) [facility] Scheduled Visit [address] [place] [address] 08/02/2021 12:00:00 AM EDT eCW1 ([facility]) Unknown [address] [facility] [address] 07/25/2021 12:00:00 AM EDT eCW1 ([facility]) Unknown [address] [facility] [address] 07/19/2021 12:00:00 AM EDT eCW1 ([facility]) Outpatient Attender: MARTÍN Cleaning/Tomas/Herman/ Delia 07/16/2021 09:00:00 AM EDT MEDENT ([facility]) Unknown [address] [facility] [place] [address] 07/16/2021 12:00:00 AM EDT eCW1 ([facility]) ([facility]) [facility] Scheduled Visit [address] [place] [address] 07/15/2021 12:00:00 AM EDT eCW1 (Pending sale to [facility]) Unknown [address] [place] [address] 07/15/2021 12:00:00 AM EDT eCW1 ([facility]) Outpatient [address] [facility] [address] 07/09/2021 12:00:00 AM EDT eCW1 ([facility]) Unknown [address] [facility] [address] 07/09/2021 12:00:00 AM EDT eCW1 ([facility]) Unknown [address] [facility] [address] 07/08/2021 12:00:00 AM EDT eCW1 ([facility]) Outpatient [address] [facility] [address] 06/26/2021 12:00:00 AM EDT eCW1 ([facility]) Unknown [address] [facility] [address] 06/20/2021 12:00:00 AM EDT eCW1 ([facility]) Unknown [address] [facility] [address] 06/20/2021 12:00:00 AM EDT eCW1 ([facility]) Outpatient [address] [facility] [address] 06/18/2021 12:00:00 AM EDT eCW1 ([facility]) Unknown [address] [facility] [address] 06/17/2021 12:00:00 AM EDT eCW1 ([facility]) Unknown [address] [facility] [address] 05/17/2021 12:00:00 AM EDT eCW1 ([facility]) Unknown [address] [facility] [address] 05/17/2021 12:00:00 AM EDT eCW1 ([facility]) Outpatient [address] [facility] [address] 05/16/2021 12:00:00 AM EDT eCW1 ([facility]) Unknown [address] [facility] [address] 05/16/2021 12:00:00 AM EDT eCW1 ([facility]) Unknown [address] [facility] [place] [address] 05/14/2021 12:00:00 AM EDT eCW1 ([facility]) ([facility]) [facility] Scheduled Visit [address] [place] [address] 05/09/2021 12:00:00 AM EDT eCW1 (Pending sale to [facility]) Unknown [address] [facility] [place] [address] 04/19/2021 12:00:00 AM EDT eCW1 ([facility]) Outpatient [address] [facility] [place] [address] 04/16/2021 12:00:00 AM EDT eCW1 ([facility]) Unknown [address] [facility] [place] [address] 04/15/2021 12:00:00 AM EDT eCW1 ([facility]) Outpatient [address] [facility] [place] [address] 04/08/2021 12:00:00 AM EDT eCW1 ([facility]) Outpatient Attender: Susy villalta 03/27/2021 02:35:00 PM EDT MEDENT ([facility]) Unknown [address] [facility] [place] [address] 03/27/2021 12:00:00 AM EDT eCW1 ([facility]) Outpatient [address] [facility] [place] [address] 03/22/2021 12:00:00 AM EDT eCW1 ([facility]) ([facility]) [facility] Scheduled Visit [address] [place] [address] 03/21/2021 12:00:00 AM EDT eCW1 ([facility]ending sale to [facility]) [place] [address] [facility] [address] 03/06/2021 12:00:00 AM EDT eCW1 ([facility]) ([facility]) [facility] Scheduled Visit [address] [place] [address] 03/05/2021 12:00:00 AM EDT eCW1 (Pending sale to [facility]) Outpatient [address] [facility] [address] 02/20/2021 12:00:00 AM EDT eCW1 ([facility]) Unknown [address] [facility] [address] 02/20/2021 12:00:00 AM EDT eCW1 ([facility]) Unknown [address] [facility] [address] 02/15/2021 12:00:00 AM EDT eCW1 ([facility]) Outpatient [address] [facility] [address] 02/01/2021 12:00:00 AM EDT eCW1 ([facility]) Outpatient [facility]: [facility] 04/2021 08:20:26 AM EDT - 01/30/2021 09:21:28 AM EDT [facility] Patient discharged. Office Visit, Est Pt., Level 3 PC [address] [place] [address] 01/22/2021 12:00:00 AM EDT eCW1 (Pending sale to [facility]) Unknown [address] [facility] [address] 01/22/2021 12:00:00 AM EDT eCW1 ([facility]) Outpatient Attender: ASHLY CAMPCORA-BHNRMHAC 01/04/20 21 03:05:44 PM EST - 01/03/2021 03:05:57 PM EST [facility] Patient discharged. Outpatient Attender: ASHLY CAMPCORA-BHNRMHCORA 12/20/19 21 03:29:48 PM EST - 12/20/2020 03:32:56 PM [facility] Patient discharged. Outpatient Attender: Angy Madsen MD 12/10/2020 10:33:48 AM [facility] Patient admitted. Outpatient Attender: ASHLY WAGNER BHNRMHAC-BHNRMHAC 12/04/19 01:50:57 PM EST - 12/04/2020 02:11:05 PM [facility] Patient discharged. Outpatient Attender: MD AUDRA RAYO RMGSP-RMGTWCP 11/26/2020 03:24:49 PM EST - 11/26/2020 04:48:28 PM [facility] Patient discharged. Outpatient Attender: PROVIDER DEFAULTReferrer: MD Barby RAYO [facility]-RGHLCYT 11/26/2020 02:23:00 PM EST - 11/26/2020 11:59:00 PM [facility] Patient discharged. Outpatient Attender: PROVIDER DEFAULT ACMLSPECPROC-RGHLELMS Erna 11/26/2020 02:28:00 AM EST - 11/26/2020 02:22:00 PM [facility] Patient discharged. Outpatient Attender: MD AUDRA RAYO 11/26/2020 02 :28:00 AM [facility] Outpatient Attender: ASHLY WAGNER NRAC-BHNRMHAC 11/15/19 05:36:02 PM EST - 11/15/2020 05:36:14 PM [facility] Patient discharged. Outpatient Attender: LORIE CASTAÑEDA RMGSP-RMGTWCP 10/26 02:53:44 PM EST - 11/09/2020 02:53:58 PM [facility] Patient discharged. Outpatient Attender: RODO BYRNES BHNRMHAC-BHNRMHAC 10/26 07:11:00 AM EST - 11/07/2020 11:33:02 AM [facility] Patient discharged. Outpatient Attender: ASHLY WAGNER BHNRMHAC-BHNRMHAC 11/01/19 10:22:34 AM EST - 11/01/2020 10:25:09 AM [facility] Patient discharged. Outpatient Attender: PROVIDER DEFAULTReferrer: JOSE LUIS TEJYANET SYLVESTER ACMLSPECPROC-ACMLSPECPROC 10/21/2020 01:44:00 AM EST - 10/21/2020 11:59:00 PM [facility] Patient discharged. Outpatient Attender: PROVIDER DEFAULT [facility]-RGHICWIL 10/20 06:37:00 PM EST - 10/20/2020 07:07:00 PM [facility] Patient admitted. Outpatient Attender: ASHLY WAGNER NRAC-BHNRMHAC 10/10/20 02:10:01 PM EST - 10/10/2020 02:12:05 PM [facility] Patient discharged. Outpatient Attender: PROVIDER DEFAULT ACMLSPECPROC-ACMLSPEC PROC 10/04/2020 08:47:00 PM EST - 10/04/2020 11:59:00 PM [facility] Patient discharged. Outpatient Attender: PROVIDER DEFAULT ACMLSPECPROC-ACMLSPEC PROC 10/04/2020 07:11:00 PM EST - 10/04/2020 08:46:00 PM [facility] Patient discharged. Outpatient Attender: PROVIDER DEFAULT [facility]-RGHICWIL 10/04 12:39:00 PM [facility] - 10/04/2020 01:58:00 PM [facility] Patient discharged. Outpatient Attender: [facility] HDENTR-RGHDENTRHC 01/2020 09:46:40 AM EST - 09/28/2020 10:39:46 AM [facility] Patient discharged. Outpatient Attender: DEMARCUS Paredes: Fernando [facility] RMGOPDRHC-RMGTWIGRHC 09/11/2020 02:57:34 PM EST - 09/11/2020 03:40:54 PM [facility] Patient discharged. Outpatient Attender: ASHLY WAGNER NRAC-BHNRMHAC 03/20/2020 03:29:1 1 PM EDT [facility] Outpatient Attender: ASHLY WAGNER NRAC-BHNRMHAC 12/29/2019 11:08:2 0 AM [facility] Medications Medication Brand Name Start Date Product Form Dose Route Admi nistrative Instructions Pharmacy Instructions Status Indications Reaction Description Data Source(s) medroxyprogesterone acetate 10 MG Oral Tablet medroxyP ROGESTERone Acetate 10 MG medroxyPROGESTERone Acetate 10 MG 08/23/2021 12:00:00 AM EDT 1.0 {tablet_with_food} active medroxyPROGES TERone Acetate 10 MG eCW1 ([facility]) medroxyprogesterone acetate 10 MG Oral Tablet medroxyP ROGESTERone Acetate 10 MG medroxyPROGESTERone Acetate 10 MG 08/23/2021 12:00:00 AM EDT 1.0 {tablet_with_food} active medroxyPROGES TERone Acetate 10 MG eCW1 ([facility]) medroxyprogesterone acetate 10 MG Oral Tablet [Provera ] Provera 10 MG Provera 10 MG 08/02/2021 12:00:00 AM EDT 1.0 {tablet_with_food} active Provera 10 MG eCW1 ([facility]) medroxyprogesterone acetate 10 MG Oral Tablet [Provera ] Provera 10 MG Provera 10 MG 08/02/2021 12:00:00 AM EDT 1.0 {tablet_with_food} active Provera 10 MG eCW1 ([facility]) medroxyprogesterone acetate 10 MG Oral Tablet [Provera ] Provera 10 MG Provera 10 MG 08/02/2021 12:00:00 AM EDT 1.0 {tablet_with_food} active Provera 10 MG eCW1 ([facility]) medroxyprogesterone acetate 10 MG Oral Tablet [Provera ] Provera 10 MG Provera 10 MG 08/02/2021 12:00:00 AM EDT 1.0 {tablet_with_food} active Provera 10 MG eCW1 ([facility]) medroxyprogesterone acetate 10 MG Oral Tablet [Provera ] Provera 10 MG Provera 10 MG 08/02/2021 12:00:00 AM EDT 1.0 {tablet_with_food} active Provera 10 MG eCW1 ([facility]) medroxyprogesterone acetate 10 MG Oral Tablet [Provera ] Provera 10 MG Provera 10 MG 08/02/2021 12:00:00 AM EDT 1.0 {tablet_with_food} active Provera 10 MG eCW1 ([facility]) medroxyprogesterone acetate 10 MG Oral Tablet [Provera ] Provera 10 MG Provera 10 MG 08/02/2021 12:00:00 AM EDT 1.0 {tablet_with_food} active Provera 10 MG eCW1 ([facility]) medroxyprogesterone acetate 10 MG Oral Tablet [Provera ] Provera 10 MG Provera 10 MG 08/02/2021 12:00:00 AM EDT 1.0 {tablet_with_food} active Provera 10 MG eCW1 ([facility]) Diclofenac Sodium 0.01 MG/MG Topical Gel [Voltaren] Voltaren 1 % Voltaren 1 % 07/09/2021 12:00:00 AM EDT active Voltaren 1 % eCW1 ([facility]) Diclofenac Sodium 0.01 MG/MG Topical Gel [Voltaren] Voltaren 1 % Voltaren 1 % 07/09/2021 12:00:00 AM EDT active Voltaren 1 % eCW1 ([facility]) Diclofenac Sodium 0.01 MG/MG Topical Gel [Voltaren] Voltaren 1 % Voltaren 1 % 07/09/2021 12:00:00 AM EDT active Voltaren 1 % eCW1 ([facility]) Diclofenac Sodium 0.01 MG/MG Topical Gel [Voltaren] Voltaren 1 % Voltaren 1 % 07/09/2021 12:00:00 AM EDT active Voltaren 1 % eCW1 ([facility]) Diclofenac Sodium 0.01 MG/MG Topical Gel [Voltaren] Voltaren 1 % Voltaren 1 % 07/09/2021 12:00:00 AM EDT active Voltaren 1 % eCW1 ([facility]) Diclofenac Sodium 0.01 MG/MG Topical Gel [Voltaren] Voltaren 1 % Voltaren 1 % 07/09/2021 12:00:00 AM EDT active Voltaren 1 % eCW1 ([facility]) Diclofenac Sodium 0.01 MG/MG Topical Gel [Voltaren] Voltaren 1 % Voltaren 1 % 07/09/2021 12:00:00 AM EDT active Voltaren 1 % eCW1 ([facility]) Diclofenac Sodium 0.01 MG/MG Topical Gel [Voltaren] Voltaren 1 % Voltaren 1 % 07/09/2021 12:00:00 AM EDT active Voltaren 1 % eCW1 ([facility]) Diclofenac Sodium 0.01 MG/MG Topical Gel [Voltaren] Voltaren 1 % Voltaren 1 % 07/09/2021 12:00:00 AM EDT active Voltaren 1 % eCW1 ([facility]) Diclofenac Sodium 0.01 MG/MG Topical Gel [Voltaren] Voltaren 1 % Voltaren 1 % 07/09/2021 12:00:00 AM EDT active Voltaren 1 % eCW1 ([facility]) Diclofenac Sodium 0.01 MG/MG Topical Gel [Voltaren] Voltaren 1 % Voltaren 1 % 07/09/2021 12:00:00 AM EDT active Voltaren 1 % eCW1 ([facility]) Diclofenac Sodium 0.01 MG/MG Topical Gel [Voltaren] Voltaren 1 % Voltaren 1 % 07/09/2021 12:00:00 AM EDT active Voltaren 1 % eCW1 ([facility]) Diclofenac Sodium 0.01 MG/MG Topical Gel [Voltaren] Voltaren 1 % Voltaren 1 % 07/09/2021 12:00:00 AM EDT active Voltaren 1 % eCW1 ([facility]) FreeStyle [place] 14 Day Sensor - FreeStyle [place] 14 Day Senso r - 06/26/2021 12:00:00 AM EDT active FreeStyl e [place] 14 Day Sensor - eCW1 ([facility]) FreeStyle [place] 14 Day [place] - FreeStyle [place] 14 Day Reade r - 06/26/2021 12:00:00 AM EDT active FreeStyl e [place] 14 Day [place] - eCW1 ([facility]) FreeStyle [place] 14 Day Sensor - FreeStyle [place] 14 Day Senso r - 06/26/2021 12:00:00 AM EDT active FreeStyl e [place] 14 Day Sensor - eCW1 ([facility]) FreeStyle [place] 14 Day Sensor - FreeStyle [place] 14 Day Senso r 06/26/2021 12:00:00 AM EDT active FreeStyl e [place] 14 Day Sensor - eCW1 ([facility]) FreeStyle [place] 14 Day Sensor - FreeStyle [place] 14 Day Senso r 06/26/2021 12:00:00 AM EDT active FreeStyl e [place] 14 Day Sensor - eCW1 ([facility]) FreeStyle [place] 14 Day [place] - FreeStyle [place] 14 Day Reade r 06/26/2021 12:00:00 AM EDT active FreeStyl e [place] 14 Day [place] - eCW1 ([facility]) FreeStyle [place] 14 Day [place] - FreeStyle [place] 14 Day Reade r 06/26/2021 12:00:00 AM EDT active FreeStyl e [place] 14 Day [place] - eCW1 ([facility]) FreeStyle [place] 14 Day [place] - FreeStyle [place] 14 Day Reade r 06/26/2021 12:00:00 AM EDT suspended FreeS tyle [place] 14 Day [place] - eCW1 ([facility]) FreeStyle [place] 14 Day Sensor - FreeStyle [place] 14 Day Senso r - 06/26/2021 12:00:00 AM EDT suspended FreeS tyle [place] 14 Day Sensor - eCW1 ([facility]) FreeStyle [place] 14 Day Sensor - FreeStyle [place] 14 Day Senso r 06/26/2021 12:00:00 AM EDT active FreeStyl e [place] 14 Day Sensor - eCW1 ([facility]) FreeStyle [place] 14 Day [place] - FreeStyle [place] 14 Day Reade r - 06/26/2021 12:00:00 AM EDT suspended FreeS tyle [place] 14 Day [place] - eCW1 ([facility]) FreeStyle [place] 14 Day [place] - FreeStyle [place] 14 Day Reade r 06/26/2021 12:00:00 AM EDT active FreeStyl e [place] 14 Day [place] - eCW1 ([facility]) FreeStyle [place] 14 Day Sensor - FreeStyle [place] 14 Day Senso r 06/26/2021 12:00:00 AM EDT suspended FreeS tyle [place] 14 Day Sensor - eCW1 ([facility]) FreeStyle [place] 14 Day Sensor - FreeStyle [place] 14 Day Senso r 06/26/2021 12:00:00 AM EDT suspended FreeS tyle [place] 14 Day Sensor - eCW1 ([facility]) FreeStyle [place] 14 Day [place] - FreeStyle [place] 14 Day Reade r 06/26/2021 12:00:00 AM EDT suspended FreeS tyle [place] 14 Day [place] - eCW1 ([facility]) FreeStyle [place] 14 Day [place] - FreeStyle [place] 14 Day Reade r 06/26/2021 12:00:00 AM EDT suspended FreeS tyle [place] 14 Day [place] - eCW1 ([facility]) FreeStyle [place] 14 Day [place] - FreeStyle [place] 14 Day Reade 06/26/2021 12:00:00 AM EDT suspended FreeS tyle [place] 14 Day [place] - eCW1 ([facility]) FreeStyle [place] 14 Day Sensor - FreeStyle [place] 14 Day Senso r 06/26/2021 12:00:00 AM EDT suspended FreeS tyle [place] 14 Day Sensor - eCW1 ([facility]) FreeStyle [place] 14 Day Sensor - FreeStyle [place] 14 Day Senso r 06/26/2021 12:00:00 AM EDT suspended FreeS tyle [place] 14 Day Sensor - eCW1 ([facility]) FreeStyle [place] 14 Day [place] - FreeStyle [place] 14 Day Reade r 06/26/2021 12:00:00 AM EDT suspended FreeS tyle [place] 14 Day [place] - eCW1 ([facility]) FreeStyle [place] 14 Day Sensor - FreeStyle [place] 14 Day Senso r 06/26/2021 12:00:00 AM EDT suspended FreeS tyle [place] 14 Day Sensor - eCW1 ([facility]) FreeStyle [place] 14 Day Sensor - FreeStyle [place] 14 Day Senso r 06/26/2021 12:00:00 AM EDT suspended FreeS tyle [place] 14 Day Sensor - eCW1 ([facility]) FreeStyle [place] 14 Day Sensor - FreeStyle [place] 14 Day Senso r 06/26/2021 12:00:00 AM EDT active FreeStyl e [place] 14 Day Sensor - eCW1 ([facility]) FreeStyle [place] 14 Day [place] - FreeStyle [place] 14 Day Reade r 06/26/2021 12:00:00 AM EDT suspended FreeS tyle [place] 14 Day [place] - eCW1 ([facility]) FreeStyle [place] 14 Day Sensor - FreeStyle [place] 14 Day Senso r 06/26/2021 12:00:00 AM EDT active FreeStyl e [place] 14 Day Sensor - eCW1 ([facility]) FreeStyle [place] 14 Day [place] - FreeStyle [place] 14 Day Reade r 06/26/2021 12:00:00 AM EDT active FreeStyl e [place] 14 Day [place] - eCW1 ([facility]) FreeStyle [place] 14 Day Sensor - FreeStyle [place] 14 Day Senso r 06/26/2021 12:00:00 AM EDT suspended FreeS tyle [place] 14 Day Sensor - eCW1 ([facility]) FreeStyle [place] 14 Day [place] - FreeStyle [place] 14 Day Reade r 06/26/2021 12:00:00 AM EDT active FreeStyl e [place] 14 Day [place] - eCW1 ([facility]) FreeStyle [place] 14 Day [place] - FreeStyle [place] 14 Day Reade r 06/26/2021 12:00:00 AM EDT active FreeStyl e [place] 14 Day [place] - eCW1 ([facility]) FreeStyle [place] 14 Day [place] - FreeStyle [place] 14 Day Reade r - 06/26/2021 12:00:00 AM EDT suspended FreeS tyle [place] 14 Day [place] - eCW1 ([facility]) Fluconazole 150 MG Oral Tablet Fluconazole 150 MG 06/18/2021 12:00: 00 AM EDT 1.0 {tablet} suspended Fluconazole 150 M G eCW1 ([facility]) Fluconazole 150 MG Oral Tablet Fluconazole 150 MG 06/18/2021 12:00: 00 AM EDT 1.0 {tablet} active Fluconazole 150 MG eCW1 ([facility]) Fluconazole 150 MG Oral Tablet Fluconazole 150 MG 06/18/2021 12:00: 00 AM EDT 1.0 {tablet} suspended Fluconazole 150 M G eCW1 ([facility]) Fluconazole 150 MG Oral Tablet Fluconazole 150 MG 06/18/2021 12:00: 00 AM EDT 1.0 {tablet} suspended Fluconazole 150 M G eCW1 ([facility]) Fluconazole 150 MG Oral Tablet Fluconazole 150 MG 06/18/2021 12:00: 00 AM EDT 1.0 {tablet} active Fluconazole 150 MG eCW1 ([facility]) Fluconazole 150 MG Oral Tablet Fluconazole 150 MG 06/18/2021 12:00: 00 AM EDT 1.0 {tablet} suspended Fluconazole 150 M G eCW1 ([facility]) Fluconazole 150 MG Oral Tablet Fluconazole 150 MG 06/18/2021 12:00: 00 AM EDT 1.0 {tablet} suspended Fluconazole 150 M G eCW1 ([facility]) Fluconazole 150 MG Oral Tablet Fluconazole 150 MG 06/18/2021 12:00: 00 AM EDT 1.0 {tablet} suspended Fluconazole 150 M G eCW1 ([facility]) Fluconazole 150 MG Oral Tablet Fluconazole 150 MG 06/18/2021 12:00: 00 AM EDT 1.0 {tablet} suspended Fluconazole 150 M G eCW1 ([facility]) Fluconazole 150 MG Oral Tablet Fluconazole 150 MG 06/18/2021 12:00: 00 AM EDT 1.0 {tablet} suspended Fluconazole 150 M G eCW1 ([facility]) Fluconazole 150 MG Oral Tablet Fluconazole 150 MG 06/18/2021 12:00: 00 AM EDT 1.0 {tablet} active Fluconazole 150 MG eCW1 ([facility]) Fluconazole 150 MG Oral Tablet Fluconazole 150 MG 06/18/2021 12:00: 00 AM EDT 1.0 {tablet} suspended Fluconazole 150 M G eCW1 ([facility]) Fluconazole 150 MG Oral Tablet Fluconazole 150 MG 06/18/2021 12:00: 00 AM EDT 1.0 {tablet} suspended Fluconazole 150 M G eCW1 ([facility]) Fluconazole 150 MG Oral Tablet Fluconazole 150 MG 06/18/2021 12:00: 00 AM EDT 1.0 {tablet} suspended Fluconazole 150 M G eCW1 ([facility]) Fluconazole 150 MG Oral Tablet Fluconazole 150 MG 06/18/2021 12:00: 00 AM EDT 1.0 {tablet} suspended Fluconazole 150 M G eCW1 ([facility]) Fluconazole 150 MG Oral Tablet Fluconazole 150 MG 06/18/2021 12:00: 00 AM EDT 1.0 {tablet} active Fluconazole 150 MG eCW1 ([facility]) Fluconazole 150 MG Oral Tablet Fluconazole 150 MG 06/18/2021 12:00: 00 AM EDT 1.0 {tablet} suspended Fluconazole 150 M G eCW1 ([facility]) Fluconazole 150 MG Oral Tablet Fluconazole 150 MG 06/18/2021 12:00: 00 AM EDT 1.0 {tablet} suspended Fluconazole 150 M G eCW1 ([facility]) Fluconazole 150 MG Oral Tablet Fluconazole 150 MG 06/18/2021 12:00: 00 AM EDT 1.0 {tablet} suspended Fluconazole 150 M G eCW1 ([facility]) 3 ML Insulin Glargine 100 UNT/ML Pen Inj leonardo [Lantus] Lantus SoloStar 100 UNIT/ML Lantus SoloStar 100 UNIT/ML 05/18/2021 12:00:00 AM EDT active Lantus SoloStar 100 UNIT/ML eCW1 ([facility]) celecoxib 100 MG Oral Capsule Celecoxib 100 MG Celecoxib 100 MG 05/18/2021 12:00:00 AM EDT 1.0 {capsule_with_food} active Celecoxib 100 MG eCW1 ([facility]) 3 ML Insulin Glargine 100 UNT/ML Pen Inj leonardo [Lantus] Lantus SoloStar 100 UNIT/ML Lantus SoloStar 100 UNIT/ML 05/18/2021 12:00:00 AM EDT active Lantus SoloStar 100 UNIT/ML eCW1 ([facility]) 3 ML Insulin Glargine 100 UNT/ML Pen Inj leonardo [Lantus] Lantus SoloStar 100 UNIT/ML Lantus SoloStar 100 UNIT/ML 05/18/2021 12:00:00 AM EDT active Lantus SoloStar 100 UNIT/ML eCW1 ([facility]) 3 ML Insulin Glargine 100 UNT/ML Pen Inj leonardo [Lantus] Lantus SoloStar 100 UNIT/ML Lantus SoloStar 100 UNIT/ML 05/18/2021 12:00:00 AM EDT active Lantus SoloStar 100 UNIT/ML eCW1 ([facility]) 3 ML Insulin Glargine 100 UNT/ML Pen Inj leonardo [Lantus] Lantus SoloStar 100 UNIT/ML Lantus SoloStar 100 UNIT/ML 05/18/2021 12:00:00 AM EDT active Lantus SoloStar 100 UNIT/ML eCW1 ([facility]) Ondansetron 4 MG Disintegrating Oral Tablet Ondansetron 4 MG 05/18/2021 12:00:00 AM EDT 1.0 {tablet_on_the_tongue_and_allow_to_dissolve} active Ondansetron 4 MG eCW1 ([facility]) 3 ML Insulin Glargine 100 UNT/ML Pen Inj leonardo [Lantus] Lantus SoloStar 100 UNIT/ML Lantus SoloStar 100 UNIT/ML 05/18/2021 12:00:00 AM EDT active Lantus SoloStar 100 UNIT/ML eCW1 ([facility]) 3 ML Insulin Glargine 100 UNT/ML Pen Inj leonardo [Lantus] Lantus SoloStar 100 UNIT/ML Lantus SoloStar 100 UNIT/ML 05/18/2021 12:00:00 AM EDT active eCW1 ([facility]) Ondansetron 4 MG Disintegrating Oral Tablet Ondansetron 4 MG 05/18/2021 12:00:00 AM EDT 1.0 {tablet_on_the_tongue_and_allow_to_dissolve} active Ondansetron 4 MG eCW1 ([facility]) Ondansetron 4 MG Disintegrating Oral Tablet Ondansetron 4 MG 05/18/2021 12:00:00 AM EDT 1.0 {tablet_on_the_tongue_and_allow_to_dissolve} active Ondansetron 4 MG eCW1 ([facility]) Ondansetron 4 MG Disintegrating Oral Tablet Ondansetron 4 MG 05/18/2021 12:00:00 AM EDT 1.0 {tablet_on_the_tongue_and_allow_to_dissolve} active Ondansetron 4 MG eCW1 ([facility]) 3 ML Insulin Glargine 100 UNT/ML Pen Inj leonardo [Lantus] Lantus SoloStar 100 UNIT/ML Lantus SoloStar 100 UNIT/ML 05/18/2021 12:00:00 AM EDT active Lantus SoloStar 100 UNIT/ML eCW1 ([facility]) 3 ML Insulin Glargine 100 UNT/ML Pen Inj leonardo [Lantus] Lantus SoloStar 100 UNIT/ML Lantus SoloStar 100 UNIT/ML 05/18/2021 12:00:00 AM EDT active Lantus SoloStar 100 UNIT/ML eCW1 ([facility]) Ondansetron 4 MG Disintegrating Oral Tablet Ondansetron 4 MG 05/18/2021 12:00:00 AM EDT 1.0 {tablet_on_the_tongue_and_allow_to_dissolve} active Ondansetron 4 MG eCW1 ([facility]) 3 ML Insulin Glargine 100 UNT/ML Pen Inj leonardo [Lantus] Lantus SoloStar 100 UNIT/ML Lantus SoloStar 100 UNIT/ML 05/18/2021 12:00:00 AM EDT active eCW1 ([facility]) 3 ML Insulin Glargine 100 UNT/ML Pen Inj leonardo [Lantus] Lantus SoloStar 100 UNIT/ML Lantus SoloStar 100 UNIT/ML 05/18/2021 12:00:00 AM EDT active Lantus SoloStar 100 UNIT/ML eCW1 ([facility]) Ondansetron 4 MG Disintegrating Oral Tablet Ondansetron 4 MG 05/18/2021 12:00:00 AM EDT 1.0 {tablet_on_the_tongue_and_allow_to_dissolve} active Ondansetron 4 MG eCW1 ([facility]) Ondansetron 4 MG Disintegrating Oral Tablet Ondansetron 4 MG 05/18/2021 12:00:00 AM EDT 1.0 {tablet_on_the_tongue_and_allow_to_dissolve} active Ondansetron 4 MG eCW1 ([facility]) 3 ML Insulin Glargine 100 UNT/ML Pen Inj leonardo [Lantus] Lantus SoloStar 100 UNIT/ML Lantus SoloStar 100 UNIT/ML 05/18/2021 12:00:00 AM EDT active Lantus SoloStar 100 UNIT/ML eCW1 ([facility]) 3 ML Insulin Glargine 100 UNT/ML Pen Inj leonardo [Lantus] Lantus SoloStar 100 UNIT/ML Lantus SoloStar 100 UNIT/ML 05/18/2021 12:00:00 AM EDT active Lantus SoloStar 100 UNIT/ML eCW1 ([facility]) Ondansetron 4 MG Disintegrating Oral Tablet Ondansetron 4 MG 05/18/2021 12:00:00 AM EDT 1.0 {tablet_on_the_tongue_and_allow_to_dissolve} active Ondansetron 4 MG eCW1 ([facility]) Ondansetron 4 MG Disintegrating Oral Tablet Ondansetron 4 MG 05/18/2021 12:00:00 AM EDT 1.0 {tablet_on_the_tongue_and_allow_to_dissolve} active Ondansetron 4 MG eCW1 ([facility]) 3 ML Insulin Glargine 100 UNT/ML Pen Inj leonardo [Lantus] Lantus SoloStar 100 UNIT/ML Lantus SoloStar 100 UNIT/ML 05/18/2021 12:00:00 AM EDT active Lantus SoloStar 100 UNIT/ML eCW1 ([facility]) Ondansetron 4 MG Disintegrating Oral Tablet Ondansetron 4 MG 05/18/2021 12:00:00 AM EDT 1.0 {tablet_on_the_tongue_and_allow_to_dissolve} active Ondansetron 4 MG eCW1 ([facility]) Ondansetron 4 MG Disintegrating Oral Tablet Ondansetron 4 MG 05/18/2021 12:00:00 AM EDT 1.0 {tablet_on_the_tongue_and_allow_to_dissolve} active Ondansetron 4 MG eCW1 ([facility]) Ondansetron 4 MG Disintegrating Oral Tablet Ondansetron 4 MG 05/18/2021 12:00:00 AM EDT 1.0 {tablet_on_the_tongue_and_allow_to_dissolve} active Ondansetron 4 MG eCW1 ([facility]) 3 ML Insulin Glargine 100 UNT/ML Pen Inj leonardo [Lantus] Lantus SoloStar 100 UNIT/ML Lantus SoloStar 100 UNIT/ML 05/18/2021 12:00:00 AM EDT active Lantus SoloStar 100 UNIT/ML eCW1 ([facility]) 3 ML Insulin Glargine 100 UNT/ML Pen Inj leonardo [Lantus] Lantus SoloStar 100 UNIT/ML Lantus SoloStar 100 UNIT/ML 05/18/2021 12:00:00 AM EDT active Lantus SoloStar 100 UNIT/ML eCW1 ([facility]) Ondansetron 4 MG Disintegrating Oral Tablet Ondansetron 4 MG 05/18/2021 12:00:00 AM EDT 1.0 {tablet_on_the_tongue_and_allow_to_dissolve} active Ondansetron 4 MG eCW1 ([facility]) Ondansetron 4 MG Disintegrating Oral Tablet Ondansetron 4 MG 05/18/2021 12:00:00 AM EDT 1.0 {tablet_on_the_tongue_and_allow_to_dissolve} active eCW1 ([facility]) Ondansetron 4 MG Disintegrating Oral Tablet Ondansetron 4 MG 05/18/2021 12:00:00 AM EDT 1.0 {tablet_on_the_tongue_and_allow_to_dissolve} active Ondansetron 4 MG eCW1 ([facility]) Ondansetron 4 MG Disintegrating Oral Tablet Ondansetron 4 MG 05/18/2021 12:00:00 AM EDT 1.0 {tablet_on_the_tongue_and_allow_to_dissolve} active Ondansetron 4 MG eCW1 ([facility]) 3 ML Insulin Glargine 100 UNT/ML Pen Inj leonardo [Lantus] Lantus SoloStar 100 UNIT/ML Lantus SoloStar 100 UNIT/ML 05/18/2021 12:00:00 AM EDT active Lantus SoloStar 100 UNIT/ML eCW1 ([facility]) 3 ML Insulin Glargine 100 UNT/ML Pen Inj leonardo [Lantus] Lantus SoloStar 100 UNIT/ML Lantus SoloStar 100 UNIT/ML 05/18/2021 12:00:00 AM EDT active Lantus SoloStar 100 UNIT/ML eCW1 ([facility]) 3 ML Insulin Glargine 100 UNT/ML Pen Inj leonardo [Lantus] Lantus SoloStar 100 UNIT/ML Lantus SoloStar 100 UNIT/ML 05/18/2021 12:00:00 AM EDT active Lantus SoloStar 100 UNIT/ML eCW1 ([facility]) 3 ML Insulin Glargine 100 UNT/ML Pen Inj leonardo [Lantus] Lantus SoloStar 100 UNIT/ML Lantus SoloStar 100 UNIT/ML 05/18/2021 12:00:00 AM EDT active Lantus SoloStar 100 UNIT/ML eCW1 ([facility]) Ondansetron 4 MG Disintegrating Oral Tablet Ondansetron 4 MG 05/18/2021 12:00:00 AM EDT 1.0 {tablet_on_the_tongue_and_allow_to_dissolve} active Ondansetron 4 MG eCW1 ([facility]) 3 ML Insulin Glargine 100 UNT/ML Pen Inj leonardo [Lantus] Lantus SoloStar 100 UNIT/ML Lantus SoloStar 100 UNIT/ML 05/18/2021 12:00:00 AM EDT active Lantus SoloStar 100 UNIT/ML eCW1 ([facility]) 3 ML Insulin Glargine 100 UNT/ML Pen Inj leonardo [Lantus] Lantus SoloStar 100 UNIT/ML Lantus SoloStar 100 UNIT/ML 05/18/2021 12:00:00 AM EDT active Lantus SoloStar 100 UNIT/ML eCW1 ([facility]) Ondansetron 4 MG Disintegrating Oral Tablet Ondansetron 4 MG 05/18/2021 12:00:00 AM EDT 1.0 {tablet_on_the_tongue_and_allow_to_dissolve} active Ondansetron 4 MG eCW1 ([facility]) Ondansetron 4 MG Disintegrating Oral Tablet Ondansetron 4 MG 05/18/2021 12:00:00 AM EDT 1.0 {tablet_on_the_tongue_and_allow_to_dissolve} active Ondansetron 4 MG eCW1 ([facility]) Ondansetron 4 MG Disintegrating Oral Tablet Ondansetron 4 MG 05/18/2021 12:00:00 AM EDT 1.0 {tablet_on_the_tongue_and_allow_to_dissolve} active Ondansetron 4 MG eCW1 ([facility]) 3 ML Insulin Glargine 100 UNT/ML Pen Inj leonardo [Lantus] Lantus SoloStar 100 UNIT/ML Lantus SoloStar 100 UNIT/ML 05/18/2021 12:00:00 AM EDT active Lantus SoloStar 100 UNIT/ML eCW1 ([facility]) Ondansetron 4 MG Disintegrating Oral Tablet Ondansetron 4 MG 05/18/2021 12:00:00 AM EDT 1.0 {tablet_on_the_tongue_and_allow_to_dissolve} active eCW1 ([facility]) Ondansetron 4 MG Disintegrating Oral Tablet Ondansetron 4 MG 05/18/2021 12:00:00 AM EDT 1.0 {tablet_on_the_tongue_and_allow_to_dissolve} active Ondansetron 4 MG eCW1 ([facility]) Ondansetron 4 MG Disintegrating Oral Tablet Ondansetron 4 MG 05/18/2021 12:00:00 AM EDT 1.0 {tablet_on_the_tongue_and_allow_to_dissolve} active Ondansetron 4 MG eCW1 ([facility]) Fluconazole 100 MG Oral Tablet [Diflucan] Diflucan 100 MG Di flucan 100 MG 04/15/2021 12:00:00 AM EDT 1.0 {tablet} suspended eCW1 ([facility]) Fluconazole 100 MG Oral Tablet [Diflucan] Diflucan 100 MG Di flucan 100 MG 04/15/2021 12:00:00 AM EDT 1.0 {tablet} active Diflucan 100 MG eCW1 ([facility]) Fluconazole 100 MG Oral Tablet [Diflucan] Diflucan 100 MG Di flucan 100 MG 04/15/2021 12:00:00 AM EDT 1.0 {tablet} active Diflucan 100 MG eCW1 ([facility]) Fluconazole 100 MG Oral Tablet [Diflucan] Diflucan 100 MG Di flucan 100 MG 04/15/2021 12:00:00 AM EDT 1.0 {tablet} active Diflucan 100 MG eCW1 ([facility]) Fluconazole 100 MG Oral Tablet [Diflucan] Diflucan 100 MG Di flucan 100 MG 04/15/2021 12:00:00 AM EDT 1.0 {tablet} active Diflucan 100 MG eCW1 ([facility]) Fluconazole 100 MG Oral Tablet [Diflucan] Diflucan 100 MG Di flucan 100 MG 04/15/2021 12:00:00 AM EDT 1.0 {tablet} active Diflucan 100 MG eCW1 ([facility]) Fluconazole 100 MG Oral Tablet [Diflucan] Diflucan 100 MG Di flucan 100 MG 04/15/2021 12:00:00 AM EDT 1.0 {tablet} active Diflucan 100 MG eCW1 ([facility]) Fluconazole 100 MG Oral Tablet [Diflucan] Diflucan 100 MG Di flucan 100 MG 04/15/2021 12:00:00 AM EDT 1.0 {tablet} suspended Diflucan 100 MG eCW1 ([facility]) Fluconazole 100 MG Oral Tablet [Diflucan] Diflucan 100 MG Di flucan 100 MG 04/15/2021 12:00:00 AM EDT 1.0 {tablet} suspended eCW1 ([facility]) Fluconazole 100 MG Oral Tablet [Diflucan] Diflucan 100 MG Di flucan 100 MG 04/15/2021 12:00:00 AM EDT 1.0 {tablet} active Diflucan 100 MG eCW1 ([facility]) Fluconazole 100 MG Oral Tablet [Diflucan] Diflucan 100 MG Di flucan 100 MG 04/15/2021 12:00:00 AM EDT 1.0 {tablet} suspended Diflucan 100 MG eCW1 ([facility]) Fluconazole 100 MG Oral Tablet [Diflucan] Diflucan 100 MG Di flucan 100 MG 04/15/2021 12:00:00 AM EDT 1.0 {tablet} active Diflucan 100 MG eCW1 ([facility]) Fluconazole 100 MG Oral Tablet [Diflucan] Diflucan 100 MG Di flucan 100 MG 04/15/2021 12:00:00 AM EDT 1.0 {tablet} active Diflucan 100 MG eCW1 ([facility]) Fluconazole 100 MG Oral Tablet [Diflucan] Diflucan 100 MG Di flucan 100 MG 04/15/2021 12:00:00 AM EDT 1.0 {tablet} active Diflucan 100 MG eCW1 ([facility]) Fluconazole 100 MG Oral Tablet [Diflucan] Diflucan 100 MG Di flucan 100 MG 04/15/2021 12:00:00 AM EDT 1.0 {tablet} active Diflucan 100 MG eCW1 ([facility]) Fluconazole 100 MG Oral Tablet [Diflucan] Diflucan 100 MG Di flucan 100 MG 04/15/2021 12:00:00 AM EDT 1.0 {tablet} active Diflucan 100 MG eCW1 ([facility]) Fluconazole 100 MG Oral Tablet [Diflucan] Diflucan 100 MG Di flucan 100 MG 04/15/2021 12:00:00 AM EDT 1.0 {tablet} suspended Diflucan 100 MG eCW1 ([facility]) Fluconazole 100 MG Oral Tablet [Diflucan] Diflucan 100 MG Di flucan 100 MG 04/15/2021 12:00:00 AM EDT 1.0 {tablet} suspended Diflucan 100 MG eCW1 ([facility]) Fluconazole 100 MG Oral Tablet [Diflucan] Diflucan 100 MG Di flucan 100 MG 04/15/2021 12:00:00 AM EDT 1.0 {tablet} active Diflucan 100 MG eCW1 ([facility]) Fluconazole 100 MG Oral Tablet [Diflucan] Diflucan 100 MG Di flucan 100 MG 04/15/2021 12:00:00 AM EDT 1.0 {tablet} suspended Diflucan 100 MG eCW1 ([facility]) Fluconazole 100 MG Oral Tablet [Diflucan] Diflucan 100 MG Di flucan 100 MG 04/15/2021 12:00:00 AM EDT 1.0 {tablet} suspended Diflucan 100 MG eCW1 ([facility]) Fluconazole 100 MG Oral Tablet [Diflucan] Diflucan 100 MG Di flucan 100 MG 04/15/2021 12:00:00 AM EDT 1.0 {tablet} active Diflucan 100 MG eCW1 ([facility]) Fluconazole 100 MG Oral Tablet [Diflucan] Diflucan 100 MG Di flucan 100 MG 04/15/2021 12:00:00 AM EDT 1.0 {tablet} active Diflucan 100 MG eCW1 ([facility]) Fluconazole 100 MG Oral Tablet [Diflucan] Diflucan 100 MG Di flucan 100 MG 04/15/2021 12:00:00 AM EDT 1.0 {tablet} active Diflucan 100 MG eCW1 ([facility]) Fluconazole 100 MG Oral Tablet [Diflucan] Diflucan 100 MG Di flucan 100 MG 04/15/2021 12:00:00 AM EDT 1.0 {tablet} suspended Diflucan 100 MG eCW1 ([facility]) Fluconazole 100 MG Oral Tablet [Diflucan] Diflucan 100 MG Di flucan 100 MG 04/15/2021 12:00:00 AM EDT 1.0 {tablet} active Diflucan 100 MG eCW1 ([facility]) Fluconazole 100 MG Oral Tablet [Diflucan] Diflucan 100 MG Di flucan 100 MG 04/15/2021 12:00:00 AM EDT 1.0 {tablet} suspended Diflucan 100 MG eCW1 ([facility]) Fluconazole 100 MG Oral Tablet [Diflucan] Diflucan 100 MG Di flucan 100 MG 04/15/2021 12:00:00 AM EDT 1.0 {tablet} active Diflucan 100 MG eCW1 ([facility]) Fluconazole 100 MG Oral Tablet [Diflucan] Diflucan 100 MG Di flucan 100 MG 04/15/2021 12:00:00 AM EDT 1.0 {tablet} active Diflucan 100 MG eCW1 ([facility]) Blood Glucose Test - Blood Glucose Test - 03/22/2021 12:00:00 AM EDT active Blood Glucose Test - eCW1 ([facility]) Blood Glucose Test - Blood Glucose Test - 03/22/2021 12:00:00 AM EDT active Blood Glucose Test - eCW1 ([facility]) Blood Glucose Test - Blood Glucose Test - 03/22/2021 12:00:00 AM EDT active Blood Glucose Test - eCW1 ([facility]) Blood Glucose Test - Blood Glucose Test - 03/22/2021 12:00:00 AM EDT active Blood Glucose Test - eCW1 ([facility]) Blood Glucose Test - Blood Glucose Test - 03/22/2021 12:00:00 AM EDT active Blood Glucose Test - eCW1 ([facility]) Blood Glucose Test - Blood Glucose Test - 03/22/2021 12:00:00 AM EDT active Blood Glucose Test - eCW1 ([facility]) Blood Glucose Test - Blood Glucose Test - 03/22/2021 12:00:00 AM EDT active Blood Glucose Test - eCW1 ([facility]) Blood Glucose Test - Blood Glucose Test - 03/22/2021 12:00:00 AM EDT active Blood Glucose Test - eCW1 ([facility]) Omeprazole 20 MG Delayed Release Oral Capsule Omeprazole 20 MG 03/22/2021 12:00:00 AM EDT active Omeprazo le 20 MG eCW1 ([facility]) Blood Glucose Test - Blood Glucose Test - 03/22/2021 12:00:00 AM EDT active eCW1 ([facility]) Blood Glucose Test - Blood Glucose Test - 03/22/2021 12:00:00 AM EDT active eCW1 ([facility]) Blood Glucose Test - Blood Glucose Test - 03/22/2021 12:00:00 AM EDT active Blood Glucose Test - eCW1 ([facility]) Omeprazole 20 MG Delayed Release Oral Capsule Omeprazole 20 MG 03/22/2021 12:00:00 AM EDT active Omeprazo le 20 MG eCW1 ([facility]) Blood Glucose Test - Blood Glucose Test - 03/22/2021 12:00:00 AM EDT active Blood Glucose Test - eCW1 ([facility]) Omeprazole 20 MG Delayed Release Oral Capsule Omeprazole 20 MG 03/22/2021 12:00:00 AM EDT active Omeprazo le 20 MG eCW1 ([facility]) Blood Glucose Test - Blood Glucose Test - 03/22/2021 12:00:00 AM EDT active Blood Glucose Test - eCW1 ([facility]) Blood Glucose Test - Blood Glucose Test - 03/22/2021 12:00:00 AM EDT active Blood Glucose Test - eCW1 ([facility]) Blood Glucose Test - Blood Glucose Test - 03/22/2021 12:00:00 AM EDT active Blood Glucose Test - eCW1 ([facility]) Blood Glucose Test - Blood Glucose Test - 03/22/2021 12:00:00 AM EDT active Blood Glucose Test - eCW1 ([facility]) Blood Glucose Test - Blood Glucose Test - 03/22/2021 12:00:00 AM EDT active Blood Glucose Test - eCW1 ([facility]) Omeprazole 20 MG Delayed Release Oral Capsule Omeprazole 20 MG 03/22/2021 12:00:00 AM EDT active Omeprazo le 20 MG eCW1 ([facility]) Blood Glucose Test - Blood Glucose Test - 03/22/2021 12:00:00 AM EDT active Blood Glucose Test - eCW1 ([facility]) Blood Glucose Test - Blood Glucose Test - 03/22/2021 12:00:00 AM EDT active Blood Glucose Test - eCW1 ([facility]) Omeprazole 20 MG Delayed Release Oral Capsule Omeprazole 20 MG 03/22/2021 12:00:00 AM EDT active Omeprazo le 20 MG eCW1 ([facility]) Blood Glucose Test - Blood Glucose Test - 03/22/2021 12:00:00 AM EDT active Blood Glucose Test - eCW1 ([facility]) Omeprazole 20 MG Delayed Release Oral Capsule Omeprazole 20 MG 03/22/2021 12:00:00 AM EDT active Omeprazo le 20 MG eCW1 ([facility]) Blood Glucose Test - Blood Glucose Test - 03/22/2021 12:00:00 AM EDT active Blood Glucose Test - eCW1 ([facility]) Blood Glucose Test - Blood Glucose Test - 03/22/2021 12:00:00 AM EDT active Blood Glucose Test - eCW1 ([facility]) Blood Glucose Test - Blood Glucose Test - 03/22/2021 12:00:00 AM EDT active Blood Glucose Test - eCW1 ([facility]) Omeprazole 20 MG Delayed Release Oral Capsule Omeprazole 20 MG 03/22/2021 12:00:00 AM EDT active Omeprazo le 20 MG eCW1 ([facility]) Blood Glucose Test - Blood Glucose Test - 03/22/2021 12:00:00 AM EDT active Blood Glucose Test - eCW1 ([facility]) Blood Glucose Test - Blood Glucose Test - 03/22/2021 12:00:00 AM EDT active Blood Glucose Test - eCW1 ([facility]) Blood Glucose Test - Blood Glucose Test - 03/22/2021 12:00:00 AM EDT active Blood Glucose Test - eCW1 ([facility]) Blood Glucose Test - Blood Glucose Test - 03/22/2021 12:00:00 AM EDT active Blood Glucose Test - eCW1 ([facility]) Blood Glucose Test - Blood Glucose Test - 03/22/2021 12:00:00 AM EDT active Blood Glucose Test - eCW1 ([facility], [facility]) Blood Glucose Test - Blood Glucose Test - 03/22/2021 12:00:00 AM EDT active Blood Glucose Test - eCW1 ([facility]) Omeprazole 20 MG Delayed Release Oral Capsule Omeprazole 20 MG 03/22/2021 12:00:00 AM EDT active Omeprazo le 20 MG eCW1 ([facility]) Blood Glucose Test - Blood Glucose Test - 03/22/2021 12:00:00 AM EDT active Blood Glucose Test - eCW1 ([facility]) Blood Glucose Test - Blood Glucose Test - 03/22/2021 12:00:00 AM EDT active Blood Glucose Test - eCW1 ([facility]) Blood Glucose Test - Blood Glucose Test - 03/22/2021 12:00:00 AM EDT active Blood Glucose Test - eCW1 ([facility]) Nystatin 100 UNT/MG Topical Ointment Nystatin [id number] U NIT/GM Nystatin [id number] UNIT/GM 02/20/2021 12:00:00 AM EDT suspended Nystatin 215909 UNIT/GM eCW1 ([facility]) Nystatin 100 UNT/MG Topical Ointment Nystatin 197730 U NIT/GM Nystatin [id number] UNIT/GM 02/20/2021 12:00:00 AM EDT suspended Nystatin 668503 UNIT/GM eCW1 ([facility]) Nystatin 100 UNT/MG Topical Ointment Nystatin 688831 U NIT/GM Nystatin [id number] UNIT/GM 02/20/2021 12:00:00 AM EDT suspended Nystatin 116518 UNIT/GM eCW1 ([facility]) Nystatin 100 UNT/MG Topical Ointment Nystatin 007545 U NIT/GM Nystatin 687552 UNIT/GM 02/20/2021 12:00:00 AM EDT suspended Nystatin [id number] UNIT/GM eCW1 ([facility]) Nystatin 100 UNT/MG Topical Ointment Nystatin 975202 U NIT/GM Nystatin 716778 UNIT/GM 02/20/2021 12:00:00 AM EDT suspended Nystatin 304437 UNIT/GM eCW1 ([facility]) Nystatin 100 UNT/MG Topical Ointment Nystatin 556447 U NIT/GM Nystatin 377030 UNIT/GM 02/20/2021 12:00:00 AM EDT active Nystatin 850356 UNIT/GM eCW1 ([facility]) Nystatin 100 UNT/MG Topical Ointment Nystatin 666524 U NIT/GM Nystatin 888344 UNIT/GM 02/20/2021 12:00:00 AM EDT suspended Nystatin 171397 UNIT/GM eCW1 ([facility]) Nystatin 100 UNT/MG Topical Ointment Nystatin 635224 U NIT/GM Nystatin 347740 UNIT/GM 02/20/2021 12:00:00 AM EDT suspended Nystatin 894627 UNIT/GM eCW1 ([facility]) Nystatin 100 UNT/MG Topical Ointment Nystatin 148330 U NIT/GM Nystatin 342694 UNIT/GM 02/20/2021 12:00:00 AM EDT active eCW1 ([facility]) Nystatin 100 UNT/MG Topical Ointment Nystatin 969048 U NIT/GM Nystatin 165809 UNIT/GM 02/20/2021 12:00:00 AM EDT suspended Nystatin 869049 UNIT/GM eCW1 ([facility]) Nystatin 100 UNT/MG Topical Ointment Nystatin 712134 U NIT/GM Nystatin 185365 UNIT/GM 02/20/2021 12:00:00 AM EDT suspended Nystatin 229039 UNIT/GM eCW1 ([facility]) Nystatin 100 UNT/MG Topical Ointment Nystatin 794605 U NIT/GM Nystatin 757003 UNIT/GM 02/20/2021 12:00:00 AM EDT active Nystatin 509840 UNIT/GM eCW1 ([facility]) Nystatin 100 UNT/MG Topical Ointment Nystatin 579006 U NIT/GM Nystatin 280655 UNIT/GM 02/20/2021 12:00:00 AM EDT active Nystatin 772656 UNIT/GM eCW1 ([facility]) Nystatin 100 UNT/MG Topical Ointment Nystatin 088619 U NIT/GM Nystatin 787427 UNIT/GM 02/20/2021 12:00:00 AM EDT active Nystatin 392040 UNIT/GM eCW1 ([facility]) Nystatin 100 UNT/MG Topical Ointment Nystatin 190691 U NIT/GM Nystatin 542462 UNIT/GM 02/20/2021 12:00:00 AM EDT suspended Nystatin 172959 UNIT/GM eCW1 ([facility]) Nystatin 100 UNT/MG Topical Ointment Nystatin 410885 U NIT/GM Nystatin 389464 UNIT/GM 02/20/2021 12:00:00 AM EDT suspended Nystatin 281889 UNIT/GM eCW1 ([facility]) Nystatin 100 UNT/MG Topical Ointment Nystatin 661378 U NIT/GM Nystatin 771430 UNIT/GM 02/20/2021 12:00:00 AM EDT suspended Nystatin 861775 UNIT/GM eCW1 ([facility]) Nystatin 100 UNT/MG Topical Ointment Nystatin 568534 U NIT/GM Nystatin 848645 UNIT/GM 02/20/2021 12:00:00 AM EDT suspended Nystatin 317329 UNIT/GM eCW1 ([facility]) Nystatin 100 UNT/MG Topical Ointment Nystatin 948804 U NIT/GM Nystatin 419546 UNIT/GM 02/20/2021 12:00:00 AM EDT suspended Nystatin 732374 UNIT/GM eCW1 ([facility]) Nystatin 100 UNT/MG Topical Ointment Nystatin 161139 U NIT/GM Nystatin 771211 UNIT/GM 02/20/2021 12:00:00 AM EDT suspended Nystatin 032444 UNIT/GM eCW1 ([facility]) Nystatin 100 UNT/MG Topical Ointment Nystatin 114094 U NIT/GM Nystatin 635802 UNIT/GM 02/20/2021 12:00:00 AM EDT active Nystatin 213569 UNIT/GM eCW1 ([facility]) Nystatin 100 UNT/MG Topical Ointment Nystatin 654428 U NIT/GM Nystatin 435148 UNIT/GM 02/20/2021 12:00:00 AM EDT suspended Nystatin 623837 UNIT/GM eCW1 ([facility]) Nystatin 100 UNT/MG Topical Ointment Nystatin 995889 U NIT/GM Nystatin 560991 UNIT/GM 02/20/2021 12:00:00 AM EDT suspended Nystatin 940927 UNIT/GM eCW1 ([facility]) Nystatin 100 UNT/MG Topical Ointment Nystatin 288816 U NIT/GM Nystatin 283089 UNIT/GM 02/20/2021 12:00:00 AM EDT suspended Nystatin 125758 UNIT/GM eCW1 ([facility]) Nystatin 100 UNT/MG Topical Ointment Nystatin 089995 U NIT/GM Nystatin 836033 UNIT/GM 02/20/2021 12:00:00 AM EDT suspended Nystatin 727378 UNIT/GM eCW1 ([facility]) Nystatin 100 UNT/MG Topical Ointment Nystatin 077253 U NIT/GM Nystatin 267696 UNIT/GM 02/20/2021 12:00:00 AM EDT suspended Nystatin 372872 UNIT/GM eCW1 ([facility]) Nystatin 100 UNT/MG Topical Ointment Nystatin 022187 U NIT/GM Nystatin 697269 UNIT/GM 02/20/2021 12:00:00 AM EDT suspended eCW1 ([facility]) Nystatin 100 UNT/MG Topical Ointment Nystatin 931167 U NIT/GM Nystatin 084531 UNIT/GM 02/20/2021 12:00:00 AM EDT suspended Nystatin 171156 UNIT/GM eCW1 ([facility]) Nystatin 100 UNT/MG Topical Ointment Nystatin 481710 U NIT/GM Nystatin 905029 UNIT/GM 02/20/2021 12:00:00 AM EDT suspended Nystatin 628278 UNIT/GM eCW1 ([facility]) Nystatin 100 UNT/MG Topical Ointment Nystatin 376595 U NIT/GM Nystatin 091318 UNIT/GM 02/20/2021 12:00:00 AM EDT suspended Nystatin 194409 UNIT/GM eCW1 ([facility]) Nystatin 100 UNT/MG Topical Ointment Nystatin 231387 U NIT/GM Nystatin 046379 UNIT/GM 02/20/2021 12:00:00 AM EDT active Nystatin 770646 UNIT/GM eCW1 ([facility]) Nystatin 100 UNT/MG Topical Ointment Nystatin 052012 U NIT/GM Nystatin 435369 UNIT/GM 02/20/2021 12:00:00 AM EDT active Nystatin 846359 UNIT/GM eCW1 ([facility]) Nystatin 100 UNT/MG Topical Ointment Nystatin 719648 U NIT/GM Nystatin 459997 UNIT/GM 02/20/2021 12:00:00 AM EDT suspended Nystatin 014817 UNIT/GM eCW1 ([facility]) Nystatin 100 UNT/MG Topical Ointment Nystatin 741532 U NIT/GM Nystatin 642948 UNIT/GM 02/20/2021 12:00:00 AM EDT suspended eCW1 ([facility]) Nystatin 100 UNT/MG Topical Ointment Nystatin 231387 U NIT/GM Nystatin 378230 UNIT/GM 02/20/2021 12:00:00 AM EDT suspended Nystatin 353380 UNIT/GM eCW1 ([facility]) Nystatin 100 UNT/MG Topical Ointment Nystatin 971170 U NIT/GM Nystatin 425349 UNIT/GM 02/20/2021 12:00:00 AM EDT suspended Nystatin 412097 UNIT/GM eCW1 ([facility]) Nystatin 100 UNT/MG Topical Ointment Nystatin 800709 U NIT/GM Nystatin 307955 UNIT/GM 02/20/2021 12:00:00 AM EDT active Nystatin 469723 UNIT/GM eCW1 ([facility]) valacyclovir 1000 MG Oral Tablet [Valtrex] Valtrex 1 GM Valt evert 1 GM 01/22/2021 12:00:00 AM EDT 1.0 {tablet} suspended Valtrex 1 GM eCW1 ([facility]) Mupirocin 0.02 MG/MG Topical Ointment Mupirocin 2 % Mupiroci n 2 % 01/22/2021 12:00:00 AM EDT suspended Mupir ocin 2 % eCW1 ([facility]) Mupirocin 0.02 MG/MG Topical Ointment Mupirocin 2 % Mupiroci n 2 % 01/22/2021 12:00:00 AM EDT suspended Mupir ocin 2 % eCW1 ([facility]) Mupirocin 0.02 MG/MG Topical Ointment Mupirocin 2 % Mupiroci n 2 % 01/22/2021 12:00:00 AM EDT suspended Mupir ocin 2 % eCW1 ([facility]) valacyclovir 1000 MG Oral Tablet [Valtrex] Valtrex 1 GM Valt evert 1 GM 01/22/2021 12:00:00 AM EDT 1.0 {tablet} suspended Valtrex 1 GM eCW1 ([facility]) valacyclovir 1000 MG Oral Tablet [Valtrex] Valtrex 1 GM Valt evert 1 GM 01/22/2021 12:00:00 AM EDT 1.0 {tablet} active Va ltrex 1 GM eCW1 ([facility]) valacyclovir 1000 MG Oral Tablet [Valtrex] Valtrex 1 GM Valt evert 1 GM 01/22/2021 12:00:00 AM EDT 1.0 {tablet} suspended Valtrex 1 GM eCW1 ([facility]) Mupirocin 0.02 MG/MG Topical Ointment Mupirocin 2 % Mupiroci n 2 % 01/22/2021 12:00:00 AM EDT suspended Mupir ocin 2 % eCW1 ([facility]) Mupirocin 0.02 MG/MG Topical Ointment Mupirocin 2 % Mupiroci n 2 % 01/22/2021 12:00:00 AM EDT suspended Mupir ocin 2 % eCW1 ([facility]) Mupirocin 0.02 MG/MG Topical Ointment Mupirocin 2 % Mupiroci n 2 % 01/22/2021 12:00:00 AM EDT suspended Mupir ocin 2 % eCW1 ([facility]) Mupirocin 0.02 MG/MG Topical Ointment Mupirocin 2 % Mupiroci n 2 % 01/22/2021 12:00:00 AM EDT suspended Mupir ocin 2 % eCW1 ([facility]) valacyclovir 1000 MG Oral Tablet [Valtrex] Valtrex 1 GM Valt evert 1 GM 01/22/2021 12:00:00 AM EDT 1.0 {tablet} suspended Valtrex 1 GM eCW1 ([facility]) Mupirocin 0.02 MG/MG Topical Ointment Mupirocin 2 % Mupiroci n 2 % 01/22/2021 12:00:00 AM EDT active Mupiroci n 2 % eCW1 ([facility]) Mupirocin 0.02 MG/MG Topical Ointment Mupirocin 2 % Mupiroci n 2 % 01/22/2021 12:00:00 AM EDT suspended Mupir ocin 2 % eCW1 ([facility]) Mupirocin 0.02 MG/MG Topical Ointment Mupirocin 2 % Mupiroci n 2 % 01/22/2021 12:00:00 AM EDT active e CW1 ([facility]) Mupirocin 0.02 MG/MG Topical Ointment Mupirocin 2 % Mupiroci n 2 % 01/22/2021 12:00:00 AM EDT active Mupiroci n 2 % eCW1 ([facility]) valacyclovir 1000 MG Oral Tablet [Valtrex] Valtrex 1 GM Valt evert 1 GM 01/22/2021 12:00:00 AM EDT 1.0 {tablet} active Va ltrex 1 GM eCW1 ([facility]) Mupirocin 0.02 MG/MG Topical Ointment Mupirocin 2 % Mupiroci n 2 % 01/22/2021 12:00:00 AM EDT suspended Mupir ocin 2 % eCW1 ([facility]) valacyclovir 1000 MG Oral Tablet [Valtrex] Valtrex 1 GM Valt evert 1 GM 01/22/2021 12:00:00 AM EDT 1.0 {tablet} suspended Valtrex 1 GM eCW1 ([facility]) valacyclovir 1000 MG Oral Tablet [Valtrex] Valtrex 1 GM Valt evert 1 GM 01/22/2021 12:00:00 AM EDT 1.0 {tablet} suspended Valtrex 1 GM eCW1 ([facility]) valacyclovir 1000 MG Oral Tablet [Valtrex] Valtrex 1 GM Valt evert 1 GM 01/22/2021 12:00:00 AM EDT 1.0 {tablet} active Va ltrex 1 GM eCW1 ([facility]) Mupirocin 0.02 MG/MG Topical Ointment Mupirocin 2 % Mupiroci n 2 % 01/22/2021 12:00:00 AM EDT suspended Mupir ocin 2 % eCW1 ([facility]) valacyclovir 1000 MG Oral Tablet [Valtrex] Valtrex 1 GM Valt evert 1 GM 01/22/2021 12:00:00 AM EDT 1.0 {tablet} suspended Valtrex 1 GM eCW1 ([facility]) valacyclovir 1000 MG Oral Tablet [Valtrex] Valtrex 1 GM Valt evert 1 GM 01/22/2021 12:00:00 AM EDT 1.0 {tablet} suspended Valtrex 1 GM eCW1 ([facility]) Mupirocin 0.02 MG/MG Topical Ointment Mupirocin 2 % Mupiroci n 2 % 01/22/2021 12:00:00 AM EDT active Mupiroci n 2 % eCW1 ([facility]) valacyclovir 1000 MG Oral Tablet [Valtrex] Valtrex 1 GM Valt evert 1 GM 01/22/2021 12:00:00 AM EDT 1.0 {tablet} suspended Valtrex 1 GM eCW1 ([facility]) Mupirocin 0.02 MG/MG Topical Ointment Mupirocin 2 % Mupiroci n 2 % 01/22/2021 12:00:00 AM EDT active Mupiroci n 2 % eCW1 ([facility]) Mupirocin 0.02 MG/MG Topical Ointment Mupirocin 2 % Mupiroci n 2 % 01/22/2021 12:00:00 AM EDT active Mupiroci n 2 % eCW1 ([facility]) valacyclovir 1000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 Former Smoker eCW1 ([facility]) Smoking 03/20/2021 12:00:00 AM EDT Former Smoker completed Former Smoker eCW1 ([facility]) Smoking 03/20/2021 12:00:00 AM EDT Former Smoker completed Former Smoker eCW1 ([facility]) Smoking 02/20/2021 12:00:00 AM EDT Former Smoker completed Former Smoker eCW1 ([facility]) Smoking 02/20/2021 12:00:00 AM EDT Former Smoker completed Former Smoker eCW1 ([facility]) Smoking 02/20/2021 12:00:00 AM EDT Former Smoker completed Former Smoker eCW1 ([facility]) Smoking 02/20/2021 12:00:00 AM EDT Former Smoker completed Former Smoker eCW1 ([facility]) Smoking 02/06/2021 12:00:00 AM EDT Former Smoker completed Former Smoker eCW1 ([facility]) Smoking 02/06/2021 12:00:00 AM EDT Former Smoker completed Former Smoker eCW1 ([facility]) Smoking 01/22/2021 12:00:00 AM EDT Never Smoker completed Never S moker eCW1 ([facility]) Smoking 01/22/2021 12:00:00 AM EDT Never Smoker completed Never S moker eCW1 ([facility]) Vital Signs ID Date Data Source UNK Name Value Range Interpretation Code Description Data Source(s) Body temperature 97.3 [degF] 97.3 [degF] [facility] ([facility] ) Body weight 196.8 [lb_av] 196.8 [lb_av] eCW1 ([facility]) Body weight 89.27 kg 89.27 kg W1 ([facility]) Body height 63 [in_i] 63 [in_i] eCW1 ([facility] to [facility]) Body mass index (BMI) [Ratio] 34.86 kg/m2 34.86 kg/m2 W1 ([facility]) Systolic blood pressure 132 mm[Hg] 132 mm[Hg] e CW1 ([facility]) Diastolic blood pressure 84 mm[Hg] 84 mm[Hg] eCW1 ([facility]) Body weight 197 [lb_av] 197 [lb_av] eCW1 ([facility]) Body weight 89.36 kg 89.36 kg eCW1 ([facility]) Body height 63 [in_i] 63 [in_i] eCW1 ([facility] to [facility]) Body mass index (BMI) [Ratio] 34.89 kg/m2 34.89 kg/m2 eCW1 ([facility]) Systolic blood pressure 130 mm[Hg] 130 mm[Hg] e CW1 ([facility]) Diastolic blood pressure 80 mm[Hg] 80 mm[Hg] eCW1 ([facility]) Body temperature 96.1 [degF] 96.1 [degF] [facility] ([facility] ) Body weight 199 [lb_av] 199 [lb_av] eCW1 ([facility]) Body weight 90.27 kg 90.27 kg eCW1 ([facility]) Body height 63 [in_i] 63 [in_i] eCW1 ([facility] to [facility]) Body mass index (BMI) [Ratio] 35.25 kg/m2 35.25 kg/m2 eCW1 ([facility]) Heart rate 109 /min 109 /min eCW1 ([facility]) Respiratory rate 18 /min 18 /min eCW1 ([facility]) Body temperature 97.7 [degF] 97.7 [degF] eCW1 ( [facility]) Systolic blood pressure 140 mm[Hg] 140 mm[Hg] e CW1 ([facility]) Diastolic blood pressure 94 mm[Hg] 94 mm[Hg] eCW1 ([facility]) Body weight 197.6 [lb_av] 197.6 [lb_av] eCW1 ([facility]) Body height 63 [in_i] 63 [in_i] eCW1 ([facility]) Systolic blood pressure 132 mm[Hg] 132 mm[Hg] e CW1 ([facility]) Diastolic blood pressure 86 mm[Hg] 86 mm[Hg] eCW1 ([facility]) Body mass index (BMI) [Ratio] 35.00 kg/m2 35.00 kg/m2 eCW1 ([facility]) Heart rate 96 /min 96 /min eCW1 ([facility]) Respiratory rate 18 /min 18 /min eCW1 ([facility]) Body temperature 98.2 [degF] 98.2 [degF] eCW1 ( [facility]) Body weight 193 [lb_av] 193 [lb_av] eCW1 ([facility]) Body weight 87.54 kg 87.54 kg eCW1 ([facility]) Body height 63 [in_i] 63 [in_i] eCW1 ([facility]) Body mass index (BMI) [Ratio] 34.18 kg/m2 34.18 kg/m2 eCW1 ([facility]) Heart rate 104 /min 104 /min eCW1 ([facility]) Respiratory rate 18 /min 18 /min eCW1 ([facility]) Body temperature 98.0 [degF] 98.0 [degF] eCW1 ( [facility]) Systolic blood pressure 130 mm[Hg] 130 mm[Hg] e CW1 ([facility]) Diastolic blood pressure 82 mm[Hg] 82 mm[Hg] eCW1 ([facility]) Body weight 196.08 [lb_av] 196.08 [lb_av] eCW1 ([facility]) Body height 63 [in_i] 63 [in_i] eCW1 ([facility]) Body mass index (BMI) [Ratio] 34.73 kg/m2 34.73 kg/m2 eCW1 ([facility]) Heart rate 111 /min 111 /min eCW1 ([facility]) Respiratory rate 18 /min 18 /min eCW1 ([facility]) Body temperature 97.5 [degF] 97.5 [degF] eCW1 ( [facility]) Systolic blood pressure 138 mm[Hg] 138 mm[Hg] e CW1 ([facility]) Diastolic blood pressure 90 mm[Hg] 90 mm[Hg] eCW1 ([facility]) Body weight 209.6 [lb_av] 209.6 [lb_av] eCW1 ([facility]) Body height 63 [in_i] 63 [in_i] eCW1 ([facility]) Body mass index (BMI) [Ratio] 37.12 kg/m2 37.12 kg/m2 W1 ([facility]) Systolic blood pressure 120 mm[Hg] 120 mm[Hg] e CW1 ([facility]) Diastolic blood pressure 76 mm[Hg] 76 mm[Hg] eCW1 ([facility]) Body weight 203.0 [lb_av] 203.0 [lb_av] eCW1 ([facility]) Body weight 92.08 kg 92.08 kg W1 ([facility]) Body height 63 [in_i] 63 [in_i] eCW1 ([facility]) Body mass index (BMI) [Ratio] 35.96 kg/m2 35.96 kg/m2 [facility] ([facility]) Systolic blood pressure 132 mm[Hg] 132 mm[Hg] e CW1 ([facility]) Diastolic blood pressure 90 mm[Hg] 90 mm[Hg] W1 ([facility]) Systolic blood pressure 155 mm[Hg] 155 mm[Hg] M EDENT ([facility], [facility]) Diastolic blood pressure 101 mm[Hg] 101 mm[Hg] MEDENT ([facility], [facility]) Heart rate 92 /min 92 /min MEDENT ([facility], [facility]) Respiratory rate 16 /min 16 /min [facility] ( [facility], [facility]) Oxygen saturation in Arterial blood by Pulse oximetry 100 % 100 % MEDENT ([facility], [facility]) Body temperature 96.2 [degF] 96.2 [degF] MEDENT ([facility], [facility]) Body weight 203.00 [lb_av] 203.00 [lb_av] MEDEN T ([facility], [facility]) Body height 62 [in_i] 62 [in_i] MEDENT ([facility], [facility]) 5'2" Body mass index (BMI) [Ratio] 37.1 kg/m2 37.1 k g/m2 MEDENT ([facility], [facility]) Body weight 203.4 [lb_av] 203.4 [lb_av] eCW1 ([facility]) Body height 63 [in_i] 63 [in_i] eCW1 ([facility]) Body mass index (BMI) [Ratio] 36.03 kg/m2 36.03 kg/m2 eCW1 ([facility]) Heart rate 89 /min 89 /min eCW1 ([facility]) Respiratory rate 18 /min 18 /min eCW1 ([facility]) Body temperature 99.3 [degF] 99.3 [degF] eCW1 ( [facility]) Systolic blood pressure 146 mm[Hg] 146 mm[Hg] e CW1 ([facility]) Diastolic blood pressure 80 mm[Hg] 80 mm[Hg] eCW1 ([facility]) Body weight 212 [lb_av] 212 [lb_av] eCW1 ([facility]) Body height 63 [in_i] 63 [in_i] eCW1 ([facility]ending [facility] to [facility]) Body mass index (BMI) [Ratio] 37.55 kg/m2 37.55 kg/m2 eCW1 ([facility]) Heart rate 80 /min 80 /min eCW1 ([facility]) Respiratory rate 18 /min 18 /min eCW1 ([facility]) Body temperature 97.4 [degF] 97.4 [degF] eCW1 ( [facility]) Systolic blood pressure 120 mm[Hg] 120 mm[Hg] e CW1 ([facility]) Diastolic blood pressure 80 mm[Hg] 80 mm[Hg] eCW1 ([facility]) Body weight 206 [lb_av] 206 [lb_av] eCW1 ([facility]) Body height 63 [in_i] 63 [in_i] eCW1 ([facility]ending [facility] to [facility]) Body mass index (BMI) [Ratio] 36.49 kg/m2 36.49 kg/m2 eCW1 ([facility]) Heart rate 99 /min 99 /min eCW1 ([facility]) Respiratory rate 20 /min 20 /min eCW1 ([facility]) Body temperature 96.9 [degF] 96.9 [degF] eCW1 ( [facility]) Systolic blood pressure 122 mm[Hg] 122 mm[Hg] e CW1 ([facility]) Diastolic blood pressure 86 mm[Hg] 86 mm[Hg] eCW1 ([facility]) Body weight 208.8 [lb_av] 208.8 [lb_av] eCW1 ([facility]) Body height 63 [in_i] 63 [in_i] eCW1 [facility] Health) Body mass index (BMI) [Ratio] 36.98 kg/m2 36.98 kg/m2 eCW1 ([facility]) Heart rate 105 /min 105 /min eCW1 ([facility]) Respiratory rate 20 /min 20 /min eCW1 ([facility]) Body temperature 97.8 [degF] 97.8 [degF] eCW1 ( [facility]) Systolic blood pressure 130 mm[Hg] 130 mm[Hg] e CW1 ([facility]) Diastolic blood pressure 82 mm[Hg] 82 mm[Hg] eCW1 ([facility]) Patient Treatment Plan of Care Planned Activity Planned Date Details Description Data Source (s) medroxyprogesterone acetate 10 MG Oral Tablet 08/23/2021 12:00:00 A M EDT eCW1 ([facility]) medroxyprogesterone acetate 10 MG Oral Tablet 08/23/2021 12:00:00 A M EDT eCW1 ([facility]) medroxyprogesterone acetate 10 MG Oral Tablet [Provera ] 08/02/2021 12:00:00 AM EDT eCW1 ([facility]) medroxyprogesterone acetate 10 MG Oral Tablet [Provera ] 08/02/2021 12:00:00 AM EDT eCW1 ([facility]) medroxyprogesterone acetate 10 MG Oral Tablet [Provera ] 08/02/2021 12:00:00 AM EDT eCW1 ([facility]) medroxyprogesterone acetate 10 MG Oral Tablet [Provera ] 08/02/2021 12:00:00 AM EDT eCW1 ([facility]) medroxyprogesterone acetate 10 MG Oral Tablet [Provera ] 08/02/2021 12:00:00 AM EDT eCW1 ([facility]) medroxyprogesterone acetate 10 MG Oral Tablet [Provera ] 08/02/2021 12:00:00 AM EDT eCW1 ([facility]) Diclofenac Sodium 0.01 MG/MG Topical Gel [Voltaren] 07/09/20 21 12:00:00 AM EDT eCW1 ([facility]) Diclofenac Sodium 0.01 MG/MG Topical Gel [Voltaren] 07/09/20 21 12:00:00 AM EDT eCW1 ([facility]) Diclofenac Sodium 0.01 MG/MG Topical Gel [Voltaren] 07/09/20 21 12:00:00 AM EDT eCW1 ([facility]) Diclofenac Sodium 0.01 MG/MG Topical Gel [Voltaren] 07/09/20 21 12:00:00 AM EDT eCW1 ([facility]) Diclofenac Sodium 0.01 MG/MG Topical Gel [Voltaren] 07/09/20 21 12:00:00 AM EDT eCW1 ([facility]) FreeStyle [place] 14 Day Sensor - 06/26/2021 12:00:00 AM EDT eCW1 ([facility]) FreeStyle Kaleigh 14 Day [place] - 06/26/2021 12:00:00 AM EDT eCW1 ([facility]) FreeStyle [place] 14 Day Sensor - 06/26/2021 12:00:00 AM EDT eCW1 ([facility]) FreeStyle Kaleigh 14 Day [place] - 06/26/2021 12:00:00 AM EDT eCW1 ([facility]) Fluconazole 150 MG Oral Tablet 06/18/2021 12:00:00 AM EDT eCW1 ([facility]) Fluconazole 150 MG Oral Tablet 06/18/2021 12:00:00 AM EDT eCW1 ([facility]) Fluconazole 150 MG Oral Tablet 06/18/2021 12:00:00 AM EDT eCW1 ([facility]) Fluconazole 150 MG Oral Tablet 06/18/2021 12:00:00 AM EDT eCW1 ([facility]) 3 ML Insulin Glargine 100 UNT/ML Pen Injector [Lantus] 05/18/2021 12:00:00 AM EDT eCW1 ([facility]) 3 ML Insulin Glargine 100 UNT/ML Pen Injector [Lantus] 05/18/2021 12:00:00 AM EDT eCW1 ([facility]) 3 ML Insulin Glargine 100 UNT/ML Pen Injector [Lantus] 05/18/2021 12:00:00 AM EDT eCW1 ([facility]) 3 ML Insulin Glargine 100 UNT/ML Pen Injector [Lantus] 05/18/2021 12:00:00 AM EDT eCW1 ([facility]) 3 ML Insulin Glargine 100 UNT/ML Pen Injector [Lantus] 05/18/2021 12:00:00 AM EDT eCW1 ([facility]) Ondansetron 4 MG Disintegrating Oral Tablet 05/18/2021 12:00:00 AM EDT eCW1 ([facility]) 3 ML Insulin Glargine 100 UNT/ML Pen Injector [Lantus] 05/18/2021 12:00:00 AM EDT eCW1 ([facility]) Ondansetron 4 MG Disintegrating Oral Tablet 05/18/2021 12:00:00 AM EDT eCW1 ([facility]) 3 ML Insulin Glargine 100 UNT/ML Pen Injector [Lantus] 05/18/2021 12:00:00 AM EDT eCW1 ([facility]) Ondansetron 4 MG Disintegrating Oral Tablet 05/18/2021 12:00:00 AM EDT eCW1 ([facility]) 3 ML Insulin Glargine 100 UNT/ML Pen Injector [Lantus] 05/18/2021 12:00:00 AM EDT eCW1 ([facility]) Ondansetron 4 MG Disintegrating Oral Tablet 05/18/2021 12:00:00 AM EDT eCW1 ([facility]) celecoxib 100 MG Oral Capsule 05/18/2021 12:00:00 AM EDT eCW1 ([facility]) Fluconazole 100 MG Oral Tablet [Diflucan] 04/15/2021 12:00:00 AM ED T eCW1 ([facility]) Fluconazole 100 MG Oral Tablet [Diflucan] 04/15/2021 12:00:00 AM ED T eCW1 ([facility]) Omeprazole 20 MG Delayed Release Oral Capsule 03/22/2021 12:00:00 A M EDT eCW1 ([facility]) Blood Glucose Test - 03/22/2021 12:00:00 AM EDT eCW1 ([facility]) Omeprazole 20 MG Delayed Release Oral Capsule 03/22/2021 12:00:00 A M EDT eCW1 ([facility]) Blood Glucose Test - 03/22/2021 12:00:00 AM EDT eCW1 ([facility]) Nystatin 100 UNT/MG Topical Ointment 02/20/2021 12:00:00 AM EDT eCW1 ([facility]) Nystatin 100 UNT/MG Topical Ointment 02/20/2021 12:00:00 AM EDT eCW1 ([facility]) Nystatin 100 UNT/MG Topical Ointment 02/20/2021 12:00:00 AM EDT eCW1 ([facility]) Nystatin 100 UNT/MG Topical Ointment 02/20/2021 12:00:00 AM EDT eCW1 ([facility]) Nystatin 100 UNT/MG Topical Ointment 02/20/2021 12:00:00 AM EDT eCW1 ([facility]) valacyclovir 1000 MG Oral Tablet [Valtrex] 01/22/2021 12:00:00 AM E DT eCW1 ([facility]) Mupirocin 0.02 MG/MG Topical Ointment 01/22/2021 12:00:00 AM EDT eCW1 ([facility]) valacyclovir 1000 MG Oral Tablet [Valtrex] 01/22/2021 12:00:00 AM E DT eCW1 ([facility]) Mupirocin 0.02 MG/MG Topical Ointment 01/22/2021 12:00:00 AM EDT eCW1 ([facility])
[2021-09-11] MEDS ORDERED: KETOROLAC 60MG 2ML VIAL IM ONE (12:30)
[2021-09-11 12:38] LABS: BASO % 0.3 % (0.0-1.0); EOS # 0.1 10^3/uL (0.0-0.5); EOS % 0.9 % (0.0-3.0); HEMATOCRIT 36.7 % (36.0-47.0); HEMOGLOBIN 11.9 g/dl (12.0-15.5); LYMPH % 21.6 % (24.0-44.0); MEAN CORPUSCULAR HEMOGLOBIN 26.3 pg (27.0-33.0); MEAN CORPUSCULAR HGB CONC 32.4 g/dl (32.0-36.5); MONO # 0.6 10^3/uL (0.0-0.8); MONO % 6.1 % (2.0-8.0); NEUTROPHILS # 6.7 10^3/uL (1.5-8.5); NEUTROPHILS % 70.7 % (36.0-66.0); PLATELET COUNT, AUTOMATED 276 10^3/uL (150-450); RED BLOOD COUNT 4.53 10^6/uL (4.00-5.40); WHITE BLOOD COUNT 9.4 10^3/uL (4.0-10.0)
[2021-09-11 13:23] LABS: BLOOD UREA NITROGEN 8 MG/DL (7-18); CALCIUM LEVEL 9.2 MG/DL (8.5-10.1); CARBON DIOXIDE LEVEL 24 MEQ/L (21-32); CHLORIDE LEVEL 105 MEQ/L (98-107); CREATININE FOR GFR 1.02 MG/DL (0.55-1.30); GLOMERULAR FILTRATION RATE > 60.0 (>60); GLUCOSE, FASTING 409 MG/DL (70-100); POTASSIUM SERUM 4.2 MEQ/L (3.5-5.1); SODIUM LEVEL 139 MEQ/L (136-145)
[2021-09-11] MEDS ORDERED: NS 1,000 ML IV ONE (13:40)
[2021-09-11] MEDS ORDERED: KETO10TAB PO (16:18)
[2021-09-11 16:26] VITALS: BP 160/92
== END 2021-09-11 16:39 | disposition home or self-care (01) ==
LOC: M ED 09:17
DX: L02.31 Cutaneous abscess of buttock (principal); E11.9 Type 2 diabetes mellitus without complications; I10 Essential (primary) hypertension; Z88.0 Allergy status to penicillin; Z79.899 Other long term (current) drug therapy; Z79.4 Long term (current) use of insulin
CPT/HCPCS: 80048; 85025; 87070; 87186; 96360; 96361; 96372; 99284; J1885

== ENCOUNTER → 2021-09-23 | Outpatient (CLI) | payer MEDICARE, MEDICAID ==
[~2021-09-23] MED LIST changes: -ARIP1TAB6; +ARIP1TAB6 PO; -ATOR1TAB21; +ATOR1TAB21 PO; +CELE1CAP7 PO; -FLUC100T; +FLUC100T3; -FLUO40CA; +FLUO40CA PO; +HYDR12CA PO; -INSULANT; +INSULANT SC; +JARD1TAB3 PO; +KETO10TAB PO; -MEDR10TA; +MEDR10TA PO; -METF10004; +METF10004 PO; +OMEP-173 PO; -OMEP-218; +ONDA4TAB6 PO; +TRAZ-252 PO
== END ==
LOC: M RAD 09:59
PROVIDERS: ATTEND Orthopaedic Surgery
DX: R93.7 Abnormal findings on diagnostic imaging of other parts of musculoskeletal system (principal); M75.41 Impingement syndrome of right shoulder

== ENCOUNTER 2021-11-19 09:44 | Emergency (ER) | payer MEDICARE, MEDICAID ==
[~2021-11-19] VITALS: Ht 167.6 cm; Wt 81.4 kg
[~2021-11-19 09:44] MED LIST changes: +ARIP1TAB6; -ARIP1TAB6 PO; +ATOR1TAB21; -ATOR1TAB21 PO; -CELE1CAP7 PO; +FLUC100T; -FLUC100T3; +FLUO40CA; -FLUO40CA PO; -HYDR12CA PO; +INSULANT; -INSULANT SC; -JARD1TAB3 PO; +MEDR10TA; -MEDR10TA PO; +METF10004; -METF10004 PO; +OMEP-173; -OMEP-173 PO; -ONDA4TAB6 PO; -TRAZ-252 PO
[2021-11-19] MEDS ORDERED: NS 1,000 ML IV ONE (09:55)
[2021-11-19] MEDS ORDERED: ONDANSETRON 4MG/2ML VIAL IV ONE (11:00)
[2021-11-19 11:03] LABS: VENOUS BASE EXCESS -2.2 (-2.0-2.0); VENOUS O2 SATURATION 63.8 % (60.0-80.0); VENOUS PARTIAL PRESSURE CO2 41.2 mmHg (38.0-50.0); VENOUS PARTIAL PRESSURE O2 34.7 mmHg (30.0-50.0); VENOUS PH 7.365 UNITS (7.330-7.430); VENOUS STANDARD HCO3 21.9 MEQ/L; VENOUS TOTAL CO2 24.3 MEQ/L (24.0-28.0)
[2021-11-19 11:05] LABS: BASO % 0.4 % (0.0-1.0); HEMATOCRIT 41.5 % (36.0-47.0); LYMPH # 1.7 10^3/uL (1.5-5.0); LYMPH % 17.9 % (24.0-44.0); MEAN CORPUSCULAR HEMOGLOBIN 24.7 pg (27.0-33.0); MEAN CORPUSCULAR HGB CONC 31.3 g/dl (32.0-36.5); MEAN CORPUSCULAR VOLUME 78.9 fl (80.0-96.0); MONO # 0.3 10^3/uL (0.0-0.8); MONO % 3.5 % (2.0-8.0); NEUTROPHILS # 7.5 10^3/uL (1.5-8.5); NEUTROPHILS % 77.8 % (36.0-66.0); PLATELET COUNT, AUTOMATED 395 10^3/uL (150-450); RED BLOOD COUNT 5.26 10^6/uL (4.00-5.40); WHITE BLOOD COUNT 9.7 10^3/uL (4.0-10.0)
[2021-11-19] MEDS ORDERED: ISOVUE-370 76% 100ML VIAL As Ordered ONE (11:42)
[2021-11-19 11:45] LABS: ALBUMIN 3.9 GM/DL (3.2-5.2); ALT/SGPT 20 U/L (12-78); BILIRUBIN,DIRECT 0.1 MG/DL (0.0-0.2); BILIRUBIN,TOTAL 0.7 MG/DL (0.2-1.0); LIPASE 95 U/L (73-393); TOTAL PROTEIN 8.1 GM/DL (6.4-8.2)
[2021-11-19 11:47] LABS: HCG, SERUM QUALITATIVE NEGATIVE (NEGATIVE)
[2021-11-19] MEDS ORDERED: ONDA4TAB6 PO (13:50)
[2021-11-19 14:04] VITALS: BP 168/91
== END 2021-11-19 14:43 | disposition home or self-care (01) ==
LOC: EDBD 09:44 → M ED 09:44
DX: R11.2 Nausea with vomiting, unspecified (principal); R19.7 Diarrhea, unspecified; K76.0 Fatty (change of) liver, not elsewhere classified; E11.9 Type 2 diabetes mellitus without complications; I10 Essential (primary) hypertension; N80.9 Endometriosis, unspecified; Z88.0 Allergy status to penicillin; Z79.4 Long term (current) use of insulin; Z79.899 Other long term (current) drug therapy
CPT/HCPCS: 74177; 80047; 80076; 82803; 83690; 84703; 85025; 96361; 96374; 99284; J2405; Q9967

== ENCOUNTER → 2021-11-22 | Outpatient (CLI) | payer MEDICARE, MEDICAID ==
[~2021-11-22] MED LIST changes: -ARIP1TAB6; +ARIP1TAB6 PO; -ATOR1TAB21; +ATOR1TAB21 PO; +CELE1CAP7 PO; -FLUC100T; +FLUC100T3; -FLUO40CA; +FLUO40CA PO; +HYDR12CA PO; -INSULANT; +INSULANT SC; +JARD1TAB3 PO; -MEDR10TA; +MEDR10TA PO; -METF10004; +METF10004 PO; -OMEP-173; +OMEP-173 PO; +ONDA4TAB6 PO; +TRAZ-252 PO
== END ==
LOC: M WHC 13:44
PROVIDERS: ATTEND Obstetrics & Gynecology
DX: D25.9 Leiomyoma of uterus, unspecified (principal); N92.0 Excessive and frequent menstruation with regular cycle

== ENCOUNTER → 2021-12-02 | Outpatient (CLI) | payer MEDICARE, MEDICAID | LOC: M LABSMTC 10:36 | PROVIDERS: ATTEND Anesthesiology | DX: Z01.818 Encounter for other preprocedural examination (principal); Z11.52 Encounter for screening for COVID-19 ==

== ENCOUNTER → 2021-12-03 | Outpatient (CLI) | payer MEDICARE, MEDICAID ==
[2021-12-03 17:24] LABS: HEMOGLOBIN A1c 11.6 %
== END ==
LOC: M PLALAB 14:23
PROVIDERS: ATTEND Student in an Organized Health Care Education/Training Program
DX: E11.40 Type 2 diabetes mellitus with diabetic neuropathy, unspecified (principal)

== ENCOUNTER 2021-12-06 09:03 | Day surgery (SDC) | payer MEDICARE, MEDICAID ==
[~2021-12-06] VITALS: Ht 157.5 cm; Wt 86.2 kg
[~2021-12-06 09:03] MED LIST changes: +LIDOCAINE 1% MDV 20ML VIAL SQ PRN; +LR 1,000 ML IV ONE
[2021-12-06 09:39] LABS: HEMATOCRIT 40.3 % (36.0-47.0); MEAN CORPUSCULAR HEMOGLOBIN 24.4 pg (27.0-33.0); MEAN CORPUSCULAR HGB CONC 29.8 g/dl (32.0-36.5); MEAN CORPUSCULAR VOLUME 82.1 fl (80.0-96.0); PLATELET COUNT, AUTOMATED 455 10^3/uL (150-450); RED BLOOD COUNT 4.91 10^6/uL (4.00-5.40); WHITE BLOOD COUNT 10.8 10^3/uL (4.0-10.0)
[2021-12-06] MEDS ORDERED: DEXTROSE 50% 50 ML SYRINGE As Ordered ONE (11:29)
[2021-12-06] MEDS ORDERED: DEXTROSE 50% 50 ML SYRINGE IV ONE (11:30)
[2021-12-06] MEDS ORDERED: propofoL 200 MG/20 ML VIAL As Ordered ONE (14:02)
[2021-12-06] MEDS ORDERED: dexameTHASONE 4 MG/ML 1ML VIAL (J1100 PER 1MG) As Ordered ONE (14:02)
[2021-12-06] MEDS ORDERED: fentaNYL 100 MCG/2 ML INJECTION As Ordered ONE (14:03)
[2021-12-06] MEDS ORDERED: ONDANSETRON 4MG/2ML VIAL As Ordered ONE ×2 (14:03→15:47)
[2021-12-06] MEDS ORDERED: MIDAZOLAM INJ 2MG/2ML VIAL (J2250 PER 1MG) As Ordered ONE (14:03)
[2021-12-06] MEDS ORDERED: KETOROLAC 60MG 2ML VIAL As Ordered ONE (15:27)
[2021-12-06] MEDS ORDERED: KETOROLAC 30 MG/ML 1ML VIAL IV PRN (15:28)
[2021-12-06] MEDS ORDERED: fentaNYL 100 MCG/2 ML INJECTION IV PRN (16:05)
[2021-12-06] MEDS ORDERED: LR 1,000 ML IV SCH (16:05)
[2021-12-06] MEDS ORDERED: NORCO, ANEXSIA 5/325MG TABLET (HYDROcodone/ACETAMINOPHEN) PO PRN (16:05)
[2021-12-06] MEDS ORDERED: ONDANSETRON 4MG/2ML VIAL IV PRN (16:05)
[2021-12-06] MEDS ORDERED: LIDOCAINE 2% 100MG/5ML SDV (FOR ANES.) As Ordered ONE (16:21)
[2021-12-06 16:40] VITALS: BP 150/86
[2021-12-06] MEDS ORDERED: KETOROLAC 30 MG/ML 1ML VIAL IV SCH (21:30)
== END 2021-12-06 16:50 | disposition home or self-care (01) ==
LOC: M SDC 09:03
PROVIDERS: ATTEND Obstetrics & Gynecology
DX: N85.00 Endometrial hyperplasia, unspecified (principal); I10 Essential (primary) hypertension; E78.00 Pure hypercholesterolemia, unspecified; E11.9 Type 2 diabetes mellitus without complications; K21.9 Gastro-esophageal reflux disease without esophagitis; M17.11 Unilateral primary osteoarthritis, right knee; M79.7 Fibromyalgia; G56.03 Carpal tunnel syndrome, bilateral upper limbs; F32.9 Major depressive disorder, single episode, unspecified; R56.9 Unspecified convulsions; G47.30 Sleep apnea, unspecified; R06.83 Snoring; Z88.0 Allergy status to penicillin; Z88.5 Allergy status to narcotic agent; Z79.899 Other long term (current) drug therapy; Z79.4 Long term (current) use of insulin; Z79.84 Long term (current) use of oral hypoglycemic drugs
CPT/HCPCS: 36415; 58563; 81025; 85027; 86850; 86870; 86900; 86901; 88305; J1100; J1885; J2250; J2405; J3010

== ENCOUNTER → 2022-03-18 | Outpatient (CLI) | payer MEDICARE, MEDICAID ==
[~2022-03-18] MED LIST changes: -LIDOCAINE 1% MDV 20ML VIAL SQ PRN; -LR 1,000 ML IV ONE
[2022-03-18 19:11] LABS: GC DNA AMPLIFICATION NEGATIVE (NEGATIVE)
== END ==
LOC: M PLALAB 15:26
PROVIDERS: ATTEND Advanced Practice Midwife
DX: Z11.3 Encounter for screening for infections with a predominantly sexual mode of transmission (principal)

== ENCOUNTER 2022-05-10 13:56 | Emergency (ER) | payer MEDICARE, MEDICAID ==
[2022-05-10] MEDS ORDERED: LOSARTAN 50MG TABLET PO ONE (16:35)
[2022-05-10 16:38] LABS: BASO # 0.1 10^3/uL (0.0-0.2); BASO % 0.6 % (0.0-1.0); EOS # 0.1 10^3/uL (0.0-0.5); EOS % 0.4 % (0.0-3.0); HEMATOCRIT 38.6 % (36.0-47.0); HEMOGLOBIN 11.6 g/dl (12.0-15.5); LYMPH # 3.3 10^3/uL (1.5-5.0); LYMPH % 28.7 % (24.0-44.0); MEAN CORPUSCULAR HEMOGLOBIN 21.4 pg (27.0-33.0); MEAN CORPUSCULAR HGB CONC 30.1 g/dl (32.0-36.5); MEAN CORPUSCULAR VOLUME 71.2 fl (80.0-96.0); MONO # 0.6 10^3/uL (0.0-0.8); MONO % 5.4 % (2.0-8.0); NEUTROPHILS # 7.3 10^3/uL (1.5-8.5); NEUTROPHILS % 64.5 % (36.0-66.0); PLATELET COUNT, AUTOMATED 459 10^3/uL (150-450); RED BLOOD COUNT 5.42 10^6/uL (4.00-5.40); WHITE BLOOD COUNT 11.3 10^3/uL (4.0-10.0)
[2022-05-10] MEDS ORDERED: hydroCHLOROthiazide 12.5 MG CAPSULE PO ONE (17:40)
[2022-05-10 18:43] VITALS: BP 186/98
== END 2022-05-10 19:17 | disposition home or self-care (01) ==
LOC: M ED 13:56
DX: R07.89 Other chest pain (principal); R06.02 Shortness of breath; I10 Essential (primary) hypertension; E11.9 Type 2 diabetes mellitus without complications; F32.A Depression, unspecified; E78.5 Hyperlipidemia, unspecified; R56.9 Unspecified convulsions; Z88.0 Allergy status to penicillin; Z88.5 Allergy status to narcotic agent; Z79.4 Long term (current) use of insulin; Z79.84 Long term (current) use of oral hypoglycemic drugs; Z79.899 Other long term (current) drug therapy

== ENCOUNTER 2022-05-18 11:18 | Emergency (ER) | payer MEDICARE, MEDICAID ==
[~2022-05-18] VITALS: Ht 157.5 cm; Wt 81.4 kg
[2022-05-18] MEDS ORDERED: NS 1,000 ML IV ONE ×2 (12:35→14:20)
[2022-05-18] MEDS ORDERED: ONDANSETRON 4MG 2ML VIAL IV ONE (12:35)
[2022-05-18 13:12] LABS: VENOUS HCO3 22.9 MEQ/L (23.0-27.0); VENOUS O2 SATURATION 84.2 % (60.0-80.0); VENOUS PARTIAL PRESSURE CO2 39.6 mmHg (38.0-50.0); VENOUS PARTIAL PRESSURE O2 50.6 mmHg (30.0-50.0); VENOUS STANDARD HCO3 22.5 MEQ/L; VENOUS TOTAL CO2 24.1 MEQ/L (24.0-28.0)
[2022-05-18 13:13] LABS: BASO # 0.1 10^3/uL (0.0-0.2); BASO % 0.5 % (0.0-1.0); EOS % 0.1 % (0.0-3.0); HEMATOCRIT 40.5 % (36.0-47.0); HEMOGLOBIN 12.1 g/dl (12.0-15.5); LYMPH # 2.1 10^3/uL (1.5-5.0); MEAN CORPUSCULAR HEMOGLOBIN 21.1 pg (27.0-33.0); MEAN CORPUSCULAR HGB CONC 29.9 g/dl (32.0-36.5); MEAN CORPUSCULAR VOLUME 70.7 fl (80.0-96.0); MONO # 0.4 10^3/uL (0.0-0.8); NEUTROPHILS # 7.8 10^3/uL (1.5-8.5); NEUTROPHILS % 75.2 % (36.0-66.0); PLATELET COUNT, AUTOMATED 455 10^3/uL (150-450); RED BLOOD COUNT 5.73 10^6/uL (4.00-5.40); WHITE BLOOD COUNT 10.4 10^3/uL (4.0-10.0)
[2022-05-18 13:52] LABS: ACETONE/KETONE 29.18 MG/DL (<2.81); ALBUMIN 3.5 GM/DL (3.2-5.2); ALT/SGPT 20 U/L (12-78); BILIRUBIN,DIRECT 0.1 MG/DL (0.0-0.2); BILIRUBIN,TOTAL 0.7 MG/DL (0.2-1.0); BLOOD UREA NITROGEN 9 MG/DL (7-18); CALCIUM LEVEL 9.5 MG/DL (8.5-10.1); CARBON DIOXIDE LEVEL 28 MEQ/L (21-32); CHLORIDE LEVEL 101 MEQ/L (98-107); CREATININE FOR GFR 1.03 MG/DL (0.55-1.30); GLOMERULAR FILTRATION RATE > 60.0 (>60); GLUCOSE, FASTING 99 MG/DL (70-100); LIPASE 139 U/L (73-393); POTASSIUM SERUM 5.9 MEQ/L (3.5-5.1); SODIUM LEVEL 136 MEQ/L (136-145); TOTAL PROTEIN 7.9 GM/DL (6.4-8.2)
[2022-05-18 15:31] VITALS: BP 170/96
== END 2022-05-18 15:32 | disposition home or self-care (01) ==
LOC: M ED 11:18
DX: R11.2 Nausea with vomiting, unspecified (principal); R19.7 Diarrhea, unspecified; E86.0 Dehydration; E11.9 Type 2 diabetes mellitus without complications; I10 Essential (primary) hypertension; E78.5 Hyperlipidemia, unspecified; R56.9 Unspecified convulsions; F41.0 Panic disorder [episodic paroxysmal anxiety]; K21.9 Gastro-esophageal reflux disease without esophagitis; N80.9 Endometriosis, unspecified; Z88.0 Allergy status to penicillin; Z88.5 Allergy status to narcotic agent; Z79.4 Long term (current) use of insulin; Z79.84 Long term (current) use of oral hypoglycemic drugs; Z79.899 Other long term (current) drug therapy
CPT/HCPCS: 80048; 80076; 82010; 82803; 83690; 84702; 85025; 96361; 96374; 99284; J2405

== ENCOUNTER → 2022-06-13 | Outpatient (CLI) | payer MEDICARE, MEDICAID ==
[2022-06-13 17:14] LABS: BASO # 0.1 10^3/uL (0.0-0.2); BASO % 0.6 % (0.0-1.0); EOS # 0.1 10^3/uL (0.0-0.5); EOS % 1.5 % (0.0-3.0); HEMATOCRIT 36.2 % (36.0-47.0); HEMOGLOBIN 10.6 g/dl (12.0-15.5); MEAN CORPUSCULAR HEMOGLOBIN 21.1 pg (27.0-33.0); MEAN CORPUSCULAR HGB CONC 29.3 g/dl (32.0-36.5); MONO # 0.5 10^3/uL (0.0-0.8); MONO % 5.6 % (2.0-8.0); NEUTROPHILS # 5.7 10^3/uL (1.5-8.5); NEUTROPHILS % 60.1 % (36.0-66.0); PLATELET COUNT, AUTOMATED 448 10^3/uL (150-450); RED BLOOD COUNT 5.03 10^6/uL (4.00-5.40); WHITE BLOOD COUNT 9.5 10^3/uL (4.0-10.0)
[2022-06-13 17:30] LABS: HEMOGLOBIN A1c 8.5 %
[2022-06-13 18:00] LABS: ALBUMIN 3.3 GM/DL (3.2-5.2); ALT/SGPT 18 U/L (12-78); BILIRUBIN,TOTAL 0.3 MG/DL (0.2-1.0); BLOOD UREA NITROGEN 9 MG/DL (7-18); CALCIUM LEVEL 9.3 MG/DL (8.5-10.1); CARBON DIOXIDE LEVEL 28 MEQ/L (21-32); CHLORIDE LEVEL 106 MEQ/L (98-107); CREATININE FOR GFR 0.88 MG/DL (0.55-1.30); FREE T4 1.04 NG/DL (0.76-1.46); GLOMERULAR FILTRATION RATE > 60.0 (>60); GLUCOSE, FASTING 183 MG/DL (70-100); POTASSIUM SERUM 4.3 MEQ/L (3.5-5.1); SODIUM LEVEL 140 MEQ/L (136-145); THYROID STIMULATING HORMONE 0.323 uIU/ML (0.358-3.740); TOTAL PROTEIN 6.9 GM/DL (6.4-8.2)
== END ==
LOC: M PLALAB 14:47
PROVIDERS: ATTEND Internal Medicine
DX: R19.7 Diarrhea, unspecified (principal)

== ENCOUNTER → 2022-07-01 | Outpatient (CLI) | payer MEDICARE, MEDICAID ==
[2022-07-01 19:19] LABS: GC DNA AMPLIFICATION NEGATIVE (NEGATIVE)
[2022-07-01 19:24] LABS: HEPATITIS B SURFACE ANTIGEN NEGATIVE (NEGATIVE); HEPATITIS C VIRUS ABY INDEX < 0.0 INDEX (<0.8); HIV 1&2 SCREEN CENTAUR NEGATIVE (NEGATIVE)
== END ==
LOC: M PLALAB 14:25
PROVIDERS: ATTEND Obstetrics & Gynecology
DX: Z11.3 Encounter for screening for infections with a predominantly sexual mode of transmission (principal)

== ENCOUNTER 2022-09-27 13:39 | Emergency (ER) | payer MEDICARE, MEDICAID ==
[~2022-09-27] VITALS: Ht 157.5 cm; Wt 81.8 kg
[2022-09-27] MEDS ORDERED: NS 1,000 ML IV ONE ×2 (13:50→15:00)
[2022-09-27] MEDS ORDERED: HALOPERIDOL 5MG/ML VIAL (J1630 PER 1) IV ONE (13:50)
[2022-09-27 14:05] LABS: BASO # 0.1 10^3/uL (0.0-0.2); BASO % 0.3 % (0.0-1.0); HEMATOCRIT 42.4 % (36.0-47.0); LYMPH # 1.3 10^3/uL (1.5-5.0); LYMPH % 8.6 % (24.0-44.0); MEAN CORPUSCULAR HEMOGLOBIN 22.5 pg (27.0-33.0); MEAN CORPUSCULAR HGB CONC 30.7 g/dl (32.0-36.5); MEAN CORPUSCULAR VOLUME 73.4 fl (80.0-96.0); MONO # 0.3 10^3/uL (0.0-0.8); MONO % 1.8 % (2.0-8.0); NEUTROPHILS # 13.7 10^3/uL (1.5-8.5); NEUTROPHILS % 88.8 % (36.0-66.0); PLATELET COUNT, AUTOMATED 484 10^3/uL (150-450); RED BLOOD COUNT 5.78 10^6/uL (4.00-5.40); WHITE BLOOD COUNT 15.4 10^3/uL (4.0-10.0)
[2022-09-27] MEDS ORDERED: LOSA100T45 PO (14:14)
[2022-09-27] MEDS ORDERED: hydroCHLOROthiazide 12.5 MG CAPSULE PO ONE (14:30)
[2022-09-27] MEDS ORDERED: LOSARTAN 50MG TABLET PO ONE (14:30)
[2022-09-27 14:49] LABS: HCG, SERUM QUALITATIVE NEGATIVE (NEGATIVE)
[2022-09-27 14:57] LABS: ALBUMIN 4.2 G/DL (3.2-5.2); ALKALINE PHOSPHATASE 63 U/L (46-116); ALT/SGPT 21 U/L (7.0-40); AST/SGOT 15 U/L (<34); BILIRUBIN,DIRECT 0.3 MG/DL (<0.4); BILIRUBIN,TOTAL 0.8 MG/DL (0.3-1.2); BLOOD UREA NITROGEN 16 MG/DL (9-23); CALCIUM LEVEL 10.3 MG/DL (8.5-10.1); CARBON DIOXIDE LEVEL 24 MMOL/L (20-31); CHLORIDE LEVEL 99 MMOL/L (98-107); CREATININE FOR GFR 0.96 MG/DL (0.55-1.30); GLOMERULAR FILTRATION RATE > 60.0 (>60); GLUCOSE, FASTING 161 MG/DL (60-100); POTASSIUM SERUM 3.8 MMOL/L (3.5-5.1); SODIUM LEVEL 141 MMOL/L (136-145)
[2022-09-27 15:13] LABS: VENOUS HCO3 20.7 MEQ/L (23.0-27.0); VENOUS O2 SATURATION 91.5 % (60.0-80.0); VENOUS PARTIAL PRESSURE CO2 36.8 mmHg (38.0-50.0); VENOUS PARTIAL PRESSURE O2 66.4 mmHg (30.0-50.0); VENOUS PH 7.369 UNITS (7.330-7.430); VENOUS STANDARD HCO3 21.1 MEQ/L; VENOUS TOTAL CO2 21.9 MEQ/L (24.0-28.0)
[2022-09-27 15:36] VITALS: BP 193/100
[2022-09-27 17:30] VITALS: BP 148/74
== END 2022-09-27 17:55 | disposition home or self-care (01) ==
LOC: M ED 13:39 → EDBD 13:39 → M ED 17:55
DX: R11.2 Nausea with vomiting, unspecified (principal); E11.9 Type 2 diabetes mellitus without complications; F41.1 Generalized anxiety disorder; I10 Essential (primary) hypertension; Z88.0 Allergy status to penicillin; Z88.5 Allergy status to narcotic agent; Z79.4 Long term (current) use of insulin; Z79.899 Other long term (current) drug therapy
CPT/HCPCS: 80047; 80048; 80076; 82803; 84703; 85025; 96361; 96374; 99284; J1630

== ENCOUNTER → 2022-09-29 | Outpatient (CLI) | payer MEDICARE, MEDICAID ==
[~2022-09-29] MED LIST changes: +LOSA100T45 PO
[2022-09-29 18:09] LABS: BASO # 0.1 10^3/uL (0.0-0.2); BASO % 0.7 % (0.0-1.0); EOS # 0.1 10^3/uL (0.0-0.5); EOS % 1.2 % (0.0-3.0); HEMATOCRIT 43.1 % (36.0-47.0); HEMOGLOBIN 12.9 g/dl (12.0-15.5); LYMPH # 3.7 10^3/uL (1.5-5.0); LYMPH % 31.8 % (24.0-44.0); MEAN CORPUSCULAR HEMOGLOBIN 22.7 pg (27.0-33.0); MEAN CORPUSCULAR HGB CONC 29.9 g/dl (32.0-36.5); MEAN CORPUSCULAR VOLUME 75.9 fl (80.0-96.0); MONO # 0.7 10^3/uL (0.0-0.8); MONO % 6.1 % (2.0-8.0); NEUTROPHILS # 6.9 10^3/uL (1.5-8.5); NEUTROPHILS % 59.9 % (36.0-66.0); PLATELET COUNT, AUTOMATED 467 10^3/uL (150-450); RED BLOOD COUNT 5.68 10^6/uL (4.00-5.40); WHITE BLOOD COUNT 11.6 10^3/uL (4.0-10.0)
[2022-09-29 18:38] LABS: CREATININE, URINE 62.5 MG/DL
[2022-09-29 18:40] LABS: ALBUMIN 4.1 G/DL (3.2-5.2); ALKALINE PHOSPHATASE 55 U/L (46-116); ALT/SGPT 33 U/L (7.0-40); AST/SGOT 29 U/L (<34); BILIRUBIN,TOTAL 0.5 MG/DL (0.3-1.2); BLOOD UREA NITROGEN 10 MG/DL (9-23); CALCIUM LEVEL 9.8 MG/DL (8.5-10.1); CARBON DIOXIDE LEVEL 28 MMOL/L (20-31); CHLORIDE LEVEL 98 MMOL/L (98-107); CREATININE FOR GFR 0.92 MG/DL (0.55-1.30); GLOMERULAR FILTRATION RATE > 60.0 (>60); GLUCOSE, FASTING 170 MG/DL (60-100); SODIUM LEVEL 138 MMOL/L (136-145); TOTAL PROTEIN 7.7 G/DL (5.7-8.2)
[2022-09-29 18:47] LABS: HEMOGLOBIN A1c 8.7 % (4.0-6.0)
== END ==
LOC: M PLALAB 14:34
PROVIDERS: ATTEND Student in an Organized Health Care Education/Training Program
DX: E11.40 Type 2 diabetes mellitus with diabetic neuropathy, unspecified (principal); J02.9 Acute pharyngitis, unspecified

== ENCOUNTER → 2022-11-02 | Outpatient (CLI) | payer MEDICARE, MEDICAID ==
[~2022-11-02] MED LIST changes: +ARIP1TAB10 PO; +IBUP200C90 PO; +LAMO200T3 PO; -LEVE750T5; +LEVE750T5 PO; +LUPR22.5 IM; -MEDR10TA PO; +MEDR10TA9 PO; +NORE5TAB PO; +ONDA-83 PO; +TRUL10IN SC
== END ==
LOC: M LABSMTC 09:33
PROVIDERS: ATTEND Anesthesiology
DX: Z01.818 Encounter for other preprocedural examination (principal); Z11.52 Encounter for screening for COVID-19

== ENCOUNTER → 2022-11-02 | Outpatient (CLI) | payer MEDICARE, MEDICAID ==
[~2022-11-02] MED LIST changes: +HYDR-3715 PO; +HYDR50TAB PO; +SIME80TA16 PO
[2022-11-02 11:16] LABS: BLOOD UREA NITROGEN 9 MG/DL (9-23); CALCIUM LEVEL 9.8 MG/DL (8.5-10.1); CARBON DIOXIDE LEVEL 28 MMOL/L (20-31); CHLORIDE LEVEL 100 MMOL/L (98-107); CREATININE FOR GFR 0.87 MG/DL (0.55-1.30); GLOMERULAR FILTRATION RATE > 60.0 (>60); GLUCOSE, FASTING 319 MG/DL (60-100); POTASSIUM SERUM 4.9 MMOL/L (3.5-5.1); SODIUM LEVEL 136 MMOL/L (136-145)
== END ==
LOC: M LAB 09:47
PROVIDERS: ATTEND Student in an Organized Health Care Education/Training Program
DX: I10 Essential (primary) hypertension (principal)

== ENCOUNTER 2022-11-05 06:03 | Day surgery (SDC) | payer MEDICARE, MEDICAID ==
[~2022-11-05] VITALS: Ht 157.5 cm; Wt 79.6 kg
[2022-11-05] VITALS (8 sets, daily range): BP systolic 120–165; BP diastolic 68–94
[~2022-11-05 06:03] MED LIST changes: -HYDR-3715 PO; -HYDR50TAB PO; -SIME80TA16 PO; +ceFAZolin SOD 2 GM in IV 1 EA IV ONE
[2022-11-05] MEDS ORDERED: LR 1,000 ML IV SCH ×2 (06:55→11:40)
[2022-11-05 07:00] LABS: MEAN CORPUSCULAR HEMOGLOBIN 22.5 pg (27.0-33.0); MEAN CORPUSCULAR VOLUME 72.8 fl (80.0-96.0); PLATELET COUNT, AUTOMATED 492 10^3/uL (150-450); RED BLOOD COUNT 5.77 10^6/uL (4.00-5.40); WHITE BLOOD COUNT 10.8 10^3/uL (4.0-10.0)
[2022-11-05 07:02] LABS: HCG, SERUM QUALITATIVE NEGATIVE (NEGATIVE)
[2022-11-05] MEDS ORDERED: propofoL 200 MG/20 ML VIAL As Ordered ONE ×2 (07:13→08:04)
[2022-11-05] MEDS ORDERED: LIDOCAINE 2% 100MG/5ML SDV (FOR ANES.) As Ordered ONE (07:13)
[2022-11-05] MEDS ORDERED: ROCURONIUM BROMIDE 50MG/5ML VIAL As Ordered ONE ×2 (07:13→08:37)
[2022-11-05] MEDS ORDERED: fentaNYL 250 MCG/5 ML INJECTION As Ordered ONE (07:14)
[2022-11-05] MEDS ORDERED: MIDAZOLAM INJ 2MG/2ML VIAL As Ordered ONE (07:14)
[2022-11-05] MEDS ORDERED: INSULIN LISPRO (NovoLOG) PER UNIT SC ONE (07:15)
[2022-11-05] MEDS ORDERED: LIDOCAINE W/EPINEPHRINE 1% 20ML VIAL As Ordered ONE (07:18)
[2022-11-05] MEDS ORDERED: BUPIVACAINE HCL 0.25% 30ML VIAL As Ordered ONE (07:18)
[2022-11-05] MEDS ORDERED: METHYLENE BLUE 0.5% (5MG/ML) 10 ML AMP (PROVAYBLUE) As Ordered ONE (07:18)
[2022-11-05] MEDS ORDERED: ACETAMINOPHEN 1000MG 100ML IV BAG As Ordered ONE (08:40)
[2022-11-05] MEDS ORDERED: KETOROLAC 60MG 2ML VIAL As Ordered ONE (08:40)
[2022-11-05] MEDS ORDERED: METOCLOPRAMIDE INJ 10MG/2ML VIAL As Ordered ONE (08:40)
[2022-11-05] MEDS ORDERED: ONDANSETRON 4MG 2ML VIAL As Ordered ONE (08:40)
[2022-11-05] MEDS ORDERED: HYDROmorphone HCL 2MG/ML 1ML VIAL As Ordered ONE (08:44)
[2022-11-05] MEDS ORDERED: SUGAMMADEX SODIUM 500 MG/5 ML VIAL (BRIDION) As Ordered ONE (10:06)
[2022-11-05] MEDS ORDERED: fentaNYL 100 MCG/2 ML INJECTION IV PRN (11:40)
[2022-11-05] MEDS ORDERED: ONDANSETRON 4MG 2ML VIAL IV PRN (11:40)
[2022-11-05] MEDS ORDERED: INSULIN LISPRO (NovoLOG) PER UNIT SC PRN (12:00)
[2022-11-05] MEDS: LABETALOL 100MG/20ML VIAL IV PRN ×3 (12:46→13:06)
[2022-11-05] MEDS ORDERED: LACRILUBE (AKWA TEARS) OPHTH OINT 3.5GM As Ordered ONE (14:25)
[2022-11-05] MEDS: NORCO, ANEXSIA 5/325MG TABLET (HYDROcodone/ACETAMINOPHEN) PO PRN ×2 (15:34→19:50)
[2022-11-05] MEDS ORDERED: HYDR50TAB PO (16:10)
[2022-11-05] MEDS ORDERED: HOME MED LIST COMPLETE! XX SCH (16:25)
[2022-11-05] MEDS ORDERED: GLUCAGON INJ 1MG VIAL SC PRN ×2 (17:05→21:35)
[2022-11-05] MEDS ORDERED: DEXTROSE 50% 50ML SYRINGE IV PRN ×2 (17:05→21:35)
[2022-11-05] MEDS ORDERED: GLUCOSE 4GM CHEW TABLET PO PRN ×2 (17:05→21:35)
[2022-11-05] MEDS ORDERED: INSULIN LISPRO (NovoLOG) PER UNIT SC SCH ×3 (17:30→21:00)
[2022-11-05] MEDS: KETOROLAC 30 MG/ML 1ML VIAL IV SCH (17:52)
[2022-11-05] MEDS: metFORMIN (GLUCOPHAGE) 1000MG TABLET PO SCH ×2 (17:52→17:59)
[2022-11-05] MEDS: ONDANSETRON 4MG 2ML VIAL IV PRN (19:49)
[2022-11-05] MEDS ORDERED: SIMETHICONE 80MG CHEW TAB PO PRN (20:45)
[2022-11-05] MEDS: ATORVASTATIN 20 MG TAB PO SCH (22:25)
[2022-11-05] MEDS: levETIRAcetam 250MG TABLET (KEPPRA) PO SCH (22:25)
[2022-11-05] MEDS ORDERED: LACTATED RINGER'S 1000 ML IV ONE (23:10)
[2022-11-05] MEDS: LR 1,000 ML IV SCH (23:25)
[2022-11-06] VITALS (15 sets, daily range): BP systolic 125–150; BP diastolic 60–96
[2022-11-06] MEDS: INSULIN LISPRO (NovoLOG) PER UNIT SC SCH ×5 (00:29→21:00)
[2022-11-06] MEDS: LEVEMIR (INSULIN DETEMIR) 1 UNITS/0.01ML SC SCH ×2 (00:29→21:45)
[2022-11-06] MEDS: KETOROLAC 30 MG/ML 1ML VIAL IV SCH ×4 (01:13→18:17)
[2022-11-06] MEDS: metFORMIN (GLUCOPHAGE) 1000MG TABLET PO SCH ×2 (07:39→18:00)
[2022-11-06] MEDS: ONDANSETRON 4MG 2ML VIAL IV PRN (08:31)
[2022-11-06] MEDS: FLUoxetine 20MG CAP PO SCH (08:32)
[2022-11-06] MEDS: levETIRAcetam 250MG TABLET (KEPPRA) PO SCH ×3 (08:32→21:40)
[2022-11-06] MEDS: LOSARTAN 50MG TABLET PO SCH (08:35)
[2022-11-06] MEDS ORDERED: hydroCHLOROthiazide 12.5 MG CAPSULE PO SCH (09:00)
[2022-11-06 13:09] LABS: HEMATOCRIT 22.5 % (36.0-47.0); MEAN CORPUSCULAR HEMOGLOBIN 23.1 pg (27.0-33.0); MEAN CORPUSCULAR HGB CONC 31.1 g/dl (32.0-36.5); MEAN CORPUSCULAR VOLUME 74.3 fl (80.0-96.0); PLATELET COUNT, AUTOMATED 347 10^3/uL (150-450); RED BLOOD COUNT 3.03 10^6/uL (4.00-5.40); WHITE BLOOD COUNT 13.8 10^3/uL (4.0-10.0)
[2022-11-06 13:12] LABS: ALBUMIN 2.8 G/DL (3.2-5.2); BILIRUBIN,TOTAL 0.4 MG/DL (0.3-1.2); CALCIUM LEVEL 8.1 MG/DL (8.5-10.1); CREATININE FOR GFR 1.97 MG/DL (0.55-1.30); GLOMERULAR FILTRATION RATE 30.4 (>60); POTASSIUM SERUM 4.1 MMOL/L (3.5-5.1); TOTAL PROTEIN 5.5 G/DL (5.7-8.2)
[2022-11-06] MEDS: PANTOPRAZOLE 40MG VIAL IV SCH (13:20)
[2022-11-06] MEDS: LR 1,000 ML IV SCH (13:36)
[2022-11-06 16:38] LABS: CREATININE,RANDOM URINE 182.1 MG/DL
[2022-11-06 16:42] LABS: SODIUM,RANDOM URINE < 10 MMOL/L
[2022-11-06] MEDS ORDERED: PILL CUTTER 1 EACH XX PRN (19:30)
[2022-11-06] MEDS: ATORVASTATIN 20 MG TAB PO SCH ×2 (21:00→21:40)
[2022-11-06 23:40] LABS: MEAN CORPUSCULAR HEMOGLOBIN 25.5 pg (27.0-33.0); MEAN CORPUSCULAR HGB CONC 32.8 g/dl (32.0-36.5); RED BLOOD COUNT 3.72 10^6/uL (4.00-5.40); WHITE BLOOD COUNT 11.4 10^3/uL (4.0-10.0)
[2022-11-06 23:49] LABS: HEMOGLOBIN 9.5 g/dl (12.0-15.5); PLATELET COUNT, AUTOMATED 244 10^3/uL (150-450)
[2022-11-07] VITALS: BP 150/75
[2022-11-07] MEDS: KETOROLAC 30 MG/ML 1ML VIAL IV SCH ×3 (00:15→11:57)
[2022-11-07] MEDS: LR 1,000 ML IV SCH ×3 (01:40→09:30)
[2022-11-07 04:00] VITALS: BP 144/80
[2022-11-07] MEDS: INSULIN LISPRO (NovoLOG) PER UNIT SC SCH ×2 (07:30→13:23)
[2022-11-07 08:30] VITALS: BP 145/80
[2022-11-07] MEDS: ARIPiprazole 15 MG TAB (AbiLIFY) PO SCH ×2 (08:45→09:00)
[2022-11-07] MEDS: PANTOPRAZOLE 40MG VIAL IV SCH ×2 (08:45→08:55)
[2022-11-07] MEDS: metFORMIN (GLUCOPHAGE) 1000MG TABLET PO SCH (08:47)
[2022-11-07] MEDS: levETIRAcetam 250MG TABLET (KEPPRA) PO SCH (08:53)
[2022-11-07] MEDS: FLUoxetine 20MG CAP PO SCH (08:54)
[2022-11-07 09:00] VITALS: BP 145/80
[2022-11-07] MEDS: LOSARTAN 50MG TABLET PO SCH (09:00)
[2022-11-07 12:00] VITALS: BP 166/87
[2022-11-07 12:40] VITALS: BP 156/84
[2022-11-07] MEDS ORDERED: HYDR-3715 PO (15:21)
[2022-11-07] MEDS ORDERED: SIME80TA16 PO (15:21)
== END 2022-11-07 16:25 | disposition home or self-care (01) ==
LOC: M SDC 06:03 → M PED 13:50 → M SDC 11-07 16:25
PROVIDERS: ATTEND Obstetrics & Gynecology
DX: N84.0 Polyp of corpus uteri (principal); D25.9 Leiomyoma of uterus, unspecified; N73.6 Female pelvic peritoneal adhesions (postinfective); G89.18 Other acute postprocedural pain; D50.0 Iron deficiency anemia secondary to blood loss (chronic); N93.9 Abnormal uterine and vaginal bleeding, unspecified; N32.89 Other specified disorders of bladder; N39.3 Stress incontinence (female) (male); R10.2 Pelvic and perineal pain; I10 Essential (primary) hypertension; E78.00 Pure hypercholesterolemia, unspecified; E11.9 Type 2 diabetes mellitus without complications; K21.9 Gastro-esophageal reflux disease without esophagitis; M17.11 Unilateral primary osteoarthritis, right knee; M79.7 Fibromyalgia; F31.9 Bipolar disorder, unspecified; R56.9 Unspecified convulsions; Z88.5 Allergy status to narcotic agent; Z88.0 Allergy status to penicillin; Z79.899 Other long term (current) drug therapy; Z79.4 Long term (current) use of insulin; Z79.84 Long term (current) use of oral hypoglycemic drugs
CPT/HCPCS: 36415; 36430; 57288; 58571; 80053; 82570; 84300; 84703; 85027; 86850; 86870; 86900; 86901; 86920; 88307; 96374; 96375; 96376; C1771; C9113; J1815; J2405; P9016; S2900

== ENCOUNTER → 2022-11-13 | Outpatient (CLI) | payer MEDICARE, MEDICAID ==
[~2022-11-13] MED LIST changes: +HYDR-3715 PO; +HYDR50TAB PO; +SIME80TA16 PO; -ceFAZolin SOD 2 GM in IV 1 EA IV ONE
[2022-11-13 17:14] LABS: HEMATOCRIT 31.5 % (36.0-47.0); HEMOGLOBIN 9.5 g/dl (12.0-15.5); MEAN CORPUSCULAR HEMOGLOBIN 25.7 pg (27.0-33.0); MEAN CORPUSCULAR HGB CONC 30.2 g/dl (32.0-36.5); MEAN CORPUSCULAR VOLUME 85.1 fl (80.0-96.0); PLATELET COUNT, AUTOMATED 465 10^3/uL (150-450); WHITE BLOOD COUNT 9.9 10^3/uL (4.0-10.0)
[2022-11-13 17:48] LABS: ALBUMIN 3.1 G/DL (3.2-5.2); ALKALINE PHOSPHATASE 80 U/L (46-116); ALT/SGPT 15 U/L (7.0-40); AST/SGOT 27 U/L (<34); BILIRUBIN,TOTAL 0.9 MG/DL (0.3-1.2); BLOOD UREA NITROGEN 13 MG/DL (9-23); CALCIUM LEVEL 8.7 MG/DL (8.5-10.1); CARBON DIOXIDE LEVEL 28 MMOL/L (20-31); CHLORIDE LEVEL 103 MMOL/L (98-107); CREATININE FOR GFR 0.86 MG/DL (0.55-1.30); GLOMERULAR FILTRATION RATE > 60.0 (>60); GLUCOSE, FASTING 227 MG/DL (60-100); POTASSIUM SERUM 4.4 MMOL/L (3.5-5.1); SODIUM LEVEL 138 MMOL/L (136-145); TOTAL PROTEIN 6.3 G/DL (5.7-8.2)
== END ==
LOC: M PLALAB 15:32
PROVIDERS: ATTEND Obstetrics & Gynecology
DX: Z48.816 Encounter for surgical aftercare following surgery on the genitourinary system (principal)

== ENCOUNTER 2023-01-13 20:45 | Emergency (ER) | payer MEDICARE, MEDICAID ==
[~2023-01-13] VITALS: Ht 157.5 cm; Wt 79.5 kg
[2023-01-13 22:04] LABS: VENOUS BASE EXCESS 3.5 (-2.0-2.0); VENOUS PARTIAL PRESSURE CO2 51.8 mmHg (38.0-50.0); VENOUS PARTIAL PRESSURE O2 51.6 mmHg (30.0-50.0); VENOUS STANDARD HCO3 27.2 MEQ/L; VENOUS TOTAL CO2 31.5 MEQ/L (24.0-28.0)
[2023-01-13 22:06] LABS: BASO % 0.3 % (0.0-1.0); EOS % 0.2 % (0.0-3.0); HEMATOCRIT 46.8 % (36.0-47.0); HEMOGLOBIN 15.4 g/dl (12.0-15.5); LYMPH # 2.5 10^3/uL (1.5-5.0); LYMPH % 22.1 % (24.0-44.0); MEAN CORPUSCULAR HEMOGLOBIN 26.8 pg (27.0-33.0); MEAN CORPUSCULAR HGB CONC 32.9 g/dl (32.0-36.5); MEAN CORPUSCULAR VOLUME 81.4 fl (80.0-96.0); MONO # 0.4 10^3/uL (0.0-0.8); MONO % 3.6 % (2.0-8.0); NEUTROPHILS # 8.4 10^3/uL (1.5-8.5); NEUTROPHILS % 73.5 % (36.0-66.0); PLATELET COUNT, AUTOMATED 280 10^3/uL (150-450); RED BLOOD COUNT 5.75 10^6/uL (4.00-5.40); WHITE BLOOD COUNT 11.4 10^3/uL (4.0-10.0)
[2023-01-13 22:24] LABS: HEMOGLOBIN A1c 8.3 % (4.0-6.0)
[2023-01-13 22:33] LABS: ALBUMIN 4.3 G/DL (3.2-5.2); BILIRUBIN,DIRECT 0.2 MG/DL (<0.4); BILIRUBIN,TOTAL 0.6 MG/DL (0.3-1.2); TOTAL PROTEIN 7.7 G/DL (5.7-8.2)
[2023-01-13] MEDS ORDERED: NS 1,000 ML IV ONE (23:25)
[2023-01-13] MEDS ORDERED: GI COCKTAIL 50ML BTL(HYOSCYAMINE/MAALOX/LIDOCAINE VISCOUS)(1:3:1) PO ONE (23:25)
[2023-01-13] MEDS ORDERED: ONDANSETRON 4MG 2ML VIAL IV ONE (23:25)
[2023-01-13] MEDS ORDERED: SUCRALFATE 1 GM TAB PO ONE (23:25)
[2023-01-13] MEDS ORDERED: ISOVUE-370 76% 100ML VIAL As Ordered ONE (23:28)
[2023-01-13 23:51] VITALS: BP 138/78
[2023-01-14] MEDS ORDERED: ONDA4TAB6 PO (00:46)
== END 2023-01-14 01:25 | disposition home or self-care (01) ==
LOC: M ED 20:45
DX: R11.2 Nausea with vomiting, unspecified (principal); E11.9 Type 2 diabetes mellitus without complications; I10 Essential (primary) hypertension; E78.5 Hyperlipidemia, unspecified; R56.9 Unspecified convulsions; Z88.0 Allergy status to penicillin; Z88.5 Allergy status to narcotic agent; Z79.4 Long term (current) use of insulin; Z79.899 Other long term (current) drug therapy; Z79.84 Long term (current) use of oral hypoglycemic drugs
CPT/HCPCS: 74177; 80047; 80076; 82010; 82803; 83036; 83690; 83930; 85025; 96361; 96374; 99284; J2405; Q9967